=== PATIENT | male | born 1940 | race Caucasian/White ===

== ENCOUNTER 2017-11-16 16:32 | Emergency (ER) | payer OTHER ==
[~2017-11-16] VITALS: Ht 170.2 cm; Wt 83.9 kg
--- OUTSIDE RECORDS SUMMARY | ~2017-11-16 | XMS | Encounter Summary ---
Demographics + + + | Address | [address] | | | [place] [address] | + + + | Home Phone | | + + + | Preferred Language | Unknown | + + + | Marital Status | | + + + | Christian Affiliation | 1009 | + + + | Race | Unknown | + + + | Ethnic Group | Unknown | + + + Author + + + | Author | [facility] | | | and [place] | + + + | Organization | [facility] | | | and [place] | + + + | Address | Unknown | + + + | Phone | Unavailable | + + + Support + + + + + | Name | Relationship | Address | Phone | + + + + + | Tameka Cristobal | ECON | [address] | | | | | [place] [address] | | + + + + + Care Team Providers + +------+ + | Care Pony Cylinder Press Operator Name | Role | Phone | + +------+ + | Ann Rivera MD | PCP | | + +------+ + Reason for Visit + + + | Reason | Comments | + + + | Abnormal Lab | | + + + Auth/Cert +--------+--------+ + + + + | Status | Reason | Specialty | Diagnoses / | Referred By | Referred To | | | | | Procedures | Contact | Contact | +--------+--------+ + + + + | | | | Diagnoses | | | | | | | Weakness | | | | | | | Shortness of | | | | | | | breath on | | | | | | | exertion | | | | | | | Symptomatic | | | | | | | anemia | | | | | | | Anemia, | | | | | | | unspecified | | | | | | | type | | | +--------+--------+ + + + + Encounter Details +--------+---------+ + + + | Date | Type | Department | Care Team | Description | +--------+---------+ + + + | 08/28/ | Surgery | [facility] | Linda Carpenter MD | EGD | | 2018 | | [facility] | [address], [place] | | | | | [address] | [address] | | | | | [place], [place] | [address] | | | | | [phone] | | | | | | [phone] | | | +--------+---------+ + + + Social History + +--------+ +--------+ + | Tobacco Use | Types | Packs/Day | Years | Date | | | | | Used | | + +--------+ +--------+ + | Former Smoker | Cigars | | | Quit: 12/26/1966 | + +--------+ +--------+ + + +---+---+---+ | Smokeless Tobacco: | | | | | Never Used | | | | + +---+---+---+ + + +---------+ + | Alcohol Use | Drinks/We | oz/Week | Comments | | | ek | | | + + +---------+ + | Yes | 14 | 8.4 | | | | Glasses | | | | | of wine | | | + + +---------+ + + + + | Sex Assigned at | Date Recorded | | | | + + + | Not on file | | + + + as of this encounter Last Filed Vital Signs + + + + | Vital Sign | Reading | Time Taken | + + + + | Blood Pressure | 127/74 | 08/28/20171718 PDT | + + + + | Pulse | 75 | 08/28/20171718 PDT | + + + + | Temperature | 36 C (96.8 F) | 08/28/20171718 PDT | + + + + | Respiratory Rate | 20 | 08/28/20171718 PDT | + + + + | Oxygen Saturation | 99% | 08/28/20171718 PDT | + + + + | Inhaled Oxygen | - | - | | Concentration | | | + + + + | Weight | 79.8 kg (175 lb 14.8 | 08/28/2017 0200 PDT | | | oz) | | + + + + | Height | 170.2 cm (5' 7") | 08/26/20171601 PDT | + + + + | Body Mass Index | 27.55 | 08/28/2017 0200 PDT | + + + + in this encounter Functional Status + + + + | Functional Status | Response | Date of Assessment | + + + + | Are you deaf or do you have serious | No | 08/28/2017 | | difficulty hearing? | | | + + + + | Are you blind or do you have serious | No | 08/28/2017 | | difficulty seeing, even when wearing | | | | glasses? | | | + + + + | Do you have serious difficulty walking or | No | 08/28/2017 | | climbing stairs? (5 years old or older) | | | + + + + | Do you have difficulty dressing or bathing? | No | 08/28/2017 | | (5 years old or older) | | | + + + + | Because of a physical, mental, or emotional | No | 08/28/2017 | | condition, do you have difficulty doing | | | | errands alone such as visiting a doctor's | | | | office or shopping? [15 years old or | | | | older)] | | | + + + + + + + + | Cognitive Status | Response | Date of Assessment | + + + + | Because of a physical, mental, or emotional | No | 08/28/2017 | | condition, do you have serious difficulty | | | | concentrating, remembering, or making | | | | decisions? (5 years old or older) | | | + + + + as of this encounter Discharge Summaries Anish Arroyo MD - 08/28/2017 1610 PDTFormatting of this note may be different from th e original. DISCHARGE SUMMARY Patient Name: Linda Cristobal : 1940 Date of Admission: 08/26/2017 Date of Discharge: 08/28/17 Admitting Physician: Suri Celis MD Discharging Physician: Anish Arroyo MD Primary Care Provider: Sherrie Rivera MD Discharge Diagnoses: Principal Problem: Anemia associated with acute blood loss Active Problems: Leg edema Upper GI bleeding Severe protein-calorie malnutrition Hypokalemia Hypomagnesemia Duodenal ulcer Low back pain Diabetes mellitus, type II - ORAL Control Essential hypertension Resolved Problems: * No resolved hospital problems. 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 Carpenter of GI Procedures: 08/28 EGD: Upper endoscopy was remarkable for antral gastritis. 2 ulcers were in the duodenal bulb an d duodenal sweep appeared to be healing. There was no evidence of visible vessel etc. H. py cande biopsy was obtained. I would continue the patient on his PPI therapy at 40 mg twice a day for a total of 2 weeks and then daily at least for 6 additional weeks. Xr Chest Pa And Lateral Result Date: 08/26/2017 EXAM: XR CHEST PA AND LATERAL dated 08/26/2017 6:21 PM HISTORY: ABNORMAL LAB Comparison: May TECHNIQUE: Frontal and lateral views of the chest. FINDINGS: The lungs are symme trically aerated. Hyperexpansion suggesting underlying obstructive pulmonary disease. Bila teral pleural plaque. No acute airspace disease. No pleural effusion. There are no pleura l effusions. There is no pneumothorax. Mild stable cardiomegaly. Partial visualization of disc arthroplasty changes in the cervical spine and fusion changes in the lumbar spine. IMP RESSION - No radiographic evidence for acute disease in the chest. 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 Mild cardiomegaly. Dictated and Signed by: Linda Medina MD Electronically signed: 08/26/2017 6:31 PM Labs in the last 24 hours: Recent Results (from the past 24 hour(s)) Red Blood Cells Uncrossmatched - 3 Units Result Value Ref Range Product Code O7913F07 UNIT # [id number] UNIT ABO A UNIT RH POS CROSSMATCH INTERP Compatible Unit Status Transfused Blood Product ABORh APOS Blood Product Expiration Date and Time Product Blood Type Barcode 6200 Product Code C0051S66 UNIT # [id number] UNIT ABO A UNIT RH POS CROSSMATCH INTERP Compatible Unit Status Transfused Blood Product ABORh APOS Blood Product Expiration Date and Time Product Blood Type Barcode 6200 Product Code G1847S83 UNIT # [id number] UNIT ABO A UNIT RH POS CROSSMATCH INTERP Compatible Unit Status Transfused Blood Product ABORh APOS Blood Product Expiration Date and Time [id number] Product Blood Type Barcode 6200 CBC with Differential Result Value Ref Range WBC 4.8 4.0 - 11.0 K/uL RBC 3.33 (L) 4.30 - 5.70 M/uL Hgb 11.6 (L) 13.5 - 18.0 g/dL Hct 30.6 (L) 40.0 - 51.0 % MCV 91.9 83.0 - 101.0 fL MCH 34.7 28.0 - 35.0 pg MCHC 37.8 (H) 32.0 - 36.0 g/dL RDW-CV 15.3 (H) <15.0 % Platelet Count 229 140 - 440 K/uL MPV 6.9 fL % Neutrophils 70.0 45.0 - 82.0 % % Lymphocytes 20.4 20.0 - 45.0 % % Monocytes 6.5 4.0 - 12.0 % % Eosinophils 2.3 0.0 - 5.0 % % Basophils 0.8 0.0 - 1.0 % Absolute Neutrophils 3.30 1.80 - 8.50 K/uL Absolute Lymphocytes 1.00 0.60 - 3.20 K/uL Absolute Monocytes 0.30 0.00 - 1.00 K/uL Absolute Eosinophils 0.10 0.00 - 0.40 K/uL Absolute Basophils 0.00 0.00 - 0.10 K/uL Basic Metabolic Panel Result Value Ref Range NA 136 136 - 149 mmol/L K 2.9 (L) 3.5 - 5.1 mmol/L CL 107 98 - 109 mmol/L CO2 21 (L) 24 - 31 mmol/L ANION GAP 8 3 - 16 mmol/L GLUCOSE 77 70 - 109 mg/dL BUN 7 7 - 18 mg/dL Creatinine, Serum/Plasma 0.74 0.60 - 1.30 mg/dL eGFR if not >60 >=60 mL/min/1.73m2 CALCIUM 8.2 (L) 8.3 - 10.5 mg/dL BUN/CREA 9.5 Magnesium Result Value Ref Range MG 0.9 (LL) 1.8 - 2.5 mg/dL Phosphorus Result Value Ref Range PHOSPHORUS 3.0 2.5 - 4.6 mg/dL Prealbumin Result Value Ref Range PREALBUMIN 15 (L) 18 - 38 mg/dL Reason for Admission: Please refer to the H&P for full details. In short, this is a 76 y.o. male with a history of degenerative lumbar disease s/p lumbar fusion on 07/[address] Tao, recent upper GI bleed tr eated at [facility], deconditioning with a number of falls, who presented with weakn ess, leg edema, weight loss, found to have severe anemia. Problem-Oriented Hospital Course: Upper GI bleed with blood loss anemia: - Christiano melena recently noted on 08/14-08/18 hospital stay at [facility], treated with Protonix, 2 units of PRBC's, no EGD done at outside hospital - Reportedly using NSAID's before this event, although history unclear - HGB fell from 11.5 on 08/18 on release from [place] to 7.2 on 08/26 - After 3 units on arrival, HGB stable at 11.6 today, no report of significant bleed while here - Placed on IV pantoprazole twice daily - Spoke with Dr. Carpenter, EGD 08/28 showed 2 duodenal ulcers, likely the source of the bleedin g, although no active bleed - Pantoprazole twice daily for two weeks, then daily for 6 weeks - No NSAID's or aspirin - H pylori results pending Recent lumbar surgery: - On 07/02, had lumbar fusion, L3-S1 - Still recovering from this, not taking pain meds at this point, stopped gabapentin which he is not taking - LSO precautions, work with PT/OT in the hospital - Appreciate PT/OT consult, plan to transfer to IRF today Severe protein calorie malnutrition: - Has lost about 25 pounds this year, with acknowledged poor intake, has severe electrolyte abnormalities and edema - Appreciate nutrition consult - Check Vitamin D level 08/29 Hypomagnesemia/hypokalemia: - Correct while here, monitor closely, likely partly due to malnutrition, may be partly due to alcohol as well - Mag of 0.9, gave 4 gm IV mag today, started on mag oxide, would check daily for several d ays - Hypokalemia of 2.9, gave 3 doses of oral potassium, check daily for now Leg edema: - Significant, likely had some high-output heart failure from severe anemia, also may be an effect of malnutrition - HGB stable currently, consider starting furosemide when K corrected and monitor closely Diabetes mellitus, oral control: - BS <100, stop metformin - Weighed 200 pounds until April, now down to 179 (with significant fluid overload), not cl ear that he has diabetes at this point - Should not restart metformin, stopped BS checks. Hyperlipidemia: - On rosuvastatin/fenofibrate Cognitive deficits: - Chronic and worsening per recorded history from - Calm, cooperative, no acute problems, much sharper 08/28, oriented to person, place, year, and month, although not date Glaucoma: - Continue home regimen Code Status: No Code. Disposition: IRF Discharge Condition: Stable, oriented, appropriate, pleasant and cooperative, joking Lungs clear Heart RRR Abdomen soft, NT Ext WWP, with 2-3 cm pitting edema Current Facility-Administered Medications: acetaminophen 650 mg Oral Q4H PRN docusate sodium 100 mg Oral BID PRN dorzolamide 2 drop Both Eyes BID fenofibrate 160 mg Oral Daily latanoprost 1 drop Both Eyes Nightly magnesium oxide 400 mg Oral Daily melatonin 1.5 mg Oral Nightly PRN ondansetron 4 mg Intravenous Q6H PRN pantoprazole 40 mg Oral BID AC polyethylene glycol 17 g Oral Daily PRN potassium chloride 20 mEq Oral Once [START ON 08/29/2017] potassium chloride 20 mEq Oral Daily rosuvastatin 10 mg Oral Nightly senna 8.6 mg Oral BID PRN Studies With Pending Results: h pylori results Greater than 30 minutes were spent on discharge and coordination of post-hospital care. Electronically signed by: Anish Arrooy MD, 08/28/2017 16:21 [facility] in this encounter Medications at Time of Discharge + + +---------+---------+ + + | Medication | Sig. | Disp. | Refills | Start | End Date | | | | | | Date | | + + +---------+---------+ + + | ammonium lactate | Apply 1 Application | | | | | | (LAC-HYDRIN) 12% | topically as needed | | | | | | lotion | for Dry Skin. | | | | | + + +---------+---------+ + + | chlorpheniramine | Take 4 mg by mouth | | | | | | (CHLOR-TRIMETON) 4 | every 6 hours as | | | | | | MG tablet | needed for | | | | | | | Allergies. | | | | | + + +---------+---------+ + + | Cholecalciferol | Take 1,000 Units by | | | | | | (VITAMIN D PO) | mouth. | | | | | + + +---------+---------+ + + | dorzolamide | Place 2 drops into | 20 mL | 0 | 07/05/20 | | | (TRUSOPT) 2% | both eyes 2 times | | | 18 | | | ophthalmic solution | daily. | | | | | + + +---------+---------+ + + | dorzolamide | Place 2 drops into | | | | | | (TRUSOPT) 2% | both eyes 2 times | | | | | | ophthalmic solution | daily. | | | | | + + +---------+---------+ + + | ferrous sulfate | Take 1 tablet by | 30 | 0 | 09/04/19 | | | 325 mg tablet | mouth 2 times daily | tablet | | 18 | | | | (with breakfast & | | | | | | | dinner). | | | | | + + +---------+---------+ + + | latanoprost | 1 drop nightly. | | | | | | (XALATAN) 0.005% | | | | | | | ophthalmic solution | | | | | | + + +---------+---------+ + + | magnesium oxide | Take 1 tablet by | 60 | 1 | 09/04/19 | | | (MAG-OX) 400 mg | mouth 2 times daily. | tablet | | 18 | | | tablet | | | | | | + + +---------+---------+ + + | Multiple | Take 1 tablet by | | | | | | Vitamins-Minerals | mouth Daily. | | | | | | (ADULT MULTIVITAMIN | | | | | | | WITH MINERALS/IRON) | | | | | | | TABS | | | | | | + + +---------+---------+ + + | pantoprazole | Take 1 tablet by | 60 | 1 | 09/04/19 | | | (PROTONIX) 40 mg | mouth 2 times daily | tablet | | 18 | | | tabletIndications: | (before meals). | | | | | | | Indications: | | | | | + + +---------+---------+ + + | rosuvastatin | Take 20 mg by mouth | | | | | | (CRESTOR) 20 mg | nightly. | | | | | | tablet | | | | | | + + +---------+---------+ + + | acetaminophen | Take 2 tablets by | 120 | 0 | 09/04/19 | | | (TYLENOL) 325 mg | mouth every 4 hours | tablet | | 18 | 8 | | tablet | as needed for Pain | | | | | | | (or fever >= 38.6 C | | | | | | | (101.5 F)). | | | | | + + +---------+---------+ + + | clobetasol | Apply topically | | | | | | (TEMOVATE) 0.05% | Twice daily as | | | | 8 | | cream | needed. | | | | | + + +---------+---------+ + + | fenofibrate | Take 145 mg by mouth | | | | | | (TRICOR) 145 mg | Daily. | | | | 8 | | tablet | | | | | | + + +---------+---------+ + + | magnesium oxide | Take 400 mg by mouth | | | | | | (MAG-OX) 400 mg | Daily. | | | | 8 | | tablet | | | | | | + + +---------+---------+ + + | metFORMIN | Take 500 mg by mouth | | | | | | (GLUCOPHAGE) 500 mg | 2 times daily (with | | | | 8 | | tablet | breakfast & | | | | | | | dinner). | | | | | + + +---------+---------+ + + | POLYVINYL ALCOHOL | Apply to eye 2 | | | | | | OP | times daily. | | | | 8 | + + +---------+---------+ + + | senna (SENOKOT) | Take 1 tablet by | 40 | 0 | 09/04/19 | | | 8.6 mg tablet | mouth Twice daily | tablet | | 18 | 8 | | | as needed for | | | | | | | Constipation. | | | | | + + +---------+---------+ + + | travoprost | Place 1 drop into | | | | | | (TRAVATAN Z) 0.004% | both eyes nightly. | | | | 8 | | ophthalmic solution | | | | | | + + +---------+---------+ + + as of this encounter Progress Notes Linda Carpenter MD - 08/28/2017 1332 PDTPatient was seen earlier this morning. Upper endos copy was explained to the patient due to his past history of upper GI bleed requiring transf usions and current drop in hemoglobin. We will proceed with upper endoscopy consent form is signedAnish Arroyo MD - 08/28/2017 0958 PDTFormatting of this note may be different f rom the original. [facility] Hospitalist Progress Note Linda Yakovmelquiades Cristobal is a 76 y.o. male SUBJECTIVE: No acute pain this morning. Some appetite. No bleeding reported overnight. No nausea o r vomiting. Legs have been swollen for several months. VITALS: Temp: 35.9 C (96.6 F), Pulse: 65, Resp: 16, BP: 111/52, SpO2 99 % on room air Temp Min : 35.9 C (96.6 F) Max: 37.4 C (99.4 F) Weight: 80.3 kg (177 lb) Intake/Output Summary (Last 24 hours) at 08/28/17 1005 Last data filed at 08/28/17 0817 Gross per 24 hour Intake 440 ml Output 1600 ml Net -1160 ml PHYSICAL EXAM: General: Alert, sharper this morning, sitting up in lumbar brace Cardiovascular: RRR Respiratory: CTA bilaterally Abdomen: Soft, NT, bowel sounds present Extremities: WWP, slightly diminished edema 2-3 cm pitting edema bilaterally Neurological: Oriented to person, place, "August 17", situation Bishop catheter present: No DIAGNOSTIC STUDIES: Available data and images were reviewed personally. Significant results and findings are a ddressed here or in the Assessment and Plan. Recent Results (from the past 24 hour(s)) POC Glucose Result Value Ref Range Glucose, POC 93 70 - 109 mg/dL Basic Metabolic Panel Result Value Ref Range NA 135 (L) 136 - 149 mmol/L K 4.1 3.5 - 5.1 mmol/L CL 111 (H) 98 - 109 mmol/L CO2 19 (L) 24 - 31 mmol/L ANION GAP 5 3 - 16 mmol/L GLUCOSE 90 70 - 109 mg/dL BUN 9 7 - 18 mg/dL Creatinine, Serum/Plasma 0.76 0.60 - 1.30 mg/dL eGFR if not >60 >=60 mL/min/1.73m2 CALCIUM 8.7 8.3 - 10.5 mg/dL BUN/CREA 11.8 CBC with Differential Result Value Ref Range WBC 6.1 4.0 - 11.0 K/uL RBC 3.56 (L) 4.30 - 5.70 M/uL Hgb 11.8 (L) 13.5 - 18.0 g/dL Hct 33.1 (L) 40.0 - 51.0 % MCV 93.0 83.0 - 101.0 fL MCH 33.1 28.0 - 35.0 pg MCHC 35.6 32.0 - 36.0 g/dL RDW-CV 15.5 (H) <15.0 % Platelet Count 208 140 - 440 K/uL MPV 6.9 fL % Neutrophils 73.3 45.0 - 82.0 % % Lymphocytes 18.0 (L) 20.0 - 45.0 % % Monocytes 5.6 4.0 - 12.0 % % Eosinophils 1.9 0.0 - 5.0 % % Basophils 1.2 (H) 0.0 - 1.0 % Absolute Neutrophils 4.50 1.80 - 8.50 K/uL Absolute Lymphocytes 1.10 0.60 - 3.20 K/uL Absolute Monocytes 0.30 0.00 - 1.00 K/uL Absolute Eosinophils 0.10 0.00 - 0.40 K/uL Absolute Basophils 0.10 0.00 - 0.10 K/uL Vitamin B-12 Result Value Ref Range VITAMIN B-12 381 180 - 914 pg/mL Folate Result Value Ref Range FOLATE 18.7 >5.8 ng/mL Red Blood Cells Uncrossmatched - 3 Units Result Value Ref Range Product Code J3265P60 UNIT # [id number] UNIT ABO A UNIT RH POS CROSSMATCH INTERP Compatible Unit Status Transfused Blood Product ABORh APOS Blood Product Expiration Date and Time Product Blood Type Barcode 6200 Product Code O1465H79 UNIT # [id number] UNIT ABO A UNIT RH POS CROSSMATCH INTERP Compatible Unit Status Transfused Blood Product ABOR APOS Blood Product Expiration Date and Time Product Blood Type Barcode 6200 Product Code S6829E98 UNIT # [id number] UNIT ABO A UNIT RH POS CROSSMATCH INTERP Compatible Unit Status Transfused Blood Product ABOR APOS Blood Product Expiration Date and Time Product Blood Type Barcode 6200 CBC with Differential Result Value Ref Range WBC 4.8 4.0 - 11.0 K/uL RBC 3.33 (L) 4.30 - 5.70 M/uL Hgb 11.6 (L) 13.5 - 18.0 g/dL Hct 30.6 (L) 40.0 - 51.0 % MCV 91.9 83.0 - 101.0 fL MCH 34.7 28.0 - 35.0 pg MCHC 37.8 (H) 32.0 - 36.0 g/dL RDW-CV 15.3 (H) <15.0 % Platelet Count 229 140 - 440 K/uL MPV 6.9 fL % Neutrophils 70.0 45.0 - 82.0 % % Lymphocytes 20.4 20.0 - 45.0 % % Monocytes 6.5 4.0 - 12.0 % % Eosinophils 2.3 0.0 - 5.0 % % Basophils 0.8 0.0 - 1.0 % Absolute Neutrophils 3.30 1.80 - 8.50 K/uL Absolute Lymphocytes 1.00 0.60 - 3.20 K/uL Absolute Monocytes 0.30 0.00 - 1.00 K/uL Absolute Eosinophils 0.10 0.00 - 0.40 K/uL Absolute Basophils 0.00 0.00 - 0.10 K/uL Basic Metabolic Panel Result Value Ref Range NA 136 136 - 149 mmol/L K 2.9 (L) 3.5 - 5.1 mmol/L CL 107 98 - 109 mmol/L CO2 21 (L) 24 - 31 mmol/L ANION GAP 8 3 - 16 mmol/L GLUCOSE 77 70 - 109 mg/dL BUN 7 7 - 18 mg/dL Creatinine, Serum/Plasma 0.74 0.60 - 1.30 mg/dL eGFR if not >60 >=60 mL/min/1.73m2 CALCIUM 8.2 (L) 8.3 - 10.5 mg/dL BUN/CREA 9.5 Magnesium Result Value Ref Range MG 0.9 (LL) 1.8 - 2.5 mg/dL Phosphorus Result Value Ref Range PHOSPHORUS 3.0 2.5 - 4.6 mg/dL Xr Chest Pa And Lateral Result Date: 08/26/2017 EXAM: XR CHEST PA AND LATERAL dated 08/26/2017 6:21 PM HISTORY: ABNORMAL LAB Comparison: May TECHNIQUE: Frontal and lateral views of the chest. FINDINGS: The lungs are symme trically aerated. Hyperexpansion suggesting underlying obstructive pulmonary disease. Bila teral pleural plaque. No acute airspace disease. No pleural effusion. There are no pleura l effusions. There is no pneumothorax. Mild stable cardiomegaly. Partial visualization of disc arthroplasty changes in the cervical spine and fusion changes in the lumbar spine. IMP RESSION - No radiographic evidence for acute disease in the chest. 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 Mild cardiomegaly. Dictated and Signed by: Linda Medina MD Electronically signed: 08/26/2017 6:31 PM ASSESSMENT and PLAN: Active Hospital Problems Diagnosis Severe protein-calorie malnutrition Hypokalemia Hypomagnesemia Leg edema Upper GI bleeding *Anemia associated with acute blood loss Low back pain Essential hypertension Diabetes mellitus, type II - ORAL Control Resolved Hospital Problems Diagnosis Date Noted Date Resolved No resolved problems to display. Upper GI bleed with blood loss anemia: - Christiano melena recently noted on 08/14-08/18 hospital stay at [facility], treated with Protonix, 2 units of PRBC's, no EGD has been done - Reportedly using NSAID's before this event, although history unclear - HGB fell from 11.5 on 08/18 to 7.2 on 08/26 - After 3 units on arrival, HGB stable at 11.6 today, no report of significant bleed while here - Placed on IV pantoprazole twice daily, NPO for EGD today - Spoke with Dr. Carpenter, who will plan on EGD today - Monitor HGB closely - No NSAID's or aspirin Recent lumbar surgery: - On 07/02, had lumbar fusion, L3-S1 - Still recovering from this, not taking pain meds at this point, stopped gabapentin which he is not taking - LSO precautions, work with PT/OT in the hospital - May need SNF Severe protein calorie malnutrition: - Has lost about 25 pounds this year, with acknowledged poor intake, has severe electrolyte abnormalities and edema - Appreciate nutrition consult - Check Vitamin D level Hypomagnesemia/hypokalemia: - Correct while here, monitor closely, likely partly due to malnutrition, may be partly due to alcohol as well Leg edema: - Significant, may have some high-output heart failure from severe anemia, also may be an e ffect of malnutrition - HGB stable currently, give furosemide IV and monitor closely Diabetes mellitus, oral control: - BS <100, stop metformin - Weighed 200 pounds until April, now down to 179 (with significant fluid overload) - Should not restart metformin, will stop BS checks. Hyperlipidemia: - On rosuvastatin/fenofibrate Cognitive deficits: - Chronic and worsening per recorded history from - Calm, cooperative, no acute problems Glaucoma: - Continue home regimen Disposition : SNF vs. Home with home health Prophylaxis : SCD's Current Facility-Administered Medications: acetaminophen 650 mg Oral Q4H PRN docusate sodium 100 mg Oral BID PRN dorzolamide 2 drop Both Eyes BID fenofibrate 160 mg Oral Daily latanoprost 1 drop Both Eyes Nightly magnesium sulfate 4 g Intravenous Once melatonin 1.5 mg Oral Nightly PRN ondansetron 4 mg Intravenous Q6H PRN pantoprazole 40 mg Intravenous BID polyethylene glycol 17 g Oral Daily PRN potassium chloride 20 mEq Oral 4x Daily rosuvastatin 10 mg Oral Nightly senna 8.6 mg Oral BID PRN Total time of approximately 25 minutes was spent with the patient and/or patient's family, and/or on the patient's floor/unit, of which more than 50% was spent counseling and/or coord ination the patient's care as outlined above. Anish Arroyo 08/28/2017 10:05 [facility] Anish Arroyo MD - 08/27/2017 1235 PDTFormatting of this note may be different from th e original. [facility] PMG Hospitalist Progress Note Linda Cristobal is a 76 y.o. male SUBJECTIVE: He is a very poor historian. He denies bleeding or black stools. He reports pain is con trolled. He wants to get home as soon as possible. In review of recent admission to [facility] in [place], he was admitted from to 08/18. He was initially admitted for fall, found to have mild confusion (has some bas akash dementia), found to have severe hyponatremia to 122, DILIP with creatinine of 1.9, thoug ht to be hypovolemia related to HCTZ, this was stopped, and his renal function improved. Ho wever, he developed significant melena in the hospital, and his HGB dropped from 11.6 to 8. He was treated medically with Protonix, given 2 units of PRBC's, did not have an EGD, and h is discharge HGB on 08/18 was 11.5. This was thought to be caused by a peptic ulcer related to NSAID use, but not clear. He was supposed to be taking Protonix at discharge Admitted yesterday with HGB of 7, received 3 U PRBC's, HGB is 11.8 today. VITALS: Temp: 37.4 C (99.4 F), Pulse: 71, Resp: 16, BP: 116/68, SpO2 97 % on room air Temp Min : 35.6 C (96 F) Max: 37.4 C (99.4 F) Weight: 80.3 kg (177 lb) Intake/Output Summary (Last 24 hours) at 08/27/17 1600 Last data filed at 08/27/17 0953 Gross per 24 hour Intake 1193 ml Output 1350 ml Net -157 ml PHYSICAL EXAM: General: Anxious, no acute distress, poor historian Cardiovascular: RRR Respiratory: Slight crackles in bases Abdomen: Soft, NT, bowel sounds present Extremities: 3-4 cm pitting edema bilaterally Bishop catheter present: No DIAGNOSTIC STUDIES: Available data and images were reviewed personally. Significant results and findings are a ddressed here or in the Assessment and Plan. Recent Results (from the past 24 hour(s)) Comprehensive Metabolic Panel Result Value Ref Range NA 131 (L) 136 - 149 mmol/L K 3.2 (L) 3.5 - 5.1 mmol/L CL 104 98 - 109 mmol/L CO2 19 (L) 24 - 31 mmol/L ANION GAP 8 3 - 16 mmol/L GLUCOSE 99 70 - 109 mg/dL BUN 12 7 - 18 mg/dL Creatinine, Serum/Plasma 0.78 0.60 - 1.30 mg/dL eGFR if not >60 >=60 mL/min/1.73m2 CALCIUM 9.0 8.3 - 10.5 mg/dL ALBUMIN 2.7 (L) 3.2 - 5.0 g/dL Bilirubin Total 0.6 0.1 - 1.5 mg/dL Total protein 5.2 (L) 6.0 - 7.8 g/dL AST 33 10 - 42 U/L ALT 23 6 - 45 U/L ALK PHOS 49 40 - 110 U/L GLOBULIN 2.5 2.1 - 3.8 g/dL Albumin/Globulin ratio 1.1 0.8 - 2.0 BUN/CREA 15.4 Protime INR Result Value Ref Range Protime 15.6 (H) 11.3 - 13.9 seconds INR 1.24 (H) 0.90 - 1.10 Type and Screen Result Value Ref Range ABO A Rh Type Positive Antibody Screen Negative Ferritin Result Value Ref Range FERRITIN 201 24 - 366 ng/mL Iron and Transferrin Result Value Ref Range IRON 19 (L) 50 - 160 ug/dL TRANSFERRIN 232.4 (L) 240.0 - 480.0 mg/dL TIBC 325 235 - 425 ug/dL % SATURATION 5.8 (L) 20.0 - 55.0 % B Type Natriuretic Peptide Result Value Ref Range BNP 125 (H) <100 pg/mL CBC with Differential Result Value Ref Range WBC 4.0 4.0 - 11.0 K/uL RBC 2.18 (L) 4.30 - 5.70 M/uL Hgb 7.2 (LL) 13.5 - 18.0 g/dL Hct 21.0 (L) 40.0 - 51.0 % MCV 96.4 83.0 - 101.0 fL MCH 33.0 28.0 - 35.0 pg MCHC 34.2 32.0 - 36.0 g/dL RDW-CV 16.3 (H) <15.0 % Platelet Count 270 140 - 440 K/uL MPV 6.6 fL % Neutrophils 69.4 45.0 - 82.0 % % Lymphocytes 20.5 20.0 - 45.0 % % Monocytes 7.1 4.0 - 12.0 % % Eosinophils 1.8 0.0 - 5.0 % % Basophils 1.2 (H) 0.0 - 1.0 % Absolute Neutrophils 2.80 1.80 - 8.50 K/uL Absolute Lymphocytes 0.80 0.60 - 3.20 K/uL Absolute Monocytes 0.30 0.00 - 1.00 K/uL Absolute Eosinophils 0.10 0.00 - 0.40 K/uL Absolute Basophils 0.00 0.00 - 0.10 K/uL Retic Count Result Value Ref Range Retic Count 7.4 (H) 0.5 - 1.5 % Retic Count, Absolute 0.1596 M/uL Extra Green Top Tube Result Value Ref Range Extra Green Top Tube Done Extra Blue Top Tube Result Value Ref Range Extra Blue Top Tube Done POCT Occ Bld Stl not Colorectal Neoplasm Result Value Ref Range Occult Blood x1, Stool, POC Positive (A) Negative Occult Blood x2, Stool, POC Negative Occult Blood x3, Stool, POC Negative Occult Blood QC Result Acceptable Card Lot # Card Expiration Date Developer Lot # [id number] Developer Exp. Date POC Glucose Result Value Ref Range Glucose, POC 77 70 - 109 mg/dL Hemoglobin and Hematocrit Result Value Ref Range Hgb 8.0 (L) 13.5 - 18.0 g/dL Hct 22.9 (L) 40.0 - 51.0 % ECG 12 lead Result Value Ref Range VENTRICULAR RATE EKG 53 BPM ATRIAL RATE 53 BPM P-R INTERVAL 216 ms QRS DURATION 78 ms Q-T INTERVAL 422 ms Q-T INTERVAL (CORRECTED) 395 ms P WAVE AXIS 19 degrees QRS AXIS 44 degrees T AXIS 43 degrees INTERPRETATION TEXT Sinus bradycardia with 1st degree AV block Otherwise normal ECG When compared with ECG of 10-JUN-2017 11:05, T wave amplitude has increased in Inferior leads Confirmed by GRECIA ONTIVEROS MD ([id number]) on 08/27/2017 6:54:43 AM POC Glucose Result Value Ref Range Glucose, POC 77 70 - 109 mg/dL Hemoglobin and Hematocrit Result Value Ref Range Hgb 12.1 (L) 13.5 - 18.0 g/dL Hct 33.7 (L) 40.0 - 51.0 % POC Glucose Result Value Ref Range Glucose, POC 93 70 - 109 mg/dL Basic Metabolic Panel Result Value Ref Range NA 135 (L) 136 - 149 mmol/L K 4.1 3.5 - 5.1 mmol/L CL 111 (H) 98 - 109 mmol/L CO2 19 (L) 24 - 31 mmol/L ANION GAP 5 3 - 16 mmol/L GLUCOSE 90 70 - 109 mg/dL BUN 9 7 - 18 mg/dL Creatinine, Serum/Plasma 0.76 0.60 - 1.30 mg/dL eGFR if not >60 >=60 mL/min/1.73m2 CALCIUM 8.7 8.3 - 10.5 mg/dL BUN/CREA 11.8 CBC with Differential Result Value Ref Range WBC 6.1 4.0 - 11.0 K/uL RBC 3.56 (L) 4.30 - 5.70 M/uL Hgb 11.8 (L) 13.5 - 18.0 g/dL Hct 33.1 (L) 40.0 - 51.0 % MCV 93.0 83.0 - 101.0 fL MCH 33.1 28.0 - 35.0 pg MCHC 35.6 32.0 - 36.0 g/dL RDW-CV 15.5 (H) <15.0 % Platelet Count 208 140 - 440 K/uL MPV 6.9 fL % Neutrophils 73.3 45.0 - 82.0 % % Lymphocytes 18.0 (L) 20.0 - 45.0 % % Monocytes 5.6 4.0 - 12.0 % % Eosinophils 1.9 0.0 - 5.0 % % Basophils 1.2 (H) 0.0 - 1.0 % Absolute Neutrophils 4.50 1.80 - 8.50 K/uL Absolute Lymphocytes 1.10 0.60 - 3.20 K/uL Absolute Monocytes 0.30 0.00 - 1.00 K/uL Absolute Eosinophils 0.10 0.00 - 0.40 K/uL Absolute Basophils 0.10 0.00 - 0.10 K/uL Vitamin B-12 Result Value Ref Range VITAMIN B-12 381 180 - 914 pg/mL Folate Result Value Ref Range FOLATE 18.7 >5.8 ng/mL Red Blood Cells Uncrossmatched - 3 Units Result Value Ref Range Product Code C2918K15 UNIT # [id number] UNIT ABO A UNIT RH POS CROSSMATCH INTERP Compatible Unit Status Transfused Blood Product ABORh APOS Blood Product Expiration Date and Time 697598334785 Product Blood Type Barcode 6200 Product Code J4827S69 UNIT # [id number] UNIT ABO A UNIT RH POS CROSSMATCH INTERP Compatible Unit Status Issued Blood Product ABORh APOS Blood Product Expiration Date and Time 541032973946 Product Blood Type Barcode 6200 Product Code T2590P29 UNIT # [id number] UNIT ABO A UNIT RH POS CROSSMATCH INTERP Compatible Unit Status Transfused Blood Product ABORh APOS Blood Product Expiration Date and Time Product Blood Type Barcode 6200 Xr Chest Pa And Lateral Result Date: 08/26/2017 EXAM: XR CHEST PA AND LATERAL dated 08/26/2017 6:21 PM HISTORY: ABNORMAL LAB Comparison: May TECHNIQUE: Frontal and lateral views of the chest. FINDINGS: The lungs are symme trically aerated. Hyperexpansion suggesting underlying obstructive pulmonary disease. Bila teral pleural plaque. No acute airspace disease. No pleural effusion. There are no pleura l effusions. There is no pneumothorax. Mild stable cardiomegaly. Partial visualization of disc arthroplasty changes in the cervical spine and fusion changes in the lumbar spine. IMP RESSION - No radiographic evidence for acute disease in the chest. 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 Mild cardiomegaly. Dictated and Signed by: Linda Medina MD Electronically signed: 08/26/2017 6:31 PM Xr Lumbar Spine 2 Or 3 Vw Result Date: 08/26/2017 XR LUMBAR SPINE 2 OR 3 VW 08/26/2017 7:08 AM HISTORY: post lumbar fusion. COMPARISON: 018 FINDINGS: Stable post fusion changes at L2-L5 since 07/29/2017; however, there has been a nterior subsidence of the L3-L4 intervertebral disc spacer since 07/29/2017 as well as worsen ing of a mild anterior/central compression deformity fracture of L3 since 07/02/2017. The L3 p edicle screws now abut/possibly protrude through the anterior superior endplate. Similar leigh earance of the L2-L3 and L3-L4 disc spacers. Moderate spondylosis at the remaining unfused l umbar levels. Moderate aortic calcifications are present. IMPRESSION - Stable post fusion ch anges at L2-L5 since 07/29/2017; however, there has been anterior subsidence of the L3-L4 int ervertebral disc spacer since 07/29/2017 as well as worsening of a mild anterior/central comp ression deformity fracture of L3 since 07/02/2017. The L3 pedicle screws now abut/possibly pro trude through the anterior superior endplate. Dictated and Signed by: Paul Ramirez MD Chapis ctronically signed: 08/26/2017 8:29 AM ASSESSMENT and PLAN: Active Hospital Problems Diagnosis Leg edema Upper GI bleeding Low back pain *Symptomatic anemia Essential hypertension Diabetes mellitus, type II - ORAL Control Resolved Hospital Problems Diagnosis Date Noted Date Resolved No resolved problems to display. Upper GI bleed with blood loss anemia: - Christiano melena recently noted on 08/14-08/18 hospital stay at [facility], treated with Protonix, 2 units of PRBC's, no EGD done yet - Reportedly using NSAID's before this event, although history unclear - HGB fell from 11.5 on 08/18 to 7.2 on 08/26 - After 3 units overnight, HGB stable at 11.8 today - Place on IV pantoprazole twice daily, switch to clear liquids - Spoke with Dr. Carpenter, who will consult, felt he will likely need EGD given his apparent o ngoing bleeding - Monitor HGB closely - No NSAID's or aspirin Recent lumbar surgery: - On 07/02, had lumbar fusion, L3-S1 - Still recovering from this, not taking pain meds at this point, stop gabapentin which he is not taking - LSO precautions, work with PT/OT in the hospital Leg edema: - Significant, may have some high-output heart failure from severe anemia - HGB stable currently, give furosemide IV and monitor closely Diabetes mellitus, oral control: - BS <100, stop metformin - Weighed 200 pounds until April, now down to 179 (with significant fluid overload) - Should not restart metformin, will stop BS checks. Hyperlipidemia: - On rosuvastatin/fenofibrate Cognitive deficits: - Chronic and worsening per recorded history from - Calm, cooperative, no acute problems Glaucoma: - Continue home regimen Disposition : Home Vs. SNF Prophylaxis : Compression stockings Current Facility-Administered Medications: acetaminophen 650 mg Oral Q4H PRN dextrose 12.5 g Intravenous PRN docusate sodium 100 mg Oral BID PRN dorzolamide 2 drop Both Eyes BID fenofibrate 160 mg Oral Daily insulin lispro 0-6 Units Subcutaneous 4x Daily WC and HS latanoprost 1 drop Both Eyes Nightly melatonin 1.5 mg Oral Nightly PRN metFORMIN 500 mg Oral BID WC ondansetron 4 mg Intravenous Q6H PRN [START ON 08/28/2017] pantoprazole 40 mg Oral BID AC polyethylene glycol 17 g Oral Daily PRN rosuvastatin 10 mg Oral Nightly senna 8.6 mg Oral BID PRN Total time of approximately 35 minutes was spent with the patient and/or patient's family, and/or on the patient's floor/unit, of which more than 50% was spent counseling and/or coord ination the patient's care as outlined above. Anish Arroyo 08/27/2017 16:00 [facility] Marah Fierro, PharmD - 08/26/20171957 PDTFormatting of this note may be different from the original. PHARMACY SERVICES: ADMISSION MEDICATION REVIEW Linda Cristobal is a 76 y.o. male admitted on 08/26/2017. Patient is a reliable historian. Location of Patient when reviewed: X ED Medical Floor Patient s prior to admit medication and over the counter (OTC) medications/herbal supplem ents list obtained from: X Verbal interview X Patient ABLE to recall name, strength, and directions X Pharmacy list names: [facility] Vaccines up to date? Yes No Unsure Influenza X Pneumococcal X Tdap X Shingles X Noted medications discrepancies or medication-related issues: Medication added: Medication: Prior to Admission Sig: Rosuvastatin (Crestor) 20 mg tablet Take 1 tablet by mouth daily Magnesium Oxide 400 mg tablet Take 1 tablet by mouth daily Ammonium Lactate Cream 12 % Apply to affected areas as needed for dry skin Removed therapy: Medication: Prior to Admission Sig: Reason for Removal: Gabapentin 300 mg capsule Take 3 capsules by mouth 3 times daily Therapy complete Probenecid 500 mg tablet Take 1 tablet by mouth daily Therapy complete Rosuvastatin (Crestor) 40 mg tablet Take 10 mg by mouth daily Incorrect-Changed to correct dose and sig Recreational Substances , Tobacco & Alcohol use : Patient denies use of Tobacco, Alcohol, and Recreational substances 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 Provider ammonium lactate (LAC-HYDRIN) 12% lotion Apply 1 Application topically as needed for Dry S kin. Taking Historical MD Michael chlorpheniramine (CHLOR-TRIMETON) 4 MG tablet Take 4 mg by mouth every 6 hours as needed f or Allergies. Taking Historical MD Michael Cholecalciferol (VITAMIN D PO) Take 1,000 Units by mouth. Taking Historical MD Michael clobetasol (TEMOVATE) 0.05% cream Apply topically Twice daily as needed. Taking Silver alex MD Michael dorzolamide (TRUSOPT) 2% ophthalmic solution Place 2 drops into both eyes 2 times daily. T rudy Historical MD Michael fenofibrate (TRICOR) 145 mg tablet Take 145 mg by mouth Daily. Taking Historical MD Michael latanoprost (XALATAN) 0.005% ophthalmic solution 1 drop nightly. Taking Historical Provid erMD magnesium oxide (MAG-OX) 400 mg tablet Take 400 mg by mouth Daily. Taking Historical Prov iderMD metFORMIN (GLUCOPHAGE) 500 mg tablet Take 500 mg by mouth 2 times daily (with breakfast & dinner). Taking Historical MD Michael Multiple Vitamins-Minerals (ADULT MULTIVITAMIN WITH MINERALS/IRON) TABS Take 1 tablet by m outh Daily. Taking Historical ProviderMD POLYVINYL ALCOHOL OP Apply to eye 2 times daily. Taking Historical MD Michael rosuvastatin (CRESTOR) 20 mg tablet Take 20 mg by mouth nightly. Taking Historical Provid erMD travoprost (TRAVATAN Z) 0.004% ophthalmic solution Place 1 drop into both eyes nightly. Caleb okeefe Historical MD Michael Medication review performed and electronically signed by Felicitas Leiva, Director Hematology 08/26/2017 19:33 Reviewed by Marah Fierro, PharmD 08/26/2017 19:56 in this encounter Plan of Treatment +--------+---------+ + + + | Date | Type | Specialty | Care Team | Description | +--------+---------+ + + + | 01/05/ | Office | Neurosurgery | Berta Tao MD | | | 2018 | Visit | | [address] [facility] | | | | | | [address] [place] | | | | | | [id number] | | | | | | | | +--------+---------+ + + + + +--------+ + + | Name | Priori | Associated Diagnoses | Date/Time | | | ty | | | + +--------+ + + | ED INFORMATION EXCHANGE | Routin | | 08/26/2017 1559 PDT | | | e | | | + +--------+ + + as of this encounter Procedures + +--------+ + + + | Procedure Name | Priori | Date/Time | Associated Diagnosis | Comments | | | ty | | | | + +--------+ + + + | IMAGING REPORT - | | 09/01/2017 | | Results for this | | EXTERNAL SCAN | | 0000 PDT | | procedure are in the | | | | | | results section. | + +--------+ + + + | MAGNESIUM | Routin | 08/28/2017 | | Results for this | | | e | 1543 PDT | | procedure are in the | | | | | | results section. | + +--------+ + + + | BASIC METABOLIC | Routin | 08/28/2017 | | Results for this | | PANEL | e | 1543 PDT | | procedure are in the | | | | | | results section. | + +--------+ + + + | HELICOBACTER PYLORI | Routin | 08/28/2017 | | Results for this | | BIOPSY | e | 1340 PDT | | procedure are in the | | | | | | results section. | + +--------+ + + + | EGD | Routin | 08/28/2017 | | Results for this | | | e | 1319 PDT | | procedure are in the | | | | | | results section. | + +--------+ + + + | EGD | | 08/28/2017 | Upper GI bleed | | | | | 1310 PDT | | | + +--------+ + + + | CBC WITH | Routin | 08/28/2017 | | Results for this | | DIFFERENTIAL | e | 0456 PDT | | procedure are in the | | | | | | results section. | + +--------+ + + + | PREALBUMIN | Add-On | 08/28/2017 | | Results for this | | | | 0456 PDT | | procedure are in the | | | | | | results section. | + +--------+ + + + | PHOSPHORUS | Add-On | 08/28/2017 | | Results for this | | | | 0456 PDT | | procedure are in the | | | | | | results section. | + +--------+ + + + | MAGNESIUM | Add-On | 08/28/2017 | | Results for this | | | | 0456 PDT | | procedure are in the | | | | | | results section. | + +--------+ + + + | BASIC METABOLIC | Routin | 08/28/2017 | | Results for this | | PANEL | e | 0456 PDT | | procedure are in the | | | | | | results section. | + +--------+ + + + | PRODUCT: RBC | STAT | 08/27/2017 | | Results for this | | | | 1915 PDT | | procedure are in the | | | | | | results section. | + +--------+ + + + | VITAMIN B-12 | Routin | 08/27/2017 | | Results for this | | | e | 1314 PDT | | procedure are in the | | | | | | results section. | + +--------+ + + + | CBC WITH | Routin | 08/27/2017 | | Results for this | | DIFFERENTIAL | e | 1314 PDT | | procedure are in the | | | | | | results section. | + +--------+ + + + | FOLATE | Routin | 08/27/2017 | | Results for this | | | e | 1314 PDT | | procedure are in the | | | | | | results section. | + +--------+ + + + | BASIC METABOLIC | Routin | 08/27/2017 | | Results for this | | PANEL | e | 1314 PDT | | procedure are in the | | | | | | results section. | + +--------+ + + + | POC GLUCOSE | Routin | 08/27/2017 | | Results for this | | | e | 1153 PDT | | procedure are in the | | | | | | results section. | + +--------+ + + + | HEMOGLOBIN AND | Routin | 08/27/2017 | | Results for this | | HEMATOCRIT | e | 0703 PDT | | procedure are in the | | | | | | results section. | + +--------+ + + + | POC GLUCOSE | Routin | 08/27/2017 | | Results for this | | | e | 0626 PDT | | procedure are in the | | | | | | results section. | + +--------+ + + + | ECG 12 LEAD | STAT | 08/27/2017 | | Results for this | | | | 0612 PDT | | procedure are in the | | | | | | results section. | + +--------+ + + + | HEMOGLOBIN AND | Routin | 08/27/2017 | | Results for this | | HEMATOCRIT | e | 0041 PDT | | procedure are in the | | | | | | results section. | + +--------+ + + + | POC GLUCOSE | Routin | 08/26/2017 | | Results for this | | | e | 2227 PDT | | procedure are in the | | | | | | results section. | + +--------+ + + + | POCT OCCULT BLOOD | Routin | 08/26/2017 | | Results for this | | STOOL, OTHER THAN | e | 1932 PDT | | procedure are in the | | COLORECTAL NEOPLASM | | | | results section. | | SCREENING | | | | | + +--------+ + + + | XR CHEST PA AND | STAT | 08/26/2017 | | Results for this | | LATERAL | | 182 PDT | | procedure are in the | | | | | | results section. | + +--------+ + + + | EXTRA GREEN TOP TUBE | Routin | 08/26/2017 | | Results for this | | | e | 1651 PDT | | procedure are in the | | | | | | results section. | + +--------+ + + + | EXTRA BLUE TOP TUBE | Routin | 08/26/2017 | | Results for this | | | e | 1651 PDT | | procedure are in the | | | | | | results section. | + +--------+ + + + | RETIC COUNT | Routin | 08/26/2017 | | Results for this | | | e | 1651 PDT | | procedure are in the | | | | | | results section. | + +--------+ + + + | CBC WITH | STAT | 08/26/2017 | | Results for this | | DIFFERENTIAL | | 1651 PDT | | procedure are in the | | | | | | results section. | + +--------+ + + + | IRON AND TRANSFERRIN | Routin | 08/26/2017 | | Results for this | | | e | 1627 PDT | | procedure are in the | | | | | | results section. | + +--------+ + + + | PROTIME INR | STAT | 08/26/2017 | | Results for this | | | | 1627 PDT | | procedure are in the | | | | | | results section. | + +--------+ + + + | TYPE AND SCREEN | Routin | 08/26/2017 | | Results for this | | | e | 1627 PDT | | procedure are in the | | | | | | results section. | + +--------+ + + + | B TYPE NATRIURETIC | STAT | 08/26/2017 | | Results for this | | PEPTIDE | | 1627 PDT | | procedure are in the | | | | | | results section. | + +--------+ + + + | FERRITIN | Routin | 08/26/2017 | | Results for this | | | e | 1627 PDT | | procedure are in the | | | | | | results section. | + +--------+ + + + | COMPREHENSIVE | STAT | 08/26/2017 | | Results for this | | METABOLIC PANEL | | 1627 PDT | | procedure are in the | | | | | | results section. | + +--------+ + + + | ED INFORMATION | Routin | 08/26/2017 | | | | EXCHANGE | e | 1559 PDT | | | + +--------+ + + + +---+--------+ | | | | | Proced | | | ure | | | Note - | | | Farhan, | | | Lab In | | | | | | Hlseve | | | n - | | | 06/27/ | | | 2018 | | | 1600 | | | PDT | | | Format | | | ting | | | of | | | this | | | note | | | may be | | | | | | differ | | | ent | | | from | | | the | | | origin | | | al.[email or web address] | | | [id number] | | | LINDA | | | [id number] | | | [id number] | | | This | | | patien | | | t has | | | regist | | | ered | | | at the | | | | | | Provid | | | ence | | | [facility] | | | [facility] | [facility] | | | l | | | Center | | | | | | Emerge | | | ncy | | | Depart | | | ment | | | For | | | more | | | inform | | | ation | | | visit: | | | | | | https: | | | //secu | | | [email or web address] | | | ecarep | | | [email or web address] | | | [email or web address] | | | [email or web address]/[email or web address] | | | [id number] | | | -[phone] | | | [id number] | | | [email or web address] | | | [id number] | | | cfee | | | Securi | | | ty | | | Events | | | No | | | recent | | | | | | Securi | | | ty | | | Events | | | | | | curren | | | tly on | | | | | | fileED | | | Care | | | Guidel | | | inesTh | | | ere | | | are | | | curren | | | tly no | | | ED | | | Care | | | Guidel | | | rod | | | in | | | PATRICE | | | for | | | this | | | patien | | | t. | | | Please | | | check | | | your | | | facili | | | ty's | | | medica | | | l | | | record | | | s | | | system | | | .Recen | | | t | | | Emerge | | | ncy | | | Depart | | | ment | | | Visit | | | Summar | | | yAdmit | | | Date | | | Facili | | | ty | | | City | | | State | | | Type | | | Major | | | Type | | | Diagno | | | ses or | | | Chief | | | | | | Compla | | | int | | | [facility] | | | 27, | | | 2018 | | | Provid | | | ence | | | [facility] | | [facility] | [place] | | | [place] | | | Emerge | | | ncy | | | Emerge | | | ncy | | | Jonathan | | | 15, | | | 2018 | | | [place] | | | [place] | | | in [facility]. | | | Distri | | | [place] | | | [facility] . | | | [place] | | | Emerge | | | ncy | | | Emerge | | | ncy | | | Chief | | | Compla | | | int: | | | ACUTE | | | RENAL | | | FAILUR | | | E; | | | HYPONA | | | TREMIA | | | ; | | | DEHYDR | | | ATION | | | E.D. | | | Visit | | | Count | | | (12 | | | mo.)Fa | | | cility | | | | | | Visits | | | Low | | | Acuity | | | | | | Provid | | | ence | | | St. | | | [facility] | | | Medica | | | l | | | Center | | | 1 0 | | | [facility] | | | [place] | | | in | | | Hospit | | | al | | | Distri | | | ct 1 0 | | | Total | | | 2 0 | | | Note: | | | Visits | | | | | | indica | | | te | | | total | | | known | | | visits | | | . | | | Medica | | | id Low | | | | | | Acuity | | | Dx | | | are | | | the | | | number | | | of | | | primar | | | y | | | diagno | | | ses on | | | the | | | Medica | | | id's | | | Low | | | Acuity | | | dx | | | list. | | | | | | Recent | | | | | | Inpati | | | ent | | | Visit | | | Summar | | | yAdmit | | | Date | | | Facili | | | ty | | | City | | | State | | | Type | | | Major | | | Type | | | Diagno | | | ses or | | | Chief | | | | | | Compla | | | int | | | Jonathan | | | 15, | | | 2018 | | | [place] | | | [place] | | | in H. | | | Distri | | | [place] | | | [facility] [place] | | | [place] | | | Medica | | | l | | | Surgic | | | al | | | Inpati | | | ent | | | Chief | | | Compla | | | int: | | | ACUTE | | | RENAL | | | FAILUR | | | E; | | | HYPONA | | | TREMIA | | | ; | | | DEHYDR | | | ATION | | | May | | | 3, | | | 2018 | | | Provid | | | ence | | | St. | | | [facility] | [facility] | | | [place] 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 | | | us | | | withou | | | t | | | compli | | | cation | | | , | | | unspec | | | ified | | | long | | | term | | | | | | insuli | | | n use | | | status | | | (HCC) | | | | | | (E11.9 | | | ), | | | Forami | | | nal | | | 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 | | | lumbar | | | | | | region | | | | | | (M99.8 | | | 3), | | | 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 | | | Prescr | | | iber | | | CS MED | | | | | | 2018-0 | | | 6-06 | | | OXYCOD | | | ONE | | | HCL 5 | | | MG | | | TABLET | | | 120 | | | DOUGLA | | | S WEST | | | 2 90 | | | 2018-0 | | | 5-06 | | | HYDROC | | | ODONE- | | | ACETAM | | | IN | | | 10-325 | | | MG | | | 120 | | | BERTA | | | YAM 2 | | | 120 | | | 2018-0 | | | 4-11 | | | HYDROC | | | ODONE- | | | ACETAM | | | IN | | | 10-325 | | | MG 45 | | | | | | WILLI | | | | | | KUPFER | | | 2 45 | | | 2018-0 | | | 3-13 | | | HYDROC | | | ODONE- | | | ACETAM | | | IN | | | 10-325 | | | MG 30 | | | | | | DOUGLA | | | S WEST | | | 2 | | | 42.857 | | | Rx | | | Summar | | | y (12 | | | Mo.)Me | | | tric | | | Count | | | CS | | | II-V | | | Rx 7 | | | CS-II | | | Rx 7 | | | Quanti | | | ty | | | Dispen | | | sed | | | 611 | | | Unique | | | | | | Prescr | | | ibers | | | 5 | | | Unique | | | | | | Pharma | | | cies 2 | | | | | | Benzos | | | 0 | | | Opioid | | | s 7 | | | Long | | | Acting | | | | | | Opioid | | | s 0 | | | Care | | | Provid | | | ersEDI | | | E has | | | no | | | care | | | provid | | | ers on | | | | | | record | | | at | | | this | | | time. | | | Criter | | | ia met | | | | | | PDMPKn | | | own | | | Aliase | | | sNo | | | known | | | aliase | | | s. The | | | above | | | | | | inform | | | ation | | | is | | | provid | | | ed for | | | the | | | sole | | | purpos | | | e of | | | patien | | | t | | | treatm | | | ent. | | | Use of | | | this | | | inform | | | ation | | | beyond | | | the | | | terms | | | of | | | Data | | | Sharin | | | g | | | Memora | | | ndum | | | of | | | Unders | | | tandin | | | g and | | | Licens | | | e | | | Agreem | | | ent is | | | | | | prohib | | | ited. | | | In | | | certai | | | n | | | cases | | | not | | | all | | | visits | | | may | | | be | | | repres | | | ented. | | | | | | Consul | | | t the | | | aforem | | | ention | | | ed | | | facili | | | ties | | | for | | | additi | | | onal | | | inform | | | ation. | | | 2018 | | | Collec | | | tive | | | Medica | | | l | | | [employer] | | | logies | | | , [employer] | | | - | | | [place] | | | [place] | | | [place], | | | [place] - | | | [email or web address] | | | ollect | | | ivemed | | | icalte | | | [email or web address] | | | | +---+--------+ + +---+ +---+ + | LABS - EXTERNAL SCAN | | 08/26/2017 | | Results for this | | | | 0000 PDT | | procedure are in the | | | | | | results section. | + +---+ +---+ + | LABS - EXTERNAL SCAN | | 08/15/2017 | | Results for this | | | | 0000 PDT | | procedure are in the | | | | | | results section. | + +---+ +---+ + in this encounter Results IMAGING REPORT - EXTERNAL SCAN (09/01/2017) + + + | Narrative | Performed At | + + + | Ordered by an | | | unspecified provider. | | + + + Magnesium (08/28/2017 1543) + + + + + | Component | Value | Ref Range | Performed At | + + + + + | MG | 1.0 ()Comment: | 1.8 - 2.5 mg/dL | [facility] | | | Consistent with previous | | [facility] | | | results. | | CENTER - | | | | | LABORATORY | + + + + + + + | Specimen | + + | Blood | + + + + + + + | Performing | Address | City/State/Zipcode | Phone Number | | Organization | | | | + + + + + | [facility] | [address] | [place] | [phone] | | [facility] | | [address] | | | - LABORATORY | | | | + + + + + | [facility] | [address] | [place] | | | [facility] | | [address] | | | - LABORATORY | | | | + + + + + Basic Metabolic Panel (08/28/2017 1543) + + + + + | Component | Value | Ref Range | Performed At | + + + + + | NA | 136 | 136 - 149 mmol/L | [facility] | | | | | [facility] | | | | | CENTER - | | | | | LABORATORY | + + + + + | K | 3.5 | 3.5 - 5.1 mmol/L | [facility] | | | | | [facility] | | | | | CENTER - | | | | | LABORATORY | + + + + + | CL | 106 | 98 - 109 mmol/L | [facility] | | | | | [facility] | | | | | CENTER - | | | | | LABORATORY | + + + + + | CO2 | 23 (L) | 24 - 31 mmol/L | [facility] | | | | | [facility] | | | | | CENTER - | | | | | LABORATORY | + + + + + | ANION GAP | 7 | 3 - 16 mmol/L | [facility] | | | | | [facility] | | | | | CENTER - | | | | | LABORATORY | + + + + + | GLUCOSE | 74 | 70 - 109 mg/dL | [facility] | | | | | [facility] | | | | | CENTER - | | | | | LABORATORY | + + + + + | BUN | 6 (L) | 7 - 18 mg/dL | [facility] | | | | | [facility] | | | | | CENTER - | | | | | LABORATORY | + + + + + | Creatinine, | 0.74 | 0.60 - 1.30 mg/dL | [facility] | | Serum/Plasma | | | [facility] | | | | | CENTER - | | | | | LABORATORY | + + + + + | eGFR if not | >60Comment: GLOMERULAR | >=60 mL/min/1.73m2 | [facility] | | NIGERIAN | FILTRATION | | [facility] | | | RATE,ESTIMATED mL/min | | CENTER - | | | /1.90q1Ieen than 60 | | LABORATORY | | | Chronic kidney | | | | | disease,if found over a | | | | | 3-month period.Less than | | | | | 15 Kidney | | | | | failureFor | | | | | Americans,multiply the | | | | | calculated GFR by 1.21. | | | | | | | | + + + + + | CALCIUM | 8.8 | 8.3 - 10.5 mg/dL | [facility] | | | | | [facility] | | | | | CENTER - | | | | | LABORATORY | + + + + + | BUN/CREA | 8.1 | | [facility] | | | | | [facility] | | | | | CENTER - | | | | | LABORATORY | + + + + + + + | Specimen | + + | Blood | + + + + + + + | Performing | Address | City/State/Zipcode | Phone Number | | Organization | | | | + + + + + | [facility] | [address] | [place], [place] | [phone] | | [facility] | | [address] | | | - LABORATORY | | | | + + + + + | [facility] | [address] | [place], [place] | | | [facility] | | [address] | | | - LABORATORY | | | | + + + + + Helicobactor pylori Biopsy (08/28/2017 1340) + + + + + | Component | Value | Ref Range | Performed At | + + + + + | Helicobacter pylori | Negative | Negative | [facility] | | Ag | | | [facility] | | | | | CENTER - | | | | | LABORATORY | + + + + + + + | Specimen | + + | Tissue - Stomach, | | Antrum | + + + + + + + | Performing | Address | City/State/Zipcode | Phone Number | | Organization | | | | + + + + + | [facility] | [address] | [place] | [phone] | | [facility] | | [address] | | | - LABORATORY | | | | + + + + + | [facility] | [address] | [place] | | | [facility] | | [address] | | | - LABORATORY | | | | + + + + + EGD (08/28/2017 1319) + + ---+ | Narrative | Performed At | + + ---+ | | [facility] | | GastroenterologyPatient Name: Linda CadetRowdy Date: 08/28/2017 1:19 | [facility] | | PMMRN: [id number] #: [id number] of : 1940dmit | | | Type: InpatientAge: 76[facility]: [facility]Gender: MaleNote Status: | | | FinalizedAttending MD: Linda Carpenter MDProcedure: | | | Upper GI endoscopyIndications: Acute post hemorrhagic | | | anemiaProviders: Linda Carpenter MD, Marah Coles, | | | RN, Codi Pinedo, | | | Graphics Specialist, Phoenix Cabello MD (Anesthesia | | | Staff)Medicines: Propofol per | | | AnesthesiaComplications: No immediate complications. Estimated | | | blood loss: Minimal.Procedure: Pre-Anesthesia | | | Assessment: - Prior to the procedure, a History and Physical | | | was performed, and patient medications, allergies and | | | sensitivities were reviewed. The patient's tolerance of | | | previous anesthesia was reviewed. - Prior to the procedure, a | | | History and Physical was performed, and patient medications | | | and allergies were reviewed. The patient is competent. The | | | risks and benefits of the procedure and the sedation options | | | and risks were discussed with the patient. All questions were | | | answered and informed consent was obtained. Patient identification | | | and proposed procedure were verified by the physician, the | | | nurse, the anesthesiologist and the point of care technician in the | | | endoscopy suite. Mental Status Examination: normal. Airway | | | Examination: normal oropharyngeal airway and neck mobility | | | and Mallampati Class III (part of the uvula and soft palate | | | visualized). Prophylactic Antibiotics: The patient does not | | | require prophylactic antibiotics. Prior Anticoagulants: The patient | | | has taken no previous anticoagulant or antiplatelet agents. | | | ASA Grade Assessment: III - A patient with severe systemic | | | disease. After reviewing the risks and benefits, the patient | | | was deemed in satisfactory condition to undergo the | | | procedure. The anesthesia plan was to use monitored | | | anesthesia care (MAC). Immediately prior to administration of | | | medications, the patient was re-assessed for adequacy to receive | | | sedatives. The heart rate, respiratory rate, oxygen | | | saturations, blood pressure, adequacy of pulmonary | | | ventilation, and response to care were monitored throughout | | | the procedure. The physical status of the patient was | | | re-assessed after the procedure. - After reviewing the risks | | | and benefits, the patient was deemed in satisfactory | | | condition to undergo the procedure. - Using IV propofol under | | | the supervision of an anesthesiologist was determined to be | | | medically necessary for this procedure based on age 65 or | | | older and severe comorbidity (greater than ASA Grade II). - | | | Immediately prior to administration of medications, the patient was | | | re-assessed for adequacy to receive sedatives. - The | | | heart rate, respiratory rate, oxygen saturations, blood pressure, | | | adequacy of pulmonary ventilation, and response to care were | | | monitored throughout the procedure. - The physical | | | status of the patient was re-assessed after the procedure. | | | After obtaining informed consent, the endoscope was passed under | | | direct vision. Throughout the procedure, the patient's blood | | | pressure, pulse, and oxygen saturations were monitored | | | continuously. The Endoscope was introduced through the mouth, | | | and advanced to the third part of duodenum. The upper GI | | | endoscopy was accomplished without difficulty. The patient | | | tolerated the procedure well. The upper GI endoscopy was | | | accomplished without difficulty. The patient tolerated the procedure | | | well.Findings: The cricopharyngeus, upper third of | | | the esophagus, middle third of the esophagus and lower third | | | of the esophagus were normal. The Z-line was regular and was | | | found 38 cm from the incisors. Localized moderate inflammation | | | characterized by congestion (edema) and erythema was found | | | in the gastric antrum. Biopsies were taken with a cold | | | forceps for Helicobacter pylori testing using CLOtest. Verification | | | of patient identification for the specimen was done. | | | Estimated blood loss was minimal. Two non-bleeding | | | cratered duodenal ulcers with no stigmata of bleeding were | | | found in the duodenal bulb and in the first portion of the | | | duodenum. The second portion of the duodenum, area of the | | | papilla and third portion of the duodenum were | | | normal. The retroflexed view confirmed previous | | | findings,Impression: - Normal cricopharyngeus, upper third of | | | esophagus, middle third of esophagus and lower third of | | | esophagus. - Z-line regular, 38 cm from the incisors. | | | - Gastritis. Biopsied. - Multiple non-bleeding duodenal ulcers | | | with no stigmata of bleeding. - Normal second portion of the | | | duodenum, area of the papilla and third portion of the | | | duodenum. - The retroflexed view confirmed previous | | | findings,Recommendation: - [facility] | | | ongoing care. - Resume previous diet today. - | | | Continue present medications. - Await pathology results.Linda | | | Akhil Carpenter MD08/28/2017 1:58:51 PMThis report has been signed | | | electronically.Number of Addenda: 0Note Initiated On: 08/28/2017 1:19 | | | PMTotal Procedure Duration: 0 hours 4 minutes 52 seconds Scope In: | | | 1:37:12 PMScope Out: 1:42:04 PM [facility] | | | [place], [address] [place] [id number] | | | - Resume previous diet today. | | | - Continue present medications. | | | - Await pathology results. | | |Linda Carpenter MD | | |08/28/2017 1:58:51 PM | | |This report has been signed electronically. | | |Number of Addenda: 0 | | |Note Initiated On: 08/28/2017 1:19 PM | | |Total Procedure Duration: 0 hours 4 minutes 52 seconds | | |Scope In: 1:37:12 PM | | |Scope Out: 1:42:04 PM | | | [facility], [address] [place] [address] | | | [id number] | | + + ---+ + +---------+ + + | Performing | Address | City/State/Zipcode | Phone Number | | Organization | | | | + +---------+ + + | [facility] | | | | + +---------+ + + Prealbumin (08/28/2017455) + +--------+ + + | Component | Value | Ref Range | Performed At | + +--------+ + + | PREALBUMIN | 15 (L) | 18 - 38 mg/dL | [facility] | | | | | [facility] | | | | | C[facility] - | | | | | LABORATORY | + +--------+ + + + + | Specimen | + + | Blood | + + + + + + + | Performing | Address | City/State/Zipcode | Phone Number | | Organization | | | | + + + + + | [facility] | [address] | [place], [place] | [phone] | | [facility] | | [address] | | | - LABORATORY | | | | + + + + + | [facility] | [address] | [place], [place] | | | [facility] | | [address] | | | - LABORATORY | | | | + + + + + Phosphorus (08/28/2017 045) + +-------+ + + | Component | Value | Ref Range | Performed At | + +-------+ + + | Phosphorus | 3.0 | 2.5 - 4.6 mg/dL | [facility] | | | | | [facility] | | | | | CENTER - | | | | | LABORATORY | + +-------+ + + + + | Specimen | + + | Blood | + + + + + + + | Performing | Address | City/State/Zipcode | Phone Number | | Organization | | | | + + + + + | [facility] | [address] | [place] | [phone] | | [facility] | | [address] | | | - LABORATORY | | | | + + + + + | [facility] | [address] | [place] | | | [facility] | | [address] | | | - LABORATORY | | | | + + + + + Magnesium (08/28/2017 0456) + + + + + | Component | Value | Ref Range | Performed At | + + + + + | MG | 0.9 (LL)Comment: | 1.8 - 2.5 mg/dL | [facility] | | | Critical Result called | | [facility] | | | to and read back by | | CENTER - | | | Radha Pineda RN | | LABORATORY | | | on 08/28/2017 at 6:26 by | | | | | Jennie Yo. | | | + + + + + + + | Specimen | + + | Blood | + + + + + + + | Performing | Address | City/State/Zipcode | Phone Number | | Organization | | | | + + + + + | [facility] | [address] | [place], [place] | [phone] | | [facility] | | [address] | | | - LABORATORY | | | | + + + + + | [facility] | [address] | [place], [place] | | | [facility] | | [address] | | | - LABORATORY | | | | + + + + + Basic Metabolic Panel (08/28/2017 045) + + + + + | Component | Value | Ref Range | Performed At | + + + + + | NA | 136 | 136 - 149 mmol/L | [facility] | | | | | [facility] | | | | | CENTER - | | | | | LABORATORY | + + + + + | K | 2.9 (L) | 3.5 - 5.1 mmol/L | [facility] | | | | | [facility] | | | | | CENTER - | | | | | LABORATORY | + + + + + | CL | 107 | 98 - 109 mmol/L | [facility] | | | | | [facility] | | | | | CENTER - | | | | | LABORATORY | + + + + + | CO2 | 21 (L) | 24 - 31 mmol/L | [facility] | | | | | [facility] | | | | | CENTER - | | | | | LABORATORY | + + + + + | ANION GAP | 8 | 3 - 16 mmol/L | [facility] | | | | | [facility] | | | | | CENTER - | | | | | LABORATORY | + + + + + | GLUCOSE | 77 | 70 - 109 mg/dL | [facility] | | | | | [facility] | | | | | CENTER - | | | | | LABORATORY | + + + + + | BUN | 7 | 7 - 18 mg/dL | [facility] | | | | | [facility] | | | | | CENTER - | | | | | LABORATORY | + + + + + | Creatinine, | 0.74 | 0.60 - 1.30 mg/dL | [facility] | | Serum/Plasma | | | [facility] | | | | | CENTER - | | | | | LABORATORY | + + + + + | eGFR if not | >60Comment: GLOMERULAR | >=60 mL/min/1.73m2 | [facility] | | NIGERIAN | FILTRATION | | [facility] | | | RATE,ESTIMATED mL/min | | CENTER - | | | /1.00e3Chlm than 60 | | LABORATORY | | | Chronic kidney | | | | | disease,if found over a | | | | | 3-month period.Less than | | | | | 15 Kidney | | | | | failureFor | | | | | Americans,multiply the | | | | | calculated GFR by 1.21. | | | | | | | | + + + + + | CALCIUM | 8.2 (L) | 8.3 - 10.5 mg/dL | [facility] | | | | | [facility] | | | | | CENTER - | | | | | LABORATORY | + + + + + | BUN/CREA | 9.5 | | [facility] | | | | | [facility] | | | | | CENTER - | | | | | LABORATORY | + + + + + + + | Specimen | + + | Blood | + + + + + + + | Performing | Address | City/State/Zipcode | Phone Number | | Organization | | | | + + + + + | [facility] | [address] | [place] | [phone] | | [facility] | | [address] | | | - LABORATORY | | | | + + + + + | [facility] | [address] | [place] | | | [facility] | | [address] | | | - LABORATORY | | | | + + + + + CBC with Differential (08/28/2017 0456) + + + + + | Component | Value | Ref Range | Performed At | + + + + + | WBC | 4.8 | 4.0 - 11.0 K/uL | [facility] | | | | | [facility] | | | | | CENTER - | | | | | LABORATORY | + + + + + | RBC | 3.33 (L) | 4.30 - 5.70 M/uL | [facility] | | | | | [facility] | | | | | CENTER - | | | | | LABORATORY | + + + + + | Hgb | 11.6 (L) | 13.5 - 18.0 g/dL | [facility] | | | | | [facility] | | | | | CENTER - | | | | | LABORATORY | + + + + + | Hct | 30.6 (L) | 40.0 - 51.0 % | [facility] | | | | | [facility] | | | | | CENTER - | | | | | LABORATORY | + + + + + | MCV | 91.9 | 83.0 - 101.0 fL | [facility] | | | | | [facility] | | | | | CENTER - | | | | | LABORATORY | + + + + + | MCH | 34.7 | 28.0 - 35.0 pg | [facility] | | | | | [facility] | | | | | CENTER - | | | | | LABORATORY | + + + + + | MCHC | 37.8 (H) | 32.0 - 36.0 g/dL | [facility] | | | | | [facility] | | | | | CENTER - | | | | | LABORATORY | + + + + + | RDW-CV | 15.3 (H) | <15.0 % | [facility] | | | | | [facility] | | | | | CENTER - | | | | | LABORATORY | + + + + + | Platelet Count | 229 | 140 - 440 K/uL | [facility] | | | | | [facility] | | | | | CENTER - | | | | | LABORATORY | + + + + + | MPV | 6.9 | fL | [facility] | | | | | [facility] | | | | | CENTER - | | | | | LABORATORY | + + + + + | % Neutrophils | 70.0 | 45.0 - 82.0 % | [facility] | | | | | [facility] | | | | | CENTER - | | | | | LABORATORY | + + + + + | % Lymphocytes | 20.4 | 20.0 - 45.0 % | [facility] | | | | | [facility] | | | | | CENTER - | | | | | LABORATORY | + + + + + | % Monocytes | 6.5 | 4.0 - 12.0 % | [facility] | | | | | [facility] | | | | | CENTER - | | | | | LABORATORY | + + + + + | % Eosinophils | 2.3 | 0.0 - 5.0 % | [facility] | | | | | [facility] | | | | | CENTER - | | | | | LABORATORY | + + + + + | % Basophils | 0.8 | 0.0 - 1.0 % | [facility] | | | | | [facility] | | | | | CENTER - | | | | | LABORATORY | + + + + + | Absolute Neutrophils | 3.30 | 1.80 - 8.50 K/uL | [facility] | | | | | [facility] | | | | | CENTER - | | | | | LABORATORY | + + + + + | Absolute Lymphocytes | 1.00 | 0.60 - 3.20 K/uL | [facility] | | | | | [facility] | | | | | CENTER - | | | | | LABORATORY | + + + + + | Absolute Monocytes | 0.30 | 0.00 - 1.00 K/uL | [facility] | | | | | [facility] | | | | | CENTER - | | | | | LABORATORY | + + + + + | Absolute Eosinophils | 0.10 | 0.00 - 0.40 K/uL | [facility] | | | | | [facility] | | | | | CENTER - | | | | | LABORATORY | + + + + + | Absolute Basophils | 0.00 | 0.00 - 0.10 K/uL | [facility] | | | | | [facility] | | | | | CENTER - | | | | | LABORATORY | + + + + + + + | Specimen | + + | Blood | + + + + + + + | Performing | Address | City/State/Zipcode | Phone Number | | Organization | | | | + + + + + | [facility] | [address] | [place] | [phone] | | [facility] | | [address] | | | - LABORATORY | | | | + + + + + | [facility] | [address] | [place] | | | [facility] | | [address] | | | - LABORATORY | | | | + + + + + Red Blood Cells Uncrossmatched - 3 Units (08/27/20171914) + + + + + | Component | Value | Ref Range | Performed At | + + + + + | Product Code | [id number] | | [facility] | | | | | [facility] | | | | | CENTER - BLOOD | | | | | BANK | + + + + + | UNIT # | [id number] | | [facility] | | | | | [facility] | | | | | CENTER - BLOOD | | | | | BANK | + + + + + | UNIT ABO | A | | [facility] | | | | | [facility] | | | | | C[facility] - BLOOD | | | | | BANK | + + + + + | UNIT RH | POS | | [facility] | | | | | [facility] | | | | | C[facility] - BLOOD | | | | | BANK | + + + + + | CROSSMATCH INTERP | Compatible | | [facility] | | | | | [facility] | | | | | [facility] - BLOOD | | | | | BANK | + + + + + | Unit Status | Transfused | | [facility] | | | | | [facility] | | | | | [facility] - BLOOD | | | | | BANK | + + + + + | Blood Product ABORh | APOS | | [facility] | | | | | [facility] | | | | | [facility] - BLOOD | | | | | BANK | + + + + + | Blood Product | [id number] | | [facility] | | Expiration Date and | | | [facility] | | Time | | | CENTER - BLOOD | | | | | BANK | + + + + + | Product Blood Type | 6200 | | [facility] | | Barcode | | | [facility] | | | | | [facility] - BLOOD | | | | | BANK | + + + + + | Product Code | [id number] | | [facility] | | | | | [facility] | | | | | C[facility] - BLOOD | | | | | BANK | + + + + + | UNIT # | [id number] | | [facility] | | | | | [facility] | | | | | [facility] - BLOOD | | | | | BANK | + + + + + | UNIT ABO | A | | [facility] | | | | | [facility] | | | | | [facility] - BLOOD | | | | | BANK | + + + + + | UNIT RH | POS | | [facility] | | | | | [facility] | | | | | [facility] - BLOOD | | | | | BANK | + + + + + | CROSSMATCH INTERP | Compatible | | [facility] | | | | | [facility] | | | | | [facility] - BLOOD | | | | | BANK | + + + + + | Unit Status | Transfused | | [facility] | | | | | [facility] | | | | | [facility] - [facility]LOOD | | | | | BANK | + + + + + | Blood Product ABORh | APOS | | [facility] [facility] | | | | | [facility] | | | | | [facility] - BLOOD | | | | | BANK | + + + + + | Blood Product | [id number] | | [facility] | | Expiration Date and | | | [facility] | | Time | | | CENTER - BLOOD | | | | | BANK | + + + + + | Product Blood Type | 6200 | | [facility] | | Barcode | | | [facility] | | | | | [facility] - BLOOD | | | | | BANK | + + + + + | Product Code | [id number] | | [facility] | | | | | [facility] | | | | | [facility] - BLOOD | | | | | BANK | + + + + + | UNIT # | [id number] | | [facility] | | | | | [facility] | | | | | [facility] - BLOOD | | | | | BANK | + + + + + | UNIT ABO | A | | [facility] | | | | | [facility] | | | | | C[facility] - BLOOD | | | | | BANK | + + + + + | UNIT RH | POS | | [facility] | | | | | [facility] | | | | | [facility] - BLOOD | | | | | BANK | + + + + + | CROSSMATCH INTERP | Compatible | | [facility] | | | | | [facility] | | | | | C[facility] - BLOOD | | | | | BANK | + + + + + | Unit Status | Transfused | | [facility] | | | | | [facility] | | | | | C[facility] - BLOOD | | | | | BANK | + + + + + | Blood Product ABORh | APOS | | [facility] | | | | | [facility] | | | | | [facility] - BLOOD | | | | | BANK | + + + + + | Blood Product | [id number] | | [facility] | | Expiration Date and | | | [facility] | | Time | | | CENTER - BLOOD | | | | | BANK | + + + + + | Product Blood Type | 6200 | | [facility] | | Barcode | | | [facility] | | | | | CENTER - BLOOD | | | | | BANK | + + + + + + + + + + | Performing | Address | City/State/Zipcode | Phone Number | | Organization | | | | + + + + + | [facility] | [address] | [place] | | | [facility] | | [address] | | | - BLOOD BANK | | | | + + + + + Folate (08/27/20171313) + +-------+ + + | Component | Value | Ref Range | Performed At | + +-------+ + + | FOLATE | 18.7 | >5.8 ng/mL | [facility] | | | | | [facility] | | | | | CENTER - | | | | | LABORATORY | + +-------+ + + + + | Specimen | + + | Blood | + + + + + + + | Performing | Address | City/State/Zipcode | Phone Number | | Organization | | | | + + + + + | [facility] | [address] | [place], [place] | [phone] | | [facility] | | [address] | | | - LABORATORY | | | | + + + + + | [facility] | [address] | [place], [place] | | | [facility] | | [address] | | | - LABORATORY | | | | + + + + + Vitamin B-12 (08/27/2017 1314) + + + + + | Component | Value | Ref Range | Performed At | + + + + + | VITAMIN B-12 | 381Comment: | 180 - 914 pg/mL | [facility] | | | DEFICIENT: | | [facility] | | | <145 | | CENTER - | | | pg/mLINDETERMINATE: | | LABORATORY | | | 145-180 pg/mL | | | + + + + + + + | Specimen | + + | Blood | + + + + + + + | Performing | Address | City/[facility] | Phone Number | | Organization | | | | + + + + + | [facility] | [address] | [place] | [phone] | | [facility] | | [address] | | | - LABORATORY | | | | + + + + + | [facility] | [address] | [place] | | | [facility] | | [address] | | | - LABORATORY | | | | + + + + + CBC with Differential (08/27/2017 1314) + + + + + | Component | Value | Ref Range | Performed At | + + + + + | WBC | 6.1 | 4.0 - 11.0 K/uL | [facility] | | | | | [facility] | | | | | CENTER - | | | | | LABORATORY | + + + + + | RBC | 3.56 (L) | 4.30 - 5.70 M/uL | [facility] | | | | | [facility] | | | | | CENTER - | | | | | LABORATORY | + + + + + | Hgb | 11.8 (L) | 13.5 - 18.0 g/dL | [facility] | | | | | [facility] | | | | | CENTER - | | | | | LABORATORY | + + + + + | Hct | 33.1 (L) | 40.0 - 51.0 % | [facility] | | | | | [facility] | | | | | CENTER - | | | | | LABORATORY | + + + + + | MCV | 93.0 | 83.0 - 101.0 fL | [facility] | | | | | [facility] | | | | | CENTER - | | | | | LABORATORY | + + + + + | MCH | 33.1 | 28.0 - 35.0 pg | [facility] | | | | | [facility] | | | | | CENTER - | | | | | LABORATORY | + + + + + | MCHC | 35.6 | 32.0 - 36.0 g/dL | [facility] | | | | | [facility] | | | | | CENTER - | | | | | LABORATORY | + + + + + | RDW-CV | 15.5 (H) | <15.0 % | [facility] | | | | | [facility] | | | | | CENTER - | | | | | LABORATORY | + + + + + | Platelet Count | 208 | 140 - 440 K/uL | [facility] | | | | | [facility] | | | | | CENTER - | | | | | LABORATORY | + + + + + | MPV | 6.9 | fL | [facility] | | | | | [facility] | | | | | CENTER - | | | | | LABORATORY | + + + + + | % Neutrophils | 73.3 | 45.0 - 82.0 % | [facility] | | | | | [facility] | | | | | CENTER - | | | | | LABORATORY | + + + + + | % Lymphocytes | 18.0 (L) | 20.0 - 45.0 % | [facility] | | | | | [facility] | | | | | CENTER - | | | | | LABORATORY | + + + + + | % Monocytes | 5.6 | 4.0 - 12.0 % | [facility] | | | | | [facility] | | | | | CENTER - | | | | | LABORATORY | + + + + + | % Eosinophils | 1.9 | 0.0 - 5.0 % | [facility] | | | | | [facility] | | | | | CENTER - | | | | | LABORATORY | + + + + + | % Basophils | 1.2 (H) | 0.0 - 1.0 % | [facility] | | | | | [facility] | | | | | CENTER - | | | | | LABORATORY | + + + + + | Absolute Neutrophils | 4.50 | 1.80 - 8.50 K/uL | [facility] | | | | | [facility] | | | | | CENTER - | | | | | LABORATORY | + + + + + | Absolute Lymphocytes | 1.10 | 0.60 - 3.20 K/uL | [facility] | | | | | [facility] | | | | | CENTER - | | | | | LABORATORY | + + + + + | Absolute Monocytes | 0.30 | 0.00 - 1.00 K/uL | [facility] | | | | | [facility] | | | | | CENTER - | | | | | LABORATORY | + + + + + | Absolute Eosinophils | 0.10 | 0.00 - 0.40 K/uL | [facility] | | | | | [facility] | | | | | CENTER - | | | | | LABORATORY | + + + + + | Absolute Basophils | 0.10 | 0.00 - 0.10 K/uL | [facility] | | | | | [facility] | | | | | CENTER - | | | | | LABORATORY | + + + + + + + | Specimen | + + | Blood | + + + + + + + | Performing | Address | City/State/Zipcode | Phone Number | | Organization | | | | + + + + + | [facility] | [address] | [place] | [phone] | | [facility] | | [address] | | | - LABORATORY | | | | + + + + + | [facility] | [address] | [place] | | | [facility] | | [address] | | | - LABORATORY | | | | + + + + + Basic Metabolic Panel (08/27/2017 1314) + + + + + | Component | Value | Ref Range | Performed At | + + + + + | NA | 135 (L) | 136 - 149 mmol/L | [facility] | | | | | [facility] | | | | | CENTER - | | | | | LABORATORY | + + + + + | K | 4.1 | 3.5 - 5.1 mmol/L | [facility] | | | | | [facility] | | | | | CENTER - | | | | | LABORATORY | + + + + + | CL | 111 (H) | 98 - 109 mmol/L | [facility] | | | | | [facility] | | | | | CENTER - | | | | | LABORATORY | + + + + + | CO2 | 19 (L) | 24 - 31 mmol/L | [facility] | | | | | [facility] | | | | | CENTER - | | | | | LABORATORY | + + + + + | ANION GAP | 5 | 3 - 16 mmol/L | [facility] | | | | | [facility] | | | | | CENTER - | | | | | LABORATORY | + + + + + | GLUCOSE | 90 | 70 - 109 mg/dL | [facility] | | | | | [facility] | | [facility] | | CENTER - | | | | | LABORATORY | + + + + + | BUN | 9 | 7 - 18 mg/dL | [facility] | | | | | [facility] | | | | | CENTER - | | | | | LABORATORY | + + + + + | Creatinine, | 0.76 | 0.60 - 1.30 mg/dL | [facility] | | Serum/Plasma | | | [facility] | | | | | CENTER - | | | | | LABORATORY | + + + + + | eGFR if not | >60Comment: GLOMERULAR | >=60 mL/min/1.73m2 | [facility] | | NIGERIAN | FILTRATION | | [facility] | | | RATE,ESTIMATED mL/min | | CENTER - | | | /1.62a8Rgen than 60 | | LABORATORY | | | Chronic kidney | | | | | disease,if found over a | | | | | 3-month period.Less than | | | | | 15 Kidney | | | | | failureFor | | | | | Americans,multiply the | | | | | calculated GFR by 1.21. | | | | | | | | + + + + + | CALCIUM | 8.7 | 8.3 - 10.5 mg/dL | [facility] | | | | | [facility] | | | | | CENTER - | | | | | LABORATORY | + + + + + | BUN/CREA | 11.8 | | [facility] | | | | | [facility] | | | | | CENTER - | | | | | LABORATORY | + + + + + + + | Specimen | + + | Blood | + + + + + + + | Performing | Address | City/State/Zipcode | Phone Number | | Organization | | | | + + + + + | [facility] | [address] | [place] | [phone] | | [facility] | | [address] | | | - LABORATORY | | | | + + + + + | [facility] | [address] | [place], [place] | | | [facility] | | [address] | | | - LABORATORY | | | | + + + + + POC Glucose (08/27/20171152) + +-------+ + + | Component | Value | Ref Range | Performed At | + +-------+ + + | Glucose, POC | 93 | 70 - 109 mg/dL | [facility] | | | | | [facility] | | | | | CENTER - | | | | | LABORATORY | + +-------+ + + + + | Specimen | + + | Blood | + + + + + + + | Performing | Address | City/State/Zipcode | Phone Number | | Organization | | | | + + + + + | [facility] | [address] | [place] | [phone] | | [facility] | | [address] | | | - LABORATORY | | | | + + + + + | [facility] | [address] | [place] | | | [facility] | | [address] | | | - LABORATORY | | | | + + + + + Hemoglobin and Hematocrit (08/27/2017702) + + + + + | Component | Value | Ref Range | Performed At | + + + + + | Hgb | 12.1 (L) | 13.5 - 18.0 g/dL | [facility] | | | | | [facility] | | | | | CENTER - | | | | | LABORATORY | + + + + + | Hct | 33.7 (L) | 40.0 - 51.0 % | [facility] | | | | | [facility] | | | | | CENTER - | | | | | LABORATORY | + + + + + + + | Specimen | + + | Blood | + + + + + + + | Performing | Address | City/State/Zipcode | Phone Number | | Organization | | | | + + + + + | [facility] | [address] | [place], [place] | [phone] | | [facility] | | [address] | | | - LABORATORY | | | | + + + + + | [facility] | [address] | [place], [place] | | | [facility] | | [address] | | | - LABORATORY | | | | + + + + + POC Glucose (08/27/2017625) + +-------+ + + | Component | Value | Ref Range | Performed At | + +-------+ + + | Glucose, POC | 77 | 70 - 109 mg/dL | [facility] | | | | | [facility] | | | | | CENTER - | | | | | LABORATORY | + +-------+ + + + + | Specimen | + + | Blood | + + + + + + + | Performing | Address | City/State/Zipcode | Phone Number | | Organization | | | | + + + + + | [facility] | [address] | [place] | [phone] | | [facility] | | [address] | | | - LABORATORY | | | | + + + + + | [facility] | [address] | [place] | | | [facility] | | [address] | | | - LABORATORY | | | | + + + + + ECG 12 lead (08/27/2017611) + + + + + | Component | Value | Ref Range | Performed At | + + + + + | VENTRICULAR RATE EKG | 53 | BPM | [facility] | + + + + + | ATRIAL RATE | 53 | BPM | [facility] | + + + + + | P-R INTERVAL | 216 | ms | [facility] | + + + + + | QRS DURATION | 78 | ms | [facility] | + + + + + | Q-T INTERVAL | 422 | ms | [facility] | + + + + + | Q-T INTERVAL | 395 | ms | [facility] | | (CORRECTED) | | | | + + + + + | P WAVE AXIS | 19 | degrees | [facility] | + + + + + | QRS AXIS | 44 | degrees | [facility] | + + + + + | T AXIS | 43 | degrees | [facility] | + + + + + | INTERPRETATION TEXT | Sinus bradycardia with | | [facility] | | | 1st degree AV | | | | | blockOtherwise normal | | | | | ECGWhen compared with | | | | | ECG of 10-JUN-2017 | | | | | 11:05,T wave amplitude | | | | | has increased in | | | | | Inferior leadsConfirmed | | | | | by GRECIA ONTIVEROS MD | | | | | ([id number]) on 08/27/2017 | | | | | 6:54:43 AM | | | + + + + + + + + | Narrative | Performed At | + + + | | | + + + + +---------+ + + | Performing | Address | City/State/Zipcode | Phone Number | | Organization | | | | + +---------+ + + | [facility] | | | | + +---------+ + + Hemoglobin and Hematocrit (08/27/2017 004) + + + + + | Component | Value | Ref Range | Performed At | + + + + + | Hgb | 8.0 (L) | 13.5 - 18.0 g/dL | [facility] | | | | | [facility] | | | | | CENTER - | | | | | LABORATORY | + + + + + | Hct | 22.9 (L) | 40.0 - 51.0 % | [facility] | | | | | [facility] | | | | | CENTER - | | | | | LABORATORY | + + + + + + + | Specimen | + + | Blood | + + + + + + + | Performing | Address | City/State/Zipcode | Phone Number | | Organization | | | | + + + + + | [facility] | [address] | [place] | [phone] | | [facility] | | [address] | | | - LABORATORY | | | | + + + + + | [facility] | [address] | [place] | | | [facility] | | [address] | | | - LABORATORY | | | | + + + + + POC Glucose (08/26/20172227) + +-------+ + + | Component | Value | Ref Range | Performed At | + +-------+ + + | Glucose, POC | 77 | 70 - 109 mg/dL | [facility] | | | | | [facility] | | | | | CENTER - | | | | | LABORATORY | + +-------+ + + + + | Specimen | + + | Blood | + + + + + + + | Performing | Address | City/State/Zipcode | Phone Number | | Organization | | | | + + + + + | [facility] | [address] | [place] | [phone] | | [facility] | | [address] | | | - LABORATORY | | | | + + + + + | [facility] | [address] | [place], [place] | | | [facility] | | [address] | | | - LABORATORY | | | | + + + + + POCT Occ Bld Stl not Colorectal Neoplasm (08/26/20171932) + + + + + | Component | Value | Ref Range | Performed At | + + + + + | Occult Blood x1, | Positive (A) | Negative | | | Stool, POC | | | | + + + + + | Occult Blood x2, | | Negative | | | Stool, POC | | | | + + + + + | Occult Blood x3, | | Negative | | | Stool, POC | | | | + + + + + | Occult Blood QC | Acceptable | | | | Result | | | | + + + + + | Card Lot # | | | | + + + + + | Card Expiration Date | 10/2019 | | | + + + + + | Developer Lot # | [id number] | | | + + + + + | Developer Exp. Date | 04/2019 | | | + + + + + + + | Specimen | + + | Stool | + + XR Chest PA and Lateral (08/26/2017 1821) + + + | Narrative | Performed At | + + + | EXAM: XR CHEST PA AND LATERAL dated 08/26/2017 6:21 PM HISTORY: | [facility] | | ABNORMAL LAB Comparison: June 10, 2017 TECHNIQUE: Frontal and | | | lateral views of the chest. FINDINGS: The lungs are | | | symmetrically aerated. Hyperexpansion suggesting underlying | | | obstructive pulmonary disease. Bilateral pleural plaque. No | | | acute airspace disease. No pleural effusion. There are no | | | pleural effusions. There is no pneumothorax. Mild stable | | | cardiomegaly. Partial visualization of disc arthroplasty changes | | | in the cervical spine and fusion changes in the lumbar spine. | | | IMPRESSION - No radiographic evidence for acute disease in the | | | chest. 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 | | | Mild cardiomegaly. Dictated and Signed by: Linda Medina, | | | Electronically signed: 08/26/2017 6:31 PM | | + + + + + | Procedure Note | + + | Farhan, Rad Results In - 08/26/2017 1834 PDT EXAM: XR CHEST PA AND LATERAL dated | | 08/26/2017 6:21 PMHISTORY: ABNORMAL LABComparison: June 10, 2017TECHNIQUE: Frontal and | | lateral views of the chest.FINDINGS:The lungs are symmetrically aerated. Hyperexpansion | | suggesting underlyingobstructive pulmonary disease. Bilateral pleural plaque. No | | acute airspacedisease. No pleural effusion. There are no pleural effusions. There is | | nopneumothorax. Mild stable cardiomegaly. Partial visualization of discarthroplasty | | changes in the cervical spine and fusion changes in the lumbarspine.IMPRESSION -No | | radiographic evidence for acute disease in the chest.Findings consistent with asbestos | | related pleural disease.Mild cardiomegaly. Dictated and Signed by: Linda Medina MD | | Electronically signed: 08/26/2017 6:31 PM | |obstructive pulmonary disease. Bilateral pleural plaque. No acute airspace | |disease. No pleural effusion. There are no pleural effusions. There is no | |pneumothorax. Mild stable cardiomegaly. Partial visualization of disc | |arthroplasty changes in the cervical spine and fusion changes in the lumbar | |spine. | | | |IMPRESSION - | | | |No radiographic evidence for acute disease in the chest. 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 | | | |Mild cardiomegaly. | | | |Dictated and Signed by: Linda Medina MD | | Electronically signed: 08/26/2017 6:31 PM | + + + +---------+ + + | Performing | Address | City/State/Zipcode | Phone Number | | Organization | | | | + +---------+ + + | [facility] | | | | + +---------+ + + Extra Blue Top Tube (08/26/2017 1651) + +-------+ + + | Component | Value | Ref Range | Performed At | + +-------+ + + | Extra Blue Top Tube | Done | | [facility] | | | | | [facility] | | | | | [place] - | | | | | LABORATORY | + +-------+ + + + + | Specimen | + + | Blood | + + + + + + + | Performing | Address | City/State/Zipcode | Phone Number | | Organization | | | | + + + + + | [facility] | [address] | [place] | [phone] | | [facility] | | [address] | | | - LABORATORY | | | | + + + + + | [facility] | [address] | [place] | | | [facility] | | [address] | | | - LABORATORY | | | | + + + + + Extra Green Top Tube (08/26/20171650) + +-------+ + + | Component | Value | Ref Range | Performed At | + +-------+ + + | Extra Green Top Tube | Done | | [facility] | | | | | [facility] | | | | | CENTER - | | | | | LABORATORY | + +-------+ + + + + | Specimen | + + | Blood | + + + + + + + | Performing | Address | City/State/Zipcode | Phone Number | | Organization | | | | + + + + + | [facility] | [address] | [place] | [phone] | | [facility] | | [address] | | | - LABORATORY | | | | + + + + + | [facility] | [address] | [place] | | | [facility] | | [address] | | | - LABORATORY | | | | + + + + + Retic Count (08/26/20171650) + +---------+ + + | Component | Value | Ref Range | Performed At | + +---------+ + + | Retic Count | 7.4 (H) | 0.5 - 1.5 % | [facility] | | | | | [facility] | | | | | CENTER - | | | | | LABORATORY | + +---------+ + + | Retic Count, | 0.1596 | M/uL | [facility] | | Absolute | | | [facility] | | | | | CENTER - | | | | | LABORATORY | + +---------+ + + + + | Specimen | + + | Blood | + + + + + + + | Performing | Address | City/State/Zipcode | Phone Number | | Organization | | | | + + + + + | [facility] | [address] | [place] | [phone] | | [facility] | | [address] | | | - LABORATORY | | | | + + + + + | [facility] | [address] | [place], [place] | | | [facility] | | [address] | | | - LABORATORY | | | | + + + + + CBC with Differential (08/26/20171650) + + + + + | Component | Value | Ref Range | Performed At | + + + + + | WBC | 4.0 | 4.0 - 11.0 K/uL | [facility] | | | | | [facility] | | | | | CENTER - | | | | | LABORATORY | + + + + + | RBC | 2.18 (L) | 4.30 - 5.70 M/uL | [facility] | | | | | [facility] | | | | | CENTER - | | | | | LABORATORY | + + + + + | Hgb | 7.2 (LL)Comment: | 13.5 - 18.0 g/dL | [facility] | | | Critical Result called | | [facility] | | | to and read back by Tariq | | KASIE - | | | GAIL Medley on 08/26/2017 | | LABORATORY | | | at 17:01 by Allison Roy | | | | | Mace. | | | + + + + + | Hct | 21.0 (L) | 40.0 - 51.0 % | [facility] | | | | | [facility] | | | | | CENTER - | | | | | LABORATORY | + + + + + | MCV | 96.4 | 83.0 - 101.0 fL | [facility] | | | | | [facility] | | | | | CENTER - | | | | | LABORATORY | + + + + + | MCH | 33.0 | 28.0 - 35.0 pg | [facility] | | | | | [facility] | | | | | CENTER - | | | | | LABORATORY | + + + + + | MCHC | 34.2 | 32.0 - 36.0 g/dL | [facility] | | | | | [facility] | | | | | CENTER - | | | | | LABORATORY | + + + + + | RDW-CV | 16.3 (H) | <15.0 % | [facility] | | | | | [facility] | | | | | CENTER - | | | | | LABORATORY | + + + + + | Platelet Count | 270 | 140 - 440 K/uL | [facility] | | | | | [facility] | | | | | CENTER - | | | | | LABORATORY | + + + + + | MPV | 6.6 | fL | [facility] | | | | | [facility] | | | | | CENTER - | | | | | LABORATORY | + + + + + | % Neutrophils | 69.4 | 45.0 - 82.0 % | [facility] | | | | | [facility] | | | | | CENTER - | | | | | LABORATORY | + + + + + | % Lymphocytes | 20.5 | 20.0 - 45.0 % | [facility] | | | | | [facility] | | | | | CENTER - | | | | | LABORATORY | + + + + + | % Monocytes | 7.1 | 4.0 - 12.0 % | [facility] | | | | | [facility] | | | | | CENTER - | | | | | LABORATORY | + + + + + | % Eosinophils | 1.8 | 0.0 - 5.0 % | [facility] | | | | | [facility] | | | | | CENTER - | | | | | LABORATORY | + + + + + | % Basophils | 1.2 (H) | 0.0 - 1.0 % | [facility] | [facility] | | | | | [facility] - | | | | | LABORATORY | + + + + + | Absolute Neutrophils | 2.80 | 1.80 - 8.50 K/uL | [facility] | [facility] - | | | | | LAB[facility]ATORY | + + + + + | Absolute Lymphocytes | 0.80 | 0.60 - 3.20 K/uL | [facility] | | | | | [facility] - | | | | | LAB[facility]ATORY | + + + + + | Absolute Monocytes | 0.30 | 0.00 - 1.00 K/uL | [facility] | | | | | [facility] - | | | | | LAB[facility]ATORY | + + + + + | Absolute Eosinophils | 0.10 | 0.00 - 0.40 K/uL | [facility] | | | | | [facility] - | | | | | LAB[facility]ATORY | + + + + + | Absolute Basophils | 0.00 | 0.00 - 0.10 K/uL | [facility] | | | [facility] | | | | | CENTER - | | | | | LABORATORY | + + + + + + + | Specimen | + + | Blood | + + + + + + + | Performing | Address | City/State/Zipcode | Phone Number | | Organization | | | | + + + + + | [facility] | [address] | [place] | [phone] | | [facility] | | [id number] | | | - LABORATORY | | | | + + + + + | [facility] | [address] | [place] | | | [facility] | | [address] | | | - LABORATORY | | | | + + + + + B Type Natriuretic Peptide (08/26/2017 1627) + +---------+ + + | Component | Value | Ref Range | Performed At | + +---------+ + + | BNP | 125 (H) | <100 pg/mL | [facility] | | | | | [facility] | | | | | CENTER - | | | | | LABORATORY | + +---------+ + + + + | Specimen | + + | Blood | + + + + + + + | Performing | Address | City/State/Zipcode | Phone Number | | Organization | | | | + + + + + | [facility] | [address] | [place], [place] | [phone] | | [facility] | | [address] | | | - LABORATORY | | | | + + + + + | [facility] | [address] | [place], [place] | | | [facility] | | [address] | | | - LABORATORY | | | | + + + + + Iron and Transferrin (08/26/2017 1627) + + + + + | Component | Value | Ref Range | Performed At | + + + + + | Iron | 19 (L) | 50 - 160 ug/dL | [facility] | | | | | [facility] | | | | | [facility] - | | | | | LABORATORY | + + + + + | TRANSFERRIN | 232.4 (L) | 240.0 - 480.0 mg/dL | [facility] | | | | | [facility] | | | | | [facility] - | | | | | LABORATORY | + + + + + | TIBC | 325 | 235 - 425 ug/dL | [facility] | | | | | [facility] | | | | | [facility] - | | | | | LABORATORY | + + + + + | % SATURATION | 5.8 (L) | 20.0 - 55.0 % | [facility] | | | | | [facility] | | | | | [facility] - | | | | | LABORATORY | + + + + + + + | Specimen | + + | Blood | + + + + + + + | Performing | Address | City/State/Zipcode | Phone Number | | Organization | | | | + + + + + | [facility] | [address] | [place], [place] | [phone] | | [facility] | | [address] | | | - LABORATORY | | | | + + + + + | [facility] | [address] | [place], [place] | | | [facility] | | [address] | | | - LABORATORY | | | | + + + + + Ferritin (08/26/2017 1627) + +-------+ + + | Component | Value | Ref Range | Performed At | + +-------+ + + | FERRITIN | 201 | 24 - 366 ng/mL | [facility] | | | | | [facility] | | | | | CENTER - | | | | | LABORATORY | + +-------+ + + + + | Specimen | + + | Blood | + + + + + + + | Performing | Address | City/State/Zipcode | Phone Number | | Organization | | | | + + + + + | [facility] | [address] | [place] | [phone] | | [facility] | | [address] | | | - LABORATORY | | | | + + + + + | [facility] | [address] | [place] | | | [facility] | | [address] | | | - LABORATORY | | | | + + + + + Type and Screen (08/26/2017 3046) + + + + + | Component | Value | Ref Range | Performed At | + + + + + | ABO | A | | [facility] | | | | | [facility] | | | | | CENTER - BLOOD | | | | | BANK | + + + + + | Rh Type | Positive | | [facility] | | | | | [facility] | | | | | CENTER - BLOOD | | | | | BANK | + + + + + | Antibody Screen | Negative | | [facility] | | | | | [facility] | | | | | CENTER - BLOOD | | | | | BANK | + + + + + + + | Specimen | + + | Blood | + + + + + + + | Performing | Address | City/State/Zipcode | Phone Number | | Organization | | | | + + + + + | [facility] | [address] | [place], [place] | | | [facility] | | [address] | | | - BLOOD BANK | | | | + + + + + Lauyrime INR (08/26/2017 1627) + + + + + | Component | Value | Ref Range | Performed At | + + + + + | Protime | 15.6 (H) | 11.3 - 13.9 seconds | [facility] | | | | | [facility] | | | | | CENTER - | | | | | LABORATORY | + + + + + | INR | 1.24 (H)Comment: Usual | 0.90 - 1.10 | [facility] | | | Oral Anticoagulation | | [facility] | | | Range: 2.0 - | | CENTER - | | | 3.0High Level Oral | | LABORATORY | | | Anticoagulation Range: | | | | | 2.5 - 3.5 | | | + + + + + + + | Specimen | + + | Blood | + + + + + + + | Performing | Address | City/State/Zipcode | Phone Number | | Organization | | | | + + + + + | [facility] | [address] | [place], [place] | [phone] | | [facility] | | [address] | | | - LABORATORY | | | | + + + + + | [facility] | [address] | [place], [place] | | | [facility] | | [address] | | | - LABORATORY | | | | + + + + + Comprehensive Metabolic Panel (08/26/2017 1627) + + + + + | Component | Value | Ref Range | Performed At | + + + + + | NA | 131 (L) | 136 - 149 mmol/L | [facility] | | | | | [facility] | | | | | CENTER - | | | | | LABORATORY | + + + + + | K | 3.2 (L) | 3.5 - 5.1 mmol/L | [facility] | | | | | [facility] | | | | | CENTER - | | | | | LABORATORY | + + + + + | CL | 104 | 98 - 109 mmol/L | [facility] | | | | | [facility] | | | | | CENTER - | | | | | LABORATORY | + + + + + | CO2 | 19 (L) | 24 - 31 mmol/L | [facility] | | | | | [facility] | | | | | CENTER - | | | | | LABORATORY | + + + + + | ANION GAP | 8 | 3 - 16 mmol/L | [facility] | | | | | [facility] | | | | | CENTER - | | | | | LABORATORY | + + + + + | GLUCOSE | 99 | 70 - 109 mg/dL | [facility] | | | | | [facility] | | | | | CENTER - | | | | | LABORATORY | + + + + + | BUN | 12 | 7 - 18 mg/dL | [facility] | | | | | [facility] | | | | | CENTER - | | | | | LABORATORY | + + + + + | Creatinine, | 0.78 | 0.60 - 1.30 mg/dL | [facility]. | | Serum/Plasma | | | [facility] | | | | | CENTER - | | | | | LABORATORY | + + + + + | eGFR if not | >60Comment: GLOMERULAR | >=60 mL/min/1.73m2 | [facility] | | NIGERIAN | FILTRATION | | [facility] | | | RATE,ESTIMATED mL/min | | CENTER - | | | /1.90p4Dvfa than 60 | | LABORATORY | | | Chronic kidney | | | | | disease,if found over a | | | | | 3-month period.Less than | | | | | 15 Kidney | | | | | failureFor | | | | | Americans,multiply the | | | | | calculated GFR by 1.21. | | | | | | | | + + + + + | CALCIUM | 9.0 | 8.3 - 10.5 mg/dL | [facility] | | | | | [facility] | | | | | CENTER - | | | | | LABORATORY | + + + + + | ALBUMIN | 2.7 (L) | 3.2 - 5.0 g/dL | [facility] | | | | | [facility] | | | | | CENTER - | | | | | LABORATORY | + + + + + | Bilirubin Total | 0.6 | 0.1 - 1.5 mg/dL | [facility] | | | | | [facility] | | | | | CENTER - | | | | | LABORATORY | + + + + + | Total protein | 5.2 (L) | 6.0 - 7.8 g/dL | [facility] | | | | | [facility] | | | | | CENTER - | | | | | LABORATORY | + + + + + | AST | 33 | 10 - 42 U/L | [facility] | | | | | [facility] | | | | | CENTER - | | | | | LABORATORY | + + + + + | ALT | 23 | 6 - 45 U/L | [facility] | | | | | [facility] | | | | | CENTER - | | | | | LABORATORY | + + + + + | ALK PHOS | 49 | 40 - 110 U/L | [facility] | | | | | [facility] | | | | | CENTER - | | | | | LABORATORY | + + + + + | GLOBULIN | 2.5 | 2.1 - 3.8 g/dL | [facility] | | | | | [facility] | | | | | CENTER - | | | | | LABORATORY | + + + + + | Albumin/Globulin | 1.1 | 0.8 - 2.0 | [facility] | | ratio | | | [facility] | | | | | CENTER - | | | | | LABORATORY | + + + + + | LAURA/ZAHRA | 15.4 | | [facility] | | | | | [facility] | | | | | CENTER - | | | | | LABORATORY | + + + + + + + | Specimen | + + | Blood | + + + + + + + | Performing | Address | City/State/Zipcode | Phone Number | | Organization | | | | + + + + + | [facility] | [address] | [place] | [phone] | | [facility] | | [address] | | | - LABORATORY | | | | + + + + + | [facility] | [address] | [place] | | | [facility] | | [address] | | | - LABORATORY | | | | + + + + + LABS - EXTERNAL SCAN (08/26/2017) + + + | Narrative | Performed At | + + + | Ordered by an | | | unspecified provider. | | + + + LABS - EXTERNAL SCAN (08/15/2017) + + + | Narrative | Performed At | + + + | Ordered by an | | | unspecified provider. | | + + + in this encounter Visit Diagnoses + + | Diagnosis | + + | Upper GI bleed | + + | Hemorrhage of gastrointestinal tract, unspecified | + + Admitting Diagnoses + + | Diagnosis | + + | Weakness | + + | Other malaise and fatigue | + + | Shortness of breath on exertion | + + | Shortness of breath | + + | Symptomatic anemia | + + | Anemia, unspecified type | + + | Upper GI bleed - Upper GI bleed [K92.2] | + + | Hemorrhage of gastrointestinal tract, unspecified | + + Administered Medications + +--------+ +--------+------+------+ | Medication Order | MAR | Action | Dose | Rate | Site | | | Action | Date | | | | + +--------+ +--------+------+------+ | docusate sodium (COLACE) | Given | | 100 mg | | | | capsule 100 mg 100 mg, Oral, 2 | | 8 14:32 | | | | | TIMES DAILY PRN, Constipation, | | PDT | | | | | Starting 08/26/17 at 2040, 1st | | | | | | | line agent for constipation | | | | | | | relief. | | | | | | + +--------+ +--------+------+------+ +---+---+ | | | +---+---+ + +-------+ +---------+---+---+ | dorzolamide (TRUSOPT) 2% | Given | | 2 drops | | | | ophthalmic solution 2 drop 2 | | 8 9:24 | | | | | drop, Both Eyes, 2 TIMES DAILY, | | PDT | | | | | First dose on Thu08/26/17 at 2100 | | | | | | + +-------+ +---------+---+---+ +-------+ +---------+---+---+ | Given | | 2 drops | | | | | 8 20:28 | | | | | | PDT | | | | +-------+ +---------+---+---+ | Given | | 2 drops | | | | | 8 11:30 | | | | | | PDT | | | | +-------+ +---------+---+---+ +---+---+ | | | +---+---+ + +-------+ +--------+---+---+ | fenofibrate (LOFIBRA, TRIGLIDE) | Given | | 160 mg | | | | tablet 160 mg 160 mg, Oral, | | 8 9:21 | | | | | DAILY, First dose on Beryl 08/27/17 | | PDT | | | | | at 0900 | | | | | | + +-------+ +--------+---+---+ +-------+ +--------+---+---+ | Given | | 160 mg | | | | | 8 14:44 | | | | | | PDT | | | | +-------+ +--------+---+---+ +---+---+ | | | +---+---+ + +-------+ +--------+---+---+ | latanoprost (XALATAN) 0.005% | Given | | 1 drop | | | | ophthalmic solution 1 drop 1 | | 8 22:25 | | | | | drop, Both Eyes, NIGHTLY, First | | PDT | | | | | dose on Thu08/26/17 at 2100 | | | | | | + +-------+ +--------+---+---+ +-------+ +--------+---+---+ | Given | | 1 drop | | | | | 8 20:06 | | | | | | PDT | | | | +-------+ +--------+---+---+ +---+---+ | | | +---+---+ + +-------+ +--------+---+---+ | magnesium oxide (MAG-OX) tablet | Given | | 400 mg | | | | 400 mg 400 mg, Oral, DAILY, | | 8 17:14 | | | | | First dose on Thu08/28/17 at 1630 | | PDT | | | | + +-------+ +--------+---+---+ +---+---+ | | | +---+---+ + +-------+ +-------+---+---+ | pantoprazole (PROTONIX) DR | Given | | 40 mg | | | | tablet 40 mg 40 mg, Oral, 2 | | 8 17:14 | | | | | TIMES DAILY BEFORE MEALS, First | | PDT | | | | | dose on Thu08/28/17 at 1630, Do | | | | | | | not cut or crush. | | | | | | + +-------+ +-------+---+---+ +---+---+ | | | +---+---+ + +-------+ +------+---+---+ | polyethylene glycol (MIRALAX) | Given | | 17 g | | | | powder 17 g 17 g, Oral, DAILY | | 8 14:33 | | | | | PRN, Constipation, Starting Wed | | PDT | | | | | 08/26/17 at 2040, If docusate and | | | | | | | senna ineffective or not ordered. | | | | | | + +-------+ +------+---+---+ + +---+ | | | + +---+ | potassium chloride (K-DUR) ER | | | tablet 20 mEq 20 mEq, Oral, | | | DAILY, First dose on 08/29/17 | | | at 0900 | | + +---+ | | | + +---+ + +-------+ +-------+---+---+ | rosuvastatin (CRESTOR) tablet | Given | | 10 mg | | | | 10 mg 10 mg, Oral, NIGHTLY, | | 8 22:28 | | | | | First dose on Thu08/26/17 at 2100 | | PDT | | | | + +-------+ +-------+---+---+ +-------+ +-------+---+---+ | Given | | 10 mg | | | | | 8 20:04 | | | | | | PDT | | | | +-------+ +-------+---+---+ +---+---+ | | | +---+---+ + +-------+ +--------+---+---+ | senna (SENOKOT) tablet 8.6 mg | Given | | 8.6 mg | | | | 8.6 mg, Oral, 2 TIMES DAILY PRN, | | 8 14:32 | | | | | Constipation, Starting Wed | | PDT | | | | | 08/26/17 at 2039, If docusate | | | | | | | ineffective or not ordered. | | | | | | + +-------+ +--------+---+---+ +---+---+ | | | +---+---+ in this encounter
--- OUTSIDE RECORDS SUMMARY | ~2017-11-16 | XMS | Encounter Summary ---
Demographics + + + | Address | [address] | | | [place] [address] | + + + | Home Phone | | + + + | Preferred Language | Unknown | + + + | Marital Status | | + + + | Confucianist Affiliation | 1009 | + + + | Race | Unknown | + + + | Ethnic Group | Unknown | + + + Author + + + | Author | [facility] | | | and [place] | + + + | Organization | [facility] | | | and [place] | + + + | Address | Unknown | + + + | Phone | Unavailable | + + + Support + + + + + | Name | Relationship | Address | Phone | + + + + + | Tameka Cristobal | ECON | [address] | | | | | [place] [address] | | + + + + + Care Team Providers + +------+ + | Care Credit Specialist Name | Role | Phone | + +------+ + | Ann Rivera MD | PCP | | + +------+ + Encounter Details +--------+ + + + + | Date | Type | Department | Care Team | Description | +--------+ + + + + | 08/30/ | Hospital | [facility] | Justin Mariano, | | | 2018 | Encounter | MED CTR THERAPY OT | OT | | | | | ACUTE [address] | | | | | | [place] | | | | | | [address] | | | | | | [phone] | | | +--------+ + + + + Social History + +--------+ [...] + + + as of this encounter Functional Status + + + [...] + + + as of this encounter Medications at Time of Discharge [...] +---------+---------+ + + as of this encounter Plan of Treatment +--------+---------+ + + + | Date | Type | Specialty | Care Team | Description | +--------+---------+ + + + | 01/05/ | Office | Neurosurgery | Rene Tao MD | | | 2018 | Visit | | [address] [place] | | | | | | [address] [place] | | | | | | [address] | | | | | | | | +--------+---------+ + + + as of this encounter Visit Diagnoses Not on filein this encounter"
--- OUTSIDE RECORDS SUMMARY | ~2017-11-16 | XMS | Encounter Summary ---
Demographics + + + | Address | [address] | | | [place] [address] | + + + | Home Phone | | + + + | Preferred Language | Unknown | + + + | Marital Status | | + + + | Oriental Orthodox Affiliation | 1009 | + + + | Race | Unknown | + + + | Ethnic Group | Unknown | + + + Author + + + | Author | [facility] | | | and [place] | + + + | Organization | [facility] | | | [...] | | | | | [place] [address] | | + + + + + Care Team Providers + +------+ + | Care Regional Training Manager Name | Role | Phone | + +------+ + | Ann Rivera MD | PCP | | + +------+ + Encounter Details +--------+ + + + + | Date | Type | Department | Care Team | Description | +--------+ + + + + | 08/26/ | Hospital | [facility] | Rene Tao MD | Status post lumbar | | 2018 | Encounter | MED CTR XRAY [address] | [address] [place] | spinal fusion | | | | [place] | [address] [place] | | | | | [place] [address] | [address] | | | | | [phone] | | | +--------+ + + + [...] do you have serious | No | 07/05/2017 | | difficulty hearing? | | | + + + + | Are you blind or do you have serious | No | 07/05/2017 | | difficulty seeing, even when wearing | | | | glasses? | | | + + + + | Do you have serious difficulty walking or | No | 07/05/2017 | | climbing stairs? (5 years old or older) | | | + + + + | Do you have difficulty dressing or bathing? | No | 07/05/2017 | | (5 years old or older) | | | + + + + | Because of a physical, mental, or emotional | Yes | 07/05/2017 | | condition, do you have difficulty [...] of a physical, mental, or emotional | Yes | 07/05/2017 | | condition, do you have serious difficulty | | | | concentrating, remembering, or making | | | | decisions? (5 years old or older) | | | + + + + as of this encounter Medications at Time of Discharge + + +-------+---------+--------+ + | Medication | Sig. | Disp. | Refills | Start | End Date | | | | | | Date | | + + +-------+---------+--------+ + | ammonium lactate | Apply 1 Application | | | | | | (LAC-HYDRIN) 12% | topically as needed | | | | | | lotion | for Dry Skin. | | | | | + + +-------+---------+--------+ + | chlorpheniramine | Take 4 mg by mouth | | | | | | (CHLOR-TRIMETON) 4 | every 6 hours as | | | | | | MG tablet | needed for | | | | | | | Allergies. | | | | | + + +-------+---------+--------+ + | Cholecalciferol | Take 1,000 Units by | | | | | | (VITAMIN D PO) | mouth. | | | | | + + +-------+---------+--------+ + | dorzolamide | Place 2 drops into | | | | | | (TRUSOPT) 2% | both eyes 2 times | | | | | | ophthalmic solution | daily. | | | | | + + +-------+---------+--------+ + | latanoprost | 1 drop nightly. | | | | | | (XALATAN) 0.005% | | | | | | | ophthalmic solution | | | | | | + + +-------+---------+--------+ + | Multiple | Take 1 tablet by | | | | | | Vitamins-Minerals | mouth Daily. | | | | | | (ADULT MULTIVITAMIN | | | | | | | WITH MINERALS/IRON) | | | | | | | TABS | | | | | | + + +-------+---------+--------+ + | rosuvastatin | Take 20 mg by mouth | | | | | | (CRESTOR) 20 mg | nightly. | | | | | | tablet | | | | | | + + +-------+---------+--------+ + | clobetasol | Apply topically | | | | | | (TEMOVATE) 0.05% | Twice daily as | | | | 8 | | cream | needed. | | | | | + + +-------+---------+--------+ + | fenofibrate | Take 145 mg by mouth | | | | | | (TRICOR) 145 mg | Daily. | | | | 8 | | tablet | | | | | | + + +-------+---------+--------+ + | magnesium oxide | Take 400 mg by mouth | | | | | | (MAG-OX) 400 mg | Daily. | | | | 8 | | tablet | | | | | | + + +-------+---------+--------+ + | metFORMIN | Take 500 mg by mouth | | | | | | (GLUCOPHAGE) 500 mg | 2 times daily (with | | | | 8 | | tablet | breakfast & | | | | | | | dinner). | | | | | + + +-------+---------+--------+ + | POLYVINYL ALCOHOL | Apply to eye 2 | | | | | | OP | times daily. | | | | 8 | + + +-------+---------+--------+ + | travoprost | Place 1 drop into | | | | | | (TRAVATAN Z) 0.004% | both eyes nightly. | | | | 8 | | ophthalmic solution | | | | | | + + +-------+---------+--------+ + as of this encounter Plan of Treatment +--------+---------+ + + + | Date | Type | Specialty | Care Team | Description | +--------+---------+ + + + | 01/05/ | Office | Neurosurgery | Rene Tao MD | | | 2018 | Visit | | [address] [facility] | | | | | | [address] [place] | | | | | | [address] | | | | | | | | +--------+---------+ + + + as of this encounter Procedures + +--------+ + + + | Procedure Name | Priori | Date/Time | Associated Diagnosis | Comments | | | ty | | | | + +--------+ + + + | XR LUMBAR SPINE 2 OR | Routin | 08/26/2017 | Status post lumbar | Results for this | | 3 VW | e | 0708 PDT | spinal fusion | procedure are in the | | | | | | results section. | + +--------+ + + + in this encounter Results XR Lumbar Spine 2 or 3 Vw (08/26/2017 0708) + + + | Narrative | Performed At | + + + | XR LUMBAR SPINE 2 OR 3 VW 08/26/2017 7:08 AM HISTORY: post lumbar | [facility] | | fusion. COMPARISON: 07/29/2017 FINDINGS: Stable post fusion | | | changes at L2-L5 since 07/29/2017; however, there has been anterior | | | subsidence of the L3-L4 intervertebral disc spacer since 07/29/2017 as | | | well as worsening of a mild anterior/central compression deformity | | | fracture of L3 since 07/02/2017. The L3 pedicle screws now | | | abut/possibly protrude through the anterior superior endplate. | | | Similar appearance of the L2-L3 and L3-L4 disc spacers. Moderate | | | spondylosis at the remaining unfused lumbar levels. Moderate aortic | | | calcifications are present. IMPRESSION - Stable post fusion | | | changes at L2-L5 since 07/29/2017; however, there has been anterior | | | subsidence of the L3-L4 intervertebral disc spacer since 07/29/2017 as | | | well as worsening of a mild anterior/central compression deformity | | | fracture of L3 since 07/02/2017. The L3 pedicle screws now | | | abut/possibly protrude through the anterior superior endplate. | | | Dictated and Signed by: Paul Ramirez MD Electronically signed: | | | 08/26/2017 8:29 AM | | + + + + + | Procedure Note | + + | Misbah, Rad Results In - 08/26/2017 0832 PDT XR LUMBAR SPINE 2 OR 3 VW 08/26/2017 7:08 AM | | | | HISTORY: post lumbar fusion. | | | | COMPARISON: 07/29/2017 | | | | FINDINGS: | | Stable post fusion changes at L2-L5 since 07/29/2017; however, there has been | | anterior subsidence of the L3-L4 intervertebral disc spacer since 07/29/2017 as | | well as worsening of a mild anterior/central compression deformity fracture of | | L3 since 07/02/2017. The L3 pedicle screws now abut/possibly protrude through the | | anterior superior endplate. Similar appearance of the L2-L3 and L3-L4 disc | | spacers. Moderate spondylosis at the remaining unfused lumbar levels. Moderate | | aortic calcifications are present. | | | | IMPRESSION - | | Stable post fusion changes at L2-L5 since 07/29/2017; however, there has been | | anterior subsidence of the L3-L4 intervertebral disc spacer since 07/29/2017 as | | well as worsening of a mild anterior/central compression deformity fracture of | | L3 since 07/02/2017. | | | | The L3 pedicle screws now abut/possibly protrude through the anterior superior | | endplate. | | | | Dictated and Signed by: Paul Ramirez MD | | Electronically signed: 08/26/2017 8:29 AM | + + + +---------+ + + | Performing | Address | City/State/Zipcode | Phone Number | | Organization | | | | + +---------+ + + | [facility] | | | | + +---------+ + + in this encounter Visit Diagnoses + + | Diagnosis | + + | Status post lumbar spinal fusion | + + | Arthrodesis status | + +"
--- OUTSIDE RECORDS SUMMARY | ~2017-11-16 | XMS | Clinical Summary ---
Demographics + + + | Address | [address] | | | [place] [address] | + + + | Home Phone | | + + + | Preferred Language | Unknown | + + + | Marital Status | | + + + | Jewish Affiliation | [id number] | + + + | Race | Unknown | + + + | Ethnic Group | Unknown | + + + Author + + + | Author | [facility] | | | and [place] | + + + | Organization | [facility] | | | and [place] | + + + | Address | Unknown | + + + | Phone | Unavailable | + + + Support + + + + + | Name | Relationship | Address | Phone | + + + + + | Tameka Foley | ECON | [address] | | | | | [place] [address] | | + + + + + Care Team Providers + +------+ + | Care Boat Joiner Helper Name | Role | Phone | + +------+ + | Ann Rivera MD | PP | | + +------+ + Allergies + + + + + + | Active Allergy | Reactions | Severity | Noted | Comments | | | | | Date | | + + + + + + | Penicillins | Rash | Low | 03/07/19 | | | | | | 17 | | + + + + + + Current Medications + + +---------+---------+------+------+-------+ | Prescription | Sig. | Disp. | Refills | Star | End | Statu | | | | | | t | Date | s | | | | | | Date | | | + + +---------+---------+------+------+-------+ | Multiple | Take 1 tablet by | | | | | Activ | | Vitamins-Minerals | mouth Daily. | | | | | e | | (ADULT MULTIVITAMIN | | | | | | | | WITH MINERALS/IRON) | | | | | | | | TABS | | | | | | | + + +---------+---------+------+------+-------+ | chlorpheniramine | Take 4 mg by mouth | | | | | Activ | | (CHLOR-TRIMETON) 4 | every 6 hours as | | | | | e | | MG tablet | needed for | | | | | | | | Allergies. | | | | | | + + +---------+---------+------+------+-------+ | dorzolamide | Place 2 drops into | | | | | Activ | | (TRUSOPT) 2% | both eyes 2 times | | | | | e | | ophthalmic solution | daily. | | | | | | + + +---------+---------+------+------+-------+ | latanoprost | 1 drop nightly. | | | | | Activ | | (XALATAN) 0.005% | | | | | | e | | ophthalmic solution | | | | | | | + + +---------+---------+------+------+-------+ | Cholecalciferol | Take 1,000 Units by | | | | | Activ | | (VITAMIN D PO) | mouth. | | | | | e | + + +---------+---------+------+------+-------+ | rosuvastatin | Take 20 mg by mouth | | | | | Activ | | (CRESTOR) 20 mg | nightly. | | | | | e | | tablet | | | | | | | + + +---------+---------+------+------+-------+ | ammonium lactate | Apply 1 Application | | | | | Activ | | (LAC-HYDRIN) 12% | topically as needed | | | | | e | | lotion | for Dry Skin. | | | | | | + + +---------+---------+------+------+-------+ | ferrous sulfate | Take 1 tablet by | 30 | 0 | 07/0 | | Activ | | 325 mg tablet | mouth 2 times daily | tablet | | 5/20 | | e | | | (with breakfast & | | | 18 | | | | | dinner). | | | | | | + + +---------+---------+------+------+-------+ | pantoprazole | Take 1 tablet by | 60 | 1 | 07/0 | | Activ | | (PROTONIX) 40 mg | mouth 2 times daily | tablet | | 5/20 | | e | | tabletIndications: | (before meals). | | | 18 | | | | | Indications: | | | | | | + + +---------+---------+------+------+-------+ | dorzolamide | Place 2 drops into | 20 mL | 0 | 07/0 | | Activ | | (TRUSOPT) 2% | both eyes 2 times | | | 5/20 | | e | | ophthalmic solution | daily. | | | 18 | | | + + +---------+---------+------+------+-------+ | magnesium oxide | Take 1 tablet by | 60 | 1 | 07/0 | | Activ | | (MAG-OX) 400 mg | mouth 2 times daily. | tablet | | 5/20 | | e | | tablet | | | | 18 | | | + + +---------+---------+------+------+-------+ Active Problems + + + | Problem | Noted Date | + + + | Debility | 08/31/2017 | + + + | Severe protein-calorie malnutrition (HCC) | 08/28/2017 | + + + | Hypokalemia | 08/28/2017 | + + + | Hypomagnesemia | 08/28/2017 | + + + | Duodenal ulcer | 08/28/2017 | + + + | Leg edema | 08/27/2017 | + + + | Upper GI bleeding | 08/27/2017 | + + + | S/P lumbar fusion | 08/26/2017 | + + + | Anemia associated with acute blood loss | 08/26/2017 | + + + | Spondylolisthesis of lumbar region | 05/12/2017 | + + + | S/P cervical disc replacement | 02/04/2017 | + + + | Obesity (BMI 30-39.9) | 11/07/2016 | + + + | Essential hypertension | 11/07/2016 | + + + | Sleep apnea in adult | 11/07/2016 | + + + | Cervical spondylosis with myelopathy | 09/03/2016 | + + + | Cervical spinal stenosis | 09/03/2016 | + + + | Lumbar radiculopathy | 08/08/2016 | + + + | Foraminal stenosis of lumbar region | 08/08/2016 | + + + | Lumbar facet arthropathy (HCC) | 08/08/2016 | + + + | DDD (degenerative disc disease), lumbar | 08/08/2016 | + + + | Cervical radiculopathy | 08/08/2016 | + + + | Cervical myelopathy (HCC) | 08/08/2016 | + + + | Diabetes mellitus, type II - ORAL Control | 03/07/2016 | + + + | Gout | 03/07/2016 | + + + | Cigar smoker | 03/07/2016 | + + + | H/O Prostate cancer | 03/07/2016 | + + + | H/O Radical Retropubic Prostatectomy w/LN's | 03/07/2016 | + + + | Hypertension | 03/07/2016 | + + + | H/O Appendectomy | 03/07/2016 | + + + | Hydronephrosis of left kidney - Mar 2016 | 03/07/2016 | + + + | Low back pain | 03/07/2016 | + + + | Angiotensin-converting enzyme (CATHY) inhibitor - Daily Use | 03/07/2016 | + + + | Lumbar herniated disc | 03/06/2016 | + + + | Left ureteral stone - Mar 2016 | 03/06/2016 | + + + Encounters +--------+ + + + + | Date | Type | Specialty | Care Team | Description | +--------+ + + + + | 10/06/ | Office | | Pamela Prieto | S/P lumbar fusion | | 2017 | Visit | | ERIC York | (Primary Dx); | | | | | | Spondylolisthesis of | | | | | | lumbar region; | | | | | | Foraminal stenosis | | | | | | of lumbar region; | | | | | | Lumbar radiculopathy | +--------+ + + + + | 10/06/ | Hospital | | Berta Tao MD | Foraminal stenosis | | 2018 | Encounter | | | of lumbar region; | | | | | | Lumbar | | | | | | radiculopathy; DDD | | | | | | (degenerative disc | | | | | | disease), lumbar; | | | | | | Status post lumbar | | | | | | spinal fusion; S/P | | | | | | lumbar fusion; | | | | | | Spondylolisthesis of | | | | | | lumbar region | +--------+ + + + + | 08/30/ | Hospital | | Justin Mariano, | | | 2018 | Encounter | | OT | | +--------+ + + + + | 08/28/ | Hospital | | Anastacio Sterling | Debility (Primary | | 2018 - | Encounter | | MD Silvestre | Dx); Hypokalemia; | | | | | | Hypomagnesemia; Left | | 09/03/ | | | | ureteral stone; Leg | | 2017 | | | | edema; Severe | | | | | | protein-calorie | | | | | | malnutrition (HCC); | | | | | | Upper GI bleeding; | | | | | | Anemia associated | | | | | | with acute blood | | | | | | loss; S/P lumbar | | | | | | fusion; Sleep apnea | | | | | | in adult | +--------+ + + + + +---+ + | | Discharge | | | Summaries | | | - Shane, | | | Amandeep | | | MD Romel | | | - | | | 09/03/2017 | | | 1401 PDT | | | Formatting | | | of this | | | note may be | | | different | | | from the | | | original.RE | | | HABILITATIO | | | N DISCHARGE | | | SUMMARY | | | Patient | | | Identificat | | | ion: Linda | | | Pepito | | | MaelDOB: | | | 1940MR | | | [id number] | | | 61Admit | | | Date: | | | 08/28/2017At | | | tending | | | Provider: | | | Anastacio | | | Silvestre | | | Hallie,* | | | | | | | | | | | | Primary | | | Care | | | Physician: | | | Sherrie Hernandez | | | MD Miguel | | | Impairment | | | Group: 16 | | | Debility | | | (non-Cardia | | | c, | | | non-Pulmona | | | ry)Etiologi | | | c | | | Diagnosis: | | | Anemia | | | associated | | | with acute | | | blood loss | | | [D62]Discha | | | rge date | | | and time: | | | 09/03/17 | | | Discharge | | | Physician: | | | Anastacio | | | Silvestre | | | Hallie*So | | | cial | | | History: | | | per chart | | | review and | | | confirmed | | | with | | | ptSocial | | | History | | | Social | | | History | | | Marital | | | status: | | | | | | Spouse | | | name: N/A | | | | | | Number of | | | children: | | | N/A | | | Years of | | | education: | | | 12 | | | Occupationa | | | l History | | | | | | | | | Retired and | | | Disabled | | | Social | | | History | | | Main Topics | | | | | | Smoking | | | status: | | | Former | | | Smoker | | | Types: | | | Cigars | | | Quit date: | | | 12/26/1966 | | | | | | Smokeless | | | tobacco: | | | Never Used | | | | | | Alcohol | | | use 8.4 | | | oz/week | | | 14 Glasses | | | of wine per | | | week | | | Drug use: | | | Yes | | | Frequency: | | | 2.0 times | | | per week | | | Types: | | | Marijuana | | | | | | Sexual | | | activity: | | | No Other | | | Topics | | | Concern | | | Not on | | | file Social | | | History | | | Narrative | | | | | | No | | | narrative | | | on file | | | Consults:Re | | | habilitatio | | | n | | | nursingPhys | | | ical | | | TherapyOccu | | | pational | | | TherapySpee | | | ch | | | TherapySoci | | | al Work | | | Significant | | | Diagnostic | | | Studies: | | | Recent | | | Results | | | (from the | | | past 360 | | | hour(s)) XR | | | Lumbar | | | Spine 2 or | | | 3 Vw | | | Narrative | | | XR LUMBAR | | | SPINE 2 OR | | | 3 VW | | | 08/26/2017 | | | 7:08 | | | AMHISTORY: | | | post lumbar | | | | | | fusion.COMP | | | ARISON: | | | 07/29/2017FI | | | NDINGS:Stab | | | le post | | | fusion | | | changes at | | | L2-L5 since | | | 07/29/2017; | | | however, | | | there has | | | beenanterio | | | r | | | subsidence | | | of the | | | L3-L4 | | | interverteb | | | ral disc | | | spacer | | | since | | | 07/29/2017 | | | aswell as | | | worsening | | | of a mild | | | anterior/ce | | | ntral | | | compression | | | deformity | | | fracture | | | ofL3 since | | | 07/02/2017. | | | The L3 | | | pedicle | | | screws now | | | abut/possib | | | ly protrude | | | through | | | theanterior | | | superior | | | endplate. | | | Similar | | | appearance | | | of the | | | L2-L3 and | | | L3-L4 | | | discspacers | | | . Moderate | | | spondylosis | | | at the | | | remaining | | | unfused | | | lumbar | | | levels. | | | Moderateaor | | | tic | | | calcificati | | | ons are | | | present. | | | IMPRESSION | | | -Stable | | | post fusion | | | changes at | | | L2-L5 | | | since | | | 07/29/2017; | | | however, | | | there has | | | beenanterio | | | r | | | subsidence | | | of the | | | L3-L4 | | | interverteb | | | ral disc | | | spacer | | | since | | | 07/29/2017 | | | aswell as | | | worsening | | | of a mild | | | anterior/ce | | | ntral | | | compression | | | deformity | | | fracture | | | ofL3 since | | | 07/02/2017.Th | | | e L3 | | | pedicle | | | screws now | | | abut/possib | | | ly protrude | | | through | | | the | | | anterior | | | superiorend | | | plate.Dicta | | | song and | | | Signed by: | | | Paul | | | MD Ashley | | | | | | Electronica | | | lly signed: | | | 08/26/2017 | | | 8:29 AM XR | | | Chest PA | | | and Lateral | | | Narrative | | | EXAM: XR | | | CHEST PA | | | AND LATERAL | | | dated | | | 08/26/2017 | | | 6:21 | | | PMHISTORY: | | | ABNORMAL | | | LABComparis | | | on: Danielle | | | 11, | | | 2018TECHNIQ | | | UE: Frontal | | | and | | | lateral | | | views of | | | the | | | chest.FINDI | | | NGS:The | | | lungs are | | | symmetrical | | | ly aerated. | | | | | | Hyperexpans | | | ion | | | suggesting | | | underlyingo | | | bstructive | | | pulmonary | | | disease. | | | Bilateral | | | pleural | | | plaque. No | | | acute | | | airspacedis | | | ease. No | | | pleural | | | effusion. | | | There are | | | no pleural | | | effusions. | | | There is | | | nopneumotho | | | rax. 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 Dictated | | | and Signed | | | by: Linda | | | T Buratto, | | | MD | | | Electronica | | | lly signed: | | | 08/26/2017 | | | 6:31 PM | | | IMAGING | | | REPORT - | | | EXTERNAL | | | SCAN | | | Narrative | | | Ordered by | | | an | | | unspecified | | | provider. | | | Treatments: | | | intensive | | | inpatient | | | rehabilitat | | | ionADMISSIO | | | N HPI: This | | | is a 76 | | | y.o. male | | | had a | | | lumbar | | | fusion | | | 07-02-17. | | | Post | | | operatively | | | he had | | | melena and | | | was seen at | | | | | | hospital | | | and given 2 | | | u PRBC's | | | and | | | protonix. | | | He did ok | | | until | | | 08-26-17 | | | when his | | | primary | | | physician | | | sent him to | | | the ER | | | because of | | | hgb 7.1. | | | He was | | | admitted | | | and found | | | to also | | | have very | | | low Mg and | | | K and was | | | given not | | | only blood, | | | but also | | | IV Mg and | | | po K. He | | | was still | | | having some | | | back and | | | right leg | | | issues from | | | his back | | | surgery as | | | well and | | | could not | | | be | | | discharged | | | home, so | | | was | | | admitted to | | | [facility] with | | | the goal of | | | home with | | | his . 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 | | | | | | Dementia | | | poor | | | short term | | | memory | | | | | | 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 | | | | | | 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 | | | glands | | | Fall from | | | slip, | | | trip, or | | | stumble | | | Gout | | | Hematuria | | | | | | | | | Hyperlipide | | | elvis | | | | | | Hypertensio | | | n | | | Illness, | | | unspecified | | | | | | 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 | | | | | | 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 | | | | | | 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, not | | | specified | | | as | | | Sjogren's | | | | | | Kidney | | | stones | | | Leg joint | | | pain | | | Left | | | Low back | | | pain | | | Lumbago | | | | | | Malignant | | | neoplasm | | | prostate | | | (HCC) | | | Mood | | | disorder | | | (HCC) | | | Neoplasm | | | of | | | uncertain | | | behavior of | | | skin | | | Ocular | | | hypertensio | | | n, | | | bilateral | | | | | | Other | | | unknown and | | | | | | unspecified | | | cause of | | | morbidity | | | or | | | mortality | | | | | | Other | | | urinary | | | incontinenc | | | e | | | Primary | | | hypertensio | | | n | | | | | | Radiculopat | | | hy | | | S/P | | | lumbar | | | fusion | | | 08/26/2017 | | | | | | Senile | | | cataract | | | | | | Sleep | | | apnea no | | | CPAP | | | Spinal | | | stenosis | | | | | | Spinal | | | stenosis, | | | lumbar | | | region, | | | with | | | neurogenic | | | claudicatio | | | n | | | | | | Spondylosis | | | without | | | myelopathy | | | | | | | | | Uncontrolle | | | d diabetes | | | mellitus | | | type 2 | | | without | | | complicatio | | | ns (HCC) | | | | | | Urinary | | | tract | | | infection | | | | | | Vitamin D | | | deficiency | | | PSx:Past | | | Surgical | | | History: | | | Procedure | | | Laterality | | | Date | | | | | | APPENDECTOM | | | Y | | | CERVICAL | | | DISC | | | ARTHROPLAST | | | Y Anterior | | | 11/07/2016 | | | Procedure: | | | C4-5, C6-7 | | | Disc | | | Arthroplast | | | y; | | | Surgeon: | | | Berta Emerson | | | Yam, MD; | | | Location: | | | [facility] | | | | | | | | | COLONOSCOPY | | | | | | | | | CYSTOSCOPY | | | | | | LUMBAR | | | SPINE | | | SURGERY | | | Left | | | 07/02/2017 | | | Procedure: | | | L3-4, L4-5 | | | LAIF, L5-S1 | | | TLIF; | | | Surgeon: | | | Martín | | | MD Aislinn; | | | Location: | | | [facility] | | | | | | | | | PROSTATECTO | | | MY 2000 | | | UPPER | | | GASTROINTES | | | TINAL | | | ENDOSCOPY | | | N/A | | | 08/28/2017 | | | Procedure: | | | EGD; | | | Surgeon: | | | Linda E | | | MD Jayden; | | | Location: | | | [facility] | | | PROCEDURE | | | UNIT | | | | | | URETEROSCOP | | | Y Left | | | 03/07/2016 | | | Procedure: | | | Left | | | Ureteroscop | | | ic Laser | | | Lithotripsy | | | , stent | | | placement, | | | retrograde | | | pyelogram; | | | Surgeon: | | | Tariq Sinha | | | MD Trupti; | | | Location: | | | [facility] | | | OR Meds | | | During | | | Hospitaliza | | | tionNo | | | current | | | facility-ad | | | ministered | | | medications | | | for this | | | encounter. | | | Current | | | Outpatient | | | Prescriptio | | | ns | | | Medication | | | Sig | | | Dispense | | | Refill | | | | | | acetaminoph | | | en | | | (TYLENOL) | | | 325 mg | | | tablet Take | | | 2 tablets | | | by mouth | | | every 4 | | | hours as | | | needed for | | | Pain (or | | | fever >= | | | 38.6 C | | | (101.5 F)). | | | 120 tablet | | | 0 | | | ammonium | | | lactate | | | (LAC-HYDRIN | | | ) 12% | | | lotion | | | Apply 1 | | | Application | | | topically | | | as needed | | | for Dry | | | Skin. | | | | | | chlorphenir | | | amine | | | (CHLOR-TRIM | | | ETON) 4 MG | | | tablet Take | | | 4 mg by | | | mouth every | | | 6 hours as | | | needed for | | | Allergies. | | | | | | | | | Cholecalcif | | | emmett | | | (VITAMIN D | | | PO) Take | | | 1,000 Units | | | by mouth. | | | | | | | | | clobetasol | | | (TEMOVATE) | | | 0.05% cream | | | Apply | | | topically | | | Twice | | | daily as | | | needed. | | | | | | | | | dorzolamide | | | (TRUSOPT) | | | 2% | | | ophthalmic | | | solution | | | Place 2 | | | drops into | | | both eyes 2 | | | times | | | daily. 20 | | | mL 0 | | | | | | dorzolamide | | | (TRUSOPT) | | | 2% | | | ophthalmic | | | solution | | | Place 2 | | | drops into | | | both eyes 2 | | | times | | | daily. | | | | | | fenofibrate | | | (TRICOR) | | | 145 mg | | | tablet Take | | | 145 mg by | | | mouth | | | Daily. | | | ferrous | | | sulfate 325 | | | mg tablet | | | Take 1 | | | tablet by | | | mouth 2 | | | times daily | | | (with | | | breakfast & | | | dinner). | | | 30 tablet 0 | | | | | | | | | latanoprost | | | (XALATAN) | | | 0.005% | | | ophthalmic | | | solution 1 | | | drop | | | nightly. | | | | | | magnesium | | | oxide | | | (MAG-OX) | | | 400 mg | | | tablet Take | | | 1 tablet | | | by mouth 2 | | | times | | | daily. 60 | | | tablet 1 | | | Multiple | | | Vitamins-Mi | | | nerals | | | (ADULT | | | MULTIVITAMI | | | N WITH | | | MINERALS/IR | | | ON) TABS | | | Take 1 | | | tablet by | | | mouth | | | Daily. | | | | | | pantoprazol | | | e | | | (PROTONIX) | | | 40 mg | | | tablet Take | | | 1 tablet | | | by mouth 2 | | | times daily | | | (before | | | meals). | | | Indications | | | : 60 tablet | | | 1 | | | | | | rosuvastati | | | n (CRESTOR) | | | 20 mg | | | tablet Take | | | 20 mg by | | | mouth | | | nightly. | | | | | | senna | | | (SENOKOT) | | | 8.6 mg | | | tablet Take | | | 1 tablet | | | by mouth | | | Twice | | | daily as | | | needed for | | | Constipatio | | | n. 40 | | | tablet 0 | | | Allergies:A | | | llergies | | | Allergen | | | Reactions | | | Penicillins | | | Rash | | | Intolerance | | | No | | | active | | | intolerance | | | s/contraind | | | ications | | | Family | | | History:Fam | | | josefa History | | | Problem | | | Relation | | | Age of | | | Onset | | | No Known | | | Problems | | | Mother | | | No Known | | | Problems | | | Father | | | No Known | | | Problems | | | Maternal | | | Grandmother | | | | | | No Known | | | Problems | | | Maternal | | | Grandfather | | | | | | No Known | | | Problems | | | Paternal | | | Grandmother | | | | | | No Known | | | Problems | | | Paternal | | | Grandfather | | | | | | Gout | | | Other | | | Cancer | | | Other | | | Functional | | | Status:Curr | | | ent:FIM | | | BladderScor | | | e: 5 FIM | | | Bowel | | | Score: 6 | | | FIM | | | Bed/Chair/W | | | heelchair | | | Score: 5 | | | FIM Toilet | | | Transfer | | | Score: 5 | | | FIM | | | Tub/Shower | | | Transfer | | | Score: 5 | | | FIM Walk | | | Score: 5 | | | FIM | | | Distance | | | Walked(feet | | | ): 250 feet | | | FIM | | | Wheelchair | | | Score: | | | FIM Stairs | | | Score :5 | | | FIM Eating | | | Score: 6 | | | FIM | | | Grooming | | | Score: 5 | | | FIM Bathing | | | Score: 4 | | | FIM | | | Dressing | | | Upper Body | | | Score: 4 | | | FIM | | | Dressing | | | Lower Body | | | Score: 3 | | | FIM | | | Toileting | | | Score: 5 | | | DISCHARGE | | | PHYSICAL | | | EXAMINATION | | | :VS: BP | | | 122/66 | | | | Pulse 77 | | | | Temp 36.2 | | | C (97.2 | | | F) (Oral) | | | | Resp 18 | | | | Ht | | | 1.702 m (5' | | | 7") | Wt | | | 80.6 kg | | | (177 lb | | | 11.1 oz) | | | | SpO2 98% | | | | BMI 27.83 | | | kg/m | | | HEENT: | | | Eyes clear. | | | Oral | | | mucosa | | | moist.LYMPH | | | ATICS: No | | | significant | | | adenopathy | | | noted in | | | neck, | | | axilla or | | | groin.RESPI | | | RATORY: | | | Breathing | | | comfortably | | | , unlabored | | | | | | respiration | | | s.CARDIOVAS | | | CULAR: | | | Regular | | | rate and | | | rhythm | | | without | | | audible | | | murmur or | | | rub noted. | | | No edema. | | | Palpable | | | peripheral | | | pulses.NATALI | | | ROINTESTINA | | | L: Abdomen | | | soft, | | | non-tender, | | | with | | | active | | | bowel | | | sounds | | | present.MUS | | | CULOSKELETA | | | L: | | | Extremities | | | symmetric | | | with stable | | | range of | | | motion.NEUR | | | OLOGIC: | | | Stable. | | | LABORATORY: | | | @LAB72@Hosp | | | ital | | | Course:REAS | | | ON FOR | | | ADMISSION:C | | | omprehensiv | | | e medical | | | inpatient | | | rehabilitat | | | ion program | | | to treat | | | problems | | | with | | | self-care | | | and | | | functional | | | mobility | | | secondary | | | to and | | | multiple | | | comorbiditi | | | es. Please | | | see | | | History & | | | Physical | | | for full | | | details of | | | history and | | | status at | | | time of | | | admission.H | | | [facility] | | | COURSE:The | | | patient was | | | admitted | | | to the | | | inpatient | | | rehabilitat | | | ion service | | | and | | | participate | | | d in full | | | program. | | | Vital | | | Signs, | | | including | | | orthostatic | | | blood | | | pressure | | | and pulse, | | | and changes | | | with | | | exercise | | | activity | | | were | | | closely | | | monitored | | | and | | | discussed. | | | | | | Respiratory | | | Therapy | | | protocol | | | was | | | implemented | | | . Bowel | | | and bladder | | | management | | | program | | | was begun. | | | | | | Appropriate | | | nutrition | | | was | | | provided. | | | Follow-up | | | laboratory | | | data was | | | obtained | | | regarding | | | metabolic | | | and | | | hematologic | | | issues. | | | Pain | | | management | | | was | | | effective | | | with | | | prescribed | | | medications | | | . Staff | | | reinforced | | | safety | | | measures | | | and | | | awareness.T | | | he patient | | | was also | | | seen and | | | followed | | | closely | | | for medical | | | | | | comorbiditi | | | es. Self | | | care and | | | function | | | mobility | | | are | | | improved. | | | Appropriate | | | patient | | | education | | | and fmnily | | | training | | | have been | | | provided.Th | | | e patient | | | will be | | | discharged | | | today with | | | referral to | | | home | | | health | | | services. | | | Please see | | | final | | | Rehabilitat | | | ion Team | | | Conference | | | Note for | | | Functional | | | Status of | | | Discharge.R | | | efer to | | | Case | | | Management | | | Discharge | | | Instruction | | | s regarding | | | | | | coordinatio | | | n of future | | | | | | rehabilitat | | | ion | | | therapies | | | and | | | discharge | | | equipment | | | needs, as | | | well as | | | Medical | | | follow-up | | | appointment | | | s.IMPRESSIO | | | N : 1. | | | Increased | | | debility, | | | with recent | | | increase | | | deficits | | | with | | | self-care | | | and | | | functional | | | mobility, | | | secondary | | | to 2. | | | Severe | | | lumbar | | | spine | | | stenosis, | | | with | | | worsening | | | low back | | | pain and | | | bilateral | | | lower | | | extremity | | | radiculopat | | | hy, right | | | worse than | | | left and | | | exertional | | | claudicatio | | | n, | | | refractory | | | to | | | conservativ | | | e | | | management, | | | requiring | | | surgical | | | interventio | | | n :Proc. 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 | | | Minimally | | | invasive | | | lumbar | | | fusion via | | | anterior | | | and | | | posterior | | | approaches2 | | | . Combined | | | posteriolat | | | eral and | | | posterior | | | interbody | | | arthrodesis | | | L5-S13. | | | Anterior | | | lumbar | | | interbody | | | arthrodesis | | | L3-4, | | | L4-54. | | | Posterolate | | | ral lumbar | | | arthrodesis | | | L3, L4, | | | L55. | | | Posterior | | | spinal | | | instrumenta | | | tion L3-S1 | | | with use of | | | Precept6. | | | Placement | | | of PEEK | | | interbody | | | spacer | | | L3-4, L4-5, | | | L5-S17. L5 | | | | | | laminectomy | | | , L5-S1 | | | facetectomy | | | , L5 and S1 | | | 3. | | | Recent | | | acute GI | | | bleed | | | secondary | | | to multiple | | | duodenal | | | ulcers that | | | is post | | | UGI August 28 | | | by Dr. | | | German 4. | | | Acute | | | severe | | | blood loss | | | anemia | | | secondary | | | to #3 GI | | | bleed, | | | improved | | | following 5 | | | units of | | | PRBCs | | | ;Currently | | | with | | | hemoglobin | | | 11.2 and | | | hematocrit | | | 32.1, | | | stable 5. | | | Acute | | | Hypomagnese | | | elvis, | | | previously | | | requiring | | | IV | | | medication; | | | now on | | | oral | | | agents 6. | | | Acute | | | hypokalemia | | | ; | | | resolved, | | | now with | | | potassium | | | of 4.3 7. | | | Mild | | | cognitive | | | impairment, | | | with acute | | | increased | | | delirium | | | secondary | | | to the | | | above 8. | | | Diabetes | | | mellitus, | | | previously | | | on oral | | | agents, 9. 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 | | | Visual | | | impairment | | | secondary | | | to | | | glaucoma D | | | ISCHARGE | | | MEDICATIONS | | | : Discharge | | | | | | Medications | | | New | | | Medications | | | Details | | | | | | acetaminoph | | | en 325 mg | | | tablet Take | | | 2 tablets | | | by mouth | | | every 4 | | | hours as | | | needed for | | | Pain (or | | | fever >= | | | 38.6 C | | | (101.5 | | | F)).aka: | | | TYLENOL | | | ferrous | | | sulfate 325 | | | mg tablet | | | Take 1 | | | tablet by | | | mouth 2 | | | times daily | | | (with | | | breakfast & | | | dinner). | | | pantoprazol | | | e 40 mg | | | tablet Take | | | 1 tablet | | | by mouth 2 | | | times daily | | | (before | | | meals). | | | Indications | | | :aka: | | | PROTONIX | | | senna 8.6 | | | mg tablet | | | Take 1 | | | tablet by | | | mouth Twice | | | daily as | | | needed for | | | Constipatio | | | n.aka: | | | SENOKOT | | | Changed | | | Medications | | | Details | | | | | | dorzolamide | | | 2% | | | ophthalmic | | | solution | | | Place 2 | | | drops into | | | both eyes 2 | | | times | | | daily.What | | | changed: | | | Another | | | medication | | | with the | | | same name | | | was added. | | | Make sure | | | you | | | understand | | | how and | | | when to | | | take | | | each.aka: | | | TRUSOPT | | | dorzolamide | | | 2% | | | ophthalmic | | | solution | | | Place 2 | | | drops into | | | both eyes 2 | | | times | | | daily.What | | | changed: | | | You were | | | already | | | taking a | | | medication | | | with the | | | same name, | | | and this | | | prescriptio | | | n was | | | added. Make | | | sure you | | | understand | | | how and | | | when to | | | take | | | each.aka: | | | TRUSOPT | | | magnesium | | | oxide 400 | | | mg tablet | | | Take 1 | | | tablet by | | | mouth 2 | | | times | | | daily.What | | | changed: | | | when to | | | take | | | thisaka: | | | MAG-OX | | | Unchanged | | | Medications | | | Details | | | adult | | | multivitami | | | n with | | | minerals/ir | | | on Tabs | | | Take 1 | | | tablet by | | | mouth | | | Daily. | | | ammonium | | | lactate 12% | | | lotion | | | Apply 1 | | | Application | | | topically | | | as needed | | | for Dry | | | Skin.aka: | | | LAC-HYDRIN | | | chlorphenir | | | amine 4 MG | | | tablet Take | | | 4 mg by | | | mouth every | | | 6 hours as | | | needed for | | | | | | Allergies.a | | | ka: | | | CHLOR-TRIME | | | TON | | | clobetasol | | | 0.05% cream | | | Apply | | | topically | | | Twice | | | daily as | | | needed.aka: | | | TEMOVATE | | | fenofibrate | | | 145 mg | | | tablet Take | | | 145 mg by | | | mouth | | | Daily.aka: | | | TRICOR | | | latanoprost | | | 0.005% | | | ophthalmic | | | solution 1 | | | drop | | | nightly.aka | | | : XALATAN | | | rosuvastati | | | n 20 mg | | | tablet Take | | | 20 mg by | | | mouth | | | nightly.aka | | | : CRESTOR | | | VITAMIN D | | | PO Take | | | 1,000 Units | | | by mouth. | | | | | | Discontinue | | | d | | | Medications | | | metFORMIN | | | 500 mg | | | tabletaka: | | | GLUCOPHAGE | | | POLYVINYL | | | ALCOHOL OP | | | TRAVATAN Z | | | 0.004% | | | ophthalmic | | | solutionGen | | | ervin drug: | | | travoprost | | | Current | | | Discharge | | | Medication | | | List | | | START | | | taking | | | these | | | medications | | | | | | Medication | | | Dose Last | | | Dose Taken; | | | | | | acetaminoph | | | en | | | (TYLENOL) | | | 325 mg | | | tablet 650 | | | mg [ ] | | | Take 2 | | | tablets by | | | mouth every | | | 4 hours as | | | needed for | | | Pain (or | | | fever >= | | | 38.6 C | | | (101.5 F)). | | | Qty: 120 | | | tablet | | | Refills: 0 | | | Start | | | date: | | | 09/03/2017 | | | !! | | | dorzolamide | | | (TRUSOPT) | | | 2% | | | ophthalmic | | | solution 2 | | | drops [ ] | | | Place 2 | | | drops into | | | both eyes 2 | | | times | | | daily. Qty: | | | 20 mL | | | Refills: 0 | | | Start | | | date: | | | 09/03/2017 | | | | | | ferrous | | | sulfate 325 | | | mg tablet | | | 325 mg [ | | | ] Take 1 | | | tablet by | | | mouth 2 | | | times daily | | | (with | | | breakfast & | | | dinner). | | | Qty: 30 | | | tablet | | | Refills: 0 | | | Start | | | date: | | | 09/03/2017 | | | | | | magnesium | | | oxide | | | (MAG-OX) | | | 400 mg | | | tablet 400 | | | mg [ ] | | | Take 1 | | | tablet by | | | mouth 2 | | | times | | | daily. Qty: | | | 60 tablet | | | Refills: | | | 1 Start | | | date: | | | 09/03/2017 | | | | | | pantoprazol | | | e | | | (PROTONIX) | | | 40 mg | | | tablet 40 | | | mg [ ] | | | Take 1 | | | tablet by | | | mouth 2 | | | times daily | | | (before | | | meals). | | | Indications | | | : Qty: 60 | | | tablet | | | Refills: 1 | | | Start | | | date: | | | 09/03/2017 | | | | | | senna | | | (SENOKOT) | | | 8.6 mg | | | tablet 8.6 | | | mg [ ] | | | Take 1 | | | tablet by | | | mouth Twice | | | daily as | | | needed for | | | Constipatio | | | n. Qty: 40 | | | tablet | | | Refills: 0 | | | Start | | | date: | | | 09/03/2017 | | | !! | | | Potential | | | duplicate | | | medications | | | found. | | | Please | | | discuss | | | with | | | provider. | | | CONTINUE | | | these | | | medications | | | which have | | | NOT | | | CHANGED | | | Medication | | | Dose Last | | | Dose Taken; | | | ammonium | | | lactate | | | (LAC-HYDRIN | | | ) 12% | | | lotion 1 | | | Application | | | [ ] | | | Apply 1 | | | Application | | | topically | | | as needed | | | for Dry | | | Skin. | | | | | | chlorphenir | | | amine | | | (CHLOR-TRIM | | | ETON) 4 MG | | | tablet 4 mg | | | [ ] | | | Take 4 mg | | | by mouth | | | every 6 | | | hours as | | | needed for | | | Allergies. | | | | | | Cholecalcif | | | emmett | | | (VITAMIN D | | | PO) 1,000 | | | Units [ ] | | | Take | | | 1,000 Units | | | by mouth. | | | | | | clobetasol | | | (TEMOVATE) | | | 0.05% cream | | | [ ] | | | Apply | | | topically | | | Twice | | | daily as | | | needed. | | | !! | | | dorzolamide | | | (TRUSOPT) | | | 2% | | | ophthalmic | | | solution 2 | | | drops [ ] | | | Place 2 | | | drops into | | | both eyes 2 | | | times | | | daily. | | | | | | fenofibrate | | | (TRICOR) | | | 145 mg | | | tablet 145 | | | mg [ ] | | | Take 145 mg | | | by mouth | | | Daily. | | | | | | latanoprost | | | (XALATAN) | | | 0.005% | | | ophthalmic | | | solution 1 | | | drop [ ] | | | 1 drop | | | nightly. | | | | | | Multiple | | | Vitamins-Mi | | | nerals | | | (ADULT | | | MULTIVITAMI | | | N WITH | | | MINERALS/IR | | | ON) TABS 1 | | | tablet [ | | | ] Take 1 | | | tablet by | | | mouth | | | Daily. | | | | | | rosuvastati | | | n (CRESTOR) | | | 20 mg | | | tablet 20 | | | mg [ ] | | | Take 20 mg | | | by mouth | | | nightly. | | | !! | | | Potential | | | duplicate | | | medications | | | found. | | | Please | | | discuss | | | with | | | provider. | | | | | | DISPOSITION | | | : Home with | | | | | | familyFOLLO | | | W [facility]:-PCP: | | | 1-2 weeks | | | after d/c | | | from | | | hospital: | | | Sherrie R | | | MD Miguel | | | -Neurosurge | | | ry : Berta | | | A MD Aislinn : | | | call-GI : | | | Linda E. | | | MD Jayden | | | CallDISCHAR | | | GE | | | INSTRUCTION | | | S: | | | Discharge | | | to home | | | today with | | | family.Cont | | | inue with | | | home | | | program and | | | home | | | health | | | services.Fo | | | llow-up | | | with his | | | physicians | | | as above.I | | | spent 33 | | | minutes on | | | date of | | | discharge | | | with | | | unit/floor | | | time | | | including | | | face to | | | face with | | | the | | | patient, | | | with over | | | 50% spent | | | in | | | counseling | | | and/or | | | coordinatio | | | n of care | | | regarding | | | discharge | | | meds, and | | | addressing | | | home | | | program, | | | f/u | | | appointment | | | s, setting | | | up d/c | | | therapies, | | | arranging | | | for | | | equipment.S | | | igned:Amandeep | | | Bella Lynn, | | | | | | 4:01CCPrima | | | ry Care | | | Physician: | | | Sherrie Hernandez | | | MD Miguel | | | Neurosurger | | | y : Berta Emerson | | | MD Aislinn | | | -GI : iLnda | | | Akhil Carpenter, | | | MD Portions | | | of this | | | chart may | | | have been | | | created | | | with Dragon | | | voice | | | recognition | | | software. | | | Occasional | | | wrong-word | | | or | | | | | | sound-alike | | | | | | | | | substitutio | | | ns may have | | | occurred | | | due to the | | | inherent | | | limitations | | | of voice | | | recognition | | | software. | | | Please read | | | the chart | | | carefully | | | and | | | recognize, | | | using | | | context, | | | where these | | | | | | substitutio | | | ns have | | | occurred | +---+ + +--------+ +---+ + + | 08/28/ | Anesthesia | | Phoenix Cabello MD | | | 2017 | Event | | | | +--------+ +---+ + + | 08/28/ | Procedure | | | | | 2018 | Pass | | | | +--------+ +---+ + + | 08/28/ | Surgery | | Linda Carpenter MD | EGD | | 2017 | | | | | +--------+ +---+ + + | 08/26/ | Hospital | | Keshawn Begum | Anemia, unspecified | | 2018 - | Encounter | | MD Glenn Jean-Baptiste | type (Primary Dx); | | | | | Suri Celis MD | Weakness; Shortness | | 08/28/ | | | | of breath on | | 2018 | | | | exertion; | | | | | | Symptomatic anemia; | | | | | | Upper GI bleeding; | | | | | | Anemia associated | | | | | | with acute blood | | | | | | loss; Type 2 | | | | | | diabetes mellitus | | | | | | without | | | | | | complication, | | | | | | without long-term | | | | | | current use of | | | | | | insulin (HCC); Leg | | | | | | edema; | | | | | | Hypomagnesemia; | | | | | | Severe | | | | | | protein-calorie | | | | | | malnutrition (HCC) | +--------+ +---+ + + +---+ + | | Discharge | | | Summaries | | | - Arroyo, | | | Anish H, | | | MD - | | | 08/28/2017 | | | 1610 PDT | | | Formatting | | | of this | | | note may be | | | different | | | from the | | | original.DI | | | SCHARGE | | | SUMMARYPati | | | ent Name: | | | Linda | | | Treffle | | | Mael : | | | | | | 1940 | | | MRN: | | | [id number] | | | Date of | | | Admission: | | | 08/26/2017 | | | Date of | | | Discharge: | | | 08/28/17 | | | Admitting | | | Physician: | | | Suri | | | Elizabeth | | | Vimal, | | | MD | | | Discharging | | | Physician: | | | Ansih | | | H. 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 | | | my w/LN's | | | | | | | | | Hypertensio | | | n | | | H/O | | | Appendectom | | | y | | | | | | Hydronephro | | | sis of left | | | kidney - | | | Mar 2016 | | | Low back | | | pain | | | | | | Angiotensin | | | -converting | | | enzyme | | | (CATHY) | | | inhibitor - | | | Daily Use | | | | | | Lumbar | | | radiculopat | | | hy | | | Foraminal | | | stenosis | | | of lumbar | | | region | | | Lumbar | | | facet | | | arthropathy | | | | | | DDD | | | (degenerati | | | ve disc | | | disease), | | | lumbar | | | Cervical | | | radiculopat | | | hy | | | Cervical | | | myelopathy | | | | | | Cervical | | | spondylosis | | | with | | | myelopathy | | | | | | Cervical | | | spinal | | | stenosis | | | Obesity | | | (BMI | | | 30-39.9) | | | Essential | | | | | | hypertensio | | | n | | | Sleep | | | apnea in | | | adult | | | S/P | | | cervical | | | disc | | | replacement | | | | | | | | | Spondylolis | | | thesis of | | | lumbar | | | region | | | S/P | | | lumbar | | | fusion | | | Anemia | | | associated | | | with acute | | | blood loss | | | | | | Leg edema | | | | | | Upper GI | | | bleeding | | | Severe | | | protein-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 | | | Harri of | | | GIProcedure | | | s: 08/28 | | | EGD:Upper | | | endoscopy | | | was | | | remarkable | | | for antral | | | gastritis. | | | 2 ulcers | | | were in the | | | duodenal | | | bulb and | | | duodenal | | | sweep | | | appeared to | | | be | | | healing. | | | There was | | | no evidence | | | of visible | | | vessel | | | etc. H. | | | pylori | | | biopsy was | | | obtained. | | | I would | | | continue | | | the patient | | | on his PPI | | | therapy at | | | 40 mg | | | twice a day | | | for a | | | total of 2 | | | weeks and | | | then daily | | | at least | | | for 6 | | | additional | | | weeks.Xr | | | Chest Pa | | | And | | | LateralResu | | | lt Date: | | | 08/26/2017EX | | | AM: XR | | | CHEST PA | | | AND LATERAL | | | dated | | | 08/26/2017 | | | 6:21 PM | | | HISTORY: | | | ABNORMAL | | | LAB | | | Comparison: | | | June 10, | | | 2017 | | | TECHNIQUE: | | | Frontal and | | | lateral | | | views of | | | the chest. | | | FINDINGS: | | | The lungs | | | are | | | symmetrical | | | ly aerated. | | | | | | Hyperexpans | | | ion | | | suggesting | | | underlying | | | obstructive | | | pulmonary | | | disease. | | | Bilateral | | | pleural | | | plaque. No | | | acute | | | airspace | | | disease. | | | No pleural | | | effusion. | | | There are | | | no pleural | | | effusions. | | | There is | | | no | | | pneumothora | | | x. 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 Partial | | | | | | visualizati | | | on of disc | | | arthroplast | | | y changes | | | in the | | | cervical | | | spine and | | | fusion | | | changes in | | | the lumbar | | | spine. | | | IMPRESSION | | | - No | | | radiographi | | | c evidence | | | for acute | | | disease in | | | the chest. 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 Dictated | | | and Signed | | | by: Linda | | | T Buratto, | | | MD | | | Electronica | | | lly signed: | | | 08/26/2017 | | | 6:31 PM | | | Labs in the | | | last 24 | | | hours:Recen | | | t Results | | | (from the | | | past 24 | | | hour(s)) | | | Red Blood | | | Cells | | | Uncrossmatc | | | hed - 3 | | | Units | | | Result | | | Value Ref | | | Range | | | Product | | | Code | | | [id number] | | | UNIT # | | | [id number] | | | 81-Q UNIT | | | ABO A | | | UNIT RH POS | | | | | | CROSSMATCH | | | INTERP | | | Compatible | | | Unit | | | Status | | | Transfused | | | Blood | | | Product | | | ABORh APOS | | | Blood | | | Product | | | Expiration | | | Date and | | | Time | | | [id number] | | | 9 Product | | | Blood Type | | | Barcode | | | 6200 | | | Product | | | Code | | | [id number] | | | UNIT # | | | [id number] | | | 73-D UNIT | | | ABO A | | | UNIT RH POS | | | | | | CROSSMATCH | | | INTERP | | | Compatible | | | Unit | | | Status | | | Transfused | | | Blood | | | Product | | | ABORh APOS | | | Blood | | | Product | | | Expiration | | | Date and | | | Time | | | [id number] | | | 9 Product | | | Blood Type | | | Barcode | | | 6200 | | | Product | | | Code | | | [id number] | | | UNIT # | | | [id number] | | | 89-A UNIT | | | ABO A | | | UNIT RH POS | | | | | | CROSSMATCH | | | INTERP | | | Compatible | | | Unit | | | Status | | | Transfused | | | Blood | | | Product | | | ABORh APOS | | | Blood | | | Product | | | Expiration | | | Date and | | | Time | | | [id number] | | | 9 Product | | | Blood Type | | | Barcode | | | 6200 CBC | | | with | | | Differentia | | | l Result | | | Value Ref | | | Range WBC | | | 4.8 4.0 - | | | 11.0 K/uL | | | RBC 3.33 | | | (L) 4.30 - | | | 5.70 M/uL | | | Hgb 11.6 | | | (L) 13.5 - | | | 18.0 g/dL | | | Hct 30.6 | | | (L) 40.0 - | | | 51.0 % MCV | | | 91.9 83.0 | | | - 101.0 fL | | | MCH 34.7 | | | 28.0 - 35.0 | | | pg MCHC | | | 37.8 (H) | | | 32.0 - 36.0 | | | g/dL | | | RDW-CV 15.3 | | | (H) <15.0 | | | % Platelet | | | Count 229 | | | 140 - 440 | | | K/uL MPV | | | 6.9 fL % | | | Neutrophils | | | 70.0 45.0 | | | - 82.0 % % | | | | | | Lymphocytes | | | 20.4 20.0 | | | - 45.0 % % | | | Monocytes | | | 6.5 4.0 - | | | 12.0 % % | | | Eosinophils | | | 2.3 0.0 - | | | 5.0 % % | | | Basophils | | | 0.8 0.0 - | | | 1.0 % | | | Absolute | | | Neutrophils | | | 3.30 1.80 | | | - 8.50 K/uL | | | Absolute | | | Lymphocytes | | | 1.00 0.60 | | | - 3.20 K/uL | | | Absolute | | | Monocytes | | | 0.30 0.00 - | | | 1.00 K/uL | | | Absolute | | | Eosinophils | | | 0.10 0.00 | | | - 0.40 K/uL | | | Absolute | | | Basophils | | | 0.00 0.00 - | | | 0.10 K/uL | | | Basic | | | Metabolic | | | Panel | | | Result | | | Value Ref | | | Range NA | | | 136 136 - | | | 149 mmol/L | | | K 2.9 (L) | | | 3.5 - 5.1 | | | mmol/L CL | | | 107 98 - | | | 109 mmol/L | | | CO2 21 (L) | | | 24 - 31 | | | mmol/L | | | ANION GAP 8 | | | 3 - 16 | | | mmol/L | | | GLUCOSE 77 | | | 70 - 109 | | | mg/dL BUN | | | 7 7 - 18 | | | mg/dL | | | Creatinine, | | | | | | Serum/Plasm | | | a 0.74 0.60 | | | - 1.30 | | | mg/dL eGFR | | | if not | | | | | | ERITREAN | | | >60 >=60 | | | mL/min/1.73 | | | m2 CALCIUM | | | 8.2 (L) | | | 8.3 - 10.5 | | | mg/dL | | | BUN/CREA | | | 9.5 | | | Magnesium | | | Result | | | Value Ref | | | Range MG | | | 0.9 (LL) | | | 1.8 - 2.5 | | | mg/dL | | | Phosphorus | | | Result | | | Value Ref | | | Range | | | PHOSPHORUS | | | 3.0 2.5 - | | | 4.6 mg/dL | | | Prealbumin | | | Result | | | Value Ref | | | Range | | | PREALBUMIN | | | 15 (L) 18 - | | | 38 mg/dL | | | Reason for | | | Admission: | | | Please | | | refer to | | | the H&P for | | | full | | | details. | | | In short, | | | this is a | | | 76 y.o. 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 | | | Problem-[facility] | | | ented | | | Hospital | | | Course:Uppe | | | r GI bleed | | | with blood | | | loss | | | anemia:- | | | [facility] | | | melena | | | recently | | | noted on | | | 08/14-08/18 | | | hospital | | | stay at | | | | | | Hospital, | | | treated | | | with | | | Protonix, 2 | | | units of | | | PRBC's, no | | | EGD done at | | | outside | | | hospital- | | | Reportedly | | | using | | | NSAID's | | | before this | | | event, | | | although | | | history | | | unclear - | | | HGB fell | | | from 11.5 | | | on 08/18 on | | | release | | | from [facility] | | | Day to 7.2 | | | on 08/26- | | | After 3 | | | units on | | | arrival, | | | HGB stable | | | at 11.6 | | | today, no | | | report of | | | significant | | | bleed | | | while here- | | | Placed on | | | IV | | | pantoprazol | | | e twice | | | daily- | | | Spoke with | | | Dr. Carpenter, | | | EGD 08/28 | | | showed 2 | | | duodenal | | | ulcers, | | | likely the | | | source of | | | the | | | bleeding, | | | although no | | | active | | | bleed- | | | Pantoprazol | | | e twice | | | daily for | | | two weeks, | | | then daily | | | for 6 | | | weeks- No | | | NSAID's or | | | aspirin- H | | | pylori | | | results | | | pending Re | | | cent lumbar | | | surgery:- | | | On 07/02, had | | | lumbar | | | fusion, | | | L3-S1- | | | Still | | | recovering | | | from this, | | | not taking | | | pain meds | | | at this | | | point, | | | stopped | | | gabapentin | | | which he is | | | not | | | taking- LSO | | | | | | precautions | | | , work with | | | PT/OT in | | | the | | | hospital- | | | Appreciate | | | PT/OT | | | consult, | | | plan to | | | transfer to | | | [facility] | | | today Arlet | | | re protein | | | calorie | | | malnutritio | | | n:- Has | | | lost about | | | 25 pounds | | | this year, | | | with | | | acknowledge | | | d poor | | | intake, has | | | severe | | | electrolyte | | | | | | abnormaliti | | | es and | | | edema- | | | Appreciate | | | nutrition | | | consult- | | | Check | | | Vitamin D | | | level | | | 08/29 Hypom | | | agnesemia/h | | | ypokalemia: | | | - Correct | | | while here, | | | monitor | | | closely, | | | likely | | | partly due | | | to | | | malnutritio | | | n, may be | | | partly due | | | to alcohol | | | as well- | | | Mag of 0.9, | | | gave 4 gm | | | IV mag | | | today, | | | started on | | | mag oxide, | | | would check | | | daily for | | | several | | | days- | | | Hypokalemia | | | of 2.9, | | | gave 3 | | | doses of | | | oral | | | potassium, | | | check daily | | | for | | | now Leg | | | edema:- | | | Significant | | | , likely | | | had some | | | high-output | | | heart | | | failure | | | from severe | | | anemia, | | | also may be | | | an effect | | | of | | | malnutritio | | | n- HGB | | | stable | | | currently, | | | consider | | | starting | | | furosemide | | | when K | | | corrected | | | and monitor | | | | | | closely Di | | | abetes | | | mellitus, | | | oral | | | control:- | | | BS <100, | | | stop | | | metformin- | | | Weighed 200 | | | pounds | | | until | | | April, now | | | down to 179 | | | (with | | | significant | | | fluid | | | overload), | | | not clear | | | that he has | | | diabetes | | | at this | | | point- | | | Should not | | | restart | | | metformin, | | | stopped BS | | | checks. | | | Hyperli | | | pidemia:- | | | On | | | rosuvastati | | | n/fenofibra | | | te Cogniti | | | ve | | | deficits:- | | | Chronic and | | | worsening | | | per | | | recorded | | | history | | | from - | | | Calm, | | | cooperative | | | , no acute | | | problems, | | | much | | | sharper | | | 08/28, | | | oriented to | | | person, | | | place, | | | year, and | | | month, | | | although | | | not | | | date Glauc | | | ayad:- | | | Continue | | | home | | | regimenCode | | | Status:No | | | Code.Dispos | | | ition:IRFDi | | | scharge | | | Condition:S | | | table, | | | oriented, | | | appropriate | | | , pleasant | | | and | | | cooperative | | | , | | | jokingLungs | | | clearHeart | | | RRRAbdomen | | | soft, | | | NTExt WWP, | | | with 2-3 cm | | | pitting | | | edemaCurren | | | t | | | Facility-Ad | | | ministered | | | Medications | | | :acetaminop | | | hen 650 mg | | | Oral Q4H | | | PRN | | | docusate | | | sodium 100 | | | mg Oral BID | | | PRN | | | dorzolamide | | | 2 drop | | | Both Eyes | | | BID | | | fenofibrate | | | 160 mg | | | Oral Daily | | | latanoprost | | | 1 drop | | | Both Eyes | | | Nightly | | | magnesium | | | oxide 400 | | | mg Oral | | | Daily | | | melatonin | | | 1.5 mg Oral | | | Nightly | | | PRN | | | ondansetron | | | 4 mg | | | Intravenous | | | Q6H PRN | | | pantoprazol | | | e 40 mg | | | Oral BID AC | | | | | | polyethylen | | | e glycol 17 | | | g Oral | | | Daily PRN | | | potassium | | | chloride 20 | | | mEq Oral | | | Once [START | | | ON | | | 08/29/2017] | | | potassium | | | chloride 20 | | | mEq Oral | | | Daily | | | rosuvastati | | | n 10 mg | | | Oral | | | Nightly | | | senna 8.6 | | | mg Oral BID | | | PRN | | | Studies | | | With | | | Pending | | | Results:h | | | pylori | | | resultsGrea | | | ter than 30 | | | minutes | | | were spent | | | on | | | discharge | | | and | | | coordinatio | | | n of | | | post-hospit | | | al | | | care.Electr | | | onically | | | signed by: | | | Anish Buchanan. 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 ) | +--------+ +---+ + + from Last 3 Months Family History + + +------+ + | Medical History | Relation | Name | Comments | + + +------+ + | No Known Problems | Father | | | + + +------+ + | No Known Problems | Maternal | | | | | Grandfath | | | | | er | | | + + +------+ + | No Known Problems | Maternal | | | | | Grandmoth | | | | | er | | | + + +------+ + | No Known Problems | Mother | | | + + +------+ + | Cancer | Other | | | + + +------+ + | Gout | Other | | | + + +------+ + | No Known Problems | Paternal | | | | | Grandfath | | | | | er | | | + + +------+ + | No Known Problems | Paternal | | | | | Grandmoth | | | | | er | | | + + +------+ + + +------+ + + | Relation | Name | Status | Comments | + +------+ + + | Father | | | OLD AGE | + +------+ + + | Maternal Grandfather | | | | + +------+ + + | Maternal Grandmother | | | | + +------+ + + | Mother | | | OLD AGE | + +------+ + + | Other | | | | + +------+ + + | Paternal Grandfather | | | | + +------+ + + | Paternal Grandmother | | | | + +------+ + + Social History + +--------+ +--------+ [...] on file | | + + + Last Filed Vital Signs + + + + | Vital Sign | Reading | Time Taken | + + + + | Blood Pressure | 125/77 | 10/06/2017825 PDT | + + + + | Pulse | 78 | 10/06/2017825 PDT | + + + + | Temperature | 36.2 C (97.2 F) | 09/03/2017717 PDT | + + + + | Respiratory Rate | 16 | 10/06/2017825 PDT | + + + + | Oxygen Saturation | 98% | 09/03/2017717 PDT | + + + + | Inhaled Oxygen | - | - | | Concentration | | | + + + + | Weight | 80.3 kg (177 lb) | 10/06/2017825 PDT | + + + + | Height | 170.2 cm (5' 7") | 10/06/2017825 PDT | + + + + | Body Mass Index | 27.72 | 10/06/2017825 PDT | + + + + Plan of Treatment +--------+---------+ + + + | Date | Type | Specialty | Care Team | Description | +--------+---------+ + + + | 01/05/ | Office | | Berta Tao MD | | | 2018 | Visit | | [address] | | | | | | [address] [place] | | | | | | [address] | | | | | | | | +--------+---------+ + + + + + + + + | Health Maintenance | Due Date | Last Done | Comments | + + + + + | Diabetic Eye Exam | | | | | (Bi-Annually) | 9 | | | + + + + + | Diabetic Foot Exam | | | | | | 9 | | | + + + + + | Vaccine: | | | | | Dtap/Tdap/Td (1 - | 0 | | | | Tdap) | | | | + + + + + | Vaccine: Zoster (1 | | | | | of 2) | 1 | | | + + + + + | Microalbumin | | | | | Screening | 5 | | | + + + + + | Vaccine: Influenza | | 12/03/2015, 12/01/2014, | | | (#1) | 8 | 11/21/2013, Additional history | | | | | exists | | + + + + + | Hemoglobin A1c Q6 | | 06/10/2017 | | | Months | 8 | | | + + + + + | Vaccine: | Completed | 12/03/2015, 12/01/2014 | | | Pneumococcal 65+ | | | | | Low/Medium Risk | | | | + + + + + Implants + +--------+--------+ +--------+--------+--------+ | Implanted | Type | Area | Manufacture | Device | Expira | Model | | | | | r | | tion | / | | | | | | Identi | Date | Serial | | | | | | fier | | / Lot | + +--------+--------+ +--------+--------+--------+ | Bone Canc Chip 15cc 4-10mm - | Bone | Left: | RTI | | 11/24/ | [id number] | | [id number]: Qty: 1 | | Spine | BIOLOGICS | | 2021 | | | on 07/02/2017 by Berta Tao | | Lumbar | INC - RBIO | | | /[id number] | | MD Idania | | | | | | 0-022 | | | | | | | | / | + +--------+--------+ +--------+--------+--------+ | Disc Cerv Mobi-C [id number] - | Generi | Anteri | LDR SPINE | | 03/02/ | [id number] | | [id number]: Qty: 2 on | c | or: | [employer] - | | 2020 | / | | 11/07/2016 by Berta Tao, | | Neck | LDRS | | | /[id number] | | MD | | | | | | 35 | + +--------+--------+ +--------+--------+--------+ | Tlif Oblique [id number] 4deg | Generi | Left: | NUVASIVE - | | | [id number] | | - Sn/AImplanted: Qty: 1 on | c | Spine | NVSV | | | 4 /N/A | | 07/02/2017 by Berta Tao, | | Lumbar | | | | /N/ | | MD | | | | | | | + +--------+--------+ +--------+--------+--------+ | Imp Spn Intbdy Xlw | Generi | Left: | NUVASIVE - | | | [id number] | | [id number] - Sn/AImplanted: | c | Spine | NVSV | | | 5 /N/A | | Qty: 1 on 07/02/2017 by Aislinn, | | Lumbar | | | | /N/A | | Berta Emerson MD | | | | | | | + +--------+--------+ +--------+--------+--------+ | Imp Spn Intbdy Xlw | Generi | Left: | NUVASIVE - | | | [id number] | | [id number] - Sn/AImplanted: | c | Spine | NVSV | | | 0 /N/A | | Qty: 1 on 07/02/2017 by Aislinn, | | Lumbar | | | | /N/A | | Berta Emerson MD | | | | | | | + +--------+--------+ +--------+--------+--------+ | Tlif Oblique [id number] 4deg - | Generi | Left: | NUVASIVE - | | | [id number] | | Sn/AImplanted: Qty: 1 on | c | Spine | NVSV | | | 4 /N/A | | 07/02/2017 by Berta Tao, | | Lumbar | | | | /N/A | | | | | | | | | + +--------+--------+ +--------+--------+--------+ | Frederick Ti Prebent Lordtc 85mm - | Generi | Left: | NUVASIVE - | | | [id number] | | Sn/AImplanted: Qty: 2 on | c | Spine | NVSV | | | /N/A | | 07/02/2017 by Berta Tao, | | Lumbar | | | | /N/A | | | | | | | | | + +--------+--------+ +--------+--------+--------+ | Putty Nathanael 10cc Dbm - | Graft | Left: | [employer] - | | 04/22/ | [id number] | | [id number]: Qty: 1 | | Spine | MEDT | | 2020 | | | on 07/02/2017 by Berta Tao | | Lumbar | | | | /[id number] | | MD Idania | | | | | | [id number] | | | | | | | | /N/A | + +--------+--------+ +--------+--------+--------+ | Bone Xgrft Infus Kts Sm - | Graft | Left: | [employer] - | | 05/30/ | [id number] | | Sn/AImplanted: Qty: 1 on | | Spine | MEDT | | 2019 | 0 /N/A | | 07/02/2017 by Berta Tao, | | Lumbar | | | | | | MD | | | | | | /[id number] | | | | | | | | [id number] | + +--------+--------+ +--------+--------+--------+ | Screw Polyax Precept 7.5x55 - | Screw | Left: | NUVASIVE - | | | [id number] | | Sn/AImplanted: Qty: 6 on | | Spine | NVSV | | | 5A | | 07/02/2017 by Berta Tao, | | Lumbar | | | | /N/A | | MD | | | | | | /N/A | + +--------+--------+ +--------+--------+--------+ | Screw Polyax Prcpt 8.5x50mm - | Screw | Left: | NUVASIVE - | | | [id number] | | Sn/AImplanted: Qty: 2 on | | Spine | NVSV | | | 0A | | 07/02/2017 by Berta Tao, | | Lumbar | | | | /N/A | | MD | | | | | | /N/A | + +--------+--------+ +--------+--------+--------+ | Screw Set - Sn/AImplanted: | Screw | Left: | NUVASIVE - | | | [id number] | | Qty: 8 on 07/02/2017 by Aislinn | | Spine | NVSV | | | 0 /N/A | | Berta Emerson MD | | Lumbar | | | | /N/A | + +--------+--------+ +--------+--------+--------+ | Stent Uro Unvrs Sft 7fr 28cm | Stent | Left: | MOHINDER VINES | | | [id number] | | - [id number]: Qty: 1 | | Ureter | INCORPORATE | | | / | | on 03/07/2016 by Tariq Lyles | | | D | | | /[id number] | | MD Bharath | | | | | | 19 | + +--------+--------+ +--------+--------+--------+ Procedures + +--------+ + + + | Procedure Name | Priori | Date/Time | Associated Diagnosis | Comments | | | ty | | | | + +--------+ + + + | XR LUMBAR SPINE 2 OR | Routin | 10/06/2017 | S/P lumbar fusion | Results for this | | 3 VW | e | 0743 PDT | Spondylolisthesis | procedure are in the | | | | | of lumbar region | results section. | | | | | Foraminal stenosis | | | | | | of lumbar region | | | | | | Lumbar radiculopathy | | + +--------+ + + + | MAGNESIUM | Routin | 09/03/2017 | | Results for this | | | e | 0630 PDT | | procedure are in the | | | | | | results section. | + +--------+ + + + | BASIC METABOLIC | Routin | 09/03/2017 | | Results for this | | PANEL | e | 0630 PDT | | procedure are in the | | | | | | results section. | + +--------+ + + + | CBC WITH | Routin | 09/03/2017 | | Results for this | | DIFFERENTIAL | e | 0630 PDT | | procedure are in the | | | | | | results section. | + +--------+ + + + | POC GLUCOSE | Routin | 09/02/2017 | | Results for this | | | e | 2141 PDT | | procedure are in the | | | | | | results section. | + +--------+ + + + | POC GLUCOSE | Routin | 09/02/2017 | | Results for this | | | e | 1624 PDT | | procedure are in the | | | | | | results section. | + +--------+ + + + | POC GLUCOSE | Routin | 09/02/2017 | | Results for this | | | e | 1133 PDT | | procedure are in the | | | | | | results section. | + +--------+ + + + | POC GLUCOSE | Routin | 09/02/2017 | | Results for this | | | e | 0642 PDT | | procedure are in the | | | | | | results section. | + +--------+ + + + | POC GLUCOSE | Routin | 09/01/2017 | | Results for this | | | e | 2055 PDT | | procedure are in the | | | | | | results section. | + +--------+ + + + | POC GLUCOSE | Routin | 09/01/2017 | | Results for this | | | e | 1646 PDT | | procedure are in the | | | | | | results section. | + +--------+ + + + | POC GLUCOSE | Routin | 09/01/2017 | | Results for this | | | e | 1141 PDT | | procedure are in the | | | | | | results section. | + +--------+ + + + | POC GLUCOSE | Routin | 09/01/2017 | | Results for this | | | e | 0654 PDT | | procedure are in the [...] + | POC GLUCOSE | Routin | 08/31/2017 | | Results for this | | | e | 2117 PDT | | procedure are in the | | | | | | results section. | + +--------+ + + + | POC GLUCOSE | Routin | 08/31/2017 | | Results for this | | | e | 1734 PDT | | procedure are in the | | | | | | results section. | + +--------+ + + + | PHOSPHORUS | Routin | 08/31/2017 | | Results for this | | | e | 0430 PDT | | procedure are in the | | | | | | results section. | + +--------+ + + + | MAGNESIUM | Routin | 08/31/2017 | | Results for this | | | e | 0430 PDT | | procedure are in the | | | | | | results section. | + +--------+ + + + | CBC WITH | Routin | 08/31/2017 | | Results for this | | DIFFERENTIAL | e | 0430 PDT | | procedure are in the | | | | | | results section. | + +--------+ + + + | BASIC METABOLIC | Routin | 08/31/2017 | | Results for this | | PANEL | e | 0430 PDT | | procedure are in the | | | | | | results section. | + +--------+ + + + | MAGNESIUM | Routin | 08/30/2017 | | Results for this | | | e | 0538 PDT | | procedure are in the | | | | | | results section. | + +--------+ + + + | CBC WITH | Routin | 08/30/2017 | | Results for this | | DIFFERENTIAL | e | 0538 PDT | | procedure are in the | | | | | | results section. | + +--------+ + + + | BASIC METABOLIC | Routin | 08/30/2017 | | Results for this | | PANEL | e | 0538 PDT | | procedure are in the | | | | | | results section. | + +--------+ + + + | MAGNESIUM | Routin | 08/29/2017 | | Results for this | | | e | 1458 PDT | | procedure are in the | | | | | | results section. | + +--------+ + + + | MAGNESIUM | Routin | 08/29/2017 | | Results for this | | | e | 0626 PDT | | procedure are in the | | | | | | results section. | + +--------+ + + + | CBC WITH | Routin | 08/29/2017 | | Results for this | | DIFFERENTIAL | e | 0626 PDT | | procedure are in the | | | | | | results section. | + +--------+ + + + | BASIC METABOLIC | Routin | 08/29/2017 | | Results for this | | PANEL | e | 0626 PDT | | procedure are in the | | | | | | results section. | + +--------+ + + + | VITAMIN D, | Routin | 08/29/2017 | | Results for this | | DEFICIENCY SCREEN | e | 0621 PDT | | procedure are in the | | (25-HYDROXY) | | | | results section. | [...] for this | | | e | 2228 PDT | | procedure are in the | | | | | | results section. | + +--------+ + + + | POCT OCCULT BLOOD | Routin | 08/26/2017 | | Results for this | | STOOL, OTHER THAN | e | 1933 PDT | | procedure are in the | | COLORECTAL NEOPLASM | | | | results section. | | SCREENING | | | | | + +--------+ + + + | XR CHEST PA AND | STAT | 08/26/2017 | | Results for this | | LATERAL | | 1821 PDT | | procedure are in the [...] | | n - | | | | | | 2017 | | | 1600 | | | [...] | | | LINDA | | | [id number] | | | [id number] | | | This | | | [...] | | | faf-3c | | | [id number] | | | cfee | | | [...] | | | Rodriguez | | | [facility], | | | [place] - | | | info@c | | | ollect | | | ivemed | | | icalte | | | [email or web address] | | | | +---+--------+ + +--------+ + + + | XR LUMBAR SPINE 2 OR | Routin | 08/26/2017 | Status post lumbar | Results for this | | 3 VW | e | 0708 PDT | spinal fusion | procedure are in the | | | | | | results section. | + +--------+ + + + | LABS - EXTERNAL SCAN | | 08/26/2017 | | Results for this | | | | 0000 PDT | | procedure are in the | | | | | | results section. | + +--------+ + + + from Last 3 Months Results XR Lumbar Spine 2 or 3 Vw (10/06/2017 0743)Only the most recent of 2 results within the period is included. + + + | Narrative | Performed At | + + + | XR LUMBAR SPINE 2 OR 3 VW 10/06/2017 7:43 AM HISTORY: s/p lumbar | [facility] | | fusion. COMPARISON: 08/26/2017 FINDINGS: Suggestion of | | | interval worsening anterior/mid superior endplate height loss of L4 | | | with slightly worsening downward subsidence of the L3-L4 | | | intervertebral disc spacer. Similar anterior superior endplate height | | | loss of L3 with the L3 pedicle screws possibly extending through the | | | superior aspect of the endplate along the anterior portion. The L4 | | | pedicle screws now abuts the superior endplate of L4. Similar | | | appearance of the L2 and L5 pedicle screws. Unchanged alignment. | | | Calcified gallstones are noted. Aortic calcifications are seen | | | Moderate spondylosis at the remaining unfused lumbar levels. Moderate | | | aortic calcifications are present. IMPRESSION - Suggestion of | | | interval worsening anterior/mid superior endplate height loss of L4 | | | with slightly worsening downward subsidence of the L3-L4 | | | intervertebral disc spacer. Similar anterior superior endplate | | | height loss of L3 with the L3 pedicle screws possibly extending | | | through the superior aspect of the endplate along the anterior | | | portion. The L4 pedicle screws now abuts the superior endplate of | | | L4. Dictated and Signed by: Paul Ramirez MD Electronically | | | signed: 10/06/2017 9:18 AM | | + + + + + | Procedure Note | + + | Farhan, Rad Results In - 10/06/2017 0921 PDT XR LUMBAR SPINE 2 OR 3 VW 10/06/2017 7:43 AM | | | | HISTORY: s/p lumbar fusion. | | | | COMPARISON: 08/26/2017 | | | | FINDINGS: | | Suggestion of interval worsening anterior/mid superior endplate height loss of | | L4 with slightly worsening downward subsidence of the L3-L4 intervertebral disc | | spacer. Similar anterior superior endplate height loss of L3 with the L3 pedicle | | screws possibly extending through the superior aspect of the endplate along the | | anterior portion. The L4 pedicle screws now abuts the superior endplate of L4. | | Similar appearance of the L2 and L5 pedicle screws. Unchanged alignment. | | Calcified gallstones are noted. Aortic calcifications are seen Moderate | | spondylosis at the remaining unfused lumbar levels. Moderate aortic | | calcifications are present. | | | | IMPRESSION - | | Suggestion of interval worsening anterior/mid superior endplate height loss of | | L4 with slightly worsening downward subsidence of the L3-L4 intervertebral disc | | spacer. | | | | Similar anterior superior endplate height loss of L3 with the L3 pedicle screws | | possibly extending through the superior aspect of the endplate along the | | anterior portion. | | | | The L4 pedicle screws now abuts the superior endplate of L4. | | | | Dictated and Signed by: Paul Ramirez MD | | Electronically signed: 10/06/2017 9:18 AM | + + + +---------+ + + | Performing | Address | City/State/Zipcode | Phone Number | | Organization | | | | + +---------+ + + | [facility] | | | | + +---------+ + + CBC with Differential (09/03/2017 0630)Only the most recent of 7 results within the time hernanedz gonzalez is included. + + + + + | Component | Value | Ref Range | Performed At | + + + + + | WBC | 4.0 | 4.0 - 11.0 K/uL | [facility] | | | | | [facility] | + + + + + | RBC | 3.70 (L) | 4.30 - 5.70 M/uL | [facility] - | | | | | [facility] | + + + + + | Hgb | 12.2 (L) | 13.5 - 18.0 g/dL | [facility] - | | | | | [facility]ORY | + + + + + | Hct | 35.3 (L) | 40.0 - 51.0 % | [facility] - | | | | | [facility]ORY | + + + + + | MCV | 95.3 | 83.0 - 101.0 fL | [facility] - | | | | | [facility] | + + + + + | MCH | 32.9 | 28.0 - 35.0 pg | [facility] - | | | | | [facility] | + + + + + | MCHC | 34.5 | 32.0 - 36.0 g/dL | [facility] - | | | | | [facility] | + + + + + | RDW-CV | 15.6 (H) | <15.0 % | [facility] - | | | | | [facility] | + + + + + | Platelet Count | 236 | 140 - 440 K/uL | [facility] | | | | | [facility] | + + + + + | MPV | 7.2 | fL | [facility] - | | | | | [facility] | + + + + + | % Neutrophils | 66.3 | 45.0 - 82.0 % | [facility] - | | | | | [facility] | + + + + + | % Lymphocytes | 22.4 | 20.0 - 45.0 % | [facility] [...] + + + | % Eosinophils | 3.7 | 0.0 - 5.0 % | [facility] - | | | | | [facility] | + + + + + | % Basophils | 1.1 (H) | 0.0 - 1.0 % | [facility] - | | | | | LAB[facility]ORY | + + + + + | Absolute Neutrophils | 2.70 | 1.80 - 8.50 K/uL | [facility] | [facility] - | | | | | LAB[facility]ORY | + + + + + | Absolute Lymphocytes | 0.90 | 0.60 - 3.20 K/uL | [facility] [...] + + + | Absolute Eosinophils | 0.20 | 0.00 - 0.40 K/uL | [facility] [...] + | [facility] | [address] | [place], [place] | [phone] | | [facility] | | [address] | | | - LABORATORY | | | | + + + + + | [facility] | [address] | [place], [place] | | | [facility] | | [address] | | | - LABORATORY | | | | + + + + + Magnesium (09/03/2017 0630)Only the most recent of 7 results within the time period is incl uded. + +---------+ + + | Component | Value | Ref Range | Performed At | + +---------+ + + | MG | 1.2 (L) | 1.8 - 2.5 mg/dL | [facility] | | | | | CENTER - | | | | | LABORATORY | + +---------+ + + + + | Specimen | + + | Blood | + + + + + + + | Performing | Address | City/State/Zipcode | Phone Number | | Organization | | | | + + + + + | [facility] | [address] | [place] | [phone] | | [facility] | | [address] | | | - LABORATORY | | | | + + + + + | [facility] | [address] | [place] | | | [facility] | | [address] | | | - LABORATORY | | | | + + + + + Basic Metabolic Panel (09/03/2017629)Only the most recent of 7 results within the time hernandez gonzalez is included. + + + + + | Component | Value | Ref Range | Performed At | + + + + + | NA | 135 (L) | 136 - 149 mmol/L | [facility] | | | | | [facility] | | | | | CENTER - | | | | | LABORATORY | + + + + + | K | 4.3 | 3.5 - 5.1 mmol/L | [facility] | | | | | [facility] | | | | | CENTER - | | | | | LABORATORY | + + + + + | CL | 110 (H) | 98 - 109 mmol/L | [facility] | | | | | [facility] | | | | | [facility] - | | | | | LABORATORY | + + + + + | CO2 | 18 (L) | 24 - 31 mmol/L | [...] + + + + | GLUCOSE | 94 | 70 - 109 mg/dL | [facility] | | | | [facility] | | | | | [facility] - | | | | | LABORATORY | + + + + + | BUN | 7 | 7 - 18 mg/dL | [facility]. | | | | | [facility] | | | | | CENTER - | | | | | LABORATORY | + + + + + | Creatinine, | 0.68 | 0.60 - 1.30 mg/dL | [facility]. | | Serum/Plasma | | | [facility] | | | | | CENTER - | | | | | LABORATORY | + + + + + | eGFR if not | >60Comment: GLOMERULAR | >=60 mL/min/1.73m2 | [facility] | | ERITREAN | FILTRATION | | [facility] | | | RATE,ESTIMATED mL/min | | CENTER - | | | /1.44a0Zeqi than 60 | | LABORATORY | | [...] + + + + | CALCIUM | 9.6 | 8.3 - 10.5 mg/dL | [facility] | | | | [facility] | | | | | C[facility] - | | | | | LABORATORY | + + + + + | BUN/CREA | 10.3 | | [facility] | | | | | [facility] [...] + | [facility] | [address] | [place], [place] | [phone] | | [facility] | | [id number] | | | - LABORATORY | | | | + + + + + | [facility] | [address] | [place], [place] | | | [facility] | | [address] | | | - LABORATORY | | | | + + + + + POC Glucose (09/02/[id number])Only the most recent of 13 results within the time period is i ncluded. + +-------+ + + | Component | Value | Ref Range | Performed At | + +-------+ + + | Glucose, POC | 99 | 70 - 109 mg/dL | [facility] | | | | | [facility] | | | | | CENTER - | | | | | LABORATORY | + +-------+ + + + + | Specimen | + + | Blood | + + + + + + + | Performing | Address | City/State/Zipcode | Phone Number | | Organization | | | | + + + + + | [facility] | [address] | [place] | [phone] | | [facility] | | [address] | | | - LABORATORY | | | | + + + + + | [facility] | [address] | [place] | | | [facility] | | [address] | | | - LABORATORY | | | | + + + + + IMAGING REPORT - EXTERNAL SCAN (09/01/2017) + + + | Narrative | Performed At | + + + | Ordered by an | | | unspecified provider. | | + + + Phosphorus (08/31/2017 0430)Only the most recent of 2 results within the time period is inc luded. + +-------+ + + | Component | Value | Ref Range | Performed At | + +-------+ + + | Phosphorus | 2.7 | 2.5 - 4.6 mg/dL | [facility] | | | | | [facility] | | | | | CENTER - [...] [address] | [place] | [phone] | | [facility] | | [address] | | | - LABORATORY | | | | + + + + + | [facility] | [address] | [place], [place] | | | [facility] | | [address] | | | - LABORATORY | | | | + + + + + Vitamin D, Deficiency Screen (25-Hydroxy) (08/29/2017620) + +-------+ + + | Component | Value | Ref Range | Performed At | + +-------+ + + | Vitamin D, 25 | 50 | 30 - 80 ng/mL | [facility] | | Hydroxy | | | [facility] | | | | | CENTER - | | | | | LABORATORY | + +-------+ + + + + | Specimen | + + | Blood | + + + + + + + | Performing | Address | City/State/Zipcode | Phone Number | | Organization | | | | + + + + + | [facility] | [address] | [place], [place] | [phone] | | [facility] | | [address] | | | - LABORATORY | | | | + + + + + | [facility] | [address] | [place], [place] | | | [facility] | | [address] | | | - LABORATORY | | | | + + + + + Helicobactor pylori Biopsy (08/28/2017 1340) + + + + + | Component | Value | Ref Range | Performed At | + + + + + | Helicobacter pylori | Negative | Negative | [facility] | | Ag | | | [facility] | | | | | CENTER - [...] [address] | [place] | [phone] | | [facility] | | [address] | | | - LABORATORY | | | | + + + + + | [facility] | [address] | [place], [place] | | | [facility] | | [address] | | | - LABORATORY | | | | + + + + + EGD (08/28/2017 1319) + + ---+ | Narrative | Performed At | + + ---+ | | [facility] | | GastroenterologyPatient Name: Linda CadetRowdy Date: 08/28/2017 1:19 | [facility] | | PMMRN: [id number] #: [id number] of : 1940dmit | | | Type: InpatientAge: 76Room[facility]Gender: MaleNote Status: | | | FinalizedAttending MD: Linda Carpenter , MDProcedure: | | | Upper GI endoscopyIndications: Acute post hemorrhagic | | | anemiaProviders: Linda Carpenter MD, Marah Coles, | | | RN, Codi Pinedo, | | | Value Analysis Coordinator, Phoenix Cabello MD (Anesthesia | | | [...] | | nurse, the anesthesiologist and the recreational therapy technician in the | | | endoscopy [...] | | 1:37:12 PMScope Out: 1:42:04 PM [facility] | | | Center, [address] [place] [address] | | | - Resume previous diet [...] |Scope Out: 1:42:04 PM | | | [facility], [address] [place] [address] | | | [address] | | + + ---+ + +---------+ [...] (L) | 18 - 38 mg/dL | [facility] | | | [...] + | [facility] | [address] | [place], [place] | [phone] | | [facility] | | [address] | | | - LABORATORY | | | | + + + + + | [facility] | [address] | [place], [place] | | | [facility] | | [address] | | | - LABORATORY | | | | + + + + + Red Blood Cells Uncrossmatched - 3 Units (08/27/20171914) + + + + + | Component | Value | Ref Range | Performed At | + + + + + | Product Code | [id number] | | [facility] | | | | | [facility] | | | | | CENTER - BLOOD | | | | | BANK | + + + + + | UNIT # | [id number] | | [facility] | | | [...] + + + | Blood Product | [id number] | | [facility] | | Expiration [...] + + + | Product Code | [id number] | | [facility] | | | | | [facility] | | | | | CENTER - BLOOD | | | | | BANK | + + + + + | UNIT # | [id number] | | [facility] | | | [...] + + + | Blood Product | [id number] | | [facility] | | Expiration [...] + + + | Product Code | [id number] | | [facility] | | | | | [facility] | | | | | CENTER - BLOOD | | | | | BANK | + + + + + | UNIT # | [id number] | | [facility] | | | [...] + + + | Blood Product | [id number] | | [facility] | | Expiration [...] [facility] | | [address] | | | - BLOOD BANK | | | | + + + + + Vitamin B-12 (08/27/2017 1314) + + + + + | Component | Value | Ref Range | Performed At | + + + + + | VITAMIN B-12 | 381Comment: | 180 - 914 pg/mL | [facility] | | | DEFICIENT: | | [facility] | | | <145 | | CENTER - | | | pg/mLINDETERMINATE: | | LABORATORY | | | 145-180 pg/mL | | | + + + + + + + | Specimen | + + | Blood | + + + + + + + | Performing | Address | City/[facility] | Phone Number | | Organization | | | | + + + + + | [facility] | [address] | [place] | [phone] | | [facility] | | [address] | | | - LABORATORY | | | | + + + + + | [facility] | [address] | [place] | | | [facility] | | [address] | | | - LABORATORY | | | | + + + + + Folate (08/27/20171313) + +-------+ + + | Component | Value | Ref Range | Performed At | + +-------+ + + | FOLATE | 18.7 | >5.8 ng/mL | [facility] | | | | | [facility] | | | | | CENTER - | | | | | LABORATORY | + +-------+ + + + + | Specimen | + + | Blood | + + + + + + + | Performing | Address | City/State/Zipcode | Phone Number | | Organization | | | | + + + + + | [facility] | [address] | [place] | [phone] | | [facility] | | [address] | | | - LABORATORY | | | | + + + + + | [facility] | [address] | [place], [place] | | | [facility] | | [address] | | | - LABORATORY | | | | + + + + + Hemoglobin and Hematocrit (08/27/2017702)Only the most recent of 2 results within the is included. + + + + + | Component | Value | Ref Range | Performed At | + + + + + | Hgb | 12.1 (L) | 13.5 - 18.0 g/dL | [facility] | | | | | [facility] | | | | | CENTER - | | | | | LABORATORY | + + + + + | Hct | 33.7 (L) | 40.0 - 51.0 % | [facility] | | | | | [facility] | | | | | CENTER - [...] [address] | [place] | [phone] | | [facility] | | [address] | | | - LABORATORY | | | | + + + + + | [facility] | [address] | [place], [place] | | | [facility] | | [address] | | | - LABORATORY | | | | + + + + + ECG 12 lead (08/27/2017611) + + + + + | Component | Value | Ref Range | Performed At | + + + + + | VENTRICULAR RATE EKG | 53 | BPM | [facility] | + + + + + | ATRIAL RATE | 53 | BPM | [facility] | + + + + + [...] ONTIVEROS MD | | | | | (00522) on 08/27/2017 | | | | | [...] | | | + +---------+ + + Red Blood Cells-Transfuse (08/27/2017 0610)Only the most recent of 3 results within the is included.POCT Occ Bld Stl not Colorectal Neoplasm (08/26/2017 1933) + + + + + | Component [...] + + | Developer Lot # | [id number] | | | + + + + [...] | | + +---------+ + + Extra Green Top Tube (08/26/20171650) [...] + | [facility] | [address] | [place] | [phone] | | [facility] | | [address] | | | - LABORATORY | | | | + + + + + | [facility] | [address] | [place] | | | [facility] | | [address] | | | - LABORATORY | | | | + + + + + Extra Blue Top Tube (08/26/20171650) + +-------+ + + | Component | Value | Ref Range | Performed At | + +-------+ + + | Extra Blue Top Tube | Done | | [facility] | | | | | [facility] | | | | | CENTER - | | | | | LABORATORY | + +-------+ + + + + | Specimen | + + | Blood | + + + + + + + | Performing | Address | City/State/Zipcode | Phone Number | | Organization | | | | + + + + + | [facility] | [address] | [place], [place] | [phone] | | [facility] | | [address] | | | - LABORATORY | | | | + + + + + | [facility] | [address] | [place], [place] | | | [facility] | | [address] | | | - LABORATORY | | [...] + | [facility] | [address] | [place] | [phone] | | [facility] | | [address] | | | - LABORATORY | | | | + + + + + | [facility] | [address] | [place] | | | [facility] | | [address] | | | - LABORATORY | | [...] + | [facility] | [address] | [place], [place] | [phone] | | [facility] | | [address] | | | - LABORATORY | | | | + + + + + | [facility] | [address] | [place], [place] | | | [facility] | | [address] | | | - LABORATORY | | | | + + + + + Protime INR (08/26/2017 1627) + + + + [...] (H)Comment: Usual | 0.90 - 1.10 | [facility] | | [facility]tico[facility] | | [facility] | | | Range: 2.0 - [...] + | [facility] | [address] | [place], [place] | [phone] | | [facility] | | [address] | | | - LABORATORY | | | | + + + + + | [facility] | [address] | [place], [place] | | | [facility] | | [address] | | | - LABORATORY | | | | + + + + + Type and Screen (08/26/2017 1627) + + + + + [...] + | [facility] | [address] | [place] | | | [facility] | | [address] | | | - BLOOD BANK | | | | + + + + + B Type Natriuretic Peptide (08/26/2017 1627) + +---------+ + + | Component | Value | Ref Range | Performed At | + +---------+ + + | BNP | 125 (H) | <100 pg/mL | [facility] | | | | | [facility] | | | | | CENTER - | | | | | LABORATORY | + +---------+ + + + + | Specimen | + + | Blood | + + + + + + + | Performing | Address | City/State/Zipcode | Phone Number | | Organization | | | | + + + + + | [facility] | [address] | [place] | [phone] | | [facility] | | [address] | | | - LABORATORY | | | | + + + + + | [facility] | [address] | [place] | | | [facility] | | [address] | | | - LABORATORY | | | | + + + + + Ferritin (08/26/20177) + +-------+ + + | Component | [...] + + | Performing | Address | City/[facility] | Phone Number | | Organization | | | | + + + + + | [facility] | [address] | [place], [place] | [phone] | | [facility] | | [address] | | | - LABORATORY | | | | + + + + + | [facility] | [address] | [place], [place] | | | [facility] | | [address] | | | - LABORATORY | | | | + + + + + Comprehensive Metabolic Panel (08/26/2017 1627) + + + + + | Component | Value | Ref Range | Performed At | + + + + + | NA | 131 (L) | 136 - 149 mmol/L | [facility] | | | | [...] 99 | 70 - 109 mg/dL | [facility] | | | | | [facility] | | | | | CENTER - | | | | | LABORATORY | + + + + + | BUN | 12 | 7 - 18 mg/dL | [facility] | | | | | [facility] | | | | | CENTER - | | | | | LABORATORY | + + + + + | Creatinine, | 0.78 | 0.60 - 1.30 mg/dL | [facility] | | Serum/Plasma | | | [facility] | | | | | CENTER - | | | | | LABORATORY | + + + + + | eGFR if not | >60Comment: GLOMERULAR | >=60 mL/min/1.73m2 | [facility] | | ERITREAN | FILTRATION | | [facility] | | | RATE,ESTIMATED mL/min | | CENTER - | | | /1.59l8Mtxi than 60 | | LABORATORY | | [...] 9.0 | 8.3 - 10.5 mg/dL | [facility] | | | | | [facility] | | | | | CENTER [...] + + + + | BUN/CREA | 15.4 | | [facility] | | | [...] + | [facility] | [address] | [place] | [phone] | | [facility] | | [address] | | | - LABORATORY | | | | + + + + + | [facility] | [address] | [place] | | | [facility] | | [address] | | | - LABORATORY | | | | + + + + + LABS - EXTERNAL SCAN (08/26/2017) + + + | Narrative | Performed At | + + + | Ordered by an | | | unspecified provider. | | + + + from Last 3 Months Insurance + +--------+ +--------+ +---------+ | Payer | Benefi | Subscriber | Type | Phone | Address | | | t Plan | ID | | | | | | / | | | | | | | Group | | | | | + +--------+ +--------+ +---------+ | [employer] | [employer] | [id number] | Indemn | | | | | NS | | ity | | | | | ADMIN | | | | | | | [place] | | | | | | | [place] | | | | | + +--------+ +--------+ +---------+ | [employer] | [employer] | [id number] | Indemn | | | | | NS | | ity | | | | | CHOICE | | | | | + +--------+ +--------+ +---------+ | [employer] | [employer] | [id number] | Indemn | | | | | NS | | ity | | | | | ADMIN | | | | | | | PUGET | | | | | | | SOUND | | | | | + +--------+ +--------+ +---------+ | MEDICARE | MEDICA | [id number] | Medica | [phone] | | | RE | | re | [phone] | | | | PART A | | | | | + +--------+ +--------+ +---------+ + +--------+ +--------+ + + | Guarantor Name | Accoun | Relation to | Date | Phone | Billing Address | | | t Type | Patient | of | | | | | | | | | | + +--------+ +--------+ + + | LINDA FOLEY | Person | Self [birth year] Home: | [address] | | | al/Fam | | [phone] | [phone] | [place] [phone] | | | josefa | | | [phone] | | + +--------+ +--------+ + +
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
--- OUTSIDE RECORDS SUMMARY | ~2017-11-16 | XMS | Encounter Summary ---
Demographics + + + | Address | [address] | | | [place] [address] | + + + | Home Phone | | + + + | Preferred Language | Unknown | + + + | Marital Status | | + + + | Mandaeism Affiliation | 1009 | + + + | Race | Unknown | + + + | Ethnic Group | Unknown | + + + Author + + + | Author | [facility] | | | and [place] | + + + | Organization | [facility] | | | and [...] | | | | | [place] [address] | | + + + + + Care Team Providers + +------+ + | Care Installer Soft Top Name | Role | Phone | + [...] + + | 08/28/ | Surgery | [facility] | Linda Carpenter MD | EGD | | 2018 | | MED CTR [facility] OP | [address], [place] | | | | | [address] | [address] | | | | | [place], [place] | [address] | | | | | [address] | | | | | | [phone] | | | +--------+---------+ + + + [...] Units Result Value Ref Range Product Code T5837U26 UNIT # [id number] UNIT ABO A UNIT RH POS CROSSMATCH INTERP Compatible Unit Status Transfused Blood Product ABORh APOS Blood Product Expiration Date and Time Product Blood Type Barcode 6200 Product Code X2439L79 UNIT # [id number] UNIT ABO A UNIT RH POS CROSSMATCH INTERP Compatible Unit Status Transfused Blood Product ABORh APOS Blood Product Expiration Date and Time Product Blood Type Barcode 6200 Product Code S0037D96 UNIT # [id number] UNIT ABO A UNIT RH POS CROSSMATCH INTERP Compatible Unit Status Transfused Blood Product ABORh APOS Blood Product Expiration Date and Time 291670905444 Product Blood Type Barcode 6200 CBC with [...] recent upper GI bleed tr eated at [facility], deconditioning with a number of falls, who presented with weakn ess, leg edema, weight loss, found to have severe anemia. Problem-Oriented Hospital Course: Upper GI bleed with blood loss anemia: - Christiano melena recently noted on 08/14-08/18 hospital stay at [facility], treated with Protonix, 2 units of PRBC's, no EGD done at outside hospital - Reportedly using NSAID's before this event, although history unclear - HGB fell from 11.5 on 08/18 on release from [place] to 7.2 on 08/26 - After 3 [...] of post-hospital care. Electronically signed by: Anish Arroyo MD, 08/28/2017 16:21 [facility] in this encounter Medications at Time [...] may be different f rom the original. [facility] Hospitalist Progress Note Linda Yakovmelquiades Cristobal is [...] Units Result Value Ref Range Product Code D0050G47 UNIT # [id number] UNIT ABO A UNIT RH POS CROSSMATCH INTERP Compatible Unit Status Transfused Blood Product ABORh APOS Blood Product Expiration Date and Time Product Blood Type Barcode 6200 Product Code W7108L48 UNIT # [id number] UNIT ABO A UNIT RH POS CROSSMATCH INTERP Compatible Unit Status Transfused Blood Product ABOR APOS Blood Product Expiration Date and Time Product Blood Type Barcode 6200 Product Code F7811G81 UNIT # [id number] UNIT ABO A UNIT RH POS CROSSMATCH [...] recently noted on 08/14-08/18 hospital stay at [facility], treated with Protonix, 2 units of [...] as outlined above. Anish Arroyo 08/28/2017 10:05 [facility] Anish Arroyo MD - 08/27/2017 1235 PDTFormatting of this note may be different from th e original. [facility] Hospitalist Progress Note Linda Cristobal is a 76 y.o. male SUBJECTIVE: He is a very poor historian. He denies bleeding or black stools. He reports pain is con trolled. He wants to get home as soon as possible. In review of recent admission to [facility] in [place], he was admitted from to 08/18. He [...] Inferior leads Confirmed by GRECIA ONTIVEROS MD ([id number]) on 08/27/2017 6:54:43 AM POC Glucose Result [...] Units Result Value Ref Range Product Code V8355K72 UNIT # [id number] UNIT ABO A UNIT RH POS CROSSMATCH INTERP Compatible Unit Status Transfused Blood Product ABORh APOS Blood Product Expiration Date and Time 600073727328 Product Blood Type Barcode 6200 Product Code L8021K90 UNIT # [id number] UNIT ABO A UNIT RH POS CROSSMATCH INTERP Compatible Unit Status Issued Blood Product ABORh APOS Blood Product Expiration Date and Time 692853259618 Product Blood Type Barcode 6200 Product Code T5670O24 UNIT # [id number] UNIT ABO A UNIT RH POS CROSSMATCH [...] recently noted on 08/14-08/18 hospital stay at [facility], treated with Protonix, 2 units of [...] as outlined above. Anish Arroyo 08/27/2017 16:00 [facility] Marah Fierro, PharmD - 08/26/20171957 PDTFormatting [...] strength, and directions X Pharmacy list names: [facility] Vaccines up to date? Yes No Unsure [...] Tobacco, Alcohol, and Recreational substances Best possible POLICE SERGEANT PRECINCT medication list after pharmacy review: PT REPORTED [...] performed and electronically signed by Felicitas Leiva, Methods Study Analyst 08/26/2017 19:33 Reviewed by Marah Fierro, PharmD 08/26/2017 19:56 in this encounter Plan of Treatment +--------+---------+ + + + | Date | Type | Specialty | Care Team | Description | +--------+---------+ + + + | 01/05/ | Office | Neurosurgery | Berta Tao MD | | | 2018 | Visit | | [address] [facility] | | | | | | [address] [place] | | | | | | [id number] | | | | | | | [...] | | | [place] | | | [id number] | | | [id number] | | | This | | | [...] | | | faf-3c | | | [id number] | | | cfee | | | [...] | | Consistent with previous | | [facility] | | | results. | | [...] + | [facility] | [address] | [place] | [phone] | | [facility] | | [address] | | | - LABORATORY | | | | + + + + + | [facility] | [address] | [place] | | | [facility] | | [address] | | | - LABORATORY | | | | + + + + + Basic Metabolic Panel (08/28/2017 1543) + + + + + | Component | Value | Ref Range | Performed At | + + + + + | NA | 136 | 136 - 149 mmol/L | [facility] | | | | | [facility] | | | | | CENTER [...] [facility] | | | | | [facility] | | | | | CENTER [...] >=60 mL/min/1.73m2 | [facility] | | [place] | FILTRATION | | [facility] | | | RATE,ESTIMATED mL/min | | CENTER - | | | /1.41o6Pyuy than 60 | | LABORATORY | | [...] + | BUN/CREA | 8.1 | | [facility] | | | | | [facility] [...] + | [facility] | [address] | [place], [place] | [phone] | | [facility] | | [address] | | | - LABORATORY | | | | + + + + + | [facility] | [address] | [place], [place] | | | [facility] | | [address] | | | - LABORATORY | | | | + + + + + Helicobactor pylori Biopsy (08/28/2017 1340) + + + + + | Component | Value | Ref Range | Performed At | + + + + + | Helicobacter pylori | Negative | Negative | [facility] | | Ag | | | [facility] | | | | | CENTER [...] + | [facility] | [address] | [place] | [phone] | | [facility] | | [address] | | | - LABORATORY | | | | + + + + + | [facility] | [address] | [place] | | | [facility] | | [address] | | | - LABORATORY | | | | + + + + + EGD (08/28/2017 1319) + + ---+ | Narrative | Performed At | + + ---+ | | [facility] | | GastroenterologyPatient Name: Linda CadetRowdy Date: 08/28/2017 1:19 | [facility] | | PMMRN: [id number] #: [id number] of : 1940dmit | | | Type: InpatientAge: 76Room: [facility] 01Gender: MaleNote Status: | | | FinalizedAttending MD: Linda Carpenter MDProcedure: | | | Upper GI endoscopyIndications: Acute post hemorrhagic | | | anemiaProviders: Linda Carpenter MD, Marah Coles, | | | RN, Codi Pinedo, | | | Mercerizer Machine Operator, Phoenix Cabello MD (Anesthesia | | | [...] | | nurse, the anesthesiologist and the emergency medical technician/driver in the | | | endoscopy suite. [...] | | 1:37:12 PMScope Out: 1:42:04 PM [facility] | | | [place], [address] [place] [address] | | | - Resume previous diet [...] |Scope Out: 1:42:04 PM | | | [facility], [address] [place] [address] | | | [address] | | + + ---+ + +---------+ [...] (L) | 18 - 38 mg/dL | [facility] | | | | | [facility] [...] + | [facility] | [address] | [place], [place] | [phone] | | [facility] | | [address] | | | - LABORATORY | | | | + + + + + | [facility] | [address] | [place], [place] | | | [facility] | | [address] | | | - LABORATORY | | | | + + + + + Phosphorus (08/28/2017 045) + +-------+ + + | Component | Value | Ref Range | Performed At | + +-------+ + + | Phosphorus | 3.0 | 2.5 - 4.6 mg/dL | [facility] | | | | | [facility] | | | | | CENTER [...] [address] | [place] | [phone] | | [facility] | | [address] | | | - LABORATORY | | | | + + + + + | [facility] | [address] | [place] | | | [facility] | | [address] | | | - LABORATORY | | | | + + + + + Magnesium (08/28/2017 0456) + + + + + | Component | Value | Ref Range | Performed At | + + + + + | MG | 0.9 (LL)Comment: | 1.8 - 2.5 mg/dL | [facility] | | | Critical Result called | | [facility] | | | to and read [...] + | [facility] | [address] | [place], [place] | [phone] | | [facility] | | [address] | | | - LABORATORY | | | | + + + + + | [facility] | [address] | [place], [place] | | | [facility] | | [address] | | | - LABORATORY | | [...] 0.74 | 0.60 - 1.30 mg/dL | [facility] | | Serum/Plasma | | | [facility] | | | | | CENTER - | | | | | LABORATORY | + + + + + | eGFR if not | >60Comment: GLOMERULAR | >=60 mL/min/1.73m2 | [facility] | | [place] | FILTRATION | | [facility] | | | RATE,ESTIMATED mL/min | | CENTER - | | | /1.26d0Wmsm than 60 | | LABORATORY | | [...] (L) | 8.3 - 10.5 mg/dL | [facility] | | | | | [facility] | | | | | CENTER - | | | | | LABORATORY | + + + + + | BUN/CREA | 9.5 | | [facility] | | | | | [facility] | | | | | CENTER [...] [address] | [place] | [phone] | | [facility] | | [address] | | | - LABORATORY | | | | + + + + + | [facility] | [address] | [place] | | | [facility] | | [address] | | | - LABORATORY | | | | + + + + + CBC with Differential (08/28/2017 0456) + + + + + | Component | Value | Ref Range | Performed At | + + + + + | WBC | 4.8 | 4.0 - 11.0 K/uL | [facility] | | | | | [facility] | | | | | CENTER [...] [facility] | | | | | [facility] | | | | | CENTER [...] [address] | [place] | [phone] | | [facility] | | [address] | | | - LABORATORY | | | | + + + + + | [facility] | [address] | [place] | | | [facility] | | [address] | | | - LABORATORY | | | | + + + + + Red Blood Cells Uncrossmatched - 3 Units (08/27/20171914) + + + + + | Component | Value | Ref Range | Performed At | + + + + + | Product Code | [id number] | | [facility] | | | | | [facility] | | | | | CENTER - BLOOD | | | | | BANK | + + + + + | UNIT # | [id number] | | [facility] | | | | | [facility] | | | | | CENTER [...] + + + | Blood Product | [id number] | | [facility] | | Expiration [...] + + + | Product Code | [id number] | | [facility] | | | | | [facility] | | | | | CENTER - BLOOD | | | | | BANK | + + + + + | UNIT # | [id number] | | [facility] | | | [...] + + + | Blood Product | [id number] | | [facility] | | Expiration [...] + + + | Product Code | [id number] | | [facility] | | | | | [facility] | | | | | CENTER - BLOOD | | | | | BANK | + + + + + | UNIT # | [id number] | | [facility] | | | [...] + + + | Blood Product | [id number] | | [facility] | | Expiration Date and | | | [facility] | | Time | | | CENTER - BLOOD | | | | | BANK | + + + + + | Product Blood Type | 6200 | | [facility] | | Barcode | | | [facility] | | | | | CENTER - BLOOD | | | | | BANK | + + + + + + + + + + | Performing | Address | City/State/Zipcode | Phone Number | | Organization | | | | + + + + + | [facility] | [address] | [place] | | | [facility] | | [address] | | | - BLOOD BANK | [...] + | [facility] | [address] | [place], [place] | [phone] | | [facility] | | [address] | | | - LABORATORY | | | | + + + + + | [facility] | [address] | [place], [place] | | | [facility] | | [address] | | | - LABORATORY | | | | + + + + + Vitamin B-12 (08/27/2017 1314) + + + + + | Component | Value | Ref Range | Performed At | + + + + + | VITAMIN B-12 | 381Comment: | 180 - 914 pg/mL | [facility] | | | DEFICIENT: | | [facility] | | | <145 | | CENTER - | | | pg/mLINDETERMINATE: | | LABORATORY | | | 145-180 pg/mL | | | + + + + + + + | Specimen | + + | Blood | + + + + + + + | Performing | Address | City/[facility] | Phone Number | | Organization | | | | + + + + + | [facility] | [address] | [place] | [phone] | | [facility] | | [address] | | | - LABORATORY | | | | + + + + + | [facility] | [address] | [place] | | | [facility] | | [address] | | | - LABORATORY | | | | + + + + + CBC with Differential (08/27/2017 1314) + + + + + | Component | Value | Ref Range | Performed At | + + + + + | WBC | 6.1 | 4.0 - 11.0 K/uL | [facility] | | | | | [facility] | | | | | CENTER - | | | | | LABORATORY | + + + + + | RBC | 3.56 (L) | 4.30 - 5.70 M/uL | [facility] | | | | | [facility] | | | | | CENTER [...] + | [facility] | [address] | [place] | [phone] | | [facility] | | [address] | | | - LABORATORY | | | | + + + + + | [facility] | [address] | [place] | | | [facility] | | [address] | | | - LABORATORY | | [...] 9 | 7 - 18 mg/dL | [facility] | | | | | [facility] | | | | | CENTER - | | | | | LABORATORY | + + + + + | Creatinine, | 0.76 | 0.60 - 1.30 mg/dL | [facility] | | Serum/Plasma | | | [facility] | | | | | CENTER - | | | | | LABORATORY | + + + + + | eGFR if not | >60Comment: GLOMERULAR | >=60 mL/min/1.73m2 | [facility] | | [place] | FILTRATION | | [facility] | | | RATE,ESTIMATED mL/min | | CENTER - | | | /1.24s7Jigl than 60 | | LABORATORY | | [...] + | [facility] | [address] | [place] | [phone] | | [facility] | | [address] | | | - LABORATORY | | | | + + + + + | [facility] | [address] | [place], [place] | | | [facility] | | [address] | | | - LABORATORY | | | | + + + + + POC Glucose (08/27/20171152) + +-------+ + + | Component | Value | Ref Range | Performed At | + +-------+ + + | Glucose, POC | 93 | 70 - 109 mg/dL | [facility] | | | | | [facility] | | | | | CENTER - | | | | | LABORATORY | + +-------+ + + + + | Specimen | + + | Blood | + + + + + + + | Performing | Address | City/State/Zipcode | Phone Number | | Organization | | | | + + + + + | [facility] | [address] | [place] | [phone] | | [facility] | | [address] | | | - LABORATORY | | | | + + + + + | [facility] | [address] | [place] | | | [facility] | | [address] | | | - LABORATORY | | [...] + | [facility] | [address] | [place], [place] | [phone] | | [facility] | | [address] | | | - LABORATORY | | | | + + + + + | [facility] | [address] | [place], [place] | | | [facility] | | [address] | | | - LABORATORY | | | | + + + + + POC Glucose (08/27/2017625) + +-------+ + + | Component | Value | Ref Range | Performed At | + +-------+ + + | Glucose, POC | 77 | 70 - 109 mg/dL | [facility] | | | | | [facility] | | | | | CENTER [...] [address] | [place] | [phone] | | [facility] | | [address] | | | - LABORATORY | | | | + + + + + | [facility] | [address] | [place] | | | [facility] | | [address] | | | - LABORATORY | | [...] ONTIVEROS MD | | | | | ([id number]) on 08/27/2017 | | | | | [...] [facility] | | | | | [facility] | | | | | CENTER [...] + | [facility] | [address] | [place] | [phone] | | [facility] | | [address] | | | - LABORATORY | | | | + + + + + | [facility] | [address] | [place] | | | [facility] | | [address] | | | - LABORATORY | | [...] + | [facility] | [address] | [place] | [phone] | | [facility] | | [address] | | | - LABORATORY | | | | + + + + + | [facility] | [address] | [place], [place] | | | [facility] | | [address] | | | - LABORATORY | | [...] + + | Developer Lot # | [id number] | | | + + + + [...] [facility] | | | | | [facility] | | | | | [place] - | | | | | LABORATORY | + +-------+ + + + + | Specimen | + + | Blood | + + + + + + + | Performing | Address | City/State/Zipcode | Phone Number | | Organization | | | | + + + + + | [facility] | [address] | [place] | [phone] | | [facility] | | [address] | | | - LABORATORY | | | | + + + + + | [facility] | [address] | [place] | | | [facility] | | [address] | | | - LABORATORY | | | | + + + + + Extra Green Top Tube (08/26/20171650) + +-------+ + + | Component | Value | Ref Range | Performed At | + +-------+ + + | Extra Green Top Tube | Done | | [facility] | | | | | [facility] | | | | | CENTER - | | | | | LABORATORY | + +-------+ + + + + | Specimen | + + | Blood | + + + + + + + | Performing | Address | City/State/Zipcode | Phone Number | | Organization | | | | + + + + + | [facility] | [address] | [place], [place] | [phone] | | [facility] | | [address] | | | - LABORATORY | | | | + + + + + | [facility] | [address] | [place] | | | [facility] | | [address] | | | - LABORATORY | | [...] + | [facility] | [address] | [place] | [phone] | | [facility] | | [address] | | | - LABORATORY | | | | + + + + + | [facility] | [address] | [place], [place] | | | [facility] | | [address] | | | - LABORATORY | | [...] [facility] | | | | | [facility] | | | | | CENTER - | | | | | LABORATORY | + + + + + | Hgb | 7.2 (LL)Comment: | 13.5 - 18.0 g/dL | [facility] | | | Critical Result called [...] 0.00 | 0.00 - 0.10 K/uL | [facility] | | | | | [facility] | | | | | CENTER [...] [address] | [place] | [phone] | | [facility] | | [address] | | | - LABORATORY | | | | + + + + + | [facility] | [address] | [place] | | | [facility] | | [address] | | | - LABORATORY | | | | + + + + + B Type Natriuretic Peptide (08/26/2017 1627) + +---------+ + + | Component | Value | Ref Range | Performed At | + +---------+ + + | BNP | 125 (H) | <100 pg/mL | [facility] | | | | | [facility] | | | | | CENTER - | | | | | LABORATORY | + +---------+ + + + + | Specimen | + + | Blood | + + + + + + + | Performing | Address | City/State/Zipcode | Phone Number | | Organization | | | | + + + + + | [facility] | [address] | [place], [place] | [phone] | | [facility] | | [address] | | | - LABORATORY | | | | + + + + + | [facility] | [address] | [place], [place] | | | [facility] | | [address] | | | - LABORATORY | | [...] + | [facility] | [address] | [place], [place] | [phone] | | [facility] | | [address] | | | - LABORATORY | | | | + + + + + | [facility] | [address] | [place], [place] | | | [facility] | | [address] | | | - LABORATORY | | | | + + + + + Ferritin (08/26/2017 1627) + +-------+ + + | Component | Value | Ref Range | Performed At | + +-------+ + + | FERRITIN | 201 | 24 - 366 ng/mL | [facility] | | | | | [facility] | | | | | CENTER - | | | | | LABORATORY | + +-------+ + + + + | Specimen | + + | Blood | + + + + + + + | Performing | Address | City/State/Zipcode | Phone Number | | Organization | | | | + + + + + | [facility] | [address] | [place] | [phone] | | [facility] | | [address] | | | - LABORATORY | | | | + + + + + | [facility] | [address] | [place] | | | [facility] | | [address] | | | - LABORATORY | | | | + + + + + Type and Screen (08/26/2017 7895) + + + + + | Component | Value | Ref Range | Performed At | + + + + + | ABO | A | | [facility] | | | | | [facility] | | | | | CENTER - BLOOD | | | | | BANK | + + + + + | Rh Type | Positive | | [facility] | | | | | [facility] | | | | | CENTER - BLOOD | | | | | BANK | + + + + + | Antibody Screen | Negative | | [facility] | | | | | [facility] | | | | | CENTER [...] ST. | [address] | [place], [place] | | | [facility] | | [address] | | | - BLOOD BANK | | | | + + + + + Lauryime INR (08/26/2017 1627) + + + + [...] + | [facility] | [address] | [place], [place] | [phone] | | [facility] | | [address] | | | - LABORATORY | | | | + + + + + | [facility] | [address] | [place], [place] | | | [facility] | | [address] | | | - LABORATORY | | [...] 8 | 3 - 16 mmol/L | [facility] | | | | | [facility] | | | | | CENTER - | | | | | LABORATORY | + + + + + | GLUCOSE | 99 | 70 - 109 mg/dL | [facility] | | | | | [facility] | | | | | CENTER - | | | | | LABORATORY | + + + + + | BUN | 12 | 7 - 18 mg/dL | [facility] | | | | | [facility] | | | | | CENTER - | | | | | LABORATORY | + + + + + | Creatinine, | 0.78 | 0.60 - 1.30 mg/dL | [facility]. | | Serum/Plasma | | | [facility] | | | | | CENTER - | | | | | LABORATORY | + + + + + | eGFR if not | >60Comment: GLOMERULAR | >=60 mL/min/1.73m2 | [facility] | | TOGOLESE | FILTRATION | | [facility] | | | RATE,ESTIMATED mL/min | | CENTER - | | | /1.39v1Neiv than 60 | | LABORATORY | | [...] 9.0 | 8.3 - 10.5 mg/dL | [facility] | | | | | [facility] | | | | | CENTER [...] + | LAURA/ZAHRA | 15.4 | | [facility] | | | | | [facility] | | | | | CENTER [...] [address] | [place] | [phone] | | [facility] | | [id number] | | | - LABORATORY | | | | + + + + + | [facility] | [address] | [place] | | | [facility] | | [id number] | | | - LABORATORY | | [...]
--- OUTSIDE RECORDS SUMMARY | ~2017-11-16 | XMS | Encounter Summary ---
Demographics + + + | Address | [address] | | | [place] [address] | + + + | Home Phone | | + + + | Preferred Language | Unknown | + + + | Marital Status | | + + + | Episcopal Affiliation | 1009 | + + + | Race | Unknown | + + + | Ethnic Group | Unknown | + + + Author + + + | Author | [facility] | | | and [place] | + + + | Organization | [facility] | | | [...] | | | | | [place] [address] | | + + + + + Care Team Providers + +------+ + | Care [facility] Services Specialist Name | Role | Phone | + +------+ + | Ann Rivera MD | PCP | | + +------+ + Reason for Referral Evaluate & Treat (Routine) +--------+ + + + + + | Status | Reason | Specialty | Diagnoses / | Referred By | Referred To | | | | | Procedures | Contact | Contact | +--------+ + + + + + | Closed | Specialty | Home Health | Diagnoses | Hill, | Rivera, | | | Services | Services | Debility | Amandeep | Ann | | | Required | | | MD Romel | MD Ritesh | | | | | | [address] | [address] | | | | | | [address] [place] | [address] [place] | | | | | | [place], [place] | [place] | | | | | | [address] | [address] Phone: | | | | | | Phone: | [phone] | | | | | | [phone] | Fax: | | | | | | Fax: | [phone] | | | | | | [phone] | | +--------+ + + + + + Encounter Details +--------+ + + + + | Date | Type | Department | Care Team | Description | +--------+ + + + + | 08/28/ | Hospital | [facility] | Anastacio Sterling | Debility (Primary | | 2018 - | Encounter | [facility] [address] | [address] | Dx); Hypokalemia; | | | | [place], | [place] | Hypomagnesemia; Left | | 09/03/ | | [place] [address] | [place] [address] | ureteral stone; Leg | | 2018 | | [phone] | [phone] | edema; Severe | | | | [...] adult | +--------+ + + + + Social [...] + + + | Blood Pressure | 122/66 | 09/03/2017717 PDT | + + + + | Pulse | 77 | 09/03/2017717 PDT | + + + + | Temperature | 36.2 C (97.2 F) | 09/03/2017717 PDT | + + + + | Respiratory Rate | 18 | 09/03/2017717 PDT | + + + + | Oxygen Saturation | 98% | 09/03/2017717 PDT | + + + + | Inhaled Oxygen | - | - | | Concentration | | | + + + + | Weight | 80.6 kg (177 lb 11.1 | 08/28/20171904 PDT | | | oz) | | + + + + | Height | 170.2 cm (5' 7") | 08/28/20171904 PDT | + + + + | Body Mass Index | 27.83 | 08/28/20171904 PDT | + + + + in [...] + as of this encounter Discharge Summaries Amandeep Lynn MD - 09/03/2017 1401 PDTFormatting of this note may be different from t dayan original. REHABILITATION DISCHARGE SUMMARY Patient Identification: Fito Cristobal : 1940 Admit Date: 08/28/2017 Attending Provider: Anastacio Sterling,* Primary Care Physician: Sherrie Rivera MD Impairment Group: [id number] Debility (non-Cardiac, non-Pulmonary) Etiologic Diagnosis: Anemia associated with acute blood loss [D62] Discharge date and time: 09/03/17 Discharge Physician: Anastacio Sterling,* Social History: per chart review and confirmed with pt Social History Social History Marital status: Spouse name: N/A Number of children: N/A Years of education: 12 Occupational History Retired and Disabled Social History Main Topics Smoking status: Former Smoker Types: Cigars Quit date: 12/26/1966 Smokeless tobacco: Never Used Alcohol use 8.4 oz/week 14 Glasses of wine per week Drug use: Yes Frequency: 2.0 times per week Types: Marijuana Sexual activity: No Other Topics Concern Not on file Social History Narrative No narrative on file Consults: Rehabilitation nursing Physical Therapy Occupational Therapy Speech Therapy Social Work Significant Diagnostic Studies: Recent Results (from the past 360 hour(s)) XR Lumbar Spine 2 or 3 Vw Narrative XR LUMBAR SPINE 2 OR 3 VW 08/26/2017 7:08 AM HISTORY: post lumbar fusion. COMPARISON: 07/29/2017 FINDINGS: Stable post fusion changes at L2-L5 since 07/29/2017; however, there has been anterior subsidence of the L3-L4 intervertebral disc spacer since 07/29/2017 as well as worsening of a mild anterior/central compression deformity fracture of L3 since 07/02/2017. The L3 pedicle screws now abut/possibly protrude through the anterior superior endplate. Similar appearance of the L2-L3 and L3-L4 disc spacers. Moderate spondylosis at the remaining unfused lumbar levels. Moderate aortic calcifications are present. IMPRESSION - Stable post fusion changes at L2-L5 since 07/29/2017; however, there has been anterior subsidence of the L3-L4 intervertebral disc spacer since 07/29/2017 as well as worsening of a mild anterior/central compression deformity fracture of L3 since 07/02/2017. The L3 pedicle screws now abut/possibly protrude through the anterior superior endplate. Dictated and Signed by: Paul Ramirez MD Electronically signed: 08/26/2017 8:29 AM XR Chest PA and Lateral Narrative EXAM: XR CHEST PA AND LATERAL dated 08/26/2017 6:21 PM HISTORY: ABNORMAL LAB Comparison: June 10, 2017 TECHNIQUE: Frontal and lateral views of the chest. FINDINGS: The lungs are symmetrically aerated. Hyperexpansion suggesting underlying obstructive pulmonary disease. Bilateral pleural plaque. No acute airspace disease. No pleural effusion. There are no pleural effusions. There is no pneumothorax. Mild stable cardiomegaly. Partial visualization of disc arthroplasty changes in the cervical spine and fusion changes in the lumbar spine. IMPRESSION - No radiographic evidence for acute disease in the chest. 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 Mild cardiomegaly. Dictated and Signed by: Fito Medina MD Electronically signed: 08/26/2017 6:31 PM IMAGING REPORT - EXTERNAL SCAN Narrative Ordered by an unspecified provider. Treatments: intensive inpatient rehabilitation ADMISSION HPI: This is a 76 y.o.malehad a lumbar fusion 07-02-17. Post operatively he had melena and wa s seen at [facility] and given 2 u PRBC's and protonix. He did ok until 08-26-17 when his primary physician sent him to the ER because of hgb 7.1. He was admitted and found to also have very low Mg and K and was given not only blood, but also IV Mg and po K. He was s till having some back and right leg issues from his back surgery as well and could not be di scharged home, so was admitted to [facility] with the goal of home with his . PMHx: (per chart review confirmed with pt) Past Medical History: Diagnosis Date Acute pancreatitis [...] (HCC) Urinary tract infection Vitamin D deficiency PSx: Past Surgical History: Procedure Laterality Date APPENDECTOMY CERVICAL DISC ARTHROPLASTY Anterior 11/07/2016 Procedure: C4-5, C6-7 Disc Arthroplasty; Surgeon: Rene Tao MD; Location: [facility] MAIN OR COLONOSCOPY CYSTOSCOPY LUMBAR SPINE SURGERY Left 07/02/2017 Procedure: L3-4, L4-5 LAIF, L5-S1 TLIF; Surgeon: Rene Tao MD; Location: [facility] MAIN OR PROSTATECTOMY 2000 UPPER GASTROINTESTINAL ENDOSCOPY N/A 08/28/2017 Procedure: EGD; Surgeon: Fito Carpenter MD; Location: [facility] MEDICAL PROCEDURE UNIT URETEROSCOPY Left 03/07/2016 Procedure: Left Ureteroscopic Laser Lithotripsy, stent placement, retrograde pyelogram; S urgeon: Osamn Lyles MD; Location: [facility] MAIN OR Meds During Hospitalization No current facility-administered medications for this encounter. Current Outpatient Prescriptions Medication Sig Dispense Refill acetaminophen (TYLENOL) 325 mg tablet Take 2 tablets by mouth every 4 hours as needed f or Pain (or fever >= 38.6 C (101.5 F)). 120 tablet 0 ammonium lactate (LAC-HYDRIN) 12% lotion Apply 1 Application topically as needed for Dr y Skin. chlorpheniramine (CHLOR-TRIMETON) 4 MG tablet Take 4 mg by mouth every 6 hours as neede d for Allergies. Cholecalciferol (VITAMIN D PO) Take 1,000 Units by mouth. clobetasol (TEMOVATE) 0.05% cream Apply topically Twice daily as needed. dorzolamide (TRUSOPT) 2% ophthalmic solution Place 2 drops into both eyes 2 times daily . 20 mL 0 dorzolamide (TRUSOPT) 2% ophthalmic solution Place 2 drops into both eyes 2 times daily . fenofibrate (TRICOR) 145 mg tablet Take 145 mg by mouth Daily. ferrous sulfate 325 mg tablet Take 1 tablet by mouth 2 times daily (with breakfast & di nner). 30 tablet 0 latanoprost (XALATAN) 0.005% ophthalmic solution 1 drop nightly. magnesium oxide (MAG-OX) 400 mg tablet Take 1 tablet by mouth 2 times daily. 60 tablet 1 Multiple Vitamins-Minerals (ADULT MULTIVITAMIN WITH MINERALS/IRON) TABS Take 1 tablet b y mouth Daily. pantoprazole (PROTONIX) 40 mg tablet Take 1 tablet by mouth 2 times daily (before meals ). Indications: 60 tablet 1 rosuvastatin (CRESTOR) 20 mg tablet Take 20 mg by mouth nightly. senna (SENOKOT) 8.6 mg tablet Take 1 tablet by mouth Twice daily as needed for Constip ation. 40 tablet 0 Allergies: Allergies Allergen Reactions Penicillins Rash Intolerance No active intolerances/contraindications Family History: Family History Problem Relation Age of Onset No Known Problems Mother No Known Problems Father No Known Problems Maternal Grandmother No Known Problems Maternal Grandfather No Known Problems Paternal Grandmother No Known Problems Paternal Grandfather Gout Other Cancer Other Functional Status: Current: FIM BladderScore: 5 FIM Bowel Score: 6 FIM Bed/Chair/Wheelchair Score: 5 FIM Toilet Transfer Score: 5 FIM Tub/Shower Transfer Score: 5 FIM Walk Score: 5 FIM Distance Walked(feet): 250 feet FIM Wheelchair Score: FIM Stairs Score :5 FIM Eating Score: 6 FIM Grooming Score: 5 FIM Bathing Score: 4 FIM Dressing Upper Body Score: 4 FIM Dressing Lower Body Score: 3 FIM Toileting Score: 5 DISCHARGE PHYSICAL EXAMINATION: VS: BP 122/66 | Pulse 77 | Temp 36.2 C (97.2 F) (Oral) | Resp 18 | Ht 1.702 m (5' 7 ") | Wt 80.6 kg (177 lb 11.1 oz) | SpO2 98% | BMI 27.83 kg/m HEENT: Eyes clear. Oral mucosa moist. LYMPHATICS: No significant adenopathy noted in neck, axilla or groin. RESPIRATORY: Breathing comfortably, unlabored respirations. CARDIOVASCULAR: Regular rate and rhythm without audible murmur or rub noted. No edema. Pal pable peripheral pulses. GASTROINTESTINAL: Abdomen soft, non-tender, with active bowel sounds present. MUSCULOSKELETAL: Extremities symmetric with stable range of motion. NEUROLOGIC: Stable. LABORATORY: @LAB72@ Hospital Course: REASON FOR ADMISSION: Comprehensive medical inpatient rehabilitation program to treat problems with self-care and functional mobility secondary to and multiple comorbidities. Please see History & Physical for full details of history and status at time of admission. HOSPITAL COURSE: The patient was admitted to the inpatient rehabilitation service and participated in full p rogram. Vital Signs, including orthostatic blood pressure and pulse, and changes with exercise acti vity were closely monitored and discussed. Respiratory Therapy protocol was implemented. Bowel and bladder management program was begun. Appropriate nutrition was provided. Follow-up laboratory data was obtained regarding metabolic and hematologic issues. Pain management was effective with prescribed medications. Staff reinforced safety measures and awareness. The patient was also seen and followed closely for medical comorbidities. Self care and function mobility are improved. Appropriate patient education and fmnily training have been provided. The patient will be discharged today with referral to home health services. Please see final Rehabilitation Team Conference Note for Functional Status of Discharge. Refer to Case Management Discharge Instructions regarding coordination of future rehabilita tion therapies and discharge equipment needs, as well as Medical follow-up appointments. IMPRESSION : 1. Increased debility, with recent increase deficits with self-care and functional mobilit y, secondary to 2. Severe lumbar spine stenosis, with worsening low back pain and bilateral lower extremit y radiculopathy, right worse than left and exertional claudication, refractory to conservati ve management, requiring surgical intervention : Proc. 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 Minimally invasive lumbar fusion via anterior and posterior approaches 2. Combined posteriolateral and posterior interbody arthrodesis L5-S1 3. Anterior lumbar interbody arthrodesis L3-4, L4-5 4. Posterolateral lumbar arthrodesis L3, L4, L5 5. Posterior spinal instrumentation L3-S1 with use of Precept 6. Placement of PEEK interbody spacer L3-4, L4-5, L5-S1 7. L5 laminectomy, L5-S1 facetectomy, L5 and S1 3. Recent acute GI bleed secondary to multiple duodenal ulcers that is post UGI August [address] Porter 4. Acute severe blood loss anemia secondary to #3 GI bleed, improved following 5 units of PRBCs ; Currently with hemoglobin 11.2 and hematocrit 32.1, stable 5. Acute Hypomagnesemia, previously requiring IV medication; now on oral agents 6. Acute hypokalemia ; resolved, now with potassium of 4.3 7. Mild cognitive impairment, with acute increased delirium secondary to the above 8. Diabetes mellitus, previously on oral agents, 9. Protein calorie malnutrition 10. Visual impairment secondary to glaucoma DISCHARGE MEDICATIONS: Discharge Medications New Medications Details acetaminophen 325 mg tablet Take 2 tablets by mouth every 4 hours as needed for Pain (or fever >= 38.6 C (101.5 F)). aka: TYLENOL ferrous sulfate 325 mg tablet Take 1 tablet by mouth 2 times daily (with breakfast & dinner). pantoprazole 40 mg tablet Take 1 tablet by mouth 2 times daily (before meals). Indications: aka: PROTONIX senna 8.6 mg tablet Take 1 tablet by mouth Twice daily as needed for Constipation. aka: SENOKOT Changed Medications Details dorzolamide 2% ophthalmic solution Place 2 drops into both eyes 2 times daily. What changed: Another medication with the same name was added. Make sure you understand ho w and when to take each. aka: TRUSOPT dorzolamide 2% ophthalmic solution Place 2 drops into both eyes 2 times daily. What changed: You were already taking a medication with the same name, and this prescripti on was added. Make sure you understand how and when to take each. aka: TRUSOPT magnesium oxide 400 mg tablet Take 1 tablet by mouth 2 times daily. What changed: when to take this aka: MAG-OX Unchanged Medications Details adult multivitamin with minerals/iron Tabs Take 1 tablet by mouth Daily. ammonium lactate 12% lotion Apply 1 Application topically as needed for Dry Skin. aka: LAC-HYDRIN chlorpheniramine 4 MG tablet Take 4 mg by mouth every 6 hours as needed for Allergies. aka: CHLOR-TRIMETON clobetasol 0.05% cream Apply topically Twice daily as needed. aka: TEMOVATE fenofibrate 145 mg tablet Take 145 mg by mouth Daily. aka: TRICOR latanoprost 0.005% ophthalmic solution 1 drop nightly. aka: XALATAN rosuvastatin 20 mg tablet Take 20 mg by mouth nightly. aka: CRESTOR VITAMIN D PO Take 1,000 Units by mouth. Discontinued Medications metFORMIN 500 mg tablet aka: GLUCOPHAGE POLYVINYL ALCOHOL OP TRAVATAN Z 0.004% ophthalmic solution Generic drug: travoprost Current Discharge Medication List START taking these medications Medication Dose Last Dose Taken; acetaminophen (TYLENOL) 325 mg tablet 650 mg [ ] Take 2 tablets by mouth every 4 hours as needed for Pain (or fever >= 38.6 C (101.5 F)). Qty: 120 tablet Refills: 0 Start date: 09/03/2017 !! dorzolamide (TRUSOPT) 2% ophthalmic solution 2 drops [ ] Place 2 drops into both eyes 2 times daily. Qty: 20 mL Refills: 0 Start date: 09/03/2017 ferrous sulfate 325 mg tablet 325 mg [ ] Take 1 tablet by mouth 2 times daily (with breakfast & dinner). Qty: 30 tablet Refills: 0 Start date: 09/03/2017 magnesium oxide (MAG-OX) 400 mg tablet 400 mg [ ] Take 1 tablet by mouth 2 times daily. Qty: 60 tablet Refills: 1 Start date: 09/03/2017 pantoprazole (PROTONIX) 40 mg tablet 40 mg [ ] Take 1 tablet by mouth 2 times daily (before meals). Indications: Qty: 60 tablet Refills: 1 Start date: 09/03/2017 senna (SENOKOT) 8.6 mg tablet 8.6 mg [ ] Take 1 tablet by mouth Twice daily as needed for Constipation. Qty: 40 tablet Refills: 0 Start date: 09/03/2017 !! Potential duplicate medications found. Please discuss with provider. CONTINUE these medications which have NOT CHANGED Medication Dose Last Dose Taken; ammonium lactate (LAC-HYDRIN) 12% lotion 1 Application [ ] Apply 1 Application topically as needed for Dry Skin. chlorpheniramine (CHLOR-TRIMETON) 4 MG tablet 4 mg [ ] Take 4 mg by mouth every 6 hours as needed for Allergies. Cholecalciferol (VITAMIN D PO) 1,000 Units [ ] Take 1,000 Units by mouth. clobetasol (TEMOVATE) 0.05% cream [ ] Apply topically Twice daily as needed. !! dorzolamide (TRUSOPT) 2% ophthalmic solution 2 drops [ ] Place 2 drops into both eyes 2 times daily. fenofibrate (TRICOR) 145 mg tablet 145 mg [ ] Take 145 mg by mouth Daily. latanoprost (XALATAN) 0.005% ophthalmic solution 1 drop [ ] 1 drop nightly. Multiple Vitamins-Minerals (ADULT MULTIVITAMIN WITH MINERALS/IRON) TABS 1 tablet [ ] Take 1 tablet by mouth Daily. rosuvastatin (CRESTOR) 20 mg tablet 20 mg [ ] Take 20 mg by mouth nightly. !! Potential duplicate medications found. Please discuss with provider. DISPOSITION: Home with family FOLLOW UP: -PCP: 1-2 weeks after d/c from hospital: Sherrie Rivera MD -Neurosurgery : Rene Tao MD : call -GI : Fito Carpenter MD Call DISCHARGE INSTRUCTIONS: Discharge to home today with family. Continue with home program and home health services. Follow-up with his physicians as above. I spent 33 minutes on date of discharge with unit/floor time including face to face with t he patient, with over 50% spent in counseling and/or coordination of care regarding discharg e meds, and addressing home program, f/u appointments, setting up d/c therapies, arranging f or equipment. Signed: Amandeep Lynn MD 09/03/2017 14:01 [facility] Physician: Sherrie Rivera MD Neurosurgery : Rene Tao MD -GI : Fito Carpenter MD Portions of this chart may have been created with [employer]) voice recognition software. Occasi onal wrong-word or sound-alike substitutions may have occurred due to the inherent howe itations of voice recognition software. Please read the chart carefully and recognize, using context, where these substitutions have occurredin this encounter Medications at Time of Discharge [...] into | 20 mL | 0 | 07//20 | | | (TRUSOPT) 2% | both [...] + as of this encounter Progress Notes Amandeep Lynn MD - 09/02/2017 1451 PDTFormatting of this note may be different from t he original. [facility] Daily Progress Note Date: 09/02/17 ID/CC: Reason for encounter : Physician follow-up to address the medical rehabilitation needs, issues, and problems . Interval history: His blood sugar patterns are running between 80 and 101. Chief problem : Weakness and difficulty with self-care/ADLs and functional mobility No new problems. Please with his progress and looking for discharge to home tomorrow. Problem List Patient Active Problem List Diagnosis Lumbar herniated [...] Severe protein-calorie malnutrition Hypokalemia Hypomagnesemia Duodenal ulcer Debility Current Meds: Current Facility-Administered Medications: acetaminophen (TYLENOL) tablet 650 mg, 650 mg, Oral, Q4H PRN, Anastacio Sterling MD aluminum & magnesium hydroxide-simethicone (MAALOX PLUS REGULAR STRENGTH) 200-200-20 m g/5 mL suspension 30 mL, 30 mL, Oral, Q4H PRN, Anastacio Sterling MD bisacodyl (DULCOLAX) suppository 10 mg, 10 mg, Rectal, Daily PRN, Anastacio Restrepo MD calcium carbonate (TUMS) chewable tablet 1,000 mg, 1,000 mg, Oral, Q8H PRN, Anastacio Sterling MD docusate sodium (COLACE) capsule 100 mg, 100 mg, Oral, BID PRN, Anastacio house MD dorzolamide (TRUSOPT) 2% ophthalmic solution 2 drop, 2 drop, Both Eyes, BID, Anastacio Sterling MD, 2 drop at 09/02/17 1131 fenofibrate (LOFIBRA, TRIGLIDE) tablet 160 mg, 160 mg, Oral, Daily, Anastacio lockwood MD, 160 mg at 09/02/17825 ferrous sulfate tablet 325 mg, 325 mg, Oral, BID , Amandeep Lynn MD, 325 mg at 09/02/17825 HYDROcodone-acetaminophen (NORCO) 5-325 mg per tablet 1-2 tablet, 1-2 tablet, Oral, Q4 H PRN, Anastacio Sterling MD latanoprost (XALATAN) 0.005% ophthalmic solution 1 drop, 1 drop, Both Eyes, Nightly, Porsha Sterling MD, 1 drop at 09/01/172056 magnesium hydroxide (MILK OF MAGNESIA) 400 mg/5 mL suspension 30 mL, 30 mL, Oral, Nigh tly PRN, Anastacio Sterling MD magnesium oxide (MAG-OX) tablet 400 mg, 400 mg, Oral, TID PC, Amandeep Lynn MD, 4 00 mg at 09/02/17 1214 melatonin tablet 1.5 mg, 1.5 mg, Oral, Nightly PRN, Anastacio Sterling MD, 1.5 m g at 08/29/172058 pantoprazole (PROTONIX) DR tablet 40 mg, 40 mg, Oral, BID AC, Anastacio Sterling MD, 40 mg at 09/02/17 06 polyethylene glycol (MIRALAX) powder 17 g, 17 g, Oral, Daily PRN, Anastacio Restrepo MD potassium chloride (K-DUR) ER tablet 40 mEq, 40 mEq, Oral, BID PC, Amandeep Lynn MD, 40 mEq at 09/02/17825 rosuvastatin (CRESTOR) tablet 10 mg, 10 mg, Oral, Nightly, Anastacio Sterling MD , 10 mg at 09/01/172056 senna (SENOKOT) tablet 8.6 mg, 8.6 mg, Oral, BID PRN, Anastacio Sterling MD zolpidem (AMBIEN) tablet 5 mg, 5 mg, Oral, Nightly PRN, Anastacio Sterling MD Allergies: Allergies Allergen Reactions Penicillins Rash Intolerance No active intolerances/contraindications Physical Exam: BP 126/76 | Pulse 79 | Temp 36.6 C (97.9 F) (Oral) | Resp 17 | Ht 1.702 m (5' 7") | Wt 80.6 kg (177 lb 11.1 oz) | SpO2 99% | BMI 27.83 kg/m Gen: Alert, sitting in bed, NAD EYES: Conjunctiva clear. Pupils react to light. ENMT: External nose and ears normal. Mucosa moist in nose and mouth. NECK: No abnormal masses noted. Trachea midline. No thyromegaly. LYMPTHATIC: No significant adenopathy noted in neck, axillae or groin. RESPIRATORY: Normal comfortable respiratory effort. Lungs clear. CARDIOVASCULAR: No abnormal thrill or palpitation. Regular rate and rhythm.Peripheral pulses are symmetric. GASTROINTESTINAL: No abnormal masses noted. No organomegaly appreciated. Abdomen soft. Bowel sounds present. MUSCULOSKELETAL: Range of motion stable. No new areas of increased tenderness noted. NEUROLOGIC: The patient is alert. The strength and mobility are stable. Labs: Recent Results (from the past 48 hour(s)) POC Glucose Result Value Ref Range Glucose, POC 89 70 - 109 mg/dL POC Glucose Result Value Ref Range Glucose, POC 115 (H) 70 - 109 mg/dL POC Glucose Result Value Ref Range Glucose, POC 89 70 - 109 mg/dL POC Glucose Result Value Ref Range Glucose, POC 89 70 - 109 mg/dL POC Glucose Result Value Ref Range Glucose, POC 78 70 - 109 mg/dL POC Glucose Result Value Ref Range Glucose, POC 101 70 - 109 mg/dL POC Glucose Result Value Ref Range Glucose, POC 79 70 - 109 mg/dL POC Glucose Result Value Ref Range Glucose, POC 93 70 - 109 mg/dL Most recent FIM scores: Report Date 09/02/2017 FIM BladderScore: 5 FIM Bowel Score: 6 FIM Bed/Chair/Wheelchair Score: 5 FIM Toilet Transfer Score: 5 FIM Tub/Shower Transfer Score: 5 FIM Walk Score: 5 FIM Distance Walked(feet): 250 feet FIM Wheelchair Score: FIM Stairs Score :5 FIM Eating Score: 6 FIM Grooming Score: 5 FIM Bathing Score: 4 FIM Dressing Upper Body Score: 4 FIM Dressing Lower Body Score: 3 FIM Toileting Score: 5 Assessment and Rehab Plan: . The patient is benefiting from inpatient rehabilitation : Physiatric and nursing interv ention; physical therapy, occupational therapy, speech therapy, case management, and social service liaison #Rehab - -Continue PT for gait, mobility -Continue OT for ADL's, toileting, adaptive equipment -Continue [employer]IC for cognition, -Continue SW for discharge planning IMPRESSION : 1. Increased debility, with recent increase deficits with self-care and functional mobilit y, secondary to 2. Severe lumbar spine stenosis, with worsening low back pain and bilateral lower extremit y radiculopathy, right worse than left and exertional claudication, refractory to conservati ve management, requiring surgical intervention : Proc. 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 Minimally invasive lumbar fusion via anterior and posterior approaches 2. Combined posteriolateral and posterior interbody arthrodesis L5-S1 3. Anterior lumbar interbody arthrodesis L3-4, L4-5 4. Posterolateral lumbar arthrodesis L3, L4, L5 5. Posterior spinal instrumentation L3-S1 with use of Precept 6. Placement of PEEK interbody spacer L3-4, L4-5, L5-S1 7. L5 laminectomy, L5-S1 facetectomy, L5 and S1 3. Recent acute GI bleed secondary to multiple duodenal ulcers that is post UGI August [address] Porter 4. Acute severe blood loss anemia secondary to #3 GI bleed, improved following 5 units of PRBCs 5. Acute Hypomagnesemia, has been requiring IV medication 6. Acute hypokalemia 7. Mild cognitive impairment, with acute increased delirium secondary to the above 8. Diabetes mellitus, previously on oral agents, 9. Protein calorie malnutrition 10. Visual impairment secondary to glaucoma #/GI - Increased risk of incontinence or constipation/ voiding problems -continue current bladder and bowel regimen #DVT Prevention: Mobility, edema control, TEDS, Lovenox #Diet - Active Orders Diet Diet fiber restricted; dental soft; consistent carbohydrate; Effective Now PLAN : The patient is seen and evaluated on rounds. Laboratory data reviewed. I ordered lab data recheck in the morning. See orders. Meds reviewed. Making arrangements for the patient to obtain his medications locally to say some time on h is return home to [facility] tomorrow. We are following up on yesterday's rehabilitation team conference. The patient's current R ehabilitation Team treatment focus and recommendations were discussed with the patient. An overview of our current progress toward goals, and active Comprehensive Inpatient Medica l Rehabilitation treatment plan was provided to the patient. Each environmental field team member is addressing this as the patient advances within the short-term rehabilitation treatment plan. We opine that we may continue to anticipate significant practical improvement in function f or our patient measured against the patient's condition at the onset of the inpatient rehabi litation program. I reviewed status with patient's nurse and addressed current status, questions and issues. I reviewed status with patient's Rehabilitation therapist and addressed current status, qu estionsand issues. The patient is going to final review and training the team today in preparation for dischar ge to home tomorrow. His snfgxke-kc-gin is also here and going through further hands-on training. I met with our supportive employment case manager, and we reviewed the overall plan of care and projected dischar ged date an,d destination. We are scheduling home health services. Note: My Progress Notes document close and ongoing Physiatric involvement; [id number] vi sits, professionally assessing the Patient, both Medically and Functionally, with the empha sis on the important interactions between our Patient's current clinical status, especially issues/barriers that may impact on the Rehabilitation Team's treatment and progress toward our medical and functional goals. I opine that this is important, so we will maximize our Patient's capacity to benefit from the Comprehensive Inpatient Medical Rehabilitation process. I did coordinate with the full team regarding the above plan and continue full rehabilitati on program. Please see rehabilitation team notes. Signed: Amandeep Lynn MD Portions of this chart may have been created with [employer]) voice recognition software. Occasi onal wrong-word or sound-alike substitutions may have occurred due to the inherent howe itations of voice recognition software. Please read the chart carefully and recognize, using context, where these substitutions have occurred.Amandeep Lynn MD - 09/01/2017 1713 P DTFormatting of this note may be different from the original. [facility] Daily Progress Note Date: 09/01/17 ID/CC: Reason for encounter : Physician follow-up to address the medical rehabilitation needs, issues, and problems . Interval history: Chief problem : Weakness and difficulty with self-care/ADLs and functional mobility No new complaints. States he is doing better with his bowel and bladder. Problem List Patient Active Problem List Diagnosis Lumbar herniated [...] Severe protein-calorie malnutrition Hypokalemia Hypomagnesemia Duodenal ulcer Debility Current Meds: Current Facility-Administered Medications: acetaminophen (TYLENOL) tablet 650 mg, 650 mg, Oral, Q4H PRN, Anastacio Sterling MD aluminum & magnesium hydroxide-simethicone (MAALOX PLUS REGULAR STRENGTH) 200-200-20 m g/5 mL suspension 30 mL, 30 mL, Oral, Q4H PRN, Anastacio Sterling MD bisacodyl (DULCOLAX) suppository 10 mg, 10 mg, Rectal, Daily PRN, Anastacio Restrepo MD calcium carbonate (TUMS) chewable tablet 1,000 mg, 1,000 mg, Oral, Q8H PRN, Anastacio Sterling MD docusate sodium (COLACE) capsule 100 mg, 100 mg, Oral, BID PRN, Anastacio house MD dorzolamide (TRUSOPT) 2% ophthalmic solution 2 drop, 2 drop, Both Eyes, BID, Anastacio Sterling MD, 2 drop at 09/01/17 0812 fenofibrate (LOFIBRA, TRIGLIDE) tablet 160 mg, 160 mg, Oral, Daily, Anastacio lockwood MD, 160 mg at 09/01/17 0810 ferrous sulfate tablet 325 mg, 325 mg, Oral, BID WC, Amandeep Lynn MD, 325 mg at 09/01/171704 HYDROcodone-acetaminophen (NORCO) 5-325 mg per tablet 1-2 tablet, 1-2 tablet, Oral, Q4 H PRN, Anastacio Sterling MD latanoprost (XALATAN) 0.005% ophthalmic solution 1 drop, 1 drop, Both Eyes, Nightly, W adriano Sterling MD, 1 drop at 08/31/172114 magnesium hydroxide (MILK OF MAGNESIA) 400 mg/5 mL suspension 30 mL, 30 mL, Oral, Nigh tly PRN, Anastacio Sterling MD magnesium oxide (MAG-OX) tablet 400 mg, 400 mg, Oral, TID PC, Amandeep Lynn MD, 4 00 mg at 09/01/171704 melatonin tablet 1.5 mg, 1.5 mg, Oral, Nightly PRN, Anastacio Sterling MD, 1.5 m g at 08/29/172058 pantoprazole (PROTONIX) DR tablet 40 mg, 40 mg, Oral, BID AC, Anastacio Sterling MD, 40 mg at 09/01/171608 polyethylene glycol (MIRALAX) powder 17 g, 17 g, Oral, Daily PRN, Anastacio Restrepo MD potassium chloride (K-DUR) ER tablet 40 mEq, 40 mEq, Oral, BID PC, Amandeep Lynn MD, 40 mEq at 09/01/171704 rosuvastatin (CRESTOR) tablet 10 mg, 10 mg, Oral, Nightly, Anastacio Sterling MD , 10 mg at 08/31/172114 senna (SENOKOT) tablet 8.6 mg, 8.6 mg, Oral, BID PRN, Anastacio Sterling MD zolpidem (AMBIEN) tablet 5 mg, 5 mg, Oral, Nightly PRN, Anastacio Sterling MD Allergies: Allergies Allergen Reactions Penicillins Rash Intolerance No active intolerances/contraindications Physical Exam: BP 115/62 | Pulse 78 | Temp 36.7 C (98 F) (Oral) | Resp 18 | Ht 1.702 m (5' 7") | Wt 80.6 kg (177 lb 11.1 oz) | SpO2 97% | BMI 27.83 kg/m Gen: Alert, sitting in bed, NAD ENT: Sclerae clear. Oral mucosa moist. NECK: Supple. Trachea midline. No thyromegaly. RESPIRATORY: Lungs are clear to auscultation and percussion bilaterally with symmetrical a ir movement. The patient is breathing comfortably. CARDIOVASCULAR: Cardiac rhythmis regular. No murmur. Peripheral pulses stable. GASTROINTENSTINAL: Abdomen soft and nontender. Bowel sounds Present. GENITOURINARY: Genital rectal exam not performed. Bowel and bladder management program co ntinued. MUSCULOSKELETAL: Extremities stable. Range of motion is stable. NEUROLOGIC: Finds the patient awake, alert and cooperative. Follows Commands. Strength and mobility are stable. Labs: Recent Results (from the past 48 hour(s)) Basic Metabolic Panel Result Value Ref Range NA 135 (L) 136 - 149 mmol/L K 3.4 (L) 3.5 - 5.1 mmol/L CL 113 (H) 98 - 109 mmol/L CO2 19 (L) 24 - 31 mmol/L ANION GAP 3 3 - 16 mmol/L GLUCOSE 92 70 - 109 mg/dL BUN 6 (L) 7 - 18 mg/dL Creatinine, Serum/Plasma 0.67 0.60 - 1.30 mg/dL eGFR if not >60 >=60 mL/min/1.73m2 CALCIUM 8.5 8.3 - 10.5 mg/dL BUN/CREA 9.0 CBC with Differential Result Value Ref Range WBC 4.2 4.0 - 11.0 K/uL RBC 3.38 (L) 4.30 - 5.70 M/uL Hgb 11.2 (L) 13.5 - 18.0 g/dL Hct 32.1 (L) 40.0 - 51.0 % MCV 94.9 83.0 - 101.0 fL MCH 33.0 28.0 - 35.0 pg MCHC 34.8 32.0 - 36.0 g/dL RDW-CV 15.9 (H) <15.0 % Platelet Count 240 140 - 440 K/uL MPV 6.8 fL % Neutrophils 65.7 45.0 - 82.0 % % Lymphocytes 20.3 20.0 - 45.0 % % Monocytes 7.9 4.0 - 12.0 % % Eosinophils 5.4 (H) 0.0 - 5.0 % % Basophils 0.7 0.0 - 1.0 % Absolute Neutrophils 2.80 1.80 - 8.50 K/uL Absolute Lymphocytes 0.90 0.60 - 3.20 K/uL Absolute Monocytes 0.30 0.00 - 1.00 K/uL Absolute Eosinophils 0.20 0.00 - 0.40 K/uL Absolute Basophils 0.00 0.00 - 0.10 K/uL Magnesium Result Value Ref Range MG 1.5 (L) 1.8 - 2.5 mg/dL Phosphorus Result Value Ref Range PHOSPHORUS 2.7 2.5 - 4.6 mg/dL POC Glucose Result Value Ref Range Glucose, POC 89 70 - 109 mg/dL POC Glucose Result Value Ref Range Glucose, POC 115 (H) 70 - 109 mg/dL POC Glucose Result Value Ref Range Glucose, POC 89 70 - 109 mg/dL POC Glucose Result Value Ref Range Glucose, POC 89 70 - 109 mg/dL POC Glucose Result Value Ref Range Glucose, POC 78 70 - 109 mg/dL Most recent FIM scores: Report Date 09/01/2017 FIM BladderScore: 5 FIM Bowel Score: 6 FIM Bed/Chair/Wheelchair Score: 5 FIM Toilet Transfer Score: 5 FIM Tub/Shower Transfer Score: 5 FIM Walk Score: 5 FIM Distance Walked(feet): 250 feet FIM Wheelchair Score: FIM Stairs Score :5 FIM Eating Score: 6 FIM Grooming Score: 5 FIM Bathing Score: 4 FIM Dressing Upper Body Score: 5 FIM Dressing Lower Body Score: 3 FIM Toileting Score: 5 Assessment and Rehab Plan: . The patient is benefiting from inpatient rehabilitation : Physiatric and nursing interv ention; physical therapy, occupational therapy, speech therapy, case management, and social service liaison #Rehab - -Continue PT for gait, mobility -Continue OT for ADL's, toileting, adaptive equipment -Continue GO CART MECHANIC for cognition, -Continue SW for discharge planning IMPRESSION : 1. Increased debility, with recent increase deficits with self-care and functional mobilit y, secondary to 2. Severe lumbar spine stenosis, with worsening low back pain and bilateral lower extremit y radiculopathy, right worse than left and exertional claudication, refractory to conservati ve management, requiring surgical intervention : Proc. 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 Minimally invasive lumbar fusion via anterior and posterior approaches 2. Combined posteriolateral and posterior interbody arthrodesis L5-S1 3. Anterior lumbar interbody arthrodesis L3-4, L4-5 4. Posterolateral lumbar arthrodesis L3, L4, L5 5. Posterior spinal instrumentation L3-S1 with use of Precept 6. Placement of PEEK interbody spacer L3-4, L4-5, L5-S1 7. L5 laminectomy, L5-S1 facetectomy, L5 and S1 3. Recent acute GI bleed secondary to multiple duodenal ulcers that is post UGI August [address] Porter 4. Acute severe blood loss anemia secondary to #3 GI bleed, improved following 5 units of PRBCs 5. Acute Hypomagnesemia, has been requiring IV medication 6. Acute hypokalemia 7. Mild cognitive impairment, with acute increased delirium secondary to the above 8. Diabetes mellitus, previously on oral agents, 9. Protein calorie malnutrition 10. General impairment secondary to glaucoma #/GI - Increased risk of incontinence or constipation/ voiding problems -continue current bladder and bowel regimen #DVT Prevention: Mobility, edema control, TEDS, Lovenox #Diet - Active Orders Diet Diet fiber restricted; dental soft; consistent carbohydrate; Effective Now PLAN : The patient's chart was reviewed regarding interval medical history, noting documentations, orders and recent events. The patient was seen and evaluated on rounds. We addressed the current focus of the rehabi litation program with the patient. The patient's current rehabilitation plan of care and projected discharge destination were discussed and reviewed with the ancient as well as with our supportive employment case manager. She is collaborat ing with the patient's support system to solicit their input as we advance the program. Due to the distance to home, his would not be able to come in for hands-on training. However she is making the arrangements for the equipment and home health services in the [facility] setting. Also his [id number] supportive and is coming in this week for hands-on training. Note: my Progress Notes document close and ongoing Physiatric involvement; [id number] vis its , professionally assessing the Patient, both Medically and Functionally, with the empha sis on the important interactions between our Patient's current clinical status, especially issues/barriers that may impact on the Rehabilitation Team's treatment and progress toward o ur medical and functional goals. I opine that this is important, so we may maximize our Patient's capacity to benefit from t he Comprehensive Inpatient Medical Rehabilitation process. The patient is seen and clinical status addressed in collaboration with the rehab team. I met with the charge nurse and discussed the overall nursing problematic issues. We also fo llowed up with the patient's floor nurse, discussing the above, as well as addressing the sp ecific nursing patient care focus of the day. We met with our patient's nurse and obtained an update on interval events. Nursing questio ns and concerns were addressed, including continence, skin issues, and pain complaints. We also met with the patient's bedside nurse, reviewing the patient's current status and ad dressing any questions, concerns and/or related issues. Patient is doing much better with his bowel and bladder program, and is now continent at th e time void. Also post void residuals are low and we discontinued the scans. Additionally was doing better diabetes control with good blood sugar pattern. The full medical rehabilitation team did meet today in conference. The patient's pertinent active medical problems, comorbidities, and medical rehabilitation needs were discussed and shared with the team members. I opine that there is a reasonable expectation that due to the complexity of our patient's nursing/medical management and rehabilitation needs requires an inpatient stay, including a physician lead and coordinated interdisciplinary team approach to the delivery of rehabilita tion care. I chaired the Rehabilitative Team Conference and led the team's discussion. We discussed and assessed our patient's current status and barriers; noting tolerance and compliance progress towards the rehabilitation goals. The full Rehab Team collaborated; considering and addressing the patient's current toleranc e and compliance with the rehabilitation treatment noting any issues and seeking resolution of any problems/barriers impeding progress towards goals. I garnered the information from all of the Medical Rehabilitation membership secretary's assessments and reports as we synthesized and advanced the overall plan of care. The validity of our re habilitation goals were reassessed as we monitored and revised the treatment plan as indicat ed. Patient is cooperative and well with the rehab team treatment efforts. He is improving and showing improved safety awareness with some basic ADLs. He is now standby assist with [id number] directions for his basic ADLs including toiletin g. Transfers are supervised. Standing balance and endurance are good. We are advancing ambulation with front wheel walker and supervision. He is able to sit to don and doff his brace independently. He does show moderate cognitive deficits, especially with a high-level executive function problems. His will be providing this assistance in the home setting. Please see the Rehabilitation Interdisciplinary Team Conference notes for further details r egarding rehabilitation team discussion and plan. Plan is complete the inpatient rehab training up tomorrow with a discharge to home on September 03. Team is going over the home program. Also coordinate with our supportive employment case manager on the home health services. After the team conference I followed up and met again with the patient and reviewed the abo ve. He agrees with plans. Safety and mobility were discussed. Total time: 37 minutes. We spent greater than 50% of the time regarding patient care and coordination on this date, including unit/floor time, as well as time communicating with the patient and treatment team as discussed above. Signed: Amandeep Lynn MD Portions of this chart may have been created with [employer]) voice recognition software. Occasi onal wrong-word or sound-alike substitutions may have occurred due to the inherent howe itations of voice recognition software. Please read the chart carefully and recognize, using context, where these substitutions have occurred.Amandeep Lynn MD - 08/31/2017 1425 P DTFormatting of this note may be different from the original. [facility] Daily Progress Note Date: 08/31/17 ID/CC: Reason for encounter : Physician follow-up to address the medical rehabilitation needs, issues, and problems . Reviewed the past medical records of the patient's previous stay in June when he had his lum bar spine surgery, as well as when he presented with the acute GI bleed and related comorbid ities Interval history: Ongoing problems with deficits with self-care and functional mobility, secondary to multipl e deficits as per problem list as documented below Chief problem : Weakness and difficulty with self-care/ADLs and functional mobility Patient complains of difficulty sleeping. He is currently denying significant pain at rest. Problem List Patient Active Problem List Diagnosis Lumbar herniated [...] Severe protein-calorie malnutrition Hypokalemia Hypomagnesemia Duodenal ulcer Current Meds: Current Facility-Administered Medications: acetaminophen (TYLENOL) tablet 650 mg, 650 mg, Oral, Q4H PRN, Anastacio Sterling MD aluminum & magnesium hydroxide-simethicone (MAALOX PLUS REGULAR STRENGTH) 200-200-20 m g/5 mL suspension 30 mL, 30 mL, Oral, Q4H PRN, Anastacio Sterling MD bisacodyl (DULCOLAX) suppository 10 mg, 10 mg, Rectal, Daily PRN, Anastacio Restrepo MD calcium carbonate (TUMS) chewable tablet 1,000 mg, 1,000 mg, Oral, Q8H PRN, Anastacio Sterling MD docusate sodium (COLACE) capsule 100 mg, 100 mg, Oral, BID PRN, Anastacio house MD dorzolamide (TRUSOPT) 2% ophthalmic solution 2 drop, 2 drop, Both Eyes, BID, Anastacio Sterling MD, 2 drop at 08/31/17 08 fenofibrate (LOFIBRA, TRIGLIDE) tablet 160 mg, 160 mg, Oral, Daily, Anastacio lockwood MD, 160 mg at 08/31/17 0810 ferrous sulfate tablet 325 mg, 325 mg, Oral, BID , Amandeep Lynn MD HYDROcodone-acetaminophen (NORCO) 5-325 mg per tablet 1-2 tablet, 1-2 tablet, Oral, Q4 H PRN, Anastacio Sterling MD latanoprost (XALATAN) 0.005% ophthalmic solution 1 drop, 1 drop, Both Eyes, Nightly, Porsha Sterling MD, 1 drop at 08/30/172055 magnesium hydroxide (MILK OF MAGNESIA) 400 mg/5 mL suspension 30 mL, 30 mL, Oral, Nigh tly PRN, Anastacio Sterling MD magnesium oxide (MAG-OX) tablet 400 mg, 400 mg, Oral, TID PC, Amandeep Lynn MD melatonin tablet 1.5 mg, 1.5 mg, Oral, Nightly PRN, Anastacio Sterling MD, 1.5 m g at 08/29/172058 pantoprazole (PROTONIX) DR tablet 40 mg, 40 mg, Oral, BID AC, Anastacio Sterling MD, 40 mg at 08/31/17729 polyethylene glycol (MIRALAX) powder 17 g, 17 g, Oral, Daily PRN, Anastacio Restrepo MD potassium chloride (K-DUR) ER tablet 40 mEq, 40 mEq, Oral, BID PC, Amandeep Lynn MD rosuvastatin (CRESTOR) tablet 10 mg, 10 mg, Oral, Nightly, Anastacio Sterling MD , 10 mg at 08/30/172052 senna (SENOKOT) tablet 8.6 mg, 8.6 mg, Oral, BID PRN, Anastacio Sterling MD zolpidem (AMBIEN) tablet 5 mg, 5 mg, Oral, Nightly PRN, Anastacio Sterling MD Allergies: Allergies Allergen Reactions Penicillins Rash Intolerance No active intolerances/contraindications Physical Exam: BP 130/73 | Pulse 65 | Temp 36 C (96.8 F) (Oral) | Resp 18 | Ht 1.702 m (5' 7") | Wt 80.6 kg (177 lb 11.1 oz) | SpO2 98% | BMI 27.83 kg/m Gen: Alert, sitting in bed, NAD EYES: Conjunctiva clear. Pupils react to light. ENMT: External nose and ears normal. Mucosa moist in nose and mouth. NECK: No abnormal masses noted. Trachea midline. No thyromegaly. LYMPTHATIC: No significant adenopathy noted in neck, axillae or groin. RESPIRATORY: Normal comfortable respiratory effort. Lungs clear. CARDIOVASCULAR: No abnormal thrill or palpitation. Regular rate and rhythm.Peripheral pulses are symmetric. 2 + LE edema GASTROINTESTINAL: No abnormal masses noted. No organomegaly appreciated. Abdomen soft. Bowel sounds present. MUSCULOSKELETAL: Range of motion stable. No new areas of increased tenderness noted. The lumbar Incision well-healed. No erythema or swelling. NEUROLOGIC: The patient is alert. The strength and mobility are stable. Labs: Recent Results (from the past 48 hour(s)) Magnesium Result Value Ref Range MG 2.1 1.8 - 2.5 mg/dL Basic Metabolic Panel Result Value Ref Range NA 135 (L) 136 - 149 mmol/L K 3.8 3.5 - 5.1 mmol/L CL 109 98 - 109 mmol/L CO2 20 (L) 24 - 31 mmol/L ANION GAP 6 3 - 16 mmol/L GLUCOSE 91 70 - 109 mg/dL BUN 5 (L) 7 - 18 mg/dL Creatinine, Serum/Plasma 0.69 0.60 - 1.30 mg/dL eGFR if not >60 >=60 mL/min/1.73m2 CALCIUM 8.5 8.3 - 10.5 mg/dL BUN/CREA 7.2 CBC with Differential Result Value Ref Range WBC 4.5 4.0 - 11.0 K/uL RBC 3.41 (L) 4.30 - 5.70 M/uL Hgb 11.3 (L) 13.5 - 18.0 g/dL Hct 32.0 (L) 40.0 - 51.0 % MCV 93.6 83.0 - 101.0 fL MCH 33.0 28.0 - 35.0 pg MCHC 35.3 32.0 - 36.0 g/dL RDW-CV 15.5 (H) <15.0 % Platelet Count 236 140 - 440 K/uL MPV 6.7 fL % Neutrophils 69.6 45.0 - 82.0 % % Lymphocytes 17.0 (L) 20.0 - 45.0 % % Monocytes 6.5 4.0 - 12.0 % % Eosinophils 4.6 0.0 - 5.0 % % Basophils 2.3 (H) 0.0 - 1.0 % Absolute Neutrophils 3.20 1.80 - 8.50 K/uL Absolute Lymphocytes 0.80 0.60 - 3.20 K/uL Absolute Monocytes 0.30 0.00 - 1.00 K/uL Absolute Eosinophils 0.20 0.00 - 0.40 K/uL Absolute Basophils 0.10 0.00 - 0.10 K/uL Magnesium Result Value Ref Range MG 1.5 (L) 1.8 - 2.5 mg/dL Basic Metabolic Panel Result Value Ref Range NA 135 (L) 136 - 149 mmol/L K 3.4 (L) 3.5 - 5.1 mmol/L CL 113 (H) 98 - 109 mmol/L CO2 19 (L) 24 - 31 mmol/L ANION GAP 3 3 - 16 mmol/L GLUCOSE 92 70 - 109 mg/dL BUN 6 (L) 7 - 18 mg/dL Creatinine, Serum/Plasma 0.67 0.60 - 1.30 mg/dL eGFR if not >60 >=60 mL/min/1.73m2 CALCIUM 8.5 8.3 - 10.5 mg/dL BUN/CREA 9.0 CBC with Differential Result Value Ref Range WBC 4.2 4.0 - 11.0 K/uL RBC 3.38 (L) 4.30 - 5.70 M/uL Hgb 11.2 (L) 13.5 - 18.0 g/dL Hct 32.1 (L) 40.0 - 51.0 % MCV 94.9 83.0 - 101.0 fL MCH 33.0 28.0 - 35.0 pg MCHC 34.8 32.0 - 36.0 g/dL RDW-CV 15.9 (H) <15.0 % Platelet Count 240 140 - 440 K/uL MPV 6.8 fL % Neutrophils 65.7 45.0 - 82.0 % % Lymphocytes 20.3 20.0 - 45.0 % % Monocytes 7.9 4.0 - 12.0 % % Eosinophils 5.4 (H) 0.0 - 5.0 % % Basophils 0.7 0.0 - 1.0 % Absolute Neutrophils 2.80 1.80 - 8.50 K/uL Absolute Lymphocytes 0.90 0.60 - 3.20 K/uL Absolute Monocytes 0.30 0.00 - 1.00 K/uL Absolute Eosinophils 0.20 0.00 - 0.40 K/uL Absolute Basophils 0.00 0.00 - 0.10 K/uL Magnesium Result Value Ref Range MG 1.5 (L) 1.8 - 2.5 mg/dL Phosphorus Result Value Ref Range PHOSPHORUS 2.7 2.5 - 4.6 mg/dL Most recent FIM scores: Report Date 08/31/2017 FIM BladderScore: 5 FIM Bowel Score: 6 FIM Bed/Chair/Wheelchair Score: 5 FIM Toilet Transfer Score: 5 FIM Tub/Shower Transfer Score: 5 FIM Walk Score: 5 FIM Distance Walked(feet): 250 feet FIM Wheelchair Score: FIM Stairs Score :5 FIM Eating Score: 6 FIM Grooming Score: 5 FIM Bathing Score: 4 FIM Dressing Upper Body Score: 5 FIM Dressing Lower Body Score: 3 FIM Toileting Score: 5 Assessment and Rehab Plan: . The patient is benefiting from inpatient rehabilitation : Physiatric and nursing interv ention; physical therapy, occupational therapy, speech therapy, case management, and social service liaison #Rehab - -Continue PT for gait, mobility -Continue OT for ADL's, toileting, adaptive equipment -Continue GO CART MECHANIC for cognition, -Continue SW for discharge planning IMPRESSION : 1. Increased debility, with recent increase deficits with self-care and functional mobilit y, secondary to 2. Severe lumbar spine stenosis, with worsening low back pain and bilateral lower extremit y radiculopathy, right worse than left and exertional claudication, refractory to conservati ve management, requiring surgical intervention : Proc. 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 Minimally invasive lumbar fusion via anterior and posterior approaches 2. Combined posteriolateral and posterior interbody arthrodesis L5-S1 3. Anterior lumbar interbody arthrodesis L3-4, L4-5 4. Posterolateral lumbar arthrodesis L3, L4, L5 5. Posterior spinal instrumentation L3-S1 with use of Precept 6. Placement of PEEK interbody spacer L3-4, L4-5, L5-S1 7. L5 laminectomy, L5-S1 facetectomy, L5 and S1 3. Recent acute GI bleed secondary to multiple duodenal ulcers that is post UGI August [address] Porter 4. Acute severe blood loss anemia secondary to #3 GI bleed, improved following 5 units of PRBCs 5. Acute Hypomagnesemia, has been requiring IV medication 6. Acute hypokalemia 7. Mild cognitive impairment, with acute increased delirium secondary to the above 8. Diabetes mellitus, previously on oral agents, 9. Protein calorie malnutrition 10. General impairment secondary to glaucoma #/GI - Increased risk of incontinence or constipation/ voiding problems -continue current bladder and bowel regimen #DVT Prevention: Mobility, edema control, TEDS, Lovenox #Diet - Active Orders Diet Diet fiber restricted; dental soft; consistent carbohydrate; Effective Now PLAN : The patient is seen and evaluated on rounds. Laboratory data reviewed. Meds reviewed. Start him on iron replacement twice a day with meals. He currently had a denies abdominal pain or dyspepsia. Social increases oral potassium 40 mEq twice a day is still running low at 3.4. He does report weakness and weight loss and anorexia. This is consistent with his protein calorie malnutrition which we are further evaluating. I reviewed status with patient's nurse and addressed current status, questions and issues. Increased his oral magnesium replacement 400 mg 3 times a day with meals. Discontinue the IV magnesium. We'll check fingerstick glucose before meals and at bedtime over the next 2 days. We'll discontinue daily lab and recheck the labs on Thursday. Advances bowel and bladder program will check postvoid residuals 3. I reviewed status with patient's Rehabilitation therapist and addressed current status, qu estionsand issues. I'm having OT assess safety with home IADLs. I met with our supportive employment case manager, and we reviewed the overall plan of care and projected dischar ged date an,d destination. We are checking to confirm degree of family support in the home setting. Note: My Progress Notes document close and ongoing Physiatric involvement; [id number] vi sits, professionally assessing the Patient, both Medically and Functionally, with the empha sis on the important interactions between our Patient's current clinical status, especially issues/barriers that may impact on the Rehabilitation Team's treatment and progress toward our medical and functional goals. I opine that this is important, so we will maximize our Patient's capacity to benefit from the Comprehensive Inpatient Medical Rehabilitation process. I will coordinate with the full team regarding the above plan and continue full rehabilitat ion program. Please see rehabilitation team notes. The patient is seen in follow-up for evaluation and assessment of needs and ability to tole rate and benefit from an intensive rehabilitation program with our multidisciplinary-coordin ated rehabilitation team. I assessed the patient working with our rehabilitation team members and perused the team me sirena' notes. The current rehabilitation treatment focus was reviewed with our patient, seek ing input, noting challenges and progress. Follow-up tomorrow morning with the full inpatient rehabilitation treatment team in [facility] is planned. Total time: 36 minutes. I spent greater than 50% of the time regarding patient care and co ordination of the Medical Rehabilitation Team treatment focus addressing these patient care needs on this date, including nursing unit/floor time, as well as time communicating with [facility] patient and treatment team as discussed above. Individualized Overall Plan of Care: The patient is admitted for a course of Comprehensive Inpatient Medical Rehabilitation Serv ices, both reasonable and necessary; including 24 hr. Physician supervision for direction of all medical and rehabilitation care. The patient's functional status on admission to Inpatient Rehab is different and has declin ed compared to his/her premorbid status. The current functional status is similar to the Patient's functional status documented in the Pre-Admission screen. Specific plans are as follows: Medical issues: See H&P, Problem List, and Orders Precautions: Fall/Safety, Aspiration, Pain, Spinal, Seizure, Shower, Pressure Ulcer, Bowel and Bladder, Metabolic, and Vital Signs precautions Rehabilitation Nursing: Address, treat and train the patient and family/caregivers: Medication management, indicati on and management bowel and bladder, and coordination with the Final Application Reviewer managing medical co -morbidities; including Coordinate with Rehab therapies as we carry over and continue the Re habilitation Skill Training from the Rehab Clinic to the Nursing Unit. Therapies: Physical Therapy (Approx. 1 and one half hours daily at least 6 days per week) to include a s indicated: transfer training, gait training, balance max, neuro max, A/PROM, strengthen ing, and to safely negotiate the environment Occupational Therapy (Approx 1 and one half hours daily at least 6 days per week) to includ e: self care/ADL training, A/PROM, strengthening, visual-perceptual max, neuro max, IADLs , and safely function and perform self care skills Speech Language Pathology Therapy (Approx 1 hours daily at least 5 days per week) to includ e: swallow eval, Dysphagia /swallowing max, speech retraining, cognitive max, med managem ent, communication skills; current cognitive status and abilities. With treatment to improv e attention to task, short term memory, problem solving and carry over. Shoe Shanker Respiratory Therapy Please see each of the Medical Rehabilitation Team members' Individualized Plans of Care . I appreciate their input . I opine that this is important. I canchola additional pertinent information, and from this. I integrate input from all of of our Medical Rehabilitation Team that is required for fur ther details regarding the ongoing and further development of the Patient's expected course of Treatment Note: I synthesized all of the Rehabilitation Team Members' input to support this documente d overall Plan of Care. These expectations for the Patient's course of treatment are also based on my professional Physiatric training and experience as it pertains to our Patient's medical and functional ne eds and conditions. I coordinate all of this collaboration of our Interdisciplinary Team, along with my medical opinions considering our Patient's impairments, functional status, co- morbid I complicatin g conditions, and any other contributing factors. Goals: Medical stability and safety with all aspects of function to allow discharge to the [facility] at the optimal level of function. Current goals include medication management and administration, appropriate diet and nutrit ion, optimal management of bowel and bladder, addressing and minimizing pain management, fa cilitating mood and affect. Also addressing any problems with Activities of Daily Living, transfers, and safely negotia ting the environment. Family/caregiver training, and evaluation for adaptive equipment, will be included as progr am is advanced. Specific short term and skilled nursing Rehabilitation Team Treatment Goals will be developed, sh ared and implemented in collaboration with our patient and family/caregivers. The [employer] is the [facility] environmental field team member interfacing with them. Rehab Potential: Good Expected Functional Level at Discharge: Modified Independent/Supervision . Estimated length of stay: 5 days Discharge Plan: Discharge to pre-morbid independent living setting with the supportive care of patient's spouse/significant other/family/caregivers and community resources. Signed: Amandeep Lynn MD Portions of this chart may have been created with [employer](BHI) voice recognition software. Occasi onal wrong-word or sound-alike substitutions may have occurred due to the inherent howe itations of voice recognition software. Please read the chart carefully and recognize, using context, where these substitutions have occurred.Anastacio Sterling MD - 08/30/2017 7244 PDTFormatting of this note may be different from the original. [id number] Daily Progress Note Date: 08/30/17 ID/CC: This is a 76 y.o.malehad a lumbar fusion 18. Post operatively he had melena and w as seen at [facility] and given 2 u PRBC's and protonix. He did ok until 08-26-17 whe n his primary physician sent him to the ER because of hgb 7.1. He was admitted and found to also have very low Mg and K and was given not only blood, but also IV Mg and po K. He was still having some back and right leg issues from his back surgery as well and could not be d ischarged home, so was admitted to [facility] with the goal of home with his . Interval history: The patient is doing very well, better than expected. However, hgb still much improved and cognition approaching baseline, so this is helping. Mg improving and K now normal; no CAD or arrhythmia problems. Leg edema better with teds, but still with right leg weakness and dysesthesias. Tolerating full therapies without any problems. Past Medical History: Past Medical History: Diagnosis Date Acute pancreatitis [...] (HCC) Urinary tract infection Vitamin D deficiency Current Meds: Current Facility-Administered Medications: acetaminophen (TYLENOL) tablet 650 mg, 650 mg, Oral, Q4H PRN, Anastacio Sterling MD aluminum & magnesium hydroxide-simethicone (MAALOX PLUS REGULAR STRENGTH) 200-200-20 m g/5 mL suspension 30 mL, 30 mL, Oral, Q4H PRN, Anastacio Sterling MD bisacodyl (DULCOLAX) suppository 10 mg, 10 mg, Rectal, Daily PRN, Anastacio Restrepo MD calcium carbonate (TUMS) chewable tablet 1,000 mg, 1,000 mg, Oral, Q8H PRN, Anastacio Sterling MD docusate sodium (COLACE) capsule 100 mg, 100 mg, Oral, BID PRN, Anastacio house MD dorzolamide (TRUSOPT) 2% ophthalmic solution 2 drop, 2 drop, Both Eyes, BID, Anastacio Sterling MD, 2 drop at 08/30/17 08 fenofibrate (LOFIBRA, TRIGLIDE) tablet 160 mg, 160 mg, Oral, Daily, Anastacio lockwood MD, 160 mg at 08/30/17812 latanoprost (XALATAN) 0.005% ophthalmic solution 1 drop, 1 drop, Both Eyes, Nightly, Porsha Sterling MD, 1 drop at 08/29/172101 magnesium hydroxide (MILK OF MAGNESIA) 400 mg/5 mL suspension 30 mL, 30 mL, Oral, Nigh tly PRN, Anastacio Sterling MD magnesium oxide (MAG-OX) tablet 400 mg, 400 mg, Oral, BID, Anish Arroyo MD, 400 m g at 08/30/17812 melatonin tablet 1.5 mg, 1.5 mg, Oral, Nightly PRN, Anastacio Sterling MD, 1.5 m g at 08/29/172058 ondansetron (ZOFRAN) injection 4 mg, 4 mg, Intravenous, Q6H PRN, Anastacio Jacobson nd, MD pantoprazole (PROTONIX) DR tablet 40 mg, 40 mg, Oral, BID AC, Anastacio Sterling MD, 40 mg at 08/30/17 164 polyethylene glycol (MIRALAX) powder 17 g, 17 g, Oral, Daily PRN, Anastacio Restrepo MD potassium chloride (K-DUR) ER tablet 20 mEq, 20 mEq, Oral, Daily, Anish Arroyo MD , 20 mEq at 08/30/17812 rosuvastatin (CRESTOR) tablet 10 mg, 10 mg, Oral, Nightly, Anastacio Sterling MD , 10 mg at 08/29/172058 senna (SENOKOT) tablet 8.6 mg, 8.6 mg, Oral, BID PRN, Anastacio Sterling MD zolpidem (AMBIEN) tablet 5 mg, 5 mg, Oral, Nightly PRN, Anastacio Sterling MD Allergies: Allergies Allergen Reactions Penicillins Rash Intolerance No active intolerances/contraindications Physical Exam: BP 107/57 | Pulse 72 | Temp 36.2 C (97.2 F) (Oral) | Resp 18 | Ht 1.702 m (5' 7") | Wt 80.6 kg (177 lb 11.1 oz) | SpO2 99% | BMI 27.83 kg/m GEN: Normally developed, resting in bed, NAD PSYCH/MS: Appropriate, pleasant, cooperative, OX2, follows 2 step commands Neck: Supple with no LAD CV: Heart RRR, no m/r/g Lungs: Clear ABD: +BS, soft Extremities: 2-3+ edema LE at ankles, but TEDS in place Neurologic Exam: Muscle Strength: Right: UE 4/5, right hip 4, knee 4-, ankle 3+ Left: IE 45. Left hip/knee/ankle 4/5 Sensory: dysesthesias right lateral calf and ankle Cognitive exam: Oriented to: Self, hospital, city, Follows 1-and simple 2 step commands Labs: Recent Results (from the past 48 hour(s)) Basic Metabolic Panel Result Value Ref Range NA 136 136 - 149 mmol/L K 3.3 (L) 3.5 - 5.1 mmol/L CL 107 98 - 109 mmol/L CO2 21 (L) 24 - 31 mmol/L ANION GAP 8 3 - 16 mmol/L GLUCOSE 82 70 - 109 mg/dL BUN 6 (L) 7 - 18 mg/dL Creatinine, Serum/Plasma 0.66 0.60 - 1.30 mg/dL eGFR if not >60 >=60 mL/min/1.73m2 CALCIUM 8.4 8.3 - 10.5 mg/dL BUN/CREA 9.1 CBC with Differential Result Value Ref Range WBC 4.7 4.0 - 11.0 K/uL RBC 3.46 (L) 4.30 - 5.70 M/uL Hgb 11.3 (L) 13.5 - 18.0 g/dL Hct 32.6 (L) 40.0 - 51.0 % MCV 94.1 83.0 - 101.0 fL MCH 32.7 28.0 - 35.0 pg MCHC 34.7 32.0 - 36.0 g/dL RDW-CV 15.8 (H) <15.0 % Platelet Count 234 140 - 440 K/uL MPV 6.6 fL % Neutrophils 70.8 45.0 - 82.0 % % Lymphocytes 17.8 (L) 20.0 - 45.0 % % Monocytes 7.3 4.0 - 12.0 % % Eosinophils 3.2 0.0 - 5.0 % % Basophils 0.9 0.0 - 1.0 % Absolute Neutrophils 3.30 1.80 - 8.50 K/uL Absolute Lymphocytes 0.80 0.60 - 3.20 K/uL Absolute Monocytes 0.30 0.00 - 1.00 K/uL Absolute Eosinophils 0.10 0.00 - 0.40 K/uL Absolute Basophils 0.00 0.00 - 0.10 K/uL Magnesium Result Value Ref Range MG 1.1 (LL) 1.8 - 2.5 mg/dL Magnesium Result Value Ref Range MG 2.1 1.8 - 2.5 mg/dL Basic Metabolic Panel Result Value Ref Range NA 135 (L) 136 - 149 mmol/L K 3.8 3.5 - 5.1 mmol/L CL 109 98 - 109 mmol/L CO2 20 (L) 24 - 31 mmol/L ANION GAP 6 3 - 16 mmol/L GLUCOSE 91 70 - 109 mg/dL BUN 5 (L) 7 - 18 mg/dL Creatinine, Serum/Plasma 0.69 0.60 - 1.30 mg/dL eGFR if not >60 >=60 mL/min/1.73m2 CALCIUM 8.5 8.3 - 10.5 mg/dL BUN/CREA 7.2 CBC with Differential Result Value Ref Range WBC 4.5 4.0 - 11.0 K/uL RBC 3.41 (L) 4.30 - 5.70 M/uL Hgb 11.3 (L) 13.5 - 18.0 g/dL Hct 32.0 (L) 40.0 - 51.0 % MCV 93.6 83.0 - 101.0 fL MCH 33.0 28.0 - 35.0 pg MCHC 35.3 32.0 - 36.0 g/dL RDW-CV 15.5 (H) <15.0 % Platelet Count 236 140 - 440 K/uL MPV 6.7 fL % Neutrophils 69.6 45.0 - 82.0 % % Lymphocytes 17.0 (L) 20.0 - 45.0 % % Monocytes 6.5 4.0 - 12.0 % % Eosinophils 4.6 0.0 - 5.0 % % Basophils 2.3 (H) 0.0 - 1.0 % Absolute Neutrophils 3.20 1.80 - 8.50 K/uL Absolute Lymphocytes 0.80 0.60 - 3.20 K/uL Absolute Monocytes 0.30 0.00 - 1.00 K/uL Absolute Eosinophils 0.20 0.00 - 0.40 K/uL Absolute Basophils 0.10 0.00 - 0.10 K/uL Magnesium Result Value Ref Range MG 1.5 (L) 1.8 - 2.5 mg/dL Most recent FIM scores: Report Date 08/30/2017 FIM BladderScore: 5 FIM Bowel Score: 6 FIM Bed/Chair/Wheelchair Score: 5 FIM Toilet Transfer Score: 5 FIM Tub/Shower Transfer Score: FIM Walk Score: 5 FIM Distance Walked(feet): 250 feet FIM Wheelchair Score: FIM Stairs Score :4 FIM Eating Score: 6 FIM Grooming Score: 5 FIM Bathing Score: 4 FIM Dressing Upper Body Score: 5 FIM Dressing Lower Body Score: 3 FIM Toileting Score: 5 Assessment/Plan: This is a 76 y.o.malehad a lumbar fusion 07-02-17. Post operatively he had melena and wa s seen at [facility] and given 2 u PRBC's and protonix. He did ok until 08-26-17 when his primary physician sent him to the ER because of hgb 7.1. He was admitted and found to also have very low Mg and K and was given not only blood, but also IV Mg and po K. He was s till having some back and right leg issues from his back surgery as well and could not be di scharged home, so was admitted to [facility] with the goal of home with his . Patient is benefiting from inpatient rehabilitation since he needs physical therapy, occu pational therapy, speech therapy, social service liaison, physiatric and nursing intervention. #Rehab - -Continue PT for gait, transfers -Continue OT for adl's, equipment, lymphedema control -Continue GO C[employer] MECH[employer]IC for cog evaluation and rehab. -Continue SW for discharge planning Impression/Plan and Rehab Problem List: 1. Lumbar fusion L3-S1 07-02-17: Lumbar B brace, can't follow precautions yet, problems don/ doff brace, nursing/OT working on this. Mild right leg weakness/altered sensation, mild to moderate back pain controlled by pain meds 2. Antral gastritis, 2 duodenal healing ulcers found by Dr. Carpenter. He recommended PPI 40mg bid for 2 weeks, then daily for 6 weeks; this was ordered. 3. Severe anemia: hgb 7.1 on admission, 6-30 up to 11.3 after 3 units prbc's. Doing well s o far, no endurance problems in rehab so far. F/u hgb 11.6 today, so stable so far. 4. Hypokalemia: imrpoved from 2.9 to 3.8 after supplements. Hospitalists treating, still ge tting K supplements. Doing well. 5. Hypomagnesemia: 0.9 on admission, so got IV Mg yesterday, Mg 1.5 7-1, so on oral Mg supp lements since no symptoms and no cardiac problems. Hospitalists treating this also. No padilla rrhea so far. 6. Mild dementia: OX2 and very cooperative. ST working with patient, all therapists worki ng re back precautions. 7. Leg edema: 3+ on admission, multifactorial, but doesn't appear to be CHF, more likely d /t malnutrition and low albumine, so BK TEDS for now. Edema wraps later if needed. 8. DM II: doing ok well far, off metformin per hospitalists d/t good bg's 9. Severe protein-calorie malnutrition: supplements, dietary consult 10. Glaucoma: stable, on med. # Pain: -MSK pain Tylenol, PRN narco -For Neuropathic pain possible trial gabapentin, but held so far for right lateral calf dysesthesias d/t mild demential history. #/GI - Increased risk of constipation -cont bowel regimen #Diet - Active Orders Diet Diet fiber restricted; dental soft; consistent carbohydrate; Effective Now #DVT PPx: TEDS Code Status: No Code. Dispo and f/u: Home with F/u Neurosurgeon 2-3 weeks after d/c HH PT and possible OT Total time of 25 minutes was spent with the patient and/or patient's family, and/or on the patient's floor/unit, of which more than 50% was spent counseling and/or coordination the pa bernardo's care as outlined above. Signed: Miguel Sterling MD Portions of this chart may have been created with [employer]) voice recognition software. Occasi onal wrong-word or sound-alike substitutions may have occurred due to the inherent howe itations of voice recognition software. Please read the chart carefully and recognize, using context, where these substitutions have occurred. in this encounter Plan of Treatment +--------+---------+ + + + | Date | Type | Specialty | Care Team | Description | +--------+---------+ + + + | 01/05/ | Office | Neurosurgery | Rene Tao MD | | | 2018 | Visit | | [address] [facility] | | | | | | [address] [facility] [place] | | | | | | [id number] | | | | | | | | +--------+---------+ + + + + +--------+ + + | Name | Priori | Associated Diagnoses | Order Schedule | | | ty | | | + +--------+ + + | Home Health, External - AMB | Routin | Debility | Ordered: 09/03/2017 | | Referral | e | | | + +--------+ [...] + + + in this encounter Results Magnesium (09/03/2017 0630) + +---------+ + + | Component | Value | Ref Range | Performed At | + +---------+ + + | MG | 1.2 (L) | 1.8 - 2.5 mg/dL | [facility] | | | | | [facility] | | | | | CENTER - | | | | | LABORATORY | + +---------+ + + + + | Specimen | + + | Blood | + + + + + + + | Performing | Address | City/State/Zipcode | Phone Number | | Organization | | | | + + + + + | [facility] | [address] | [place] | [phone] | | [facility] | | [address] | | | - LABORATORY | | | | + + + + + | [facility] | [address] | [place], [place] | | | [facility] | | [address] | | | - LABORATORY | | | | + + + + + Basic Metabolic Panel (09/03/2017629) + + + + + | Component | Value | Ref Range | Performed At | + + + + + | NA | 135 (L) | 136 - 149 mmol/L | [facility] | | | | | [facility] | | | | | [facility] - | | | | | LABORATORY | + + + + + | K | 4.3 | 3.5 - 5.1 mmol/L | [facility] | | | | | [facility] | | | | | [facility] - | | | | | LABORATORY | + + + + + | CL | 110 (H) | 98 - 109 mmol/L | [facility] | | | | | [facility] | | | | | [facility] - | | | | | LABORATORY | + + + + + | CO2 | 18 (L) | 24 - 31 mmol/L | [facility] | | | | | [facility] | | | | | [facility] - | | | | | LABORATORY | + + + + + | ANION GAP | 7 | 3 - 16 mmol/L | [facility] | | | | | [facility] | | | | | [facility] - | | | | | LABORATORY | + + + + + | GLUCOSE | 94 | 70 - 109 mg/dL | [facility] | | | | | [facility] | | | | | [facility] - | | | | | LABORATORY | + + + + + | BUN | 7 | 7 - 18 mg/dL | [facility] | | | | | [facility] | | | | | [facility] - | | | | | LABORATORY | + + + + + | Creatinine, | 0.68 | 0.60 - 1.30 mg/dL | [facility] | | Serum/Plasma | | | [facility] | | | | | CENTER - | | | | | LABORATORY | + + + + + | eGFR if not | >60Comment: GLOMERULAR | >=60 mL/min/1.73m2 | [facility] | | [place] | FILTRATION | | [facility] | | | RATE,ESTIMATED mL/min | | CENTER - | | | /1.07v7Coxd than 60 | | LABORATORY | | [...] 9.6 | 8.3 - 10.5 mg/dL | [facility] | | | | | [facility] | | | | | CENTER - | | | | | LABORATORY | + + + + + | LAURA/ZAHRA | 10.3 | | [facility] | | | | | [facility] | | | | | CENTER [...] [address] | [place] | [phone] | | [facility] | | [address] | | | - LABORATORY | | | | + + + + + | [facility] | [address] | [place] | | | [facility] | | [address] | | | - LABORATORY | | | | + + + + + CBC with Differential (09/03/2017629) + + + + + | Component | Value | Ref Range | Performed At | + + + + + | WBC | 4.0 | 4.0 - 11.0 K/uL | [facility] | | | | | [facility] | | | | | CENTER - | | | | | LABORATORY | + + + + + | RBC | 3.70 (L) | 4.30 - 5.70 M/uL | [facility] | | | | | [facility] | | | | | CENTER - | | | | | LABORATORY | + + + + + | Hgb | 12.2 (L) | 13.5 - 18.0 g/dL | [facility] | | | | | [facility] | | | | | [facility] - | | | | | LABORATORY | + + + + + | Hct | 35.3 (L) | 40.0 - 51.0 % | [facility] | | | | | [facility] | | | | | [facility] - | | | | | LABORATORY | + + + + + | MCV | 95.3 | 83.0 - 101.0 fL | [facility] | | | | | [facility] | | | | | [facility] - | | | | | LABORATORY | + + + + + | MCH | 32.9 | 28.0 - 35.0 pg | [facility] | | | | | [facility] | | | | | [facility] - | | | | | LABORATORY | + + + + + | MCHC | 34.5 | 32.0 - 36.0 g/dL | [facility] | | | | | [facility] | | | | | [facility] - | | | | | LABORATORY | + + + + + | RDW-CV | 15.6 (H) | <15.0 % | [facility] | | | | | [facility] | | | | | [facility] - | | | | | LABORATORY | + + + + + | Platelet Count | 236 | 140 - 440 K/uL | [facility] | | | | | [facility] | | | | | [facility] - | | | | | LABORATORY | + + + + + | MPV | 7.2 | fL | [facility] | | | | | [facility] | | | | | [facility] - | | | | | LABORATORY | + + + + + | % Neutrophils | 66.3 | 45.0 - 82.0 % | [facility] | | | | | [facility] | | | | | [facility] - | | | | | LABORATORY | + + + + + | % Lymphocytes | 22.4 | 20.0 - 45.0 % | [facility] | | | | | [facility] | | | | | [facility] - | | | | | LABORATORY | + + + + + | % Monocytes | 6.5 | 4.0 - 12.0 % | [facility] | | | | | [facility] | | | | | [facility] - | | | | | LABORATORY | + + + + + | % Eosinophils | 3.7 | 0.0 - 5.0 % | [facility] | [facility] - | | | | | LABORATORY | + + + + + | % Basophils | 1.1 (H) | 0.0 - 1.0 % | [facility] | | [facility] - | | | | | LABORATORY | + + + + + | Absolute Neutrophils | 2.70 | 1.80 - 8.50 K/uL | [facility] | | [facility] - | | | | | LABORATORY | + + + + + | Absolute Lymphocytes | 0.90 | 0.60 - 3.20 K/uL | [facility] | | | [facility] - | | | | | LABORATORY | + + + + + | Absolute Monocytes | 0.30 | 0.00 - 1.00 K/uL | [facility] | | | [facility] - | | | | | LABORATORY | + + + + + | Absolute Eosinophils | 0.20 | 0.00 - 0.40 K/uL | [facility] | | | | [facility] - | | | | | LABORATORY | + + + + + | Absolute Basophils | 0.00 | 0.00 - 0.10 K/uL | [facility] | | | | | [facility] | | | | | CENTER [...] [address] | [place] | [phone] | | [facility] | | [address] | | | - LABORATORY | | | | + + + + + | [facility] | [address] | [place] | | | [facility] | | [address] | | | - LABORATORY | | | | + + + + + POC Glucose (09/02/20171) + +-------+ + + | Component | Value | Ref Range | Performed At | + +-------+ + + | Glucose, POC | 99 | 70 - 109 mg/dL | [facility] | | | | | [facility] | | | | | CENTER - | | | | | LABORATORY | + +-------+ + + + + | Specimen | + + | Blood | + + + + + + + | Performing | Address | City/State/Zipcode | Phone Number | | Organization | | | | + + + + + | [facility] | [address] | [place], [place] | [phone] | | [facility] | | [address] | | | - LABORATORY | | | | + + + + + | [facility] | [address] | [place], [place] | | | [facility] | | [address] | | | - LABORATORY | | | | + + + + + POC Glucose (09/02/2017 1624) + +-------+ + + | Component | Value | Ref Range | Performed At | + +-------+ + + | Glucose, POC | 97 | 70 - 109 mg/dL | [facility] | | | | | [facility] | | | | | [...] + | [facility] | [address] | [place] | [phone] | | [facility] | | [address] | | | - LABORATORY | | | | + + + + + | [facility] | [address] | [place] | | | [facility] | | [address] | | | - LABORATORY | | | | + + + + + POC Glucose (09/02/2017 1133) + +-------+ + + | Component | Value | Ref Range | Performed At | + +-------+ + + | Glucose, POC | 93 | 70 - 109 mg/dL | [facility] | | | | | [facility] | | | | | [facility] - | | | | | LABORATORY | + +-------+ + + + + | Specimen | + + | Blood | + + + + + + + | Performing | Address | City/State/Zipcode | Phone Number | | Organization | | | | + + + + + | [facility] | [address] | [place] | [phone] | | [facility] | | [address] | | | - LABORATORY | | | | + + + + + | [facility] | [address] | [place] | | | [facility] | | [address] | | | - LABORATORY | | | | + + + + + POC Glucose (09/02/2017641) + +-------+ + + | Component | Value | Ref Range | Performed At | + +-------+ + + | Glucose, POC | 79 | 70 - 109 mg/dL | [facility] | | | | | [facility] | | | | | CENTER - | | | | | LABORATORY | + +-------+ + + + + | Specimen | + + | Blood | + + + + + + + | Performing | Address | City/State/Zipcode | Phone Number | | Organization | | | | + + + + + | [facility] | [address] | [place] | [phone] | | [facility] | | [address] | | | - LABORATORY | | | | + + + + + | [facility] | [address] | [place] | | | [facility] | | [address] | | | - LABORATORY | | | | + + + + + POC Glucose (09/01/20172054) + +-------+ + + | Component | Value | Ref Range | Performed At | + +-------+ + + | Glucose, POC | 101 | 70 - 109 mg/dL | [facility] | | | | [facility] | | | [facility] - | | | | | LABORATORY | + +-------+ + + + + | Specimen | + + | Blood | + + + + + + + | Performing | Address | City/State/Zipcode | Phone Number | | Organization | | | | + + + + + | [facility] | [address] | [place] | [phone] | | [facility] | | [address] | | | - LABORATORY | | | | + + + + + | [facility] | [address] | [place], [place] | | | [facility] | | [address] | | | - LABORATORY | | | | + + + + + POC Glucose (09/01/20171645) + +-------+ + + | Component | Value | Ref Range | Performed At | + +-------+ + + | Glucose, POC | 78 | 70 - 109 mg/dL | [facility]. | | | | | [facility] | | | | | CENTER - | | | | | LABORATORY | + +-------+ + + + + | Specimen | + + | Blood | + + + + + + + | Performing | Address | City/State/Zipcode | Phone Number | | Organization | | | | + + + + + | [facility] | [address] | [place] | [phone] | | [facility] | | [address] | | | - LABORATORY | | | | + + + + + | [facility] | [address] | [place] | | | [facility] | | [address] | | | - LABORATORY | | | | + + + + + POC Glucose (09/01/2017 1141) + +-------+ + + | Component | Value | Ref Range | Performed At | + +-------+ + + | Glucose, POC | 89 | 70 - 109 mg/dL | [facility] | | | | | [facility] | | | | | CENTER [...] [address] | [place] | [phone] | | [facility] | | [address] | | | - LABORATORY | | | | + + + + + | [facility] | [address] | [place], [place] | | | [facility] | | [address] | | | - LABORATORY | | | | + + + + + POC Glucose (09/01/2017653) + +-------+ + + | Component | Value | Ref Range | Performed At | + +-------+ + + | Glucose, POC | 89 | 70 - 109 mg/dL | [facility] | | | | | [facility] | | | | | CENTER - | | | | | LABORATORY | + +-------+ + + + + | Specimen | + + | Blood | + + + + + + + | Performing | Address | City/State/Zipcode | Phone Number | | Organization | | | | + + + + + | [facility] | [address] | [place] | [phone] | | [facility] | | [address] | | | - LABORATORY | | | | + + + + + | [facility] | [address] | [place] | | | [facility] | | [address] | | | - LABORATORY | | | | + + + + + POC Glucose (08/31/20172116) + +---------+ + + | Component | Value | Ref Range | Performed At | + +---------+ + + | Glucose, POC | 115 (H) | 70 - 109 mg/dL | [facility] | | | | | [facility] | | | | | CENTER - | | | | | LABORATORY | + +---------+ + + + + | Specimen | + + | Blood | + + + + + + + | Performing | Address | City/State/Zipcode | Phone Number | | Organization | | | | + + + + + | [facility] | [address] | [place] | [phone] | | [facility] | | [address] | | | - LABORATORY | | | | + + + + + | [facility] | [address] | [place] | | | [facility] | | [address] | | | - LABORATORY | | | | + + + + + POC Glucose (08/31/2017 1734) + +-------+ + + | Component | Value | Ref Range | Performed At | + +-------+ + + | Glucose, POC | 89 | 70 - 109 mg/dL | [facility] | | | | | [facility] | | | | | CENTER - | | | | | LABORATORY | + +-------+ + + + + | Specimen | + + | Blood | + + + + + + + | Performing | Address | City/State/Zipcode | Phone Number | | Organization | | | | + + + + + | [facility] | [address] | [place], [place] | [phone] | | [facility] | | [address] | | | - LABORATORY | | | | + + + + + | [facility] | [address] | [place], [place] | | | [facility] | | [address] | | | - LABORATORY | | | | + + + + + Magnesium (08/31/2017429) + +---------+ + + | Component | Value | Ref Range | Performed At | + +---------+ + + | MG | 1.5 (L) | 1.8 - 2.5 mg/dL | [facility] | | | | | [facility] | | | | | CENTER - | | | | | LABORATORY | + +---------+ + + + + | Specimen | + + | Blood | + + + + + + + | Performing | Address | City/State/Zipcode | Phone Number | | Organization | | | | + + + + + | [facility] | [address] | [place] | [phone] | | [facility] | | [address] | | | - LABORATORY | | | | + + + + + | [facility] | [address] | [place] | | | [facility] | | [address] | | | - LABORATORY | | | | + + + + + Basic Metabolic Panel (08/31/2017 0430) + + + + + | Component | Value | Ref Range | Performed At | + + + + + | NA | 135 (L) | 136 - 149 mmol/L | [facility] | | | | | [facility] | | | | | C[facility] - | | | | | LABORATORY | + + + + + | K | 3.4 (L) | 3.5 - 5.1 mmol/L | [facility] | | | | | [facility] | | | | | C[facility] - | | | | | LABORATORY | + + + + + | CL | 113 (H) | 98 - 109 mmol/L | [facility] | | | | | [facility] | | | | | C[facility] - | | | | | LABORATORY | + + + + + | CO2 | 19 (L) | 24 - 31 mmol/L | [facility] | | | | | [facility] | | | | | C[facility] - | | | | | LABORATORY | + + + + + | ANION GAP | 3 | 3 - 16 mmol/L | [facility] | | | | | [facility] | | | | | C[facility] - | | | | | LABORATORY | + + + + + | GLUCOSE | 92 | 70 - 109 mg/dL | [facility] | | | | | [facility] | | | | | [facility] - | | | | | LABORATORY | + + + + + | BUN | 6 (L) | 7 - 18 mg/dL | [facility] | | | | | [facility] | | | | | CENTER - | | | | | LABORATORY | + + + + + | Creatinine, | 0.67 | 0.60 - 1.30 mg/dL | [facility]. | | Serum/Plasma | | | [facility] | | | | | CENTER - | | | | | LABORATORY | + + + + + | eGFR if not | >60Comment: GLOMERULAR | >=60 mL/min/1.73m2 | [facility] | | [place] | FILTRATION | | [facility] | | | RATE,ESTIMATED mL/min | | CENTER - | | | /1.65n4Ecda than 60 | | LABORATORY | | [...] + + + + | CALCIUM | 8.5 | 8.3 - 10.5 mg/dL | [facility] | | | | | [facility] | | | | | [facility] - | | | | | LABORATORY | + + + + + | BUN/CREA | 9.0 | | [facility] | | | | | [facility] | | | | | [facility]ENTER [...] + | [facility] | [address] | [place] | [phone] | | [facility] | | [address] | | | - LABORATORY | | | | + + + + + | [facility] | [address] | [place] | | | [facility] | | [address] | | | - LABORATORY | | | | + + + + + Phosphorus (08/31/2017 0430) + +-------+ + + | Component | Value | Ref Range | Performed At | + +-------+ + + | Phosphorus | 2.7 | 2.5 - 4.6 mg/dL | [facility] | | | | | [facility] | | | | | CENTER - | | | | | LABORATORY | + +-------+ + + + + | Specimen | + + | Blood | + + + + + + + | Performing | Address | City/State/Zipcode | Phone Number | | Organization | | | | + + + + + | [facility] | [address] | [place], [place] | [phone] | | [facility] | | [address] | | | - LABORATORY | | | | + + + + + | [facility] | [address] | [place], [place] | | | [facility] | | [address] | | | - LABORATORY | | | | + + + + + CBC with Differential (08/31/2017429) + + + + + | Component | Value | Ref Range | Performed At | + + + + + | WBC | 4.2 | 4.0 - 11.0 K/uL | [facility] | | | | | [facility] | | | | | [facility] - | | | | | LABORATORY | + + + + + | RBC | 3.38 (L) | 4.30 - 5.70 M/uL | [facility] | | | | | [facility] | | | | | C[facility] - | | | | | LABORATORY | + + + + + | Hgb | 11.2 (L) | 13.5 - 18.0 g/dL | [facility] | | | | | [facility] | | | | | C[facility] - | | | | | LABORATORY | + + + + + | Hct | 32.1 (L) | 40.0 - 51.0 % | [facility] | | | | | [facility] | | | | | C[facility] - | | | | | LABORATORY | + + + + + | MCV | 94.9 | 83.0 - 101.0 fL | [facility] | | | | | [facility] | | | | | C[facility] - | | | | | LABORATORY | + + + + + | MCH | 33.0 | 28.0 - 35.0 pg | [facility] | | | | | [facility] | | | | | C[facility] - | | | | | LABORATORY | + + + + + | MCHC | 34.8 | 32.0 - 36.0 g/dL | [facility] | | | | | [facility] | | | | | C[facility] - | | | | | LABORATORY | + + + + + | RDW-CV | 15.9 (H) | <15.0 % | [facility] | | | | [facility] | | | | | [facility] - | | | | | LABORATORY | + + + + + | Platelet Count | 240 | 140 - 440 K/uL | [facility] | | | | | [facility] | | | | | [facility] - | | | | | LABORATORY | + + + + + | MPV | 6.8 | fL | [facility] | | | | | [facility] | | | | | [facility] - | | | | | LABORATORY | + + + + + | % Neutrophils | 65.7 | 45.0 - 82.0 % | [facility] | | | | | [facility] | | | | | [facility] - | | | | | LABORATORY | + + + + + | % Lymphocytes | 20.3 | 20.0 - 45.0 % | [facility] | | | | | [facility] | | | | | C[facility] - | | | | | LABORATORY | + + + + + | % Monocytes | 7.9 | 4.0 - 12.0 % | [facility] | | | | | [facility] | | | | | [facility] - | | | | | LABORATORY | + + + + + | % Eosinophils | 5.4 (H) | 0.0 - 5.0 % | [facility] | | | | | [facility] | | | | | [facility] - | | | | | LABORATORY | + + + + + | % Basophils | 0.7 | 0.0 - 1.0 % | [facility] | | | | | [facility] | | | | | [facility] - | | | | | LABORATORY | + + + + + | Absolute Neutrophils | 2.80 | 1.80 - 8.50 K/uL | [facility] | | | | | [facility] | | | | | [facility] - | | | | | LABORATORY | + + + + + | Absolute Lymphocytes | 0.90 | 0.60 - 3.20 K/uL | [facility] | | | | | [facility] | | | | | [facility] - | | | | | LABORATORY | + + + + + | Absolute Monocytes | 0.30 | 0.00 - 1.00 K/uL | [facility] | | | | | [facility] | | | | | [facility] - | | | | | LABORATORY | + + + + + | Absolute Eosinophils | 0.20 | 0.00 - 0.40 K/uL | [facility] | | | | | [facility] | | | | | [facility] - | | | | | LABORATORY | + + + + + | Absolute Basophils | 0.00 | 0.00 - 0.10 K/uL | [facility] | | | | | [facility] | | | | | CENTER [...] + | [facility] | [address] | [place], [place] | [phone] | | [facility] | | [address] | | | - LABORATORY | | | | + + + + + | [facility] | [address] | [place], [place] | | | [facility] | | [address] | | | - LABORATORY | | | | + + + + + Magnesium (08/30/2017537) + +---------+ + + | Component | Value | Ref Range | Performed At | + +---------+ + + | MG | 1.5 (L) | 1.8 - 2.5 mg/dL | [facility] | | | | | [facility] | | | | | [facility] - | | | | | LABORATORY | + +---------+ + + + + | Specimen | + + | Blood | + + + + + + + | Performing | Address | City/State/Zipcode | Phone Number | | Organization | | | | + + + + + | [facility] | [address] | [place] | [phone] | | [facility] | | [address] | | | - LABORATORY | | | | + + + + + | [facility] | [address] | [place] | | | [facility] | | [address] | | | - LABORATORY | | | | + + + + + Basic Metabolic Panel (08/30/2017537) + + + + + | Component | Value | Ref Range | Performed At | + + + + + | NA | 135 (L) | 136 - 149 mmol/L | [facility] | | | | | [facility] | | | | | CENTER - | | | | | LABORATORY | + + + + + | K | 3.8 | 3.5 - 5.1 mmol/L | [facility] | | | | | [facility] | | | | | [facility] - | | | | | LABORATORY | + + + + + | CL | 109 | 98 - 109 mmol/L | [facility] | | | | | [facility] | | | | | [facility] - | | | | | LABORATORY | + + + + + | CO2 | 20 (L) | 24 - 31 mmol/L | [facility] | | | | | [facility] | | | | | C[facility] - | | | | | LABORATORY | + + + + + | ANION GAP | 6 | 3 - 16 mmol/L | [facility] | | | | | [facility] | | | | | [facility] - | | | | | LABORATORY | + + + + + | GLUCOSE | 91 | 70 - 109 mg/dL | [facility] | | | | | [facility] | | | | | CENTER - | | | | | LABORATORY | + + + + + | BUN | 5 (L) | 7 - 18 mg/dL | [facility] | | | | | [facility] | | | | | CENTER - | | | | | LABORATORY | + + + + + | Creatinine, | 0.69 | 0.60 - 1.30 mg/dL | [facility] | | Serum/Plasma | | | [facility] | | | | | CENTER - | | | | | LABORATORY | + + + + + | eGFR if not | >60Comment: GLOMERULAR | >=60 mL/min/1.73m2 | [facility] | | [place] | FILTRATION | | [facility] | | | RATE,ESTIMATED mL/min | | CENTER - | | | /1.12y7Pjyg than 60 | | LABORATORY | | [...] + + + + | CALCIUM | 8.5 | 8.3 - 10.5 mg/dL | [facility]. | | | | | [facility] | | | | | CENTER - | | | | | LABORATORY | + + + + + | BUN/CREA | 7.2 | | [facility]. | | | | | [facility] | | | | | CENTER [...] [facility] | [address] | [place] | [phone] | | [facility] | | [address] | | | - LABORATORY | | | | + + + + + | [facility] | [address] | [place], [place] | | | [facility] | | [address] | | | - LABORATORY | | | | + + + + + CBC with Differential (08/30/2017537) + + + + + | Component | Value | Ref Range | Performed At | + + + + + | WBC | 4.5 | 4.0 - 11.0 K/uL | [facility] | | | | | [facility] | | | | | [facility] - | | | | | LABORATORY | + + + + + | RBC | 3.41 (L) | 4.30 - 5.70 M/uL | [facility] | | | | | [facility] | | | | | C[facility] - | | | | | LABORATORY | + + + + + | Hgb | 11.3 (L) | 13.5 - 18.0 g/dL | [facility] | | | | | [facility] | | | | | CENTER - | | | | | LABORATORY | + + + + + | Hct | 32.0 (L) | 40.0 - 51.0 % | [facility] | | | | | [facility] | | | | | CENTER - | | | | | LABORATORY | + + + + + | MCV | 93.6 | 83.0 - 101.0 fL | [facility] | | | | | [facility] | | | | | C[facility] - | | | | | LABORATORY | + + + + + | MCH | 33.0 | 28.0 - 35.0 pg | [facility] | | | | | [facility] | | | | | C[facility] - | | | | | LABORATORY | + + + + + | MCHC | 35.3 | 32.0 - 36.0 g/dL | [facility] | | | | | [facility] | | | | | CENTER - | | | | | LABORATORY | + + + + + | RDW-CV | 15.5 (H) | <15.0 % | [facility] | | | | | [facility] | | | | | CENTER - | | | | | LABORATORY | + + + + + | Platelet Count | 236 | 140 - 440 K/uL | [facility] | | | | | [facility] | | | | | C[facility] - | | | | | LABORATORY | + + + + + | MPV | 6.7 | fL | [facility] | | | | | [facility] | | | | | C[facility] - | | | | | LABORATORY | + + + + + | % Neutrophils | 69.6 | 45.0 - 82.0 % | [facility] | | | | | [facility] | | | | | C[facility] - | | | | | LABORATORY | + + + + + | % Lymphocytes | 17.0 (L) | 20.0 - 45.0 % | [facility] | | | | | [facility] | | | | | C[facility] - | | | | | LABORATORY | + + + + + | % Monocytes | 6.5 | 4.0 - 12.0 % | [facility] | | | | | [facility] | | | | | C[facility] - | | | | | LABORATORY | + + + + + | % Eosinophils | 4.6 | 0.0 - 5.0 % | [facility] | | | | | [facility] | | | | | C[facility] - | | | | | LABORATORY | + + + + + | % Basophils | 2.3 (H) | 0.0 - 1.0 % | [facility] | | | | | [facility] | | | | | C[facility] - | | | | | LABORATORY | + + + + + | Absolute Neutrophils | 3.20 | 1.80 - 8.50 K/uL | [facility] | | | | | [facility] | | | | | [facility] - | | | | | LABORATORY | + + + + + | Absolute Lymphocytes | 0.80 | 0.60 - 3.20 K/uL | [facility] | | | | | [facility] | | | | | [facility] - | | | | | LABORATORY | + + + + + | Absolute Monocytes | 0.30 | 0.00 - 1.00 K/uL | [facility] | | | | | [facility] | | | | | C[facility] - | | | | | LABORATORY | + + + + + | Absolute Eosinophils | 0.20 | 0.00 - 0.40 K/uL | [facility] | | | | | [facility] | | | | | C[facility] - | | | | | LABORATORY | + + + + + | Absolute Basophils | 0.10 | 0.00 - 0.10 K/uL | [facility] | | | | | [facility] | | | | | [facility] [...] + | [facility] | [address] | [place], [place] | [phone] | | [facility] | | [address] | | | - LABORATORY | | | | + + + + + | [facility] | [address] | [place], [place] | | | [facility] | | [address] | | | - LABORATORY | | | | + + + + + Magnesium (08/29/2017 1458) + +-------+ + + | Component | Value | Ref Range | Performed At | + +-------+ + + | MG | 2.1 | 1.8 - 2.5 mg/dL | [facility] | | | | | [facility] | | | | | CENTER [...] [address] | [place] | [phone] | | [facility] | | [address] | | | - LABORATORY | | | | + + + + + | [facility] | [address] | [place] | | | [facility] | | [address] | | | - LABORATORY | | | | + + + + + Magnesium (08/29/2017625) + + + + + | Component | Value | Ref Range | Performed At | + + + + + | MG | 1.1 (LL)Comment: | 1.8 - 2.5 mg/dL | [facility] | | | Consistent with previous | | [facility] | | | results. | | [...] + | [facility] | [address] | [place], [place] | [phone] | | [facility] | | [address] | | | - LABORATORY | | | | + + + + + | [facility] | [address] | [place], [place] | | | [facility] | | [address] | | | - LABORATORY | | | | + + + + + Basic Metabolic Panel (08/29/2017625) + + + + + | Component | Value | Ref Range | Performed At | + + + + + | NA | 136 | 136 - 149 mmol/L | [facility] | | | | | [facility] | | | | | C[facility] - | | | | | LABORATORY | + + + + + | K | 3.3 (L) | 3.5 - 5.1 mmol/L | [facility] | | | | | [facility] | | | | | [facility] - | | | | | LABORATORY | + + + + + | CL | 107 | 98 - 109 mmol/L | [facility] | | | | | [facility] | | | | | [facility] - | | | | | LABORATORY | + + + + + | CO2 | 21 (L) | 24 - 31 mmol/L | [facility] | | | | | [facility] | | | | | [facility] - | | | | | LABORATORY | + + + + + | ANION GAP | 8 | 3 - 16 mmol/L | [facility] | | | | | [facility] | | | | | [facility] - | | | | | LABORATORY | + + + + + | GLUCOSE | 82 | 70 - 109 mg/dL | [facility] | | | | | [facility] | | | | | [facility] - | | | | | LABORATORY | + + + + + | BUN | 6 (L) | 7 - 18 mg/dL | [facility] | | | | | [facility] | | | | | [facility] - | | | | | LABORATORY | + + + + + | Creatinine, | 0.66 | 0.60 - 1.30 mg/dL | [facility] | | Serum/Plasma | | | [facility] | | | | | CENTER - | | | | | LABORATORY | + + + + + | eGFR if not | >60Comment: GLOMERULAR | >=60 mL/min/1.73m2 | [facility] | | [place] | FILTRATION | | [facility] | | | RATE,ESTIMATED mL/min | | CENTER - | | | /1.81h5Rrwy than 60 | | LABORATORY | | [...] + + + + | CALCIUM | 8.4 | 8.3 - 10.5 mg/dL | [facility] | | | | | [facility] | | | | | CENTER - | | | | | LABORATORY | + + + + + | LAURA/ZAHRA | 9.1 | | [facility] | | | | | [facility] | | | | | CENTER [...] [address] | [place] | [phone] | | [facility] | | [address] | | | - LABORATORY | | | | + + + + + | [facility] | [address] | [place] | | | [facility] | | [address] | | | - LABORATORY | | | | + + + + + CBC with Differential (08/29/2017625) + + + + + | Component | Value | Ref Range | Performed At | + + + + + | WBC | 4.7 | 4.0 - 11.0 K/uL | [facility] | | | | | [facility] | | | | | CENTER - | | | | | LABORATORY | + + + + + | RBC | 3.46 (L) | 4.30 - 5.70 M/uL | [facility] | | | | | [facility] | | | | | CENTER - | | | | | LABORATORY | + + + + + | Hgb | 11.3 (L) | 13.5 - 18.0 g/dL | [facility] | | | | | [facility] | | | | | [facility] - | | | | | LABORATORY | + + + + + | Hct | 32.6 (L) | 40.0 - 51.0 % | [facility] | | | | | [facility] | | | | | C[facility] - | | | | | LABORATORY | + + + + + | MCV | 94.1 | 83.0 - 101.0 fL | [facility] | | | | | [facility] | | | | | [facility] - | | | | | LABORATORY | + + + + + | MCH | 32.7 | 28.0 - 35.0 pg | [facility] | | | | | [facility] | | | | | [facility] - | | | | | LABORATORY | + + + + + | MCHC | 34.7 | 32.0 - 36.0 g/dL | [facility] | | | | | [facility] | | | | | [facility] - | | | | | LABORATORY | + + + + + | RDW-CV | 15.8 (H) | <15.0 % | [facility] | | | | | [facility] | | | | | [facility] - | | | | | LABORATORY | + + + + + | Platelet Count | 234 | 140 - 440 K/uL | [facility] | | | | | [facility] | | | | | [facility] - | | | | | LABORATORY | + + + + + | MPV | 6.6 | fL | [facility] | | | | | [facility] | | | | | [facility] - | | | | | LABORATORY | + + + + + | % Neutrophils | 70.8 | 45.0 - 82.0 % | [facility] | | | | | [facility] | | | | | [facility] - | | | | | LABORATORY | + + + + + | % Lymphocytes | 17.8 (L) | 20.0 - 45.0 % | [facility] - | | | | | LAB[facility]ATORY | + + + + + | % Monocytes | 7.3 | 4.0 - 12.0 % | [facility] - | | | | | [facility]ATORY | + + + + + | % Eosinophils | 3.2 | 0.0 - 5.0 % | [facility] - | | | | | [facility]ORY | + + + + + | % Basophils | 0.9 | 0.0 - 1.0 % | [facility] - | | | | | [facility] | + + + + + | Absolute Neutrophils | 3.30 | 1.80 - 8.50 K/uL | [facility] | | | | | [facility] | + + + + + | Absolute Lymphocytes | 0.80 | 0.60 - 3.20 K/uL | [facility] - | | | | | [facility]ORY | + + + + + | Absolute Monocytes | 0.30 | 0.00 - 1.00 K/uL | [facility] - | | | | | [facility]ORY | + + + + + | Absolute Eosinophils | 0.10 | 0.00 - 0.40 K/uL | [facility] - | | | | | [facility]ORY | + + + + + | Absolute Basophils | 0.00 | 0.00 - 0.10 K/uL | [facility] | | | | | [facility] | | | | | [facility] [...] [address] | [place] | [phone] | | [facility] | | [address] | | | - LABORATORY | | | | + + + + + | [facility] | [address] | Gab De Guzman [place] | | | [facility] | | [address] | | | - LABORATORY | | | | + + + + + Vitamin D, Deficiency Screen (25-Hydroxy) (08/29/2017620) + +-------+ + + | Component | Value | Ref Range | Performed At | + +-------+ + + | Vitamin D, 25 | 50 | 30 - 80 ng/mL | [facility] | | Hydroxy | | | [facility] | | | | | CENTER - | | | | | LABORATORY | + +-------+ + + + + | Specimen | + + | Blood | + + + + + + + | Performing | Address | City/State/Zipcode | Phone Number | | Organization | | | | + + + + + | [facility] | [address] | [place], [place] | [phone] | | [facility] | | [address] | | | - LABORATORY | | | | + + + + + | [facility] | [address] | [place], [place] | | | [facility] | | [address] | | | - LABORATORY | | | | + + + + + in this encounter Visit Diagnoses + + | Diagnosis | + + | Debility - Primary | + + | Debility, unspecified | + + | Hypokalemia | + + | Hypopotassemia | + + | Hypomagnesemia | + + | Disorders of magnesium metabolism | + + | Left ureteral stone | + + | Leg edema | + + | Edema | + + | Severe protein-calorie malnutrition (HCC) | + + | Other severe protein-calorie malnutrition | + + | Upper GI bleeding | + + | Hemorrhage of gastrointestinal tract, unspecified | + + | Anemia associated with acute blood loss | + + | Acute posthemorrhagic anemia | + + | S/P lumbar fusion | + + | Arthrodesis status | + + | Sleep apnea in adult | + + | Duodenal ulcer | + + | Duodenal ulcer, unspecified as acute or chronic, without hemorrhage, perforation, or | | obstruction | + + | Low back pain | + + | Lumbago | + + | Diabetes mellitus, type II - ORAL Control | + + | Type II or unspecified type diabetes mellitus without mention of complication, not | | stated as uncontrolled | + + Admitting Diagnoses + + | Diagnosis | + + | Anemia associated with acute blood loss - Anemia associated with acute blood loss [D62] | + + | Acute posthemorrhagic anemia | + + Administered Medications + +--------+ +---------+------+------+ | Medication Order | MAR | Action | Dose | Rate | Site | | | Action | Date | | | | + +--------+ +---------+------+------+ | dorzolamide (TRUSOPT) 2% | Given | 09/02/2017 | 2 drops | | | | ophthalmic solution 2 drop 2 | | 11:31 | | | | | drop, Both Eyes, 2 TIMES DAILY, | | PDT | | | | | First dose on Thu08/28/17 at | | | | | | | 2100, Discharge Readmit | | | | | | + +--------+ +---------+------+------+ +-------+ +---------+---+---+ | Given | 09/02/2017 | 2 drops | | | | | 21:39 | | | | | | PDT | | | | +-------+ +---------+---+---+ | Given | 09/03/2017 | 2 drops | | | | | 8:39 | | | | | | PDT | | | | +-------+ +---------+---+---+ +---+---+ | | | +---+---+ + +-------+ +--------+---+---+ | fenofibrate (LOFIBRA, TRIGLIDE) | Given | 09/01/2017 | 160 mg | | | | tablet 160 mg 160 mg, Oral, | | 8:10 | | | | | DAILY, First dose on Thu08/29/17 | | PDT | | | | | at 0900, Discharge Readmit | | | | | | + +-------+ +--------+---+---+ +-------+ +--------+---+---+ | Given | 09/02/2017 | 160 mg | | | | | 8:26 | | | | | | PDT | | | | +-------+ +--------+---+---+ | Given | 09/03/2017 | 160 mg | | | | | 8:38 | | | | | | PDT | | | | +-------+ +--------+---+---+ +---+---+ | | | +---+---+ + +-------+ +--------+---+---+ | ferrous sulfate tablet 325 mg | Given | 09/02/2017 | 325 mg | | | | 325 mg, Oral, 2 TIMES DAILY WITH | | 8:26 | | | | | BREAKFAST & DINNER, First dose on | | PDT | | | | | 08/31/17 at 1700 | | | | | | + +-------+ +--------+---+---+ +-------+ +--------+---+---+ | Given | 09/02/2017 | 325 mg | | | | | 17:31 | | | | | | PDT | | | | +-------+ +--------+---+---+ | Given | 09/03/2017 | 325 mg | | | | | 8:38 | | | | | | PDT | | | | +-------+ +--------+---+---+ + +---+ | | | + +---+ | HYDROcodone-acetaminophen | | | (NORCO) 5-325 mg per tablet 1-2 | | | tablet 1-2 tablet, Oral, EVERY 4 | | | HOURS PRN, Pain, Starting Sun | | | 08/30/17 at 1806 | | + +---+ | | | + +---+ + +-------+ +--------+---+---+ | latanoprost (XALATAN) 0.005% | Given | 08/31/2017 | 1 drop | | | | ophthalmic solution 1 drop 1 | | 21:15 | | | | | drop, Both Eyes, NIGHTLY, First | | PDT | | | | | dose on Thu08/28/17 at 2100, | | | | | | | Discharge Readmit | | | | | | + +-------+ +--------+---+---+ +-------+ +--------+---+---+ | Given | 09/01/2017 | 1 drop | | | | | 20:57 | | | | | | PDT | | | | +-------+ +--------+---+---+ | Given | 09/02/2017 | 1 drop | | | | | 21:38 | | | | | | PDT | | | | +-------+ +--------+---+---+ +---+---+ | | | +---+---+ + +-------+ +--------+---+---+ | magnesium oxide (MAG-OX) tablet | Given | 08/30/2017 | 400 mg | | | | 400 mg 400 mg, Oral, 2 TIMES | | 8:13 | | | | | DAILY, First dose on Thu08/29/17 | | PDT | | | | | at 0815, Discharge Readmit | | | | | | + +-------+ +--------+---+---+ +-------+ +--------+---+---+ | Given | 08/30/2017 | 400 mg | | | | | 20:53 | | | | | | PDT | | | | +-------+ +--------+---+---+ | Given | 08/31/2017 | 400 mg | | | | | 8:10 | | | | | | PDT | | | | +-------+ +--------+---+---+ +---+---+ | | | +---+---+ + +-------+ +--------+---+---+ | magnesium oxide (MAG-OX) tablet | Given | 09/02/2017 | 400 mg | | | | 400 mg 400 mg, Oral, 3 TIMES | | 12:14 | | | | | DAILY AFTER MEALS, First dose on | | PDT | | | | | 08/31/17 at 1800, Discharge | | | | | | | Readmit | | | | | | + +-------+ +--------+---+---+ +-------+ +--------+---+---+ | Given | 09/02/2017 | 400 mg | | | | | 17:31 | | | | | | PDT | | | | +-------+ +--------+---+---+ | Given | 09/03/2017 | 400 mg | | | | | 8:38 | | | | | | PDT | | | | +-------+ +--------+---+---+ +---+---+ | | | +---+---+ + +---------+ +-----+ +---+ | magnesium sulfate 4 g/100 mL | New Bag | | 4 g | 25 mL/hr | | | IVPB 4 g 4 g, Intravenous, | | 8 8:22 | | | | | Administer over 240 Minutes, | | PDT | | | | | ONCE, 08/29/17 at 0815, For 1 | | | | | | | dose, Maximum recommended | | | | | | | infusion rate = 1 gram/hour. | | | | | | + +---------+ +-----+ +---+ +---+---+ | | | +---+---+ + +---------+ +-----+ +---+ | magnesium sulfate 4 g/100 mL | New Bag | 08/30/2017 | 4 g | 25 mL/hr | | | IVPB 4 g 4 g, Intravenous, | | 8:25 | | | | | Administer over 240 Minutes, | | PDT | | | | | ONCE, [place] 08/30/17 at 0815, For 1 | | | | | | | dose, Maximum recommended | | | | | | | infusion rate = 1 gram/hour. | | | | | | + +---------+ +-----+ +---+ +---+---+ | | | +---+---+ + +---------+ +-----+ +---+ | magnesium sulfate 4 g/100 mL | New Bag | 08/31/2017 | 4 g | 25 mL/hr | | | IVPB 4 g 4 g, Intravenous, | | 9:52 | | | | | Administer over 240 Minutes, | | PDT | | | | | ONCE, [facility] 08/31/17 at 0815, For 1 | | | | | | | dose, Maximum recommended | | | | | | | infusion rate = 1 gram/hour. | | | | | | + +---------+ +-----+ +---+ +---+---+ | | | +---+---+ + +-------+ +--------+---+---+ | melatonin tablet 1.5 mg 1.5 | Given | | 1.5 mg | | | | mg, Oral, NIGHTLY PRN, Insomnia, | | 8 21:19 | | | | | Starting 08/28/17 at 1953, | | PDT | | | | | Discharge Readmit | | | | | | + +-------+ +--------+---+---+ +-------+ +--------+---+---+ | Given | | 1.5 mg | | | | | 8 20:59 | | | | | | PDT | | | | +-------+ +--------+---+---+ +---+---+ | | | +---+---+ + +-------+ +-------+---+---+ | pantoprazole (PROTONIX) DR | Given | 09/02/2017 | 40 mg | | | | tablet 40 mg 40 mg, Oral, 2 | | 6:40 | | | | | TIMES DAILY BEFORE MEALS, First | | PDT | | | | | dose on 08/29/17 at 0730, Do | | | | | | | not cut or crush. | | | | | | + +-------+ +-------+---+---+ +-------+ +-------+---+---+ | Given | 09/02/2017 | 40 mg | | | | | 17:30 | | | | | | PDT | | | | +-------+ +-------+---+---+ | Given | 09/03/2017 | 40 mg | | | | | 6:39 | | | | | | PDT | | | | +-------+ +-------+---+---+ +---+---+ | | | +---+---+ + +-------+ +--------+---+---+ | potassium chloride (K-DUR) ER | Given | | 20 mEq | | | | tablet 20 mEq 20 mEq, Oral, | | 8 8:20 | | | | | DAILY, First dose on 08/29/17 | | PDT | | | | | at 0900, Discharge Readmit | | | | | | + +-------+ +--------+---+---+ +---+---+ | | | +---+---+ + +-------+ +--------+---+---+ | potassium chloride (K-DUR) ER | Given | | 20 mEq | | | | tablet 20 mEq 20 mEq, Oral, 2 | | 8 20:59 | | | | | TIMES DAILY, First dose on Sat | | PDT | | | | | 08/29/17 at 2100, Discharge | | | | | | | Readmit | | | | | | + +-------+ +--------+---+---+ +---+---+ | | | +---+---+ + +-------+ +--------+---+---+ | potassium chloride (K-DUR) ER | Given | 08/30/2017 | 20 mEq | | | | tablet 20 mEq 20 mEq, Oral, | | 8:13 | | | | | DAILY, First dose on 08/30/17 | | PDT | | | | | at 0900, Discharge Readmit | | | | | | + +-------+ +--------+---+---+ +---+---+ | | | +---+---+ + +-------+ +--------+---+---+ | potassium chloride (K-DUR) ER | Given | 08/31/2017 | 20 mEq | | | | tablet 20 mEq 20 mEq, Oral, 2 | | 8:10 | | | | | TIMES DAILY, First dose on Thu | | PDT | | | | | 08/31/17 at 0900, Discharge Readmit | | | | | | + +-------+ +--------+---+---+ +---+---+ | | | +---+---+ + +-------+ +--------+---+---+ | potassium chloride (K-DUR) ER | Given | 09/02/2017 | 40 mEq | | | | tablet 40 mEq 40 mEq, Oral, 2 | | 8:26 | | | | | TIMES DAILY AFTER MEALS, First | | PDT | | | | | dose on Thu08/31/17 at 1800, | | | | | | | Discharge Readmit | | | | | | + +-------+ +--------+---+---+ +-------+ +--------+---+---+ | Given | 09/02/2017 | 40 mEq | | | | | 17:31 | | | | | | PDT | | | | +-------+ +--------+---+---+ | Given | 09/03/2017 | 40 mEq | | | | | 8:38 | | | | | | PDT | | | | +-------+ +--------+---+---+ +---+---+ | | | +---+---+ + +-------+ +-------+---+---+ | rosuvastatin (CRESTOR) tablet | Given | 08/31/2017 | 10 mg | | | | 10 mg 10 mg, Oral, NIGHTLY, | | 21:15 | | | | | First dose on Thu08/28/17 at | | PDT | | | | | 2100, Discharge Readmit | | | | | | + +-------+ +-------+---+---+ +-------+ +-------+---+---+ | Given | 09/01/2017 | 10 mg | | | | | 20:57 | | | | | | PDT | | | | +-------+ +-------+---+---+ | Given | 09/02/2017 | 10 mg | | | | | 21:39 | | | | | | PDT | | | | +-------+ +-------+---+---+ + +---+ | | | + +---+ | zolpidem (AMBIEN) tablet 5 mg | | | 5 mg, Oral, NIGHTLY PRN, | | | Insomnia, Starting 08/29/17 at | | | 1101 | | + +---+ | | | + +---+ in this encounter
--- OUTSIDE RECORDS SUMMARY | ~2017-11-16 | XMS | Clinical Summary ---
Demographics + + + | Address | [address] | | | [place] [address] | + + + | Home Phone | | + + + | Preferred Language | Unknown | + + + | Marital Status | | + + + | Catholic Affiliation | 1009 | + + + | Race | Unknown | + + + | Ethnic Group | Unknown | + + + Author + + + | Author | [facility] | | | and [place] | + + + | Organization | [facility] | | [...] | | | | | [place] [address] | | + + + + + Care Team Providers + +------+ + | Care Policy And Planning Manager Name | Role | Phone | [...] | | | 1940MR | | | [id number] | | | 61Admit | | | [...] MD Aislinn | | | -GI : Linda | | | Akhli Carpenter, | | | MD Portions | [...] | | | MRN: | | | [id number] | | | Date of | | | Admission: | | | 08/26/2017 | | | Date of | | | Discharge: | | | 08/28/17 | | | Admitting | | | Physician: | | | Suri | | | Elizabeth | | | Vimal, | | | MD | | | Discharging | | | Physician: | | | Anish | | | H. Arroyo, | | [...] | | | Code | | | [id number] | | | UNIT # | | | [id number] | | | 81-Q UNIT | | [...] | | | Time | | | [id number] | | | 9 Product | | | Blood Type | | | Barcode | | | 6200 | | | Product | | | Code | | | [id number] | | | UNIT # | | | [id number] | | | 73-D UNIT | | [...] | | | Time | | | [id number] | | | 9 Product | | | Blood Type | | | Barcode | | | 6200 | | | Product | | | Code | | | [id number] | | | UNIT # | | | [id number] | | | 89-A UNIT | | [...] | | | Time | | | [id number] | | | 9 Product | | [...] not | | | | | | [place] | | | >60 >=60 | | [...] | | | 16:21 | | | [place] | | | [place] | | | [facility] | | | [...] + | 08/26/ | Hospital | | Breta Tao MD | Status post lumbar | [...] [facility] | | | | [facility] | [facility] [...] [place] | | | | | | [id number] | | | | | | | [...] Left: | RTI | | 11/24/ | [id number] | | [id number]: Qty: 1 | | Spine | BIOLOGICS | | 2021 | | | on 07/02/2017 by Berta Tao | | Lumbar | INC - RBIO | | | /[id number] | | MD Idania | | | | | | 0-022 | | | | | | | | / | + +--------+--------+ +--------+--------+--------+ | Disc Cerv Mobi-C [id number] - | Generi | Anteri | LDR SPINE | | 03/02/ | [id number] | | [id number]: Qty: 2 on | c | or: | [employer] - | | 2020 | / | | 11/07/2016 by Berta Tao, | | Neck | LDRS | | | /[id number] | | MD | | | | | | 35 | + +--------+--------+ +--------+--------+--------+ | Tlif Oblique [id number] 4deg | Generi | Left: | NUVASIVE - | | | [id number] | | - Sn/AImplanted: Qty: 1 on | c | Spine | NVSV | | | 4 /N/A | | 07/02/2017 by Berta Tao, | | Lumbar | | | | /N/ | | MD | | | | | | | + +--------+--------+ +--------+--------+--------+ | Imp Spn Intbdy Xlw | Generi | Left: | NUVASIVE - | | | [id number] | | [id number] - Sn/AImplanted: | c | Spine | NVSV | | | 5 /N/A | | Qty: 1 on 07/02/2017 by Aislinn, | | Lumbar | | | | /N/A | | Berta Emerson MD | | | | | | | + +--------+--------+ +--------+--------+--------+ | Imp Spn Intbdy Xlw | Generi | Left: | NUVASIVE - | | | [id number] | | [id number] - Sn/AImplanted: | c | Spine | NVSV | | | 0 /N/A | | Qty: 1 on 07/02/2017 by Aislinn, | | Lumbar | | | | /N/A | | Berta Emerson MD | | | | | | | + +--------+--------+ +--------+--------+--------+ | Tlif Oblique [id number] 4deg - | Generi | Left: | NUVASIVE - | | | [id number] | | Sn/AImplanted: Qty: 1 on | c | Spine | NVSV | | | 4 /N/A | | 07/02/2017 by Berta Tao, | | Lumbar | | | | /N/A | | | | | | | | | + +--------+--------+ +--------+--------+--------+ | Frederick Ti Prebent Lordtc 85mm - | Generi | Left: | NUVASIVE - | | | [id number] | | Sn/AImplanted: Qty: 2 on | c | Spine | NVSV | | | /N/A | | 07/02/2017 by Berta Tao, | | Lumbar | | | | /N/A | | | | | | | | | + +--------+--------+ +--------+--------+--------+ | Putty Nathanael 10cc Dbm - | Graft | Left: | [employer] - | | 04/22/ | [id number] | | [id number]: Qty: 1 | | Spine | MEDT [...] | [employer] - | | 05/30/ | [id number] | | Sn/AImplanted: Qty: 1 on | [...] Left: | NUVASIVE - | | | [id number] | | Sn/AImplanted: Qty: 6 on | | Spine | NVSV | | | 5A | | 07/02/2017 by Berta Tao, | | Lumbar | | | | /N/A | | MD | | | | | | /N/A | + +--------+--------+ +--------+--------+--------+ | Screw Polyax Prcpt 8.5x50mm - | Screw | Left: | NUVASIVE - | | | [id number] | | Sn/AImplanted: Qty: 2 on | | Spine | NVSV | | | 0A | | 07/02/2017 by Berta Tao, | | Lumbar | | | | /N/A | | MD | | | | | | /N/A | + +--------+--------+ +--------+--------+--------+ | Screw Set - Sn/AImplanted: | Screw | Left: | NUVASIVE - | | | [id number] | | Qty: 8 on 07/02/2017 by Aislinn | | Spine | NVSV | | | 0 /N/A | | Berta Emerson MD | | Lumbar | | | | /N/A | + +--------+--------+ +--------+--------+--------+ | Stent Uro Unvrs Sft 7fr 28cm | Stent | Left: | MOHINDER VINES | | | [id number] | | - [id number]: Qty: 1 | | Ureter | INCORPORATE | | | / | | on 03/07/2016 by Tariq Lyles | | | D | | | /[id number] | | MD Bharath | | | [...] | | | LINDA | | | [id number] | | | [id number] | | | This | | | [...] | | | faf-3c | | | [id number] | | | cfee | | | [...] | | | Rodriguez | | | [facility], | | | [place] - | | | [email or web address] | | | ollect | | | ivemed | | | icalte | | | [email or web address] | | | | +---+--------+ + +--------+ [...] + | [facility] | [address] | [place], [place] | [phone] | | [facility] | | [address] | | | - LABORATORY | | | | + + + + + | [facility] | [address] | [place], [place] | | | [facility] | | [address] | | | - LABORATORY | | [...] ST. | | | | | [facility] | | | | | [...] + | [facility] | [address] | [place] | [phone] | | [facility] | | [address] | | | - LABORATORY | | | | + + + + + | [facility] | [address] | [place] | | | [facility] | | [address] | | | - LABORATORY | | [...] ST. | | | | | [facility] | | | | | CENTER - | | | | | LABORATORY | + + + + + | K | 4.3 | 3.5 - 5.1 mmol/L | [facility] | | | | | [facility] | | | | | [...] 7 - 18 mg/dL | [facility]. | | | | | [facility] | | | | | CENTER - | | | | | LABORATORY | + + + + + | Creatinine, | 0.68 | 0.60 - 1.30 mg/dL | [facility]. | | Serum/Plasma | | | [facility] | | | | | CENTER - | | | | | LABORATORY | + + + + + | eGFR if not | >60Comment: GLOMERULAR | >=60 mL/min/1.73m2 | [facility] | | [place] | FILTRATION | | [facility] | | | RATE,ESTIMATED mL/min | | CENTER - | | | /1.71g6Aijv than 60 | | LABORATORY | | [...] 9.6 | 8.3 - 10.5 mg/dL | [facility] | | | | | [facility] | | | | | CENTER - | | | | | LABORATORY | + + + + + | BUN/CREA | 10.3 | | [facility] | | | | | [...] ST. | [address] | [place], [place] | [phone] | | [facility] | | [address] | | | - LABORATORY | | | | + + + + + | [facility] | [address] | [place], [place] | | | [facility] | | [address] | | | - LABORATORY | | [...] ST. | | | | | [facility] | | | | | [...] + | [facility] | [address] | [place] | [phone] | | [facility] | | [address] | | | - LABORATORY | | | | + + + + + | [facility] | [address] | [place] | | | [facility] | | [address] | | | - LABORATORY | | [...] ST. | | | | | [facility] | | | | | [...] [address] | [place] | [phone] | | [facility] | | [address] | | | - LABORATORY | | | | + + + + + | [facility] | [address] | [place], [place] | | | [facility] | | [address] | | | - LABORATORY | | | | + + + + + Vitamin D, Deficiency Screen (25-Hydroxy) (08/29/2017620) + +-------+ + + | Component | Value | Ref Range | Performed At | + +-------+ + + | Vitamin D, 25 | 50 | 30 - 80 ng/mL | [facility] | | Hydroxy | | | [facility] | | | | | [...] + | [facility] | [address] | [place], [place] | [phone] | | [facility] | | [address] | | | - LABORATORY | | | | + + + + + | [facility] | [address] | [place], [place] | | | [facility] | | [address] | | | - LABORATORY | | | | + + + + + Helicobactor pylori Biopsy (08/28/2017 1340) + + + + + | Component | Value | Ref Range | Performed At | + + + + + | Helicobacter pylori | Negative | Negative | [facility] | | Ag | | | [facility] | | | | | [...] [address] | [place] | [phone] | | [facility] | | [address] | | | - LABORATORY | | | | + + + + + | [facility] | [address] | [place], [place] | | | [facility] | | [address] | | | - LABORATORY | | | | + + + + + EGD (08/28/2017 1319) + + ---+ | Narrative | Performed At | + + ---+ | | [facility] | | GastroenterologyPatient Name: Linda CadetRowdy Date: 08/28/2017 1:19 | [facility]OVATION | | PMMRN: [id number] #: [id number] of : 1940dmit | | | Type: InpatientAge: 76Room: [facility] 01Gender: MaleNote Status: | | | FinalizedAttending MD: Linda Carpenter , MDProcedure: | | | Upper GI endoscopyIndications: Acute post hemorrhagic | | | anemiaProviders: Linda Carpenter MD, Marah Coles, | | | RN, Codi Pinedo, | | | Tetryl Wringer Operator, Phoenix Cabello MD (Anesthesia | | [...] | | nurse, the anesthesiologist and the fresh foods technician in the | | | endoscopy [...] | | 1:37:12 PMScope Out: 1:42:04 PM [facility] | | | Center, [address] [place] [address] | | | - Resume previous diet [...] Out: 1:42:04 PM | | | [facility], [address] [place] [address] | | | [address] | | + + ---+ + +---------+ [...] | + + + + + | [facility] | [address] | [place], [place] | [phone] | | [facility] | | [address] | | | - LABORATORY | | | | + + + + + | [facility] | [address] | [place], [place] | | | [facility] | | [address] | | | - LABORATORY | | | | + + + + + Red Blood Cells Uncrossmatched - 3 Units (08/27/20171914) + + + + + | Component | Value | Ref Range | Performed At | + + + + + | Product Code | [id number] | | [facility] | | | | | [facility] | | | | | CENTER - BLOOD | | | | | BANK | + + + + + | UNIT # | [id number] | | [facility] | | | [...] + + + | Blood Product | [id number] | | [facility] | | Expiration [...] + + + | Product Code | [id number] | | [facility] | | | | | [facility] | | | | | CENTER - BLOOD | | | | | BANK | + + + + + | UNIT # | [id number] | | [facility] | | | [...] + + + | Blood Product | [id number] | | [facility] | | Expiration [...] + + + | Product Code | [id number] | | [facility] | | | | | [facility] | | | | | CENTER - BLOOD | | | | | BANK | + + + + + | UNIT # | [id number] | | [facility] | | | [...] + + + | Blood Product | [id number] | | [facility] | | Expiration [...] | | [facility] | | [address] | | | - BLOOD BANK | [...] + + | Performing | Address | City/[facility] Hospital[facility] | Phone Number | | Organization | | | | + + + + + | [facility] | [address] | [place] | [phone] | | [facility] | | [address] | | | - LABORATORY | | | | + + + + + | [facility] | [address] | [place] | | | [facility] | | [address] | | | - LABORATORY | | | | + + + + + Folate (08/27/20171313) + +-------+ + + | Component | Value | Ref Range | Performed At | + +-------+ + + | FOLATE | 18.7 | >5.8 ng/mL | [facility] | | | | | [facility] | | | | | [...] + | [facility] | [address] | [place] | [phone] | | [facility] | | [address] | | | - LABORATORY | | | | + + + + + | [facility] | [address] | [place], [place] | | | [facility] | | [address] | | | - LABORATORY | | [...] ST. | | | | | [facility] | | | | | CENTER - | | | | | LABORATORY | + + + + + | Hct | 33.7 (L) | 40.0 - 51.0 % | [facility] | | | | | [facility] | | | | | [...] [address] | [place] | [phone] | | [facility] | | [address] | | | - LABORATORY | | | | + + + + + | [facility] | [address] | [place], [place] | | | [facility] | | [address] | | | - LABORATORY | | [...] ONTIVEROS MD | | | | | (58[address]) on 08/27/2017 | | | | | [...] + | [facility] | [address] | [place] | [phone] | | [facility] | | [address] | | | - LABORATORY | | | | + + + + + | [facility] | [address] | [place] | | | [facility] | | [address] | | | - LABORATORY | | | | + + + + + Extra Blue Top Tube (08/26/20171650) + +-------+ + + | Component | Value | Ref Range | Performed At | + +-------+ + + | Extra Blue Top Tube | Done | | [facility] | | | | | [facility] | | | | | [...] + | [facility] | [address] | [place], [place] | [phone] | | [facility] | | [address] | | | - LABORATORY | | | | + + + + + | [facility] | [address] | [place], [place] | | | [facility] | | [address] | | | - LABORATORY | | [...] + | [facility] | [address] | [place] | [phone] | | [facility] | | [address] | | | - LABORATORY | | | | + + + + + | [facility] | [address] | [place] | | | [facility] | | [address] | | | - LABORATORY | | [...] + | [facility] | [address] | [place], [place] | [phone] | | [facility] | | [address] | | | - LABORATORY | | | | + + + + + | [facility] | [address] | [place], [place] | | | [facility] | | [address] | | | - LABORATORY | | [...] (H)Comment: Usual | 0.90 - 1.10 | [facility] | | | Oral Anticoagulation | | [facility] | | | Range: 2.0 - [...] + | [facility] | [address] | [place], [place] | [phone] | | [facility] | | [address] | | | - LABORATORY | | | | + + + + + | [facility] | [address] | [place], [place] | | | [facility] | | [address] | | | - LABORATORY | | [...] + | [facility] | [address] | [place] | | | [facility] | | [address] | | | - BLOOD BANK | | | | + + + + + B Type Natriuretic Peptide (08/26/2017 1627) + +---------+ + + | Component | Value | Ref Range | Performed At | + +---------+ + + | BNP | 125 (H) | <100 pg/mL | [facility] | | | | | [facility] | | | | | [...] + | [facility] | [address] | [place] | [phone] | | [facility] | | [address] | | | - LABORATORY | | | | + + + + + | [facility] | [address] | [place] | | | [facility] | | [address] | | | - LABORATORY | | [...] + + | Performing | Address | City/[facility] | Phone Number | | Organization | | | | + + + + + | [facility] | [address] | [place], [place] | [phone] | | [facility] | | [address] | | | - LABORATORY | | | | + + + + + | [facility] | [address] | [place], [place] | | | [facility] | | [address] | | | - LABORATORY | | [...] 12 | 7 - 18 mg/dL | [facility] | | | | | [facility] | | | | | CENTER - | | | | | LABORATORY | + + + + + | Creatinine, | 0.78 | 0.60 - 1.30 mg/dL | [facility] | | Serum/Plasma | | | [facility] | | | | | CENTER - | | | | | LABORATORY | + + + + + | eGFR if not | >60Comment: GLOMERULAR | >=60 mL/min/1.73m2 | [facility] | | [place] | FILTRATION | | [facility] | | | RATE,ESTIMATED mL/min | | CENTER - | | | /1.14a9Rurd than 60 | | LABORATORY | | [...] + | [facility] | [address] | [place] | [phone] | | [facility] | | [address] | | | - LABORATORY | | | | + + + + + | [facility] | [address] | [place] | | | [facility] | | [address] | | | - LABORATORY | | [...] +---------+ | VETERANS ADMIN | VETERA | [id number] | Indemn | | | | | NS | | ity | | | | | ADMIN | | | | | | | [place] | | | | | | | [place] | | | | | + +--------+ +--------+ +---------+ | [employer] ADMIN | VETERA | [id number] | Indemn | | | | | NS | | ity | | | | | CHOICE | | | | | + +--------+ +--------+ +---------+ | [employer] ADMIN | VETERA | [id number] | Indemn | | | | | NS | | ity | | | | | ADMIN | | | | | | | PUGET | | | | | | | SOUND | | | | | + +--------+ +--------+ +---------+ | MEDICARE | MEDICA | [id number] | Medica | [phone] | | [...] | 1941 | [phone] | [place] [address] | | | josefa | | | [address] | | + +--------+ +--------+ + +
--- OUTSIDE RECORDS SUMMARY | ~2017-11-16 | XMS | Encounter Summary ---
Demographics + + + | Address | [address] | | | [place] [address] | + + + | Home Phone | | + + + | Preferred Language | Unknown | + + + | Marital Status | | + + + | Anglican Affiliation | 1009 | + + + | Race | Unknown | + + + | Ethnic Group | Unknown | + + + Author + + + | Author | [facility] | | | and [place] | + + + | Organization | [facility] | | | and [...] | | | | | [place] [address] | | + + + + + Care Team Providers + +------+ + | Care Environmental Control Administrator Name | Role | Phone | + [...] +--------+--------+ + + + + Encounter Details +--------+ + + + + | Date | Type | Department | Care Team | Description | +--------+ + + + + | 08/26/ | Hospital | [facility] | Keshawn Begum | Anemia, unspecified | | 2017 - | Encounter | [facility] | MD Estiven [address] | type (Primary Dx); | | | | [address] | [address] | Weakness; Shortness | | 08/28/ | | [place] [address] | [place] [address] | of breath on | | 2018 | | [phone] | Elizabeth Vimal, | exertion; | | | | | MD Suri [address] | Symptomatic anemia; | | | | | [facility] | Upper GI bleeding; | | | | | [place] [address] | Anemia associated | | | | | [phone] | with acute blood | | | [...] | | | malnutrition (HCC) | +--------+ + + + + Social [...] | 79.8 kg (175 lb 14.8 | 08/28/2017199 PDT | | | oz) | | + + + + | Height | 170.2 cm (5' 7") | 08/26/2017 1602 PDT | + + + + | Body Mass Index | 27.55 | 08/28/2017199 PDT | + + + + in [...] of this note may be different from felicia bruno. DISCHARGE SUMMARY Patient Name: Linda Cristobal : [...] Units Result Value Ref Range Product Code J2760N62 UNIT # [id number] UNIT ABO A UNIT RH POS CROSSMATCH INTERP Compatible Unit Status Transfused Blood Product ABORh APOS Blood Product Expiration Date and Time Product Blood Type Barcode 6200 Product Code S0010V23 UNIT # [id number] UNIT ABO A UNIT RH POS CROSSMATCH INTERP Compatible Unit Status Transfused Blood Product ABORh APOS Blood Product Expiration Date and Time Product Blood Type Barcode 6200 Product Code J9549X05 UNIT # [id number] UNIT ABO A UNIT RH POS CROSSMATCH [...] recent upper GI bleed tr eated at [facility], deconditioning with a number of falls, who presented with weakn ess, leg edema, weight loss, found to have severe anemia. Problem-Oriented Hospital Course: Upper GI bleed with blood loss anemia: - Christiano melena recently noted on 08/14-08/18 hospital stay at [facility], treated with Protonix, 2 units of PRBC's, no EGD done at outside hospital - Reportedly using NSAID's before this event, although history unclear - HGB fell from 11.5 on 08/18 on release from [place] to 7.2 on 08/26 - After 3 [...] signed by: Anish Arroyo MD, 08/28/2017 16:21 [facility] in this encounter Medications at Time of [...] into | 20 mL | 0 | /05/20 | | | (TRUSOPT) 2% | both [...] tablet by | 30 | 0 | 07//20 | | | 325 mg tablet | [...] tablet by | 60 | 1 | // | | | (MAG-OX) 400 mg | [...] may be different f rom the original. [facility] Hospitalist Progress Note Linda Cristobal is a [...] Units Result Value Ref Range Product Code L6616Z22 UNIT # [id number] UNIT ABO A UNIT RH POS CROSSMATCH INTERP Compatible Unit Status Transfused Blood Product [facility] APOS Blood Product Expiration Date and Time Product Blood Type Barcode 6200 Product Code V9510R15 UNIT # [id number] UNIT ABO A UNIT RH POS CROSSMATCH INTERP Compatible Unit Status Transfused Blood Product ABOR APOS Blood Product Expiration Date and Time Product Blood Type Barcode 6200 Product Code F4337G12 UNIT # [id number] UNIT ABO A UNIT RH POS CROSSMATCH INTERP Compatible Unit Status Transfused Blood Product [facility] APOS Blood Product Expiration Date and Time [...] recently noted on 08/14-08/18 hospital stay at [facility], treated with Protonix, 2 units of PRBC's, [...] as outlined above. Anish Arroyo 08/28/2017 10:05 Located within [facility] Anish Arroyo MD - 08/27/2017 1235 PDTFormatting of this note may be different from th e original. [facility] Hospitalist Progress Note Linda Cristobal is a 76 y.o. male SUBJECTIVE: He is a very poor historian. He denies bleeding or black stools. He reports pain is con trolled. He wants to get home as soon as possible. In review of recent admission to [facility] in [place], he was admitted from to 08/18. He [...] Inferior leads Confirmed by GRECIA ONTIVEROS MD ([id number]) on 08/27/2017 6:54:43 AM POC Glucose Result [...] Units Result Value Ref Range Product Code K2161D65 UNIT # [id number] UNIT ABO A UNIT RH POS CROSSMATCH INTERP Compatible Unit Status Transfused Blood Product [facility] APOS Blood Product Expiration Date and Time Product Blood Type Barcode 6200 Product Code I7026I63 UNIT # [id number] UNIT ABO A UNIT RH POS CROSSMATCH INTERP Compatible Unit Status Issued Blood Product ABORh APOS Blood Product Expiration Date and Time Product Blood Type Barcode 6200 Product Code C3920B42 UNIT # [id number] UNIT ABO A UNIT RH POS CROSSMATCH INTERP Compatible Unit Status Transfused Blood Product ABOR APOS Blood Product Expiration Date and Time [id number] Product Blood Type Barcode 6200 Xr Chest [...] recently noted on 08/14-08/18 hospital stay at [facility], treated with Protonix, 2 units of PRBC's, [...] as outlined above. Anish Arroyo 08/27/2017 16:00 Located within [facility] Marah Fierro, PharmD - 08/26/2017 195 PDTFormatting of this note may be different [...] strength, and directions X Pharmacy list names: [facility] Vaccines up to date? 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 Provider ammonium lactate (LAC-HYDRIN) 12% lotion Apply 1 Application topically as needed for Dry S kin. Taking Historical Provider, chlorpheniramine (CHLOR-TRIMETON) 4 MG tablet Take 4 mg by mouth every 6 hours as needed f or Allergies. Taking Historical Provider, Cholecalciferol (VITAMIN D PO) Take 1,000 Units by mouth. Taking Historical Provider, clobetasol (TEMOVATE) 0.05% cream Apply topically Twice daily as needed. Taking Histori alex Provider, dorzolamide (TRUSOPT) 2% ophthalmic solution Place 2 drops into both eyes 2 times daily. T aking Historical Provider, MD fenofibrate (TRICOR) 145 mg tablet Take 145 [...] MINERALS/IRON) TABS Take 1 tablet by m out Daily. Taking Historical MD Michael POLYVINYL ALCOHOL OP Apply to eye 2 times daily. Taking Historical MD Michael rosuvastatin (CRESTOR) 20 mg tablet Take 20 mg by mouth nightly. Taking Historical Provid erMD travoprost (TRAVATAN Z) 0.004% ophthalmic solution Place 1 drop into both eyes nightly. Caleb Rodriguez MD Medication review performed and electronically signed by Felicitas Leiva, Dental Professional 08/26/2017 19:33 Reviewed by Marah Fierro, PharmD 08/26/2017 19:56 in this encounter Plan of Treatment +--------+---------+ + + + | Date | Type | Specialty | Care Team | Description | +--------+---------+ + + + | 01/05/ | Office | Neurosurgery | Berta Tao MD | | | 2018 | Visit | | [address] [facility] | | | | | | [address] [place] | | | | | | [address] | | | | | | | [...] for this | | | e | 165 PDT | | procedure are in the [...] | | | LINDA | | | [id number] | | | [id number] | | | This | | | [...] | | | faf-3c | | | [id number] | | | cfee | | | [...] + + + | MG | 1.0 (LL)Comment: | 1.8 - 2.5 mg/dL | [facility] | | | Consistent with previous | | [facility] | | | results. | | CENTER [...] + | [facility] | [address] | [place], [place] | [phone] | | [facility] | | [address] | | | - LABORATORY | | | | + + + + + | [facility] | [address] | [place], [place] | | | [facility] | | [address] | | | - LABORATORY | | [...] 0.74 | 0.60 - 1.30 mg/dL | [facility] | | Serum/Plasma | | | [facility] | | | | | CENTER - | | | | | LABORATORY | + + + + + | eGFR if not | >60Comment: GLOMERULAR | >=60 mL/min/1.73m2 | [facility] | | CYMRAES | FILTRATION | | [facility] | | | RATE,ESTIMATED mL/min | | CENTER - | | | /1.76i2Waws than 60 | | LABORATORY | | [...] 8.8 | 8.3 - 10.5 mg/dL | [facility] | | | | | [facility] | | | | | CENTER - | | | | | LABORATORY | + + + + + | LAURA/ZAHRA | 8.1 | | [facility] | | | | | [facility] | | | | | CENTER [...] [address] | [place] | [phone] | | [facility] | | [address] | | | - LABORATORY | | | | + + + + + | [facility] | [address] | [place] | | | [facility] | | [address] | | | - LABORATORY | | | | + + + + + Helicobactor pylori Biopsy (08/28/2017 1340) + + + + + | Component | Value | Ref Range | Performed At | + + + + + | Helicobacter pylori | Negative | Negative | [facility] | | Ag | | | [facility] | | | | | CENTER [...] + | [facility] | [address] | [place], [place] | [phone] | | [facility] | | [address] | | | - LABORATORY | | | | + + + + + | [facility] | [address] | [place], [place] | | | [facility] | | [address] | | | - LABORATORY | | | | + + + + + PRETTY (08/28/2017 1319) + + ---+ | Narrative | Performed At | + + ---+ | | [facility] | | GastroenterologyPatient Name: Linda CristobalProcedure Date: 08/28/2017 1:19 | [facility] | | [facility] [id number] #: [id number] of : 1940dmit | | | Type: InpatientAge: 76[facility]Gender: MaleNote Status: | | | FinalizedAttending MD: Linda Carpenter , [facility]cedure: | | | Upper GI endoscopyIndications: Acute post hemorrhagic | | | anemiaProviders: Linda Carpenter MD, Marah Coles, | | | RN, Codi Pinedo, | | | Kitchen Help Handyman, Phoenix Cabello MD (Anesthesia | | | [...] | | nurse, the anesthesiologist and the farm equipment technician in the | | | endoscopy [...] | | 1:37:12 PMScope Out: 1:42:04 PM [facility] | | | [place], [address] [place] [address] | | | - Resume previous diet [...] |Scope Out: 1:42:04 PM | | | [facility], [address] [facility], [place], [place] | | | [address] | | + + ---+ + +---------+ + + | Performing | Address | City/State/Zipcode | Phone Number | | Organization | | | | + +---------+ + + | [facility] | | | | + +---------+ + + Prealbumin (08/28/2017 0456) + +--------+ + + | Component | Value | Ref Range | Performed At | + +--------+ + + | PREALBUMIN | 15 (L) | 18 - 38 mg/dL | [facility] | | | | | [facility] | | | | | CENTER - | | | | | LABORATORY | + +--------+ + + + + | Specimen | + + | Blood | + + + + + + + | Performing | Address | City/State/Zipcode | Phone Number | | Organization | | | | + + + + + | [facility] | [address] | [place] | [phone] | | [facility] | | [address] | | | - LABORATORY | | | | + + + + + | [facility] | [address] | [place] | | | [facility] | | [address] | | | - LABORATORY | | | | + + + + + Phosphorus (08/28/2017 0456) + +-------+ + + | Component | Value | Ref Range | Performed At | + +-------+ + + | Phosphorus | 3.0 | 2.5 - 4.6 mg/dL | [facility] | | | | | [facility] | | | | | CENTER - | | | | | LABORATORY | + +-------+ + + + + | Specimen | + + | Blood | + + + + + + + | Performing | Address | City/State/Zipcode | Phone Number | | Organization | | | | + + + + + | [facility] | [address] | [place], [place] | [phone] | | [facility] | | [address] | | | - LABORATORY | | | | + + + + + | [facility] | [address] | [place], [place] | | | [facility] | | [address] | | | - LABORATORY | | | | + + + + + Magnesium (08/28/2017455) + + + + + | Component | Value | Ref Range | Performed At | + + + + + | MG | 0.9 (LL)Comment: | 1.8 - 2.5 mg/dL | [facility] | | | Critical Result called | | [facility] | | | to and read [...] ST. | [address] | [place], [place] | [phone] | | [facility] | | [address] | | | - LABORATORY | | | | + + + + + | [facility] | [address] | [place] | | | [facility] | | [address] | | | - LABORATORY | | | | + + + + + Basic Metabolic Panel (08/28/2017 0456) + + + + + | Component | Value | Ref Range | Performed At | + + + + + | NA | 136 | 136 - 149 mmol/L | [facility] | | | | | [facility] | | | | | CENTER [...] [facility] | | | | | [facility] | | | | | CENTER - | | | | | LABORATORY | + + + + + | Creatinine, | 0.74 | 0.60 - 1.30 mg/dL | [facility] | | Serum/Plasma | | | [facility] | | | | | CENTER - | | | | | LABORATORY | + + + + + | eGFR if not | >60Comment: GLOMERULAR | >=60 mL/min/1.73m2 | [facility] | | CYMRAES | FILTRATION | | [facility] | | | RATE,ESTIMATED mL/min | | CENTER - | | | /1.96b7Ydal than 60 | | LABORATORY | | [...] (L) | 8.3 - 10.5 mg/dL | [facility]. | | | | | [facility] | | | | | CENTER - | | | | | LABORATORY | + + + + + | BUN/CREA | 9.5 | | [facility]. | | | | | [facility] | | | | | CENTER [...] + | [facility] | [address] | [place] | [phone] | | [facility] | | [address] | | | - LABORATORY | | | | + + + + + | [facility] | [address] | [place], [place] | | | [facility] | | [address] | | | - LABORATORY | | | | + + + + + CBC with Differential (08/28/2017 045) + + + + + [...] + | [facility] | [address] | [place], [place] | [phone] | | [facility] | | [address] | | | - LABORATORY | | | | + + + + + | [facility] | [address] | [place], [place] | | | [facility] | | [address] | | | - LABORATORY | | | | + + + + + Red Blood Cells Uncrossmatched - 3 Units (08/27/20171914) + + + + + | Component | Value | Ref Range | Performed At | + + + + + | Product Code | [id number] | | [facility] | | | | | [facility] | | | | | CENTER - BLOOD | | | | | BANK | + + + + + | UNIT # | [id number] | | [facility] | | | [...] + + + | Blood Product | [id number] | | [facility] | | Expiration [...] + + + | Product Code | [id number] | | [facility] | | | | | [facility] | | | | | CENTER - BLOOD | | | | | BANK | + + + + + | UNIT # | [id number] | | [facility] | | | [...] + + + | Blood Product | [id number] | | [facility] | | Expiration [...] + + + | Product Code | [id number] | | [facility] | | | | | [facility] | | | | | CENTER - BLOOD | | | | | BANK | + + + + + | UNIT # | [id number] | | [facility] | | | [...] + + + | Blood Product | [id number] | | [facility] | | Expiration [...] [place] | | | [facility] | | [address] | | | - BLOOD BANK | | | | + + + + + Folate (08/27/2017 1314) + +-------+ + + | Component | Value | Ref Range | Performed At | + +-------+ + + | FOLATE | 18.7 | >5.8 ng/mL | [facility] | | | | | [facility] | | | | | CENTER - | | | | | LABORATORY | + +-------+ + + + + | Specimen | + + | Blood | + + + + + + + | Performing | Address | City/State/Zipcode | Phone Number | | Organization | | | | + + + + + | [facility] | [address] | [place], [place] | [phone] | | [facility] | | [address] | | | - LABORATORY | | | | + + + + + | [facility] | [address] | [place], [place] | | | [facility] | | [address] | | | - LABORATORY | | | | + + + + + Vitamin B-12 (08/27/2017 1314) + + + + + | Component | Value | Ref Range | Performed At | + + + + + | VITAMIN B-12 | 381Comment: | 180 - 914 pg/mL | [facility] | | | DEFICIENT: | | [facility] [...] + | [facility] | [address] | [place] | [phone] | | [facility] | | [address] | | | - LABORATORY | | | | + + + + + | [facility] | [address] | [place] | | | [facility] | | [address] | | | - LABORATORY | | | | + + + + + CBC with Differential (08/27/2017 1314) + + + + + | Component | Value | Ref Range | Performed At | + + + + + | WBC | 6.1 | 4.0 - 11.0 K/uL | [facility] [...] [facility] | | | | | [facility] | | | | | CENTER [...] + | [facility] | [address] | [place] | [phone] | | [facility] | | [address] | | | - LABORATORY | | | | + + + + + | [facility] | [address] | [place], [place] | | | [facility] | | [address] | | | - LABORATORY | | [...] 4.1 | 3.5 - 5.1 mmol/L | [facility] [...] 9 | 7 - 18 mg/dL | [facility] | | | | | [facility] | | | | | CENTER - | | | | | LABORATORY | + + + + + | Creatinine, | 0.76 | 0.60 - 1.30 mg/dL | [facility] | | Serum/Plasma | | | [facility] | | | | | CENTER - | | | | | LABORATORY | + + + + + | eGFR if not | >60Comment: GLOMERULAR | >=60 mL/min/1.73m2 | [facility] | | CYMRAES | FILTRATION | | [facility] | | | RATE,ESTIMATED mL/min | | CENTER - | | | /1.83a9Quue than 60 | | LABORATORY | | [...] 8.7 | 8.3 - 10.5 mg/dL | [facility] | | | | | [facility] | | | | | CENTER - | | | | | LABORATORY | + + + + + | BUN/CREA | 11.8 | | [facility] | | | | | [facility] | | | | | CENTER [...] + | [facility] | [address] | [place] | [phone] | | [facility] | | [address] | | | - LABORATORY | | | | + + + + + | [facility] | [address] | [place], [place] | | | [facility] | | [address] | | | - LABORATORY | | | | + + + + + POC Glucose (08/27/2017 1153) + +-------+ + + | Component | Value | Ref Range | Performed At | + +-------+ + + | Glucose, POC | 93 | 70 - 109 mg/dL | [facility] | | [...] + | [facility] | [address] | [place] | [phone] | | [facility] | | [address] | | | - LABORATORY | | | | + + + + + | [facility] | [address] | [place] | | | [facility] | | [address] | | | - LABORATORY | | | | + + + + + Hemoglobin and Hematocrit (08/27/2017702) + + + + + | Component | Value | Ref Range | Performed At | + + + + + | Hgb | 12.1 (L) | 13.5 - 18.0 g/dL | [facility] | | | | | [facility] | | | | | CENTER - | | | | | LABORATORY | + + + + + | Hct | 33.7 (L) | 40.0 - 51.0 % | [facility] | | | | | [facility] | | | | | CENTER [...] + | [facility] | [address] | [place] | [phone] | | [facility] | | [address] | | | - LABORATORY | | | | + + + + + | [facility] | [address] | [place], [place] | | | [facility] | | [address] | | | - LABORATORY | | [...] + | [facility] | [address] | [place] | [phone] | | [facility] | | [address] | | | - LABORATORY | | | | + + + + + | [facility] | [address] | [place] | | | [facility] | | [address] | | | - LABORATORY | | [...] ONTIVEROS MD | | | | | ([id number]) on 08/27/2017 | | | | | [...] + +---------+ + + Hemoglobin and Hematocrit (08/27/201740) + + + + + | Component [...] + | [facility] | [address] | [place] | [phone] | | [facility] | | [address] | | | - LABORATORY | | | | + + + + + | [facility] | [address] | [place], [place] | | | [facility] | | [address] | | | - LABORATORY | | | | + + + + + POC Glucose (08/26/20172227) + +-------+ + + | Component | Value | Ref Range | Performed At | + +-------+ + + | Glucose, POC | 77 | 70 - 109 mg/dL | [facility] | | | | | [facility] | | | | | CENTER - | | | | | LABORATORY | + +-------+ + + + + | Specimen | + + | Blood | + + + + + + + | Performing | Address | City/State/Zipcode | Phone Number | | Organization | | | | + + + + + | [facility] | [address] | [place] | [phone] | | [facility] | | [address] | | | - LABORATORY | | | | + + + + + | [facility] | [address] | [place] | | | [facility] | | [address] | | | - LABORATORY | | [...] + + | Developer Lot # | [id number] | | | + + + + [...] cardiomegaly. Dictated and Signed by: Linda Medina | | | Electronically signed: 08/26/2017 6:31 [...] +---------+ + + Extra Blue Top Tube (08/26/20171650) [...] + | [facility] | [address] | [place] | [phone] | | [facility] | | [address] | | | - LABORATORY | | | | + + + + + | [facility] | [address] | [place] | | | [facility] | | [address] | | | - LABORATORY | | | | + + + + + Extra Green Top Tube (08/26/20171650) + +-------+ + + | Component | Value | Ref Range | Performed At | + +-------+ + + | Extra Green Top Tube | Done | | [facility] | | | | | [facility] | | | | | CENTER [...] [address] | [place] | [phone] | | [facility] | | [address] | | | - LABORATORY | | | | + + + + + | [facility] | [address] | [place], [place] | | | [facility] | | [address] | | | - LABORATORY | | | | + + + + + Retic Count (08/26/20171650) + +---------+ + + | Component | Value | Ref Range | Performed At | + +---------+ + + | Retic Count | 7.4 (H) | 0.5 - 1.5 % | [facility] | | | | | [facility] | | | | | CENTER - | | | | | LABORATORY | + +---------+ + + | Retic Count, | 0.1596 | M/uL | [facility] | | Absolute | | | [facility] | | | | | CENTER - | | | | | LABORATORY | + +---------+ + + + + | Specimen | + + | Blood | + + + + + + + | Performing | Address | City/State/Zipcode | Phone Number | | Organization | | | | + + + + + | [facility] | [address] | [place], [place] | [phone] | | [facility] | | [address] | | | - LABORATORY | | | | + + + + + | [facility] | [address] | [place], [place] | | | [facility] | | [address] | | | - LABORATORY | | [...] (LL)Comment: | 13.5 - 18.0 g/dL | [facility] | | | Critical Result called | | [facility] | | | to and read back by Tariq | | CENTER - | | | GAIL Medley on 08/26/2017 | | LABORATORY | | | at 17:01 by Allison Roy | | | | | Mace. | | | + + + + + | Hct | 21.0 (L) | 40.0 - 51.0 % | [facility] | | | | | [facility] | | | | | C[facility] - | | | | | LABORATORY | + + + + + | MCV | 96.4 | 83.0 - 101.0 fL | [facility] | | | | | [facility] | | | | | [facility] - | | | | | LABORATORY | + + + + + | MCH | 33.0 | 28.0 - 35.0 pg | [facility] | | | [...] 0.10 | 0.00 - 0.40 K/uL | [facility] | | | | | [facility] | | | | | [facility] - | | | | | LABORATORY | + + + + + | Absolute Basophils | 0.00 | 0.00 - 0.10 K/uL | [facility] | | | | | [facility] [...] + | [facility] | [address] | [place], [place] | [phone] | | [facility] | | [id number] | | | - LABORATORY | | | | + + + + + | [facility] | [address] | [place], [place] | | | [facility] | | [id number] | | | - LABORATORY | | | | + + + + + B Type Natriuretic Peptide (08/26/2017 1627) + +---------+ + + | Component | Value | Ref Range | Performed At | + +---------+ + + | BNP | 125 (H) | <100 pg/mL | [facility] | | | | | [facility] | | | | | CENTER - | | | | | LABORATORY | + +---------+ + + + + | Specimen | + + | Blood | + + + + + + + | Performing | Address | City/State/Zipcode | Phone Number | | Organization | | | | + + + + + | [facility] | [address] | [place], [place] | [phone] | | [facility] | | [address] | | | - LABORATORY | | | | + + + + + | [facility] | [address] | [place] | | | [facility] | | [address] | | | - LABORATORY | | [...] [facility] | | | | | [facility] | | | | | CENTER [...] [address] | [place] | [phone] | | [facility] | | [address] | | | - LABORATORY | | | | + + + + + | [facility] | [address] | [place] | | | [facility] | | [address] | | | - LABORATORY | | | | + + + + + Ferritin (08/26/2017 1627) + +-------+ + + | Component | Value | Ref Range | Performed At | + +-------+ + + | FERRITIN | 201 | 24 - 366 ng/mL | [facility] | | | | | [facility] | | | | | CENTER - | | | | | LABORATORY | + +-------+ + + + + | Specimen | + + | Blood | + + + + + + + | Performing | Address | City/State/Zipcode | Phone Number | | Organization | | | | + + + + + | [facility] | [address] | [place], [place] | [phone] | | [facility] | | [address] | | | - LABORATORY | | | | + + + + + | [facility] | [address] | [place], [place] | | | [facility] | | [address] | | | - LABORATORY | | [...] ST. | [address] | [place], [place] | | | [facility] | | [address] | | | - BLOOD BANK | | | | + + + + + Protime INR (08/26/2017 1627) + + + + + | Component | Value | Ref Range | Performed At | + + + + + | Protime | 15.6 (H) | 11.3 - 13.9 seconds | [facility] | | | | | [facility] | | | | | CENTER - | | | | | LABORATORY | + + + + + | INR | 1.24 (H)Comment: Usual | 0.90 - 1.10 | [facility] | | | Oral Anticoagulation | | [facility] | | | Range: 2.0 - | [...] | + + + + + | [facility] | [address] | [place] | [phone] | | [facility] | | [address] | | | - LABORATORY | | | | + + + + + | [facility] | [address] | [place] | | | [facility] | | [address] | | | - LABORATORY | | | | + + + + + Comprehensive Metabolic Panel (08/26/2017 1627) + + + + + | Component | Value | Ref Range | Performed At | + + + + + | NA | 131 (L) | 136 - 149 mmol/L | [facility] | | | | | [facility] | | | | | CENTER - | | | | | LABORATORY | + + + + + | K | 3.2 (L) | 3.5 - 5.1 mmol/L | [facility] | | | [...] 12 | 7 - 18 mg/dL | [facility] | | | | | [facility] | | | | | CENTER - | | | | | LABORATORY | + + + + + | Creatinine, | 0.78 | 0.60 - 1.30 mg/dL | [facility] | | Serum/Plasma | | | [facility] | | | | | CENTER - | | | | | LABORATORY | + + + + + | eGFR if not | >60Comment: GLOMERULAR | >=60 mL/min/1.73m2 | [facility] | | CYMRAES | FILTRATION | | [facility] | | | RATE,ESTIMATED mL/min | | CENTER - | | | /1.31e7Omkt than 60 | | LABORATORY | | [...] | 1.1 | 0.8 - 2.0 | [facility] | | ratio | | | [facility] | | | | | CENTER - | | | | | LABORATORY | + + + + + | BUN/CREA | 15.4 | | [facility] | | | [...] + | [facility] | [address] | [place] | [phone] | | [facility] | | [address] | | | - LABORATORY | | | | + + + + + | [facility] | [address] | [place], [place] | | | [facility] | | [address] | | | - LABORATORY | | [...] Anemia associated with acute blood loss - Primary | + + | Acute posthemorrhagic anemia | + + | Anemia, unspecified type | + + | Weakness | + + | Other malaise and fatigue | + + | Shortness of breath on exertion | + + | Shortness of breath | + + | Upper GI bleeding | + + | Hemorrhage of gastrointestinal tract, unspecified | + + | Type 2 diabetes mellitus without complication, without long-term current use of insulin | | (HCC) | + + | Leg edema | + + | Edema | + + | Hypomagnesemia | + + | Disorders of magnesium metabolism | + + | Severe protein-calorie malnutrition (HCC) | + + | Other severe protein-calorie malnutrition | + + | Essential hypertension | + + | Unspecified essential hypertension | + + | Low back pain | + + | Lumbago | + + | Diabetes mellitus, type II - ORAL Control | + + | Type II or unspecified type diabetes mellitus without mention of complication, not | | stated as uncontrolled | + + | Hypokalemia | + + | Hypopotassemia | + + | Duodenal ulcer | + + | Duodenal ulcer, unspecified as acute or chronic, without hemorrhage, perforation, or | | obstruction | + + Admitting Diagnoses + + [...] | | | + +--------+ +--------+------+------+ | acetaminophen (TYLENOL) tablet | Given | | 650 mg | | | | 650 mg 650 mg, Oral, ONCE, Thu | | 8 19:20 | | | | | 08/26/17 at 1625, For 1 dose | | PDT | | | | + +--------+ +--------+------+------+ +---+---+ | | | +---+---+ + +-------+ +--------+---+---+ | docusate sodium (COLACE) | Given | | 100 mg | | | | capsule 100 mg 100 mg, Oral, 2 | | 8 14:32 | | | | | TIMES DAILY PRN, Constipation, | | PDT | | | | | Starting Thu08/26/17 at 2040, 1st | | | | [...] | | +-------+ +---------+---+---+ | Given | 201 | 2 drops | | | | [...] | | | DAILY, First dose on [facility] 08/27/17 | | PDT | | | | | at 0900 | | | | | | + +-------+ +--------+---+---+ +-------+ +--------+---+---+ | Given | | 160 mg | | | | | 8 14:44 | | | | | | PDT | | | | +-------+ +--------+---+---+ +---+---+ | | | +---+---+ + +-------+ +-------+---+---+ | furosemide (LASIX) injection 20 | Given | | 20 mg | | | | mg 20 mg, Intravenous, ONCE, | | 8 19:20 | | | | | 08/26/17 at 1805, For 1 dose, | | PDT | | | | | Between units of blood | | | | | | + +-------+ +-------+---+---+ +---+---+ | | | +---+---+ + +-------+ +-------+---+---+ | furosemide (LASIX) injection 40 | Given | | 40 mg | | | | mg 40 mg, Intravenous, ONCE, | | 8 14:33 | | | | | Beryl 08/27/17 at 1415, For 1 dose | | PDT | | | | + +-------+ +-------+---+---+ +---+---+ | | | +---+---+ + +-------+ +--------+---+---+ | gabapentin (NEURONTIN) capsule | Given | | 600 mg | | | | 600 mg 600 mg, Oral, 3 TIMES | | 8 22:28 | | | | | DAILY, First dose on Thu08/26/17 | | PDT | | | | | at 2100 | | | | | | + +-------+ +--------+---+---+ +---+---+ | | | +---+---+ + +---------+ +---+ +---+ | lactated ringers (LR) infusion | New Bag | | | 50 mL/hr | | | at 50 mL/hr, Intravenous, | | 8 13:19 | | | | | CONTINUOUS, Starting 08/28/17 | | PDT | | | | | at 1345, Pre-op | | | | | | + +---------+ +---+ +---+ +---+---+ | | | +---+---+ + [...] g 4 g, Intravenous, | | 8 7:05 | | | | | Administer over 240 Minutes, | | PDT | | | | | ONCE, Thu08/28/17 at 0700, For 1 | | | | | | | dose, Maximum recommended | | | | | | | infusion rate = 1 gram/hour. | | | | | | + +---------+ +-----+ +---+ +---+---+ | | | +---+---+ + +-------+ +--------+---+---+ | metFORMIN (GLUCOPHAGE) tablet | Given | | 500 mg | | | | 500 mg 500 mg, Oral, 2 TIMES | | 8 9:21 | | | | | DAILY WITH BREAKFAST & DINNER, | | PDT | | | | | First dose on Thu08/26/17 at | | | | | | | 2100, Follow hospital guidelines | | | | | | | to determine if metFORMIN should | | | | | | | be held following procedures | | | | | | | using IV iodinated contrast. | | | | | | + +-------+ +--------+---+---+ +---+---+ | | | +---+---+ + +-------+ +-------+---+---+ | pantoprazole (PROTONIX) DR | Given | | 40 mg | | | | tablet 40 mg 40 mg, Oral, DAILY | | 8 14:32 | | | | | BEFORE BREAKFAST, First dose on | | PDT | | | | | Beryl 08/27/17 at 1400, Do not cut | | | | | | | or crush. | | | | | [...] +---+---+ + +-------+ +-------+---+---+ | pantoprazole (PROTONIX) | Given | | 40 mg | | | | injection 40 mg 40 mg, | | 8 20:28 | | | | | Intravenous, 2 TIMES DAILY, First | | PDT | | | | | dose on Beryl 08/27/17 at 2100, | | | | | | | Indication: Bleed, upper GI | | | | | | + +-------+ +-------+---+---+ +-------+ +-------+---+---+ | Given | | 40 mg | | | | | 8 11:30 [...] | | 08/26/17 at 2039, If docusate and | | | | | | | senna ineffective or not ordered. | | | | | | + +-------+ +------+---+---+ +---+---+ | | | +---+---+ + +-------+ +--------+---+---+ | potassium chloride (K-DUR) ER | Given | | 20 mEq | | | | tablet 20 mEq 20 mEq, Oral, | | 8 19:19 | | | | | EVERY 2 HOURS, First dose on Thu | | PDT | | | | | 08/26/17 at 1805, For 2 doses, | | | | | | | Dose is every 2 hours for 2 | | | | | | | doses, OK to substitute liquid | | | | | | | formulation if better tolerated. | | | | | | + +-------+ +--------+---+---+ +---+---+ | | | +---+---+ + +-------+ +--------+---+---+ | potassium chloride (K-DUR) ER | Given | | 20 mEq | | | | tablet 20 mEq 20 mEq, Oral, 4 | | 8 7:40 | | | | | TIMES DAILY, First dose on Thu | | PDT | | | | | 08/28/17 at 0700, For 1 day, May | | | | | | | take with food to decrease GI | | | | | | | upset. | | | | | | + +-------+ +--------+---+---+ +-------+ +--------+---+---+ | Given | | 20 mEq | | | | | 8 14:44 | | | | | | PDT | | | | +-------+ +--------+---+---+ +---+---+ | | | +---+---+ + +-------+ +--------+---+---+ | potassium chloride (K-DUR) ER | Given | | 20 mEq | | | | tablet 20 mEq 20 mEq, Oral, | | 8 17:14 | | | | | ONCE, 08/28/17 at 1630, For 1 | | PDT | | | | | dose | | | | | | + +-------+ +--------+---+---+ + +---+ | | | [...]
--- OUTSIDE RECORDS SUMMARY | ~2017-11-16 | XMS | Encounter Summary ---
Demographics + + + | Address | [address] | | | [place] [address] | + + + | Home Phone | | + + + | Preferred Language | Unknown | + + + | Marital Status | | + + + | Sikhism Affiliation | 1009 | + + + | Race | Unknown | + + + | Ethnic Group | Unknown | + + + Author + + + | Author | [facility] | | | and [place] | + + + | Organization | [facility] | | | and [...] | | | | | [place] [address] | | + + + + + Care Team Providers + +------+ + | Care Automotive Repair Technician Name | Role | Phone | + +------+ + | Ann Rivera MD | PCP | | + +------+ + Encounter Details +--------+ + + + + | Date | Type | Department | Care Team | Description | +--------+ + + + + | 08/26/ | Hospital | [facility] | Rene Tao MD | Status post lumbar | | 2018 | Encounter | MED CTR XRAY [address] | [address] | spinal fusion | | | | [place] | [address] [place] | | | | | [place] [address] | [address] | | | | | [phone] | | | +--------+ + + + [...] 2018 | Visit | | [address] [facility] | | | | | | [address] [place] | | | | | | [address] | | | | | | | [...]
--- OUTSIDE RECORDS SUMMARY | ~2017-11-16 | XMS | Encounter Summary ---
Demographics + + + | Address | [address] | | | [place] [address] | + + + | Home Phone | | + + + | Preferred Language | Unknown | + + + | Marital Status | | + + + | Presybeterian Affiliation | 1009 | + + + | Race | Unknown | + + + | Ethnic Group | Unknown | + + + Author + + + | Author | [facility] | | | and [place] | + + + | Organization | [facility] | | | and [...] | | | | | [place] [address] | | + + + + + Care Team Providers + +------+ + | Care Toolroom Clerk Name | Role | Phone | + +------+ + | Ann Rivera MD | PCP | | + +------+ + Reason for Visit Auth/Cert +--------+--------+ + + + + | [...] + + + + | 08/28/ | Anesthesia | [facility] | Phoenix Cabello MD | | | 2018 | Event | [facility] INTRA OP | [address] | | | | | [address] | [place] | | | | | [place] | [address] | | | | | [address] | | | | | | [phone] | | | +--------+ + + + + Anesthesia Record + + + + + | Procedure Name | Responsible | Anesthesia Start | Anesthesia Stop Time | | | Anesthesiologist | Time | | + + + + + | EGD (N/A Mouth) | Phoenix Cabello MD | 08/28/17 1330 | 08/28/17 1349 | + + + + + +----+---+ + + | Da | T | Event | Comment | | te | i | | | | | m | | | | | e | | | +----+---+ + + | 06 | 1 | An Checkout | Pre-use anesthesia machine/equipment checkout. | | /2 | 3 | | | | 9/ | 3 | | | | 20 | 0 | | | | 18 | | | | +----+---+ + + | | 1 | An Start | Reassessment prior to anesthesia induction/procedure. | | | 3 | | | | | 3 | | | | | 0 | | | +----+---+ + + | | 1 | Pre-Procedu | | | | 3 | ral Timeout | | | | 3 | Completed | | | | 3 | | | +----+---+ + + | | 1 | An | | | | 3 | Induction | | | | 3 | | | | | 4 | | | +----+---+ + + | | 1 | First | | | | 3 | Inc/Proc St | | | | 3 | | | | | 5 | | | +----+---+ + + | | 1 | an stop | | | | 3 | data | | | | 4 | | | | | 7 | | | +----+---+ + + | | 1 | An Stop | Patient handed off to recovery nurse. | | | 4 | | | | | 9 | | | +----+---+ + + +------+ | Meds | +------+ + + + | Name | Total | + + + | propofol | 120 mg | + + + | propofol | 23.94 mg | + + + | lidocaine 1% | 2 mL | + + + | lactated ringers (LR) infusion | 150 mL | + + + + + | Name | + + | O2 Flow Rate (L/Min) | + + + + | No blood administrations on file. | + + +--------+ + + + | Type | Details | Placement | Removal | +--------+ + + + | Incisi | 11/07/16; 1310; Bilateral; neck | 11/07/16 1310 by | | | on | | Selene Snow RN | | +--------+ + + + | Brace/ | 11/07/16; 1500; cervical collar | 11/07/16 1500 by | | | Orthot | | Tosha Castaneda RN | | | ic/Ort | | | | | hosis | | | | +--------+ + + + | Periph | 08/26/17; 1620; Left; Lateral; | 08/26/17 1620 by | 09/01/17 0000 by | | eral | Antecubital; 20 gauge, 1 in | Kayla Romano RN | Di Caldwell RN | | IV | length; (rainbow); 2 (2 previous | | | | | attempts by 2 separate RNs); | | | | | distraction, tolerated well; no | | | | | longer indicated; healing within | | | | | expectations; 09/01/17 | | | +--------+ + + + in this encounter Social History + +--------+ +--------+ + | [...] + + + as of this encounter Plan of Treatment +--------+---------+ + + + | Date | Type | Specialty | Care Team | Description | +--------+---------+ + + + | 01/05/ | Office | Neurosurgery | Rene Tao MD | | | 2018 | Visit | | [address] | | | | | | [address] [place] | | | | | | [address] | | | | | | | | +--------+---------+ + + + as of this encounter Visit Diagnoses Not on filein this encounter Administered Medications + +--------+ +-------+------+------+ | Medication Order | MAR | Action | Dose | Rate | Site | | | Action | Date | | | | + +--------+ +-------+------+------+ | lidocaine (PF) 1% injection | Given | | 2 mLs | | | | Infiltration, PRN, Starting Fri | | 8 13:34 | | | | | 08/28/17 at 1334, Anesthesia | | PDT | | | | | Intra-op | | | | | | + +--------+ +-------+------+------+ +---+---+ | | | +---+---+ + +-------+ +-------+---+---+ | propofol (DIPRIVAN) injection | Given | | 50 mg | | | | Intravenous, PRN, Starting Fri | | 8 13:34 | | | | | 08/28/17 at 1334, Anesthesia | | PDT | | | | | Intra-op | | | | | | + +-------+ +-------+---+---+ +-------+ +-------+---+---+ | Given | | 50 mg | | | | | 8 13:35 | | | | | | PDT | | | | +-------+ +-------+---+---+ | Given | | 20 mg | | | | | 8 13:36 | | | | | | PDT | | | | +-------+ +-------+---+---+ +---+---+ | | | +---+---+ + +---------+ + +-------+---+ | propofol (DIPRIVAN) injection | New Bag | | 100 | 47.9 | | | Intravenous, CONTINUOUS PRN, | | 8 13:37 | mcg/kg/m | mL/hr | | | Starting Fri 29/18 at 1337, | | PDT | in | | | | Anesthesia Intra-op | | | | | | + +---------+ + +-------+---+ +---+---+ | | | +---+---+ in this encounter"
--- OUTSIDE RECORDS SUMMARY | ~2017-11-16 | XMS | Encounter Summary ---
Demographics + + + | Address | [address] | | | [place] [address] | + + + | Home Phone | | + + + | Preferred Language | Unknown | + + + | Marital Status | | + + + | Hoahaoism Affiliation | 1009 | + + + | Race | Unknown | + + + | Ethnic Group | Unknown | + + + Author + + + | Author | [facility] | | | and [place] | + + + | Organization | [facility] | | | [...] | | | | | [place] [address] | | + + + + + Care Team Providers + +------+ + | Care Captain Waiter Name | Role | Phone | + +------+ + | Ann Rivera MD | PCP | | + +------+ + Reason for Visit +---------+ + | Reason | Comments | +---------+ + | Post Op | 12w PO | +---------+ + Encounter Details +--------+---------+ + + + | Date | Type | Department | Care Team | Description | +--------+---------+ + + + | 10/06/ | Office | [facility] [place] | Pamela Prieto | S/P lumbar fusion | | 2018 | Visit | NEUROSURGERY [address] | [place] [address] | (Primary Dx); | | | | [address] | [place], | 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 You can move through the weeks slower if yo u feel the need to do so, but the overall goal is to get you out of the brace slowly over e next several weeks. WEEK 1 If you have been using your brace for activities like sleeping, showering, do not use the b race for these activities any longer but continue using it for everything else. WEEK 2 Stop wearing your brace for sitting and short distance walking. You should use the brace f or anything more involved. WEEK 3 Stop using the brace for medium distance walking. You can bend and twist your back but sti ll proceed slowly with these activities. WEEK 4 Stop using the brace for everything but the most difficult tasks. You should now be able to go on long walks and lift more weight as directed. Add more bending and twisting as tolera song. WEEK 5 Stop using the brace for daily use. I would encourage you to use the brace in the future f or activities that you know might aggravate your back or cause pain. 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 in this encounter Progress Notes Pamela Prieto PA-C - 10/06/2017 0830 PDTFormatting of this note may be different f rom the original. Hilton Prieto PA-C [address] [facility] [address] [place], [place] [id number] FAX: [phone] NEUROSURGERY FOLLOW-UP CHIEF COMPLAINT: Chief Complaint Patient presents with Post Op 12w PO HISTORY OF PRESENT ILLNESS: The patient is a 76 y.o. male that had a lumbar fusion for low back pain and bilateral leg/thigh pain and bilateral knee pain on 07/02/2017. He returns and overall is doing well. The patient complains of mild pain but improved since surgery. The patient states he's had a 40% improvement with his pre-operative symptoms. [facility] the care of Dr. Lynn for rehab in late July to improve his mobility. He was dischar ged with home health and home PT which he was released from 1 week ago due to his progress. He was found to have an L3 compression fracture and subsidence of the L3-4 implant The pat ient has been walking as much as directed. He is still taking pain medications at this poi nt. The patient has had no issues with his surgical site. The patient was discharged from inpatient rehab on 09/03/2017. He's been doing better and has not had recent falls. CURRENT MEDICATIONS: Current Outpatient Prescriptions Medication Sig Dispense Refill ammonium lactate (LAC-HYDRIN) 12% lotion Apply 1 Application topically as needed for Dr dia Skin. chlorpheniramine (CHLOR-TRIMETON) 4 MG tablet Take 4 mg by mouth every 6 hours as neede d for Allergies. Cholecalciferol (VITAMIN D PO) Take 1,000 Units by mouth. dorzolamide (TRUSOPT) 2% ophthalmic solution Place 2 drops into both eyes 2 times daily . 20 mL 0 dorzolamide (TRUSOPT) 2% ophthalmic solution Place 2 drops into both eyes 2 times daily . ferrous sulfate 325 mg tablet Take 1 [...] tablet Take 20 mg by mouth nightly. No current facility-administered medications for this [...] including Marijuana, about 2 times per week. INTERIM PHYSICAL EXAMINATION: Blood pressure 125/77, pulse 78, resp. rate 16, height 1.702 m (5' 7"), weight 80.3 kg (177 lb). Body mass index is 27.72 kg/m. REVIEW OF SYSTEMS GENERALLY: No fever, no night sweats, no anemia, no fatigue, no recent profound weight ch anges. EYES: No eye problems, no use of corrective lenses, no eye injury, no double vision, no bl indness. EARS, NOSE, AND THROAT: No changes in taste or smell, no hearing difficulty, no ringing in the ears, no ear drainage, no dizziness, no voice changes, no difficulty swallowing, no sig nificant snoring, no sleep apnea, no sinus problems, no major dental work. NEUROLOGICALLY: Please see the review of systems discussed above in the history of present illness. In addition, the patient has numbness/pain of legs, pain in back, confusion. PSYCHIATRIC: + depression, no sleep disorders, + anxiety, no bipolar disorder, no psychoti c episodes. CARDIOVASCULAR: No heart attacks, no heart murmur, no heart fluttering, no chest pain, + a nkle swelling. LUNG DISEASE: No shortness of breath, [...] in no acute distress with unlabored respirations. SPINE: The patient s incisions are well healed. EXTREMITIES: No lower extremity edema. NEUROLOGICAL EXAMINATION: MENTAL STATUS: The patient is awake, alert, and oriented. He follows simple and complex commands MOTOR EXAM: Motor strength is 5/5. This is improved when compared to the preoperative exam . SENSORY EXAM: The sensory examination is improved when compared to the preoperative exam. RADIOGRAPHIC REVIEW: The patient s x-rays show stable instrumentation and alignment and were reviewed with the patient today. There have been no interval changes since the immediate postoperative films . Complete fusion has not yet occurred, but this is normal and would not be expected at thi s time. ASSESSMENT: Encounter Diagnoses Name Primary? S/P lumbar [...] deficiency PLAN: Overall, the patient is doing well. Some of the preoperative symptoms are improved. His w anabel reports that his dementia is interfering with his rehab to some degree but overall his f unction is improving since being discharged from inpatient rehab. He presents with his back brace as instructed on discharge from rehab. I will begin the back brace weaning process a nd increase his weight lifting to 15 pounds. He is about 2 months behind in the usual sched ule due to his inpatient rehab stay. He will be seen back in 2 months for an early 6 month visit due to his distance of travel that he would like to avoid in winter weather. We discussed increasing the patient s activities now allowing 15 pound lifting. The nikolai ent will begin the process of brace weaning as directed. They should continue regular exerc ise and strengthening with the hope that they can avoid additional surgery. exterminator pain medication does not appear to be needed. We are hoping to see improvement over the coming weeks to months and plan to continue to fo llow this patient. The patient will follow-up in clinic in around 8 weeks for re-evaluation . IPamela PA-C, personally performed the services described in this document ation, as scribed by Glenna Lucas CMA in my presence, and it is both accurate and complete. Hilton Prieto PA-C 10/06/17 ELECTRONICALLY SIGNED BY: Hilton Prieto PA-C, 10/06/2017 8:56 in this encounter Plan of Treatment +--------+---------+ + + + | Date | Type | Specialty | Care Team | Description | +--------+---------+ + + + | 01/05/ | Office | Neurosurgery | Rene Tao MD | | | 2018 | Visit | | [address] | | | | | | [address] [place] | | | | | | [address] | | | | | | | | +--------+---------+ + + + + +--------+ + + | Name | Priori | Associated Diagnoses | Order Schedule | | | ty | | | + +--------+ + + | XR Lumbar Spine 2 or 3 Vw | Routin | S/P lumbar fusion | Expected: | | | e | Spondylolisthesis | 10/06/2017, Expires: | | | | of lumbar region | 10/06/2018 | | | | Lumbar radiculopathy | | + +--------+ + + as of this encounter Visit Diagnoses + + | [...]
--- OUTSIDE RECORDS SUMMARY | ~2017-11-16 | XMS | Encounter Summary ---
Demographics + + + | Address | [address] | | | [place] [address] | + + + | Home Phone | | + + + | Preferred Language | Unknown | + + + | Marital Status | | + + + | Caodaism Affiliation | 1009 | + + + | Race | Unknown | + + + | Ethnic Group | Unknown | + + + Author + + + | Author | [facility] | | | and [place] | + + + | Organization | [facility] | | | [...] | | | | | [place] [address] | | + + + + + Care Team Providers + +------+ + | Care Manager Of Digital Name | Role | Phone | + +------+ + | Ann Rivera MD | PCP | | + +------+ + Encounter Details +--------+ + + + + | Date | Type | Department | Care Team | Description | +--------+ + + + + | 08/28/ | Procedure | [facility] | | | | 2018 | Pass | [facility] | | | | | | [address] | | | | | | [place] | | | | | | [address] | | | | | | [phone] | | | +--------+ + + + [...] 2018 | Visit | | [address] [facility] | | | | | | [address] [place] | | | | | | [address] | | | | | | | | +--------+---------+ + + + as of this encounter Visit Diagnoses Not on filein this encounter"
--- OUTSIDE RECORDS SUMMARY | ~2017-11-16 | XMS | Encounter Summary ---
Demographics + + + | Address | [address] | | | [place] [address] | + + + | Home Phone | | + + + | Preferred Language | Unknown | + + + | Marital Status | | + + + | Nondenominational Affiliation | 1009 | + + + [...] | | | | | [place] [address] | | + + + + + Care Team Providers + +------+ + | Care Senior Management Consultant Name | Role | Phone | + [...] [place] | | | | | | [address] | | | | | | [phone] | | | +--------+ + + + [...] 2018 | Visit | | [address] [facility] | | | | | | [address] [place] | | | | | | [address] | | | | | | | | +--------+---------+ + + + as of this encounter Visit Diagnoses Not on filein this encounter"
--- OUTSIDE RECORDS SUMMARY | ~2017-11-16 | XMS | Encounter Summary ---
Demographics + + + | Address | [address] | | | [place] [address] | + + + | Home Phone | | + + + | Preferred Language | Unknown | + + + | Marital Status | | + + + | Pentecostal Affiliation | 1009 | + + + | Race | Unknown | + + + | Ethnic Group | Unknown | + + + Author + + + | Author | [facility] | | | and [place] | + + + | Organization | [facility] | | | and [...] | | | | | [place] [address] | | + + + + + Care Team Providers + +------+ + | Care Awning Maker Name | Role | Phone | + [...] | | | | | [address] | [place] | | | | | [place] | [address] | | | | | [address] | | | | | | [phone] | | | +--------+ + + + [...] [place] | | | | | | [address] | | | | | | | [...]
--- OUTSIDE RECORDS SUMMARY | ~2017-11-16 | XMS | Encounter Summary ---
Demographics + + + | Address | [address] | | | [place] [address] | + + + | Home Phone | | + + + | Preferred Language | Unknown | + + + | Marital Status | | + + + | Baptism Affiliation | 1009 | + + + | Race | Unknown | + + + | Ethnic Group | Unknown | + + + Author + + + | Author | [facility] | | | and [place] | + + + | Organization | [facility] | | | [...] | | | | | [place] [address] | | + + + + + Care Team Providers + +------+ + | Care Truck Packer Name | Role | Phone | + +------+ + | Ann Rivera MD | PCP | | + +------+ + Reason for Visit + + + | Reason | Comments | + + + | Results, Imaging | possible imaging done while hospitialized @ [facility], | | | [place]. | + + + Encounter Details +--------+ + + + + | Date | Type | Department | Care Team | Description | +--------+ + + + + | 08/25/ | Telephone | [facility] | Rene Tao MD | Results, Imaging | | 2018 | | NEUR[address]ERY [address] | [address] | (possible imaging | | | | [address] | [address] [place] | done while | | | | [place] | [id number] | hospitialized @ [place] | | | | [address] | | [facility] | | | | [phone] | | [place]. ) | +--------+ + + + + Social [...] | Visit | | [address] [facility] | | | | | | [address] [place] | | | | | | [address] | | | | | | | [...] + | Status post lumbar spinal fusion - Primary | + + | Arthrodesis status | + +"
--- OUTSIDE RECORDS SUMMARY | ~2017-11-16 | XMS | Encounter Summary ---
Demographics + + + | Address | [address] | | | [place] [address] | + + + | Home Phone | | + + + | Preferred Language | Unknown | + + + | Marital Status | | + + + | Yazidism Affiliation | 1009 | + + + | Race | Unknown | + + + | Ethnic Group | Unknown | + + + Author + + + | Author | [facility] | | | and [place] | + + + | Organization | [facility] | | | [...] | | | | | [place] [address] | | + + + + + Care Team Providers + +------+ + | Care Highway Engineering Technician Name | Role | Phone | [...] | | [address] | [address] | | | | | | [address] [place] | [address]IVE [place] | | | | | | [place], [place] | [place] | | | | | | [address] | [address] Phone: | | | | | | Phone: | [phone] | | | | | | [phone] | Fax: | | | | | | Fax: | [phone] | | | | | | [phone] | | +--------+ + + + + + Encounter Details +--------+ + + + + | Date | Type | Department | Care Team | Description | +--------+ + + + + | 08/28/ | Hospital | [facility] | Anastacio Sterling | Debility (Primary | | 2018 - | Encounter | MED CTR IR[facility] [address] | [address] | Dx); Hypokalemia; | | | | [place], | [place] | Hypomagnesemia; Left | | 09/03/ | | [place] [address] | [place] [address] | ureteral stone; Leg | | 2018 | | [phone] | [phone] | edema; Severe | | | | [...] had melena and wa s seen at [facility] and given 2 u PRBC's and protonix. [...] di scharged home, so was admitted to [facility] with the goal of home with [...] Disc Arthroplasty; Surgeon: Rene Tao MD; Location: [facility] MAIN OR COLONOSCOPY CYSTOSCOPY LUMBAR SPINE SURGERY Left 07/02/2017 Procedure: L3-4, L4-5 LAIF, L5-S1 TLIF; Surgeon: Rene Tao MD; Location: [facility] MAIN OR PROSTATECTOMY 2000 UPPER GASTROINTESTINAL ENDOSCOPY N/A 08/28/2017 Procedure: EGD; Surgeon: Fito Carpenter MD; Location: [facility] MEDICAL PROCEDURE UNIT URETEROSCOPY Left 03/07/2016 Procedure: Left Ureteroscopic Laser Lithotripsy, stent placement, retrograde pyelogram; S urgeon: Osman Lyles MD; Location: [facility] MAIN OR Meds During Hospitalization [...] equipment. Signed: Amandeep Lynn MD 09/03/2017 14:01 [facility] Emergency Department Physician: Sherrie Rivera MD Neurosurgery : Rene Tao MD -GI : Fito Carpenter MD Portions of this chart may have been created with [employer] voice recognition software. Occasi onal wrong-word or [...] may be different from t he original. Emxi-oc-Efcg Rehabilitation Medicine Daily Progress Note Date: 09/02/17 [...] occupational therapy, speech therapy, case management, and group social worker #Rehab - -Continue PT for gait, mobility -Continue OT for ADL's, toileting, adaptive equipment -Continue AUTOMATIC BEAM WARPER TENDER for cognition, -Continue SW for discharge planning [...] time on h is return home to [facility] tomorrow. We are following up on yesterday's rehabilitation team conference. The patient's current R ehabilitation Team treatment focus and recommendations were discussed with the patient. An overview of our current progress toward goals, and active Comprehensive Inpatient Medica l Rehabilitation treatment plan was provided to the patient. Each body team member is addressing this as the [...] for dischar ge to home tomorrow. His xugzaeu-gz-zam is also here and going through further hands-on training. I met with our watch case polisher, and we reviewed the overall plan of care and projected dischar ged date an,d destination. We are scheduling home health services. Note: My Progress Notes document close and ongoing Physiatric involvement; bamm-kk-gkmy vi sits, professionally assessing the Patient, both [...] this chart may have been created with [employer] voice recognition software. Occasi onal wrong-word or sound-alike substitutions may have occurred due to the inherent howe itations of voice recognition software. Please read the chart carefully and recognize, using context, where these substitutions have occurred.Amandeep Lynn MD - 09/01/2017 1713 P DTFormatting of this note may be different from the original. Xrcs-vv-Njku Rehabilitation Medicine Daily Progress Note Date: 09/01/17 [...] occupational therapy, speech therapy, case management, and group social worker #Rehab - -Continue PT for gait, mobility -Continue OT for ADL's, toileting, adaptive equipment -Continue AUTOMATIC BEAM WARPER TENDER for cognition, -Continue SW for discharge planning [...] the ancient as well as with our watch case polisher. She is collaborat ing with the patient's support system to solicit their input as we advance the program. Due to the distance to home, his would not be able to come in for hands-on training. However she is making the arrangements for the equipment and home health services in the [facility] setting. Also his suskgtd-lb-wny supportive and is coming in this week for hands-on training. Note: my Progress Notes document close and ongoing Physiatric involvement; mzwp-ur-ynrz vis its , professionally assessing the Patient, [...] information from all of the Medical Rehabilitation combat rifle crewmember's assessments and reports as we synthesized and advanced the overall plan of care. The validity of our re habilitation goals were reassessed as we monitored and revised the treatment plan as indicat ed. Patient is cooperative and well with the rehab team treatment efforts. He is improving and showing improved safety awareness with some basic ADLs. He is now standby assist with gooy-qk-vpii directions for his basic ADLs including toiletin [...] the home program. Also coordinate with our watch case polisher on the home health services. After the [...] this chart may have been created with [employer] voice recognition software. Occasi onal wrong-word or sound-alike substitutions may have occurred due to the inherent howe itations of voice recognition software. Please read the chart carefully and recognize, using context, where these substitutions have occurred.Amandeep Lynn MD - 08/31/2017 1425 P DTFormatting of this note may be different from the original. Jegf-cr-Rytp Rehabilitation Medicine Daily Progress Note Date: 08/31/17 [...] occupational therapy, speech therapy, case management, and group social worker #Rehab - -Continue PT for gait, mobility -Continue OT for ADL's, toileting, adaptive equipment -Continue AUTOMATIC BEAM WARPER TENDER for cognition, -Continue SW for discharge planning [...] with home IADLs. I met with our watch case polisher, and we reviewed the overall plan of care and projected dischar ged date an,d destination. We are checking to confirm degree of family support in the home setting. Note: My Progress Notes document close and ongoing Physiatric involvement; cvql-ol-keld vi sits, professionally assessing the Patient, both [...] the full inpatient rehabilitation treatment team in [facility] is planned. Total time: 36 minutes. I spent greater than 50% of the time regarding patient care and co ordination of the Medical Rehabilitation Team treatment focus addressing these patient care needs on this date, including nursing unit/floor time, as well as time communicating with [facility] patient and treatment team as discussed above. [...] bowel and bladder, and coordination with the [employer] managing medical co -morbidities; including Coordinate with [...] term memory, problem solving and carry over. Rn Prior Authorization Respiratory Therapy Please see each of the [...] of function to allow discharge to the [facility] at the optimal level of function. Current [...] am is advanced. Specific short term and fdc Rehabilitation Team Treatment Goals will be developed, sh ared and implemented in collaboration with our patient and family/caregivers. The [employer] Librarian is the albert Rehab body team member interfacing with them. Rehab Potential: Good Expected Functional Level at Discharge: Modified Independent/Supervision . Estimated length of stay: 5 days Discharge Plan: Discharge to pre-morbid independent living setting with the supportive care of patient's spouse/significant other/family/caregivers and community resources. Signed: Amandeep Lynn MD Portions of this chart may have been created with [employer] voice recognition software. Occasi onal wrong-word or sound-alike substitutions may have occurred due to the inherent howe itations of voice recognition software. Please read the chart carefully and recognize, using context, where these substitutions have occurred.Anastacio [place] MD - 08/30/2017 6137 PDTFormatting of this note may be different from the original. Gzgy-bg-Lbtn Rehabilitation Medicine Daily Progress Note Date: 08/30/17 ID/CC: This is a 76 y.o.malehad a lumbar fusion 18. Post operatively he had melena and w as seen at [facility] and given 2 u PRBC's and protonix. [...] d ischarged home, so was admitted to [facility] with the goal of home with [...] had melena and wa s seen at [facility] and given 2 u PRBC's and protonix. [...] di scharged home, so was admitted to [facility] with the goal of home with his . Patient is benefiting from inpatient rehabilitation since he needs physical therapy, occu pational therapy, speech therapy, group social worker, physiatric and nursing intervention. #Rehab - -Continue PT for gait, transfers -Continue OT for adl's, equipment, lymphedema control -Continue AUTOMATIC BEAM WARPER TENDER for cog evaluation and rehab. -Continue SW [...] this chart may have been created with [employer] voice recognition software. Occasi onal wrong-word or [...] 2018 | Visit | | [address] [facility] | | | | | | [address] [facility] [place] | | | | | | [id number] | | | | | | | [...] [place] | | | | | [facility] | | | | [...] + | [facility] | [address] | [place] | [phone] | | [facility] | | [address] | | | - LABORATORY | | | | + + + + + | [facility] | [address] | [place], [place] | | | [facility] | | [address] | | | - LABORATORY | | [...] 0.68 | 0.60 - 1.30 mg/dL | [facility] | | Serum/Plasma | | | [facility] | | | | | CENTER - | | | | | LABORATORY | + + + + + | eGFR if not | >60Comment: GLOMERULAR | >=60 mL/min/1.73m2 | [facility] | | [place] | FILTRATION | | [facility] | | | RATE,ESTIMATED mL/min | | CENTER - | | | /1.40w4Hbvq than 60 | | LABORATORY | | [...] [facility] | | | | | [facility] | | | | | CENTER - | | | | | LABORATORY | + + + + + | LAURA[address]ZAHRA | [address] | | [facility] [address] [facility] | | | | | [facility] | | | | [...] [address] | [place] | [phone] | | [facility] | | [address] | | | - LABORATORY | | | | + + + + + | [facility] | [address] | [place] | | | [facility] | | [address] | | | - LABORATORY | | | | + + + + + CBC with Differential (09/03/2017629) + + + + + | Component | Value | Ref Range | Performed At | + + + + + | WBC | 4.0 | 4.0 - 11.0 K/uL | [facility] | | | | | [facility] | | | | | CENTER - | | | | | LABORATORY | + + + + + | RBC | 3.70 (L) | 4.30 - 5.70 M/uL | [facility] | | | | | [facility] | | | | [...] [address] [facility] | | | | | [facility] | | | | [...] [address] | [place] | [phone] | | [facility] | | [address] | | | - LABORATORY | | | | + + + + + | [facility] | [address] | [place] | | | [facility] | | [address] | | | - LABORATORY | | | | + + + + + POC Glucose (09/02/20171) + +-------+ + + | Component | Value | Ref Range | Performed At | + +-------+ + + | Glucose, POC | 99 | 70 - 109 mg/dL | [facility] | | | | | [facility] | | | | [...] + | [facility] | [address] | [place], [place] | [phone] | | [facility] | | [address] | | | - LABORATORY | | | | + + + + + | [facility] [facility] | [address] | [place], [place] | | | [facility] | | [address] | | | - LABORATORY | | | | + + + + + POC Glucose (09/02/2017 1624) + +-------+ + + | Component | Value | Ref Range | Performed At | + +-------+ + + | Glucose, POC | 97 | 70 - 109 mg/dL | [facility] | | | | | [facility] | | | | | [...] + | [facility] | [address] | [place] | [phone] | | [facility] | | [address] | | | - LABORATORY | | | | + + + + + | [facility] | [address] | [place] | | | [facility] | | [address] | | | - LABORATORY | | [...] + | [facility] | [address] | [place] | [phone] | | [facility] | | [address] | | | - LABORATORY | | | | + + + + + | [facility] | [address] | [place] | | | [facility] | | [address] | | | - LABORATORY | | | | + + + + + POC Glucose (09/02/2017641) + +-------+ + + | Component | Value | Ref Range | Performed At | + +-------+ + + | Glucose, POC | 79 | 70 - 109 mg/dL | [facility] | | | | | [facility] | | | | [...] + | [facility] | [address] | [place] | [phone] | | [facility] | | [address] | | | - LABORATORY | | | | + + + + + | [facility] | [address] | [place] | | | [facility] | | [address] | | | - LABORATORY | | [...] + | [facility] | [address] | [place] | [phone] | | [facility] | | [address] | | | - LABORATORY | | | | + + + + + | [facility] | [address] | [place], [place] | | | [facility] | | [address] | | | - LABORATORY | | | | + + + + + POC Glucose (09/01/20171645) + +-------+ + + | Component | Value | Ref Range | Performed At | + +-------+ + + | Glucose, POC | 78 | 70 - 109 mg/dL | [facility]. | | | | | [facility] | | | | [...] + | [facility] [facility] | [address] | [place] | [phone] | | [facility] | | [address] | | | - LABORATORY | | | | + + + + + | [facility] | [address] | [place] | | | [facility] | | [address] | | | - LABORATORY | | | | + + + + + POC Glucose (09/01/2017 1141) + +-------+ + + | Component | Value | Ref Range | Performed At | + +-------+ + + | Glucose, POC | 89 | 70 - 109 mg/dL | [facility] | | | | | [facility] | | | | [...] [address] | [place] | [phone] | | [facility] | | [address] | | | - LABORATORY | | | | + + + + + | [facility] | [address] | [place], [place] | | | [facility] | | [address] | | | - LABORATORY | | | | + + + + + POC Glucose (09/01/2017653) + +-------+ + + | Component | Value | Ref Range | Performed At | + +-------+ + + | Glucose, POC | 89 | 70 - 109 mg/dL | [facility] | | | | | [facility] | | | | [...] + | [facility] | [address] | [place] | [phone] | | [facility] | | [address] | | | - LABORATORY | | | | + + + + + | [facility] | [address] | [place] | | | [facility] | | [address] | | | - LABORATORY | | | | + + + + + POC Glucose (08/31/20172116) + +---------+ + + | Component | Value | Ref Range | Performed At | + +---------+ + + | Glucose, POC | 115 (H) | 70 - 109 mg/dL | [facility] | | | | | [facility] | | | | [...] + | [facility] | [address] | [place] | [phone] | | [facility] | | [address] | | | - LABORATORY | | | | + + + + + | [facility] | [address] | [place] | | | [facility] | | [address] | | | - LABORATORY | | | | + + + + + POC Glucose (08/31/2017 1734) + +-------+ + + | Component | Value | Ref Range | Performed At | + +-------+ + + | Glucose, POC | 89 | 70 - 109 mg/dL | [facility] | | | | | [facility] | | | | [...] + | [facility] | [address] | [place], [place] | [phone] | | [facility] | | [address] | | | - LABORATORY | | | | + + + + + | [facility] | [address] | [place], [place] | | | [facility] | | [address] | | | - LABORATORY | | | | + + + + + Magnesium (08/31/2017429) + +---------+ + + | Component | Value | Ref Range | Performed At | + +---------+ + + | MG | 1.5 (L) | 1.8 - 2.5 mg/dL | [facility] | | | | | [facility] | | | | | CENTER - | | | | | LABORATORY | + +---------+ + + + + | Specimen | + + | Blood | + + + + + + + | Performing | Address | City/State/Zipcode | Phone Number | | Organization | | | | + + + + + | [facility] | [address] | [place] | [phone] | | [facility] | | [address] | | | - LABORATORY | | | | + + + + + | [facility] | [address] | [place] | | | [facility] | | [address] | | | - LABORATORY | | [...] (L) | 7 - 18 mg/dL | [facility] | | | | | [facility] | | | | | CENTER - | | | | | LABORATORY | + + + + + | Creatinine, | 0.67 | 0.60 - 1.30 mg/dL | [facility]. | | Serum/Plasma | | | [facility] | | | | | CENTER - | | | | | LABORATORY | + + + + + | eGFR if not | >60Comment: GLOMERULAR | >=60 mL/min/1.73m2 | [facility] | | [place] | FILTRATION | | [facility] | | | RATE,ESTIMATED mL/min | | CENTER - | | | /1.84s4Ynkj than 60 | | LABORATORY | | [...] + | [facility] | [address] | [place] | [phone] | | [facility] | | [address] | | | - LABORATORY | | | | + + + + + | [facility] | [address] | [place] | | | [facility] | | [address] | | | - LABORATORY | | | | + + + + + Phosphorus (08/31/2017 0430) + +-------+ + + | Component | Value | Ref Range | Performed At | + +-------+ + + | Phosphorus | 2.7 | 2.5 - 4.6 mg/dL | [facility] | | | | | [facility] | | | | [...] + | [facility] | [address] | [place], [place] | [phone] | | [facility] | | [address] | | | - LABORATORY | | | | + + + + + | [facility] | [address] | [place], [place] | | | [facility] | | [address] | | | - LABORATORY | | [...] + | [facility] | [address] | [place], [place] | [phone] | | [facility] | | [address] | | | - LABORATORY | | | | + + + + + | [facility] | [address] | [place], [place] | | | [facility] | | [address] | | | - LABORATORY | | [...] + | [facility] | [address] | [place] | [phone] | | [facility] | | [address] | | | - LABORATORY | | | | + + + + + | [facility] | [address] | [place] | | | [facility] | | [address] | | | - LABORATORY | | | | + + + + + Basic Metabolic Panel (08/30/2017537) + + + + + | Component | Value | Ref Range | Performed At | + + + + + | NA | 135 (L) | 136 - 149 mmol/L | [facility] | | | | | [facility] | | | | [...] [facility] | | | | | [facility] | | | | | CENTER - | | | | | LABORATORY | + + + + + | BUN | 5 (L) | 7 - 18 mg/dL | [facility] | | | | | [facility] | | | | | CENTER - | | | | | LABORATORY | + + + + + | Creatinine, | 0.69 | 0.60 - 1.30 mg/dL | [facility] | | Serum/Plasma | | | [facility] | | | | | CENTER - | | | | | LABORATORY | + + + + + | eGFR if not | >60Comment: GLOMERULAR | >=60 mL/min/1.73m2 | [facility] | | [place] | FILTRATION | | [facility] | | | RATE,ESTIMATED mL/min | | CENTER - | | | /1.84t6Nomq than 60 | | LABORATORY | | [...] 8.5 | 8.3 - 10.5 mg/dL | [facility]. | | | | | [facility] | | | | | CENTER - | | | | | LABORATORY | + + + + + | BUN/CREA | 7.2 | | [facility]. | | | | | [facility] | | | | [...] [address] | [place] | [phone] | | [facility] | | [address] | | | - LABORATORY | | | | + + + + + | [facility] | [address] | [place], [place] | | | [facility] | | [address] | | | - LABORATORY | | [...] + | [facility] | [address] | [place], [place] | [phone] | | [facility] | | [address] | | | - LABORATORY | | | | + + + + + | [facility] | [address] | [place], [place] | | | [facility] | | [address] | | | - LABORATORY | | | | + + + + + Magnesium (08/29/2017 1458) + +-------+ + + | Component | Value | Ref Range | Performed At | + +-------+ + + | MG | 2.1 | 1.8 - 2.5 mg/dL | [facility] | | | | | [facility] | | | | [...] [address] | [place] | [phone] | | [facility] | | [address] | | | - LABORATORY | | | | + + + + + | [facility] | [address] | [place] | | | [facility] | | [address] | | | - LABORATORY | | | | + + + + + Magnesium (08/29/2017625) + + + + + | Component | Value | Ref Range | Performed At | + + + + + | MG | 1.1 (LL)Comment: | 1.8 - 2.5 mg/dL | [facility] | | | Consistent with previous | | [facility] | | | results. | | CENTER [...] + | [facility] | [address] | [place], [place] | [phone] | | [facility] | | [address] | | | - LABORATORY | | | | + + + + + | [facility] | [address] | [place], [place] | | | [facility] | | [address] | | | - LABORATORY | | [...] 0.66 | 0.60 - 1.30 mg/dL | [facility] | | Serum/Plasma | | | [facility] | | | | | CENTER - | | | | | LABORATORY | + + + + + | eGFR if not | >60Comment: GLOMERULAR | >=60 mL/min/1.73m2 | [facility] | | [place] | FILTRATION | | [facility] | | | RATE,ESTIMATED mL/min | | CENTER - | | | /1.10t4Rynl than 60 | | LABORATORY | | [...] [facility] | | | | | [facility] | | | | | CENTER - | | | | | LABORATORY | + + + + + | [facility]UR[facility]AH[facility] | 9.[address] | | [address] | | | | | [facility] | | | | [...] [address] | [place] | [phone] | | [facility] | | [address] | | | - LABORATORY | | | | + + + + + | [facility] | [address] | [place] | | | [facility] | | [address] | | | - LABORATORY | | | | + + + + + CBC with Differential (08/29/2017625) + + + + + | Component | Value | Ref Range | Performed At | + + + + + | WBC | 4.7 | 4.0 - 11.0 K/uL | [facility] | | | | | [facility] | | | | | CENTER - | | | | | LABORATORY | + + + + + | RBC | 3.46 (L) | 4.30 - 5.70 M/uL | [facility] | | | | | [facility] | | | | [...] [facility] | | | | | [facility] | | | | [...] [address] | [place] | [phone] | | [facility] | | [address] | | | - LABORATORY | | | | + + + + + | [facility] | [address] | [place] | | | [facility] | | [address] | | | - LABORATORY | | | | + + + + + Vitamin D, Deficiency Screen (25-Hydroxy) (08/29/2017620) + +-------+ + + | Component | Value | Ref Range | Performed At | + +-------+ + + | Vitamin D, 25 | 50 | 30 - 80 ng/mL | [facility] | | Hydroxy | | | [facility] | | | | [...] + | [facility] | [address] | [place], [place] | [phone] | | [facility] | | [address] | | | - LABORATORY | | | | + + + + + | [facility] | [address] | [place], [place] | | | [facility] | | [address] | | | - LABORATORY | | [...] PDT | | | | | ONCE, [place] 08/30/17 at 0815, For 1 | | [...] PDT | | | | | ONCE, [facility] 08/31/17 at 0815, For 1 | | [...]
--- OUTSIDE RECORDS SUMMARY | ~2017-11-16 | XMS | Encounter Summary ---
Demographics + + + | Address | [address] | | | [place] [address] | + + + | Home Phone | | + + + | Preferred Language | Unknown | + + + | Marital Status | | + + + | Synagogue Affiliation | 1009 | + + + | Race | Unknown | + + + | Ethnic Group | Unknown | + + + Author + + + | Author | [facility] | | | and [place] | + + + | Organization | [facility] | [...] | | | | | [place] [address] | | + + + + + Care Team Providers + +------+ + | Care Mopper Name | Role | Phone | + [...] + + | 10/06/ | Office | [facility] [place] | Pamela Prieto | S/P lumbar fusion | | 2018 | Visit | NEUROSURGERY [address] | ERIC [address] | (Primary Dx); | | | | [address] | [place], | Spondylolisthesis of | | | | [place], [place] | [place] [address] | lumbar region; | | | | [address] | [phone] | Foraminal stenosis | | | | [phone] | | of lumbar region; | | [...] encounter Instructions Patient Instructions - Glenna Lucas, Trailer Sections Assembler - 10/06/2017 0830 [facility] KASANDRA PROTOCOL (5 WEEKS) Below [...] your back and 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 in this encounter Progress Notes Pamela Prieto PA-C - 10/06/2017 0830 PDTFormatting of this note may be different f rom the original. Hilton Prieto PA-C [address] [facility], [address] [place], [place] [address] FAX: [phone] NEUROSURGERY FOLLOW-UP CHIEF COMPLAINT: Chief Complaint Patient [...] improvement with his pre-operative symptoms. [facility] of Dr. Lynn [...] hope that they can avoid additional surgery. terminal make up operator pain medication does not appear to be [...] | Visit | | [address] | | | | | | [address] [place] | | | | | | [address] | | | | | | | [...]
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
--- OUTSIDE RECORDS SUMMARY | ~2017-11-16 | XMS | Encounter Summary ---
Demographics + + + | Address | [address] | | | [place] [address] | + + + | Home Phone | | + + + | Preferred Language | Unknown | + + + | Marital Status | | + + + | Worship Affiliation | 1009 | + + + | Race | Unknown | + + + | Ethnic Group | Unknown | + + + Author + + + | Author | [facility] | | | and [place] | + + + | Organization | [facility] | | | [...] | | | | | [place] [address] | | + + + + + Care Team Providers + +------+ + | Care Clinical Nursing Manager Name | Role | Phone | [...] + + | 08/26/ | Hospital | [facility] | Keshawn Begum | Anemia, unspecified | | 2017 - | Encounter | [facility] | MD Estiven [address] | type (Primary Dx); | | | | [address] | [address] | Weakness; Shortness | | 08/28/ | | [place] [address] | [place] [address] | of breath on | | 2018 | | [phone] | Elizabeth Vimal, | exertion; | | | | | MD Suri [address] | Symptomatic anemia; | | | | | [address] [facility] | Upper GI bleeding; | | | | | [place] [address] | Anemia associated | | | | | [phone] | with acute blood | | | [...] Units Result Value Ref Range Product Code Z9354M26 UNIT # [id number] UNIT ABO A UNIT RH POS CROSSMATCH INTERP Compatible Unit Status Transfused Blood Product ABORh APOS Blood Product Expiration Date and Time Product Blood Type Barcode 6200 Product Code G7674O53 UNIT # [id number] UNIT ABO A UNIT RH POS CROSSMATCH INTERP Compatible Unit Status Transfused Blood Product ABORh APOS Blood Product Expiration Date and Time Product Blood Type Barcode 6200 Product Code W1863P57 UNIT # [id number] UNIT ABO A UNIT RH POS CROSSMATCH [...] recent upper GI bleed tr eated at [facility], deconditioning with a number of falls, who presented with weakn ess, leg edema, weight loss, found to have severe anemia. Problem-Oriented Hospital Course: Upper GI bleed with blood loss anemia: - Christiano melena recently noted on 08/14-08/18 hospital stay at [facility], treated with Protonix, 2 units of PRBC's, no EGD done at outside hospital - Reportedly using NSAID's before this event, although history unclear - HGB fell from 11.5 on 08/18 on release from [place] to 7.2 on 08/26 - After 3 [...] signed by: Anish Arroyo MD, 08/28/2017 16:21 [facility] in this encounter Medications at Time of [...] may be different f rom the original. [facility] Hospitalist Progress Note Linda Cristobal is [...] Units Result Value Ref Range Product Code T4496I64 UNIT # [id number] UNIT ABO A UNIT RH POS CROSSMATCH INTERP Compatible Unit Status Transfused Blood Product [facility] APOS Blood Product Expiration Date and Time Product Blood Type Barcode 6200 Product Code A5712P97 UNIT # [id number] UNIT ABO A UNIT RH POS CROSSMATCH INTERP Compatible Unit Status Transfused Blood Product ABOR APOS Blood Product Expiration Date and Time Product Blood Type Barcode 6200 Product Code M7959Y70 UNIT # [id number] UNIT ABO A UNIT RH POS CROSSMATCH INTERP Compatible Unit Status Transfused Blood Product [facility] APOS Blood Product Expiration Date and [...] recently noted on 08/14-08/18 hospital stay at [facility], treated with Protonix, 2 units of PRBC's, [...] as outlined above. Anish Arroyo 08/28/2017 10:05 [facility] Anish Arroyo MD - 08/27/2017 1235 PDTFormatting of this note may be different from th e original. [facility] Hospitalist Progress Note Linda Cristobal is a 76 y.o. male SUBJECTIVE: He is a very poor historian. He denies bleeding or black stools. He reports pain is con trolled. He wants to get home as soon as possible. In review of recent admission to [facility] in [place], he was admitted from to 08/18. He [...] Inferior leads Confirmed by GRECIA ONTIVEROS MD ([id number]) on 08/27/2017 6:54:43 AM POC Glucose Result [...] Units Result Value Ref Range Product Code H1988U06 UNIT # [id number] UNIT ABO A UNIT RH POS CROSSMATCH INTERP Compatible Unit Status Transfused Blood Product ABORh APOS Blood Product Expiration Date and Time Product Blood Type Barcode 6200 Product Code G3946E47 UNIT # [id number] UNIT ABO A UNIT RH POS CROSSMATCH INTERP Compatible Unit Status Issued Blood Product ABORh APOS Blood Product Expiration Date and Time Product Blood Type Barcode 6200 Product Code H2484E91 UNIT # [id number] UNIT ABO A UNIT RH POS CROSSMATCH INTERP Compatible Unit Status Transfused Blood Product ABOR APOS Blood Product Expiration Date and Time [id number] Product Blood Type Barcode 6200 Xr Chest [...] recently noted on 08/14-08/18 hospital stay at [facility], treated with Protonix, 2 units of PRBC's, [...] as outlined above. Anish Arroyo 08/27/2017 16:00 [facility] Marah Fierro, PharmD - 08/26/2017 [...] strength, and directions X Pharmacy list names: [facility] Vaccines up to date? Yes No [...] Tobacco, Alcohol, and Recreational substances Best possible MERCHANDISING REPRESENTATIVE medication list after pharmacy review: PT REPORTED [...] performed and electronically signed by Felicitas Leiva, Ripening Room Operator 08/26/2017 19:33 Reviewed by Marah Fierro, PharmD 08/26/2017 19:56 in this encounter Plan of Treatment +--------+---------+ + + + | Date | Type | Specialty | Care Team | Description | +--------+---------+ + + + | 01/05/ | Office | Neurosurgery | Berta Tao MD | | | 2018 | Visit | | [address] [facility] | | | | | [...] | | | [place] | | | [id number] | | | [id number] | | | This | | | [...] | | | faf-3c | | | [id number] | | | cfee | | | [...] + | [facility] | [address] | [place], [place] | [phone] | | [facility] | | [address] | | | - LABORATORY | | | | + + + + + | [facility] | [address] | [place], [place] | | | [facility] | | [address] | | | - LABORATORY | | [...] 0.74 | 0.60 - 1.30 mg/dL | [facility] | | Serum/Plasma | | | [facility] | | | | | CENTER - | | | | | LABORATORY | + + + + + | eGFR if not | >60Comment: GLOMERULAR | >=60 mL/min/1.73m2 | [facility] | | [place] | FILTRATION | | [facility] | | | RATE,ESTIMATED mL/min | | CENTER - | | | /1.28f0Jfxq than 60 | | LABORATORY | | [...] 8.8 | 8.3 - 10.5 mg/dL | [facility] | | | | | [facility] | | | | | CENTER - | | | | | LABORATORY | + + + + + | LAURA/ZAHRA | 8.1 | | [facility] | | | | | MID [...] [address] | [place] | [phone] | | [facility] | | [address] | | | - LABORATORY | | | | + + + + + | [facility] | [address] | [place] | | | [facility] | | [address] | | | - LABORATORY | | [...] + | [facility] | [address] | [place], [place] | [phone] | | [facility] | | [address] | | | - LABORATORY | | | | + + + + + | [facility] | [address] | [place], [place] | | | [facility] | | [address] | | | - LABORATORY | | | | + + + + + PRETTY (08/28/2017 1319) + + ---+ | Narrative | Performed At | + + ---+ | | [facility] | | GastroenterologyPatient Name: Linda CristobalProcedure Date: 08/28/2017 1:19 | [facility] | | [facility] SYSTEMN: [id number] #: [id number] of : 1940dmit | | | Type: InpatientAge: 76Room: [facility] 01Gender: MaleNote Status: | | | FinalizedAttending MD: Linda Carpenter , [facility]cedure: | | | Upper GI endoscopyIndications: Acute post hemorrhagic | | | anemiaProviders: Linda Carpenter MD, Marah Coles, | | | RN, Codi Pinedo, | | | Youth Counselor, Phoenix Cabello MD (Anesthesia | | | [...] | | nurse, the anesthesiologist and the product development technician in the | | | endoscopy [...] | | 1:37:12 PMScope Out: 1:42:04 PM [facility] | | | [place], [address] [place] [address] | | | - Resume previous diet [...] |Scope Out: 1:42:04 PM | | | [facility], [address] [facility], [place], [place] | | | [address] | | + + ---+ + +---------+ [...] + | [facility] | [address] | [place] | [phone] | | [facility] | | [address] | | | - LABORATORY | | | | + + + + + | [facility] | [address] | [place] | | | [facility] | | [address] | | | - LABORATORY | | [...] + | [facility] | [address] | [place], [place] | [phone] | | [facility] | | [address] | | | - LABORATORY | | | | + + + + + | [facility] | [address] | [place], [place] | | | [facility] | | [address] | | | - LABORATORY | | [...] ST. | [address] | [place], [place] | [phone] | | [facility] | | [address] | | | - LABORATORY | | | | + + + + + | [facility] | [address] | [place] | | | [facility] | | [address] | | | - LABORATORY | | [...] [facility] | | | | | [facility] | | | | | CENTER - | | | | | LABORATORY | + + + + + | Creatinine, | 0.74 | 0.60 - 1.30 mg/dL | [facility] | | Serum/Plasma | | | [facility] | | | | | CENTER - | | | | | LABORATORY | + + + + + | eGFR if not | >60Comment: GLOMERULAR | >=60 mL/min/1.73m2 | [facility] | | [place] | FILTRATION | | [facility] | | | RATE,ESTIMATED mL/min | | CENTER - | | | /1.32u9Ttjc than 60 | | LABORATORY | | [...] (L) | 8.3 - 10.5 mg/dL | [facility]. | | | | | [facility] | | | | | CENTER - | | | | | LABORATORY | + + + + + | BUN/CREA | 9.5 | | [facility]. | | | | | MID [...] + | [facility] | [address] | [place] | [phone] | | [facility] | | [address] | | | - LABORATORY | | | | + + + + + | [facility] | [address] | [place], [place] | | | [facility] | | [address] | | | - LABORATORY | | [...] + | [facility] | [address] | [place], [place] | [phone] | | [facility] | | [address] | | | - LABORATORY | | | | + + + + + | [facility] | [address] | [place], [place] | | | [facility] | | [address] | | | - LABORATORY | | | | + + + + + Red Blood Cells Uncrossmatched - 3 Units (08/27/20171914) + + + + + | Component | Value | Ref Range | Performed At | + + + + + | Product Code | [id number] | | [facility] | | | | | [facility] | | | | | CENTER - BLOOD | | | | | BANK | + + + + + | UNIT # | [id number] | | [facility] | | | [...] + + + | Blood Product | [id number] | | [facility] | | Expiration [...] + + + | Product Code | [id number] | | [facility] | | | | | [facility] | | | | | CENTER - BLOOD | | | | | BANK | + + + + + | UNIT # | [id number] | | [facility] | | | [...] + + + | Blood Product | [id number] | | [facility] | | Expiration [...] + + + | Product Code | [id number] | | [facility] | | | | | [facility] | | | | | CENTER - BLOOD | | | | | BANK | + + + + + | UNIT # | [id number] | | [facility] | | | [...] + + + | Blood Product | [id number] | | [facility] | | Expiration [...] St | [place] | | | [facility] | | [address] | | | - BLOOD BANK | [...] + | [facility] | [address] | [place], [place] | [phone] | | [facility] | | [address] | | | - LABORATORY | | | | + + + + + | [facility] | [address] | [place], [place] | | | [facility] | | [address] | | | - LABORATORY | | | | + + + + + Vitamin B-12 (08/27/2017 1314) + + + + + | Component | Value | Ref Range | Performed At | + + + + + | VITAMIN B-12 | 381Comment: | 180 - 914 pg/mL | [facility] | | | DEFICIENT: | | [...] + | [facility] | [address] | [place] | [phone] | | [facility] | | [address] | | | - LABORATORY | | | | + + + + + | [facility] | [address] | [place] | | | [facility] | | [address] | | | - LABORATORY | | [...] [facility] | | | | | [facility] | | | | | [...] + | [facility] | [address] | [place] | [phone] | | [facility] | | [address] | | | - LABORATORY | | | | + + + + + | [facility] | [address] | [place], [place] | | | [facility] | | [address] | | | - LABORATORY | | [...] mL/min/1.73m2 | [facility] | | [place] | FILTRATION | | [facility] | | | RATE,ESTIMATED mL/min | | CENTER - | | | /1.94r2Djqp than 60 | | LABORATORY | | [...] + | [facility] | [address] | [place] | [phone] | | [facility] | | [address] | | | - LABORATORY | | | | + + + + + | [facility] | [address] | [place], [place] | | | [facility] | | [address] | | | - LABORATORY | | [...] [address] | [place] | [phone] | | [facility] | | [address] | | | - LABORATORY | | | | + + + + + | [facility] | [address] | [place] | | | [facility] | | [address] | | | - LABORATORY | | [...] [facility] | | | | | [facility] | | | | | [...] + | [facility] | [address] | [place] | [phone] | | [facility] | | [address] | | | - LABORATORY | | | | + + + + + | [facility] | [address] | [place], [place] | | | [facility] | | [address] | | | - LABORATORY | | | | + + + + + POC Glucose (08/27/2017625) + +-------+ + + | Component | Value | Ref Range | Performed At | + +-------+ + + | Glucose, POC | 77 | 70 - 109 mg/dL | [facility] | | | | | [facility] | | | | | CENTER - | | | | | LABORATORY | + +-------+ + + + + | Specimen | + + | Blood | + + + + + + + | Performing | Address | City/State/Zipcode | Phone Number | | Organization | | | | + + + + + | [facility] | [address] | [place] | [phone] | | [facility] | | [address] | | | - LABORATORY | | | | + + + + + | [facility] | [address] | [place] | | | [facility] | | [address] | | | - LABORATORY | | [...] ONTIVEROS MD | | | | | (74811) on 08/27/2017 | | | | | [...] + | [facility] | [address] | [place] | [phone] | | [facility] | | [address] | | | - LABORATORY | | | | + + + + + | [facility] | [address] | [place], [place] | | | [facility] | | [address] | | | - LABORATORY | | [...] + | [facility] | [address] | [place] | [phone] | | [facility] | | [address] | | | - LABORATORY | | | | + + + + + | [facility] | [address] | [place] | | | [facility] | | [address] | | | - LABORATORY | | [...] + | [facility] | [address] | [place] | [phone] | | [facility] | | [address] | | | - LABORATORY | | | | + + + + + | [facility] | [address] | [place] | | | [facility] | | [address] | | | - LABORATORY | | [...] [address] | [place] | [phone] | | [facility] | | [address] | | | - LABORATORY | | | | + + + + + | [facility] | [address] | [place], [place] | | | [facility] | | [address] | | | - LABORATORY | | [...] + | [facility] | [address] | [place], [place] | [phone] | | [facility] | | [address] | | | - LABORATORY | | | | + + + + + | [facility] | [address] | [place], [place] | | | [facility] | | [address] | | | - LABORATORY | | [...] 96.4 | 83.0 - 101.0 fL | [facility] | | | [...] 0.10 | 0.00 - 0.40 K/uL | [facility] | | | | | [facility] | | | | | [...] + | [facility] | [address] | [place], [place] | [phone] | | [facility] | | [address] | | | - LABORATORY | | | | + + + + + | [facility] | [address] | [place], [place] | | | [facility] | | [address] | | | - LABORATORY | | [...] + | [facility] | [address] | [place], [place] | [phone] | | [facility] | | [address] | | | - LABORATORY | | | | + + + + + | [facility] | [address] | [place] | | | [facility] | | [address] | | | - LABORATORY | | [...] [address] | [place] | [phone] | | [facility] | | [address] | | | - LABORATORY | | | | + + + + + | [facility] | [address] | [place] | | | [facility] | | [address] | | | - LABORATORY | | [...] + | [facility] | [address] | [place], [place] | [phone] | | [facility] | | [address] | | | - LABORATORY | | | | + + + + + | [facility] | [address] | [place], [place] | | | [facility] | | [address] | | | - LABORATORY | | [...] ST. | [address] | [place], [place] | | | [facility] | | [address] | | | - BLOOD BANK | [...] | + + + + + | [facility] | [address] | [place] | [phone] | | [facility] | | [address] | | | - LABORATORY | | | | + + + + + | [facility] | [address] | [place] | | | [facility] | | [address] | | | - LABORATORY | | [...] 12 | 7 - 18 mg/dL | [facility] | | | | | [facility] | | | | | CENTER - | | | | | LABORATORY | + + + + + | Creatinine, | 0.78 | 0.60 - 1.30 mg/dL | [facility] | | Serum/Plasma | | | [facility] | | | | | CENTER - | | | | | LABORATORY | + + + + + | eGFR if not | >60Comment: GLOMERULAR | >=60 mL/min/1.73m2 | [facility] | | [place] | FILTRATION | | [facility] | | | RATE,ESTIMATED mL/min | | CENTER - | | | /1.83c8Tefz than 60 | | LABORATORY | | [...] | 1.1 | 0.8 - 2.0 | [facility] | | ratio | | | [...] + | [facility] | [address] | [place] | [phone] | | [facility] | | [address] | | | - LABORATORY | | | | + + + + + | [facility] | [address] | [place], [place] | | | [facility] | | [address] | | | - LABORATORY | | [...] | | | DAILY, First dose on [facility] 08/27/17 | | PDT | | | [...]
--- OUTSIDE RECORDS SUMMARY | ~2017-11-16 | XMS | Encounter Summary ---
Demographics + + + | Address | [address] | | | [place] [address] | + + + | Home Phone | | + + + | Preferred Language | Unknown | + + + | Marital Status | | + + + | Christian Affiliation | 1009 | + + + | Race | Unknown | + + + | Ethnic Group | Unknown | + + + Author + + + | Author | [facility] | | | and [place] | + + + | Organization | [facility] | | | and [...] | | | | | [place] [address] | | + + + + + Care Team Providers + +------+ + | Care Cleaner And Polisher Name | Role | Phone | + +------+ + | Ann Rivera MD | PCP | | + +------+ + Encounter Details +--------+ + + + + | Date | Type | Department | Care Team | Description | +--------+ + + + + | 10/06/ | Hospital | [facility] | Rene Tao MD | Foraminal stenosis | | 2018 | Encounter | MED CTR XRAY [address] | [address] [place] | of lumbar region; | | | | [place] | [address] [place] [address], [place] | Lumbar | | | | [place] [address] | [address] | radiculopathy; DDD | | | | [phone] | | (degenerative disc | | | | | | disease), lumbar; | | | | | | Status post lumbar | | | | | | spinal fusion; S/P | | | | | | lumbar fusion; | | | | | | Spondylolisthesis of | | | | | | lumbar region | +--------+ + + + + Social [...] into | 20 mL | 0 | 07// | | | (TRUSOPT) 2% | both [...] | Visit | | [address] [facility] | | | | | | [address] [place] | | | | | | [address] | | | | | | | | +--------+---------+ + + + + +--------+ + + | Name | Priori | Associated Diagnoses | Order Schedule | | | ty | | | + +--------+ + + | XR Lumbar Spine 4 + Vw | Routin | Foraminal stenosis | 1 Occurrences | | | e | of lumbar region | starting 10/06/2017 | | | | Lumbar radiculopathy | until 10/06/2017 | | | | DDD (degenerative | | | | | disc disease), | | | | | lumbar | | + +--------+ + + | XR Lumbar Spine 2 or 3 Vw | Routin | Status post lumbar | 1 Occurrences | | | e | spinal fusion | starting 10/06/2017 | | | | | until 10/06/2017 | + +--------+ + + as of [...] | | + +--------+ + + + in [...] + | Diagnosis | + + | Foraminal stenosis of lumbar region | + + | Spinal stenosis, lumbar region, without neurogenic claudication | + + | Lumbar radiculopathy | + + | Thoracic or lumbosacral neuritis or radiculitis, unspecified | + + | DDD (degenerative disc disease), lumbar | + + | Degeneration of lumbar or lumbosacral intervertebral disc | + + | Status post lumbar spinal fusion | + + | Arthrodesis status | + + | S/P lumbar fusion | + + | Arthrodesis status | + + | Spondylolisthesis of lumbar region | + + | Acquired spondylolisthesis | + +"
--- OUTSIDE RECORDS SUMMARY | ~2017-11-16 | XMS | Encounter Summary ---
Demographics + + + | Address | [address] | | | [place] [address] | + + + | Home Phone | | + + + | Preferred Language | Unknown | + + + | Marital Status | | + + + | Mandaen Affiliation | 1009 | + + + | Race | Unknown | + + + | Ethnic Group | Unknown | + + + Author + + + | Author | [facility] | | | and [place] | + + + | Organization | [facility] | | | [...] | | | | | [place] [address] | | + + + + + Care Team Providers + +------+ + | Care Patient Care Provider Name | Role | Phone | + +------+ + | Ann Rivera MD | PCP | | + +------+ + Encounter Details +--------+ + + + + | Date | Type | Department | Care Team | Description | +--------+ + + + + | 10/06/ | Hospital | [facility] | Rene Tao MD | 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
--- OUTSIDE RECORDS SUMMARY | ~2017-11-16 | XMS | Encounter Summary ---
Demographics + + + | Address | [address] | | | [place] [address] | + + + | Home Phone | | + + + | Preferred Language | Unknown | + + + | Marital Status | | + + + | Lutheran Affiliation | 1009 | + + + | Race | Unknown | + + + | Ethnic Group | Unknown | + + + Author + + + | Author | [facility] | | | and [place] | + + + | Organization | [facility] | | [...] | | | | | [place] [address] | | + + + + + Care Team Providers + +------+ + | Care Enrobing Machine Corder Name | Role | Phone | + +------+ + | Ann Rivera MD | PCP | | + +------+ + Encounter Details +--------+ + + + + | Date | Type | Department | Care Team | Description | +--------+ + + + + | 08/30/ | Hospital | [facility] | Justin Mariano, | | | 2018 | Encounter | MED CTR THERAPY OT | OT | | | | | ACUTE [address] | | | | | | [place] | | | | | | [address] | | | | | | [phone] | | | +--------+ + + + [...] [place] | | | | | | [address] | | | | | | | | +--------+---------+ + + + as of this encounter Visit Diagnoses Not on filein this encounter"
--- OUTSIDE RECORDS SUMMARY | ~2017-11-16 | XMS | Encounter Summary ---
Demographics + + + | Address | [address] | | | [place] [address] | + + + | Home Phone | | + + + | Preferred Language | Unknown | + + + | Marital Status | | + + + | Voodoo Affiliation | 1009 | + + + | Race | Unknown | + + + | Ethnic Group | Unknown | + + + Author + + + | Author | [facility] | | | and [place] | + + + | Organization | [facility] | | | [...] | | | | | [place] [address] | | + + + + + Care Team Providers + +------+ + | Care Mud Cleaner Operator Name | Role | Phone | [...] + + | 08/25/ | Telephone | [facility] | Rene Tao MD | Results, Imaging | | 2018 | | NEUROSURGERY [address] | [address] [place] | (possible imaging | | | | [address] | [address] [place] | done while | | | | [place] | [phone] | hospitialized @ [facility] | | | | [address] | | [facility] | | | | [phone] | | [place]. ) | +--------+ [...] 2018 | Visit | | [address] [facility] | | | | | | [address] [place] | | | | | | [id number] | | | | | | | [...]
--- OUTSIDE RECORDS SUMMARY | 2017-11-16 16:38 | XMS ---
PreManage Notification: LINDA FOLEY [employer] Events No recent Security Events currently on file CRITERIA MET - [facility] - 3 Facilities in 90 Days - PDMP - [facility] - 2 Visits in 30 Days CARE PROVIDERS There are no care providers on record at this time. Juany has no Care Guidelines for this patient. EJulietDJuliet VISIT COUNT (12 MO.) [address] [place] [id number] MALIK Herrera TOTAL 5 NOTE: Visits indicate total known visits. ED/UCC VISIT TRACKING (12 MO.) 11/16/2017 16:33 [facility] [place] TYPE: Emergency COMPLAINT: - FACIAL SWELLING 10/26/2017 12:32 [facility] [place] TYPE: Emergency COMPLAINT: - SUBARACHNOID HEMORRAGE DIAGNOSES: - Unspecified dementia without behavioral disturbance - Type 2 diabetes mellitus without complications - Fall on same level, unspecified, initial encounter - Traumatic subarachnoid hemorrhage without loss of consciousness, initial encounter - Weakness - Repeated falls - Multiple fractures of ribs, left side, initial encounter for closed fracture - Essential (primary) hypertension 09/05/2017 19:38 [facility] [place] TYPE: Emergency COMPLAINT: - HYPONATREMIA, NON-SPECIFIC MENTAL STATUS CHANGES, TRACE EDEMA, MEICATION, DEMETIA DIAGNOSES: - Hyperosmolality and hypernatremia - Gout, unspecified - Personal history of malignant neoplasm of prostate - History of falling - Hyperlipidemia, unspecified - Unspecified dementia without behavioral disturbance - Gastro-esophageal reflux disease without esophagitis - Hyperosmolality and hypernatremia - Cerebral ischemia - Type 2 diabetes mellitus with diabetic polyneuropathy - Hyperlipidemia, unspecified - Acquired absence of other genital organ(s) - Type 2 diabetes mellitus with diabetic polyneuropathy - History of falling - Essential (primary) hypertension - Essential (primary) hypertension - Disorientation, unspecified - Acquired absence of other genital organ(s) - Cerebral ischemia - Gout, unspecified - Gastro-esophageal reflux disease without esophagitis - Personal history of malignant neoplasm of prostate - Unspecified dementia without behavioral disturbance [facility]2017 [facility] DIAGNOSES: - Anemia, unspecified - Abnormal Lab - Shortness of breath - Weakness 08/14/2017 03:38 [facility] [place] TYPE: Emergency COMPLAINT: - ACUTE RENAL FAILURE; HYPONATREMIA; DEHYDRATION DIAGNOSES: - Other specified abnormal findings of blood chemistry - Fall from chair, initial encounter - Low back pain - Type 2 diabetes mellitus without complications - Unspecified dementia with behavioral disturbance - Hypo-osmolality and hyponatremia - Altered mental status, unspecified - Delusional disorders - Acute kidney failure, unspecified - Pain in right ankle and joints of right foot - Essential (primary) hypertension INPATIENT VISIT TRACKING (12 MO.) 08/26/2017 15:56 [facility] DIAGNOSES: - Gastrointestinal hemorrhage, unspecified - Anemia, unspecified - Type 2 diabetes mellitus without complications - Shortness of breath - Localized edema - Weakness - Hypomagnesemia - Acute posthemorrhagic anemia - Unspecified severe protein-calorie malnutrition 08/14/2017 06:30 [facility] [place] TYPE: Medical Surgical COMPLAINT: - ACUTE RENAL FAILURE; HYPONATREMIA; DEHYDRATION DIAGNOSES: - Other specified abnormal findings of blood chemistry - Heart failure, unspecified - Acute kidney failure, unspecified - Polyneuropathy, unspecified - Unspecified dementia with behavioral disturbance - Anemia, unspecified - Melena - Hypo-osmolality and hyponatremia - Altered mental status, unspecified - Essential (primary) hypertension - Other specified postprocedural states - Type 2 diabetes mellitus with diabetic neuropathy, unspecified - retirement (current) use of oral hypoglycemic drugs - Other malaise - Low back pain - Disorientation, unspecified [facility]2017 08[facility] DIAGNOSES: - Unspecified abnormalities of gait and mobility - Lumbar radiculopathy (M54.16), Low back pain, unspecified back pain laterality, unspecified chronicity, with sciatica presence unspecified (M54.5), Lumbar herniated disc (M51.26), Type 2 diabetes mellitus without complication, unspecified senior care - insulin use status (HCC) (E11.9), 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
[2017-11-16] MEDS ORDERED: FAMCICLOVIR500 MG PO (17:45)
== END 2017-11-16 18:18 | disposition home or self-care (01) ==
LOC: ED 16:32
DX: B02.9 Zoster without complications (principal); F03.90 Unspecified dementia, unspecified severity, without behavioral disturbance, psychotic disturbance, mood disturbance, and anxiety; I10 Essential (primary) hypertension; E11.9 Type 2 diabetes mellitus without complications; Z87.891 Personal history of nicotine dependence
CPT/HCPCS: 99282